=== PATIENT | female | born 1950 | race Caucasian/White ===

== ENCOUNTER → 2020-05-30 10:28 | Outpatient (BNVA) | payer MEDICARE, SELFPAY | PROVIDERS: PCP Internal Medicine Cardiovascular Disease; Referring Provider Internal Medicine Cardiovascular Disease; Visit Provider Nurse Practitioner Family | DX: Z01.810 Encounter for preprocedural cardiovascular examination (principal); I35.0 Nonrheumatic aortic (valve) stenosis; I10 Essential (primary) hypertension; I44.7 Left bundle-branch block, unspecified | CPT/HCPCS: 99214 ==

== ENCOUNTER → 2020-05-31 10:17 | Outpatient (REF) | payer MEDICARE, SELFPAY ==
--- NOTE | 2020-05-31 10:24 | CA_ITS ---
Transthoracic Echocardiogram Patient (Last, First, Middle): Zahra Feliz J Gender: Female Date of : 1950 Age: 70 Procedure Date: 05/31/2020 Procedure Type: Transthoracic Echocardiogram Location: OP Height: 160.02 cm Weight: 74.84 kg BSA: 1.78 m2 Heart Rate: bpm BP: 118 / 60 mmHg Pneumatic Tester Mechanic: Referring MD: Radha De La Garza FILLER SIFTER HELPERHipolito Symptoms: I35.0 NONRHEUMATIC AORTIC STENOSIS Study Quality: Fair ECG Rhythm: Sinus Conclusions: - The left ventricular systolic function is normal. The visually estimated ejection fraction is between 65-70%. - There is moderate aortic valve stenosis. Findings Left Ventricle Normal left ventricular cavity size. There is mildly increased left ventricular wall thickness. The left ventricular systolic function is normal. The visually estimated ejection fraction is between 65-70%. There is no evidence of regional wall motion abnormalities. E/E prime ratio is between 8 and 15 consistent with indeterminate filling pressures. Evidence suggests grade I (mild) diastolic dysfunction. Right Ventricle Normal right ventricular cavity size and systolic function. Atria The left atrium is normal in size. The right atrium is normal in size. Aortic Valve The aortic valve was not well visualized. There is mild calcification of the aortic valve. There is moderate aortic valve stenosis. The peak aortic velocity is 3.07 m/s with a calculated peak gradient of 38 mmHg. The mean gradient is 22 mmHg. The aortic valve area is 1.10 cm2. There is mild aortic valve regurgitation. Mitral Valve There is mild mitral annular calcification. There is trace mitral valve regurgitation. There is no mitral valve stenosis. Pulmonic Valve The pulmonic valve was not well visualized. Tricuspid Valve Normal tricuspid valve structure. There is mild tricuspid valve regurgitation. The pulmonary artery systolic pressure is normal. Great Vessels The aortic annulus, sinuses of valsalva, and asc aorta are normal in size. Venous The inferior vena cava is normal in size and collapses greater than 50% with inspiration. Pericardium/Pleural There is no evidence of pericardial effusion. Prior Study Comparison No significant change compared to prior study dated: 07/26/2019. Measurements 2D Linear Measurements IVSd: 1.29 0.6-0.9/0.6-1.0 cm LVIDd: 3.91 3.9-5.3/4.2-5.9 cm LVIDd Index: 2.20 2.4-3.2/2.2-3.1 cm/m2 LVIDs: 2.44 2.0-3.6 cm LVPWd: 1.20 0.7-1.1 cm Ao Root: 2.90 2.1-3.5 cm LA Diam: 3.80 2.7-3.8/3.0-4.0 cm LAIDs Index: 2.13 1.5-2.3 cm/m2 LV Mass: 210.46 67-162/88-224 g LV Mass Index: 118.24 43-95/49-115 g/m2 LVOT Diam: 2.00 3.0+(-)1.3 cm Mitral Valve MV Pk E: 0.81 MV PK A: 1.14 MV Decel Time: 246.00 E/A: 0.70 E'Lateral: 5.61 E'Medial: 5.42 E/E' Med: 14.90 E/E' Lat: 14.40 PHT: 72.00 MVA PHT: 3.06 Decel Char[place]: 3.29 Aortic Valve AoV Pk Jay: 3.07 AoV Mn Jay: 2.16 AoV VTI: 0.77 AoV Pk Grad: 38.00 Aov Mn Grad: 22.00 JOVITA Cont.VTI: 1.10 LVOT LVOT Pk Jay: 1.12 LVOT Mn Jay: 0.78 LVOT VTI: 0.27 LVOT Pk Grad: 5.00 LVOT Mn Grad: 3.00 LVOT Diam: 2.00 LVOT Area: 3.14 Diastolic Function MV Pk E: 0.81 MV Pk A: 1.14 E/A: 0.70 E'Medial: 5.42 E/E' Med: 14.90 E' Laterial: 5.61 E/E' Lat: 14.40 Tricuspid Valve TR Pk Jay: 1.81 TR Pk Grad: 13.00 RA Press: 3.00 RVSP: 16.00 Great Vessels Aorta Ao Root-2D: 2.90 2.0-3.7 cm Ao Asc: 3.40 2.1-3.4 cm Pulmonary Valve PV Pk Jay: 1.32 Peak PV Grad: 7.00 Updated in Other Vendor System with Status of Final Luciano Villasenor MD electronically signed on 06/01/2020 9:27:46 AM with status of Final
== END ==
LOC: HO.CARD 10:17
PROVIDERS: PCP Internal Medicine; Visit Provider Nurse Practitioner Family
DX: I35.0 Nonrheumatic aortic (valve) stenosis (principal); I10 Essential (primary) hypertension; I44.7 Left bundle-branch block, unspecified; I45.4 Nonspecific intraventricular block
CPT/HCPCS: 93306

== ENCOUNTER 2020-10-01 08:33 | Outpatient (REF) | payer MEDICARE, SELFPAY ==
--- NOTE | ~2020-10-01 | MM_ITS ---
EXAMINATION: BONE DENSITOMETRY CLINICAL INDICATION: Osteoporosis. COMPARISON: Previous BD dated 07/05/2018 and baseline BD dated 03/27/2013. TECHNIQUE: Using a [employer] DXA System (software version: 13.1) manufactured by [employer], dual-energy x-ray absorptiometry was performed of the lumbar spine and left hip. The images are of good technical quality. Summary results are attached. FINDINGS: AP SPINE L1-L4: Current: BMD 1.130 g/cm2, Z-score 0.9, T-score -0.4, normal, 2.8% decrease from previous, 1.4% increase from baseline (<5% change is not significant). Prior: BMD 1.162 g/cm2. Baseline: BMD 1.114 g/cm2. LEFT FEMUR, NECK: Current: BMD 0.938 g/cm2, Z-score 0.7, T-score -0.7, normal. Prior: BMD 0.960 g/cm2. Baseline: BMD 1.002 g/cm2. LEFT FEMUR, TOTAL: Current: BMD 0.963 g/cm2, Z-score 0.9, T-score -0.4, normal, 5.5% decrease from previous, 5.4% decrease from baseline (<5% change is not significant). Prior: BMD 1.019 g/cm2. Baseline: BMD 1.018 g/cm2. IDENTIFIED RISK FACTORS: Early menopause, hysterectomy, secondary osteoporosis. HISTORY OF FRACTURE: None listed. MEDICATIONS: Calcium, Thiazide. MM/XR DEXA axial skeleton IMPRESSION: 1. DIAGNOSIS: Normal bone density based on the lowest T-score value of -0.7 in the femoral neck applying World Health Organization criteria. 2. 10-YEAR FRACTURE RISK PREDICTION, FRAX: Major osteoporotic fracture (clinical spine, forearm, hip or shoulder) 8.0%. Hip fracture 0.7%. 3. Treatment Recommendations: NOF guidelines recommend consideration for treatment in postmenopausal women and men age 50 and older presenting with the following: -A hip or vertebral (clinical or morphometric) fracture. -T-score less than or equal to -2.5 at the femoral neck or spine after appropriate evaluation to exclude secondary causes. -Low bone mass at the hip or spine and a 10-year fracture probability by FRAX of greater than or equal to 3% for hip fracture or greater than or equal to 20% for major osteoporotic fracture based on the [place] adapted WHO algorithm. 4. Other Recommendations: All treatment decisions require clinical judgment and consideration of individual patient factors, including patient preferences, comorbidities, previous drug use, risk factors not captured in the FRAX model (e.g. frailty, falls, vitamin D deficiency, increased bone turnover, interval significant decline in bone density) and possible under or overestimation of fracture risk by FRAX. FUTURE SCAN RECOMMENDATION: People with diagnosed cases of osteoporosis or at high risk for fracture should have regular bone mineral density tests. For patients eligible for Medicare, routine testing is allowed once every 2 years. The testing frequency can be increased to one year for patients who have rapidly progressing disease, those who are receiving or discontinuing medical therapy to restore bone mass, or have additional risk factors.
--- NOTE | ~2020-10-01 | MM_ITS ---
EXAMINATION: MM SCREENING DIGITAL BREAST TOMOSYNTHESIS, BILATERAL CLINICAL INFORMATION: Screening. Asymptomatic. The lifetime risk of breast cancer based on the Tyrer-Cuzick Model is 8%. COMPARISON: Mammography: 04/07/2019, 04/01/2018, 03/10/2017 TECHNIQUE: Digital breast tomosynthesis is performed in both the craniocaudal and mediolateral oblique views along with computer-aided detection (CAD). Synthesized 2D images are generated from the tomosynthesis. FINDINGS: There are scattered areas of fibroglandular density (ACR BI-RADS breast composition Category b). There are no significant masses, abnormal calcifications, or other abnormalities. Parenchymal pattern is similar to prior studies. Scattered bilateral fibroglandular asymmetries are stable. No significant changes. MM/MM tomosynthesis screening BI IMPRESSION: No significant changes from prior exams. ASSESSMENT: BI-RADS 2: Benign RECOMMENDATION: Routine annual mammography screening. This patient's information was entered into a reminder system with a target due date for their next mammogram.
== END 2020-10-01 08:34 | disposition home or self-care (01) ==
LOC: HO.MAMMO 08:33
PROVIDERS: PCP Internal Medicine; Visit Provider Internal Medicine
DX: Z13.820 Encounter for screening for osteoporosis (principal); Z78.0 Asymptomatic menopausal state; Z79.899 Other long term (current) drug therapy; Z90.710 Acquired absence of both cervix and uterus; Z12.31 Encounter for screening mammogram for malignant neoplasm of breast
CPT/HCPCS: 77063; 77067; 77080

== ENCOUNTER → 2020-11-11 09:36 | Outpatient (BNVA) | payer MEDICARE, SELFPAY | PROVIDERS: PCP Internal Medicine; Visit Provider Obstetrics & Gynecology | DX: N90.4 Leukoplakia of vulva (principal) | CPT/HCPCS: 99212 ==

== ENCOUNTER 2021-07-21 10:28 | Outpatient (REF) | payer MEDICARE, SELFPAY ==
[2021-07-21 10:31] LABS: MANUAL DIFF FLAG NO
[2021-07-21 10:56] LABS: Basophils Absolute Auto 0.1 X10*3/uL (0.0-0.2); Basophils Percent Auto 1.6 % (0-2); Eosinophils Absolute Auto 0.3 X10*3/uL (0.0-0.4); Eosinophils Percent Auto 4.4 % (0-4); Hematocrit 39.7 % (37.0-47.0); Hemoglobin 12.9 g/dl (12.0-16.0); Imm Gran Abs Auto 0.02 X10*3/uL (0.00-0.03); Imm Gran Pct Auto 0.4 % (0.0-0.4); Lymphocytes Absolute Auto 2.2 X10*3/uL (1.2-4.9); Mean Corpuscular HGB Conc 32.5 g/dl (31.0-35.0); Mean Corpuscular Hemoglobin 28.8 pg (27.0-33.0); Mean Corpuscular Volume 88.6 fL (80.0-98.0); Mean Platelet Volume 10.4 fL (9.4-12.3); Monocytes Absolute Auto 0.5 X10*3/uL (0.1-1.2); Monocytes Percent Auto 9.6 % (2-11); Neutrophils Absolute Auto 2.5 x10*3/uL (2.0-8.3); Platelet Count 239 X10*3/uL (160-400); Red Blood Count 4.48 X10*6/uL (4.20-5.50); Red Cell Distribution Width 12.9 % (11.0-16.0); White Blood Count 5.6 X10*3/uL (4.8-10.8)
[2021-07-21 10:57] LABS: Appearance Urine CLEAR; Color Urine YELLOW; Glucose Urine UA NEG (NEG); Leukocyte Esterase Urine NEG (NEG); Nitrite Urine NEG (NEG); Urine Blood 1+ (NEG); Urine Ketones NEG (NEG); Urine Protein NEG (NEG-TRACE)
[2021-07-21 11:05] LABS: Estimated Average Glucose 131 mg/dL; Hemoglobin A1c % 6.2 %
[2021-07-21 11:13] LABS: Alanine Aminotransferase 29 U/L (0-31); Albumin Level 4.2 g/dL (3.5-5.0); Alkaline Phosphatase 101 U/L (39-117); Anion Gap 13 (12-20); Aspartate Amino Transferase 18 U/L (5-31); Bilirubin Total 0.4 mg/dL (0.0-1.0); Blood Urea Nitrogen 19 mg/dL (9-16); Calcium 9.4 mg/dL (8.4-10.2); Carbon Dioxide 28 mmol/L (22-29); Chloride 105 mmol/L (96-108); Cholesterol 252 mg/dL; Estimated Glomerular Filt Rate > 60; Glucose Fasting 108 mg/dL (60-99); HDL Cholesterol 43 mg/dL; LDL Cholesterol Calculated 162 mg/dl; Potassium 3.8 mmol/L (3.3-5.1); Sodium 142 mmol/L (135-145); Total Protein 6.7 g/dL (6.5-8.0); Triglycerides 236 mg/dL
[2021-07-21 11:18] LABS: Reflex LDLD? No
[2021-07-21 11:19] LABS: Creatinine Urine 122.51 mg/dL; Microalbum/Creatinine Ratio Ur 9.7 ug/mg cr
[2021-07-21 12:19] LABS: Squamous Epithelial Cell Urine 1+ /LPF; WBC Urine 0-2 /HPF (0-4)
== END 2021-07-21 10:29 | disposition home or self-care (01) ==
LOC: HO.LNP 10:28
PROVIDERS: PCP Internal Medicine; Visit Provider Internal Medicine
DX: Z00.00 Encounter for general adult medical examination without abnormal findings (principal); R73.03 Prediabetes; I10 Essential (primary) hypertension; D72.820 Lymphocytosis (symptomatic); E78.6 Lipoprotein deficiency; E78.00 Pure hypercholesterolemia, unspecified
CPT/HCPCS: 80053; 80061; 81001; 81003; 82043; 83036; 85025

== ENCOUNTER 2021-10-24 07:56 | Outpatient (REF) | payer MEDICARE, OTHER, SELFPAY ==
--- NOTE | ~2021-10-24 | MM_ITS ---
EXAMINATION: MM SCREENING DIGITAL BREAST TOMOSYNTHESIS, BILATERAL CLINICAL INFORMATION: Screening. Asymptomatic. The lifetime risk of breast cancer based on the Tyrer-Cuzick Model is 3.7%. COMPARISON: Mammography: 10/01/2020 and studies dating back to 11/29/2013. TECHNIQUE: Digital breast tomosynthesis is performed in both the craniocaudal and mediolateral oblique views along with computer-aided detection (CAD). Synthesized 2D images are generated from the tomosynthesis. FINDINGS: There are scattered areas of fibroglandular density (ACR BI-RADS breast composition Category b). There is a stable parenchymal pattern of the right breast with no new abnormal dominant mass or suspicious grouping of microcalcifications. Within the anterior aspect of the right breast on mediolateral oblique projection only, there is a region of question architectural distortion superiorly as well as partially circumscribed density inferiorly both approximately 3 cm from the nipple with the inferior density measuring approximately 1 cm in diameter. MM/MM tomosynthesis screening BI IMPRESSION: Left breast findings for further evaluation with spot compression view and possible ultrasound. ASSESSMENT: BI-RADS 0: Incomplete - Need Additional Imaging Evaluation RECOMMENDATION: 1. Additional views of the left. 2. Targeted ultrasound if warranted after review of the additional views. 3. Radiology department staff will contact the patient for additional imaging. This patient's information was entered into a reminder system with a target due date for their next mammogram.
== END 2021-10-24 07:57 | disposition home or self-care (01) ==
LOC: HO.MAMMO 07:56
PROVIDERS: PCP Internal Medicine; Visit Provider Internal Medicine
DX: Z12.31 Encounter for screening mammogram for malignant neoplasm of breast (principal)
CPT/HCPCS: 77063; 77067

== ENCOUNTER 2021-11-07 08:24 | Outpatient (REF) | payer MEDICARE, OTHER, SELFPAY ==
--- NOTE | ~2021-11-07 | US_ITS ---
EXAMINATION: US DIAGNOSTIC ULTRASOUND BREAST, LEFT CLINICAL INFORMATION: Densities medially and laterally.. COMPARISON: Mammography of same day as well as studies dating back to November 29, 2013. TECHNIQUE: Ultrasound of the breast is performed with real-time lowry scale imaging and color Doppler. FINDINGS: Left breast ultrasound demonstrates at the 6:00 position approximately 4 cm from the nipple a skin lesion with the appearance of sebaceous cyst. At the 9:00 position there is a heterogeneous and hypoechoic poorly circumscribed lesion approximately 3 cm from the nipple. There appears to be some mild distal sound enhancement with what appears to be some edge effect shadowing. No internal vascularity is present. The lesion measures approximately 9 x 7 x 7 mm in size. This may represent a complex cyst however with a somewhat irregular margin a partially solid lesion is not excluded and ultrasound-guided core biopsy is recommended. At the 3:00 position approximately 3 cm from nipple there is a hypoechoic lesion present however this appears to represent confluence of ducts. Six-month follow-up of this finding is recommended. Results are discussed with the patient at time of visit. Mammography Center patient navigator called the above recommendation to referring provider's office. US/US breast LT limited IMPRESSION: Left breast lesion 9:00 position 3 cm from nipple for which ultrasound-guided core biopsy is recommended. Left breast lesion 3:00 position with the appearance of probable ducts for which 6 month follow-up ultrasound is recommended. ASSESSMENT: BI-RADS 4: Suspicious RECOMMENDATION: Ultrasound-guided core biopsy left breast 9 o'clock position.
--- NOTE | ~2021-11-07 | MM_ITS ---
EXAMINATION: MM DIAGNOSTIC DIGITAL BREAST TOMOSYNTHESIS, LEFT US BREAST, TARGETED, LEFT CLINICAL INFORMATION: Densities about the anterior medial and lateral aspects of the left breast. COMPARISON: Mammography: 10/24/2021 and studies dating back to 11/29/2013. TECHNIQUE: Digital breast tomosynthesis is performed. 2D images are generated from the tomosynthesis. The following views are obtained: Rolled craniocaudal views, 90 degree mediolateral view, and spot compression view in mediolateral oblique projection. ULTRASOUND: FINDINGS: There are scattered areas of fibroglandular density (ACR BI-RADS breast composition Category b). Additional views demonstrate persistence of left breast densities with the medial density compression out to some degree making the two overlying densities appear similar in size to prior studies. This measures approximately 10 x 8 mm in size. The more anterior and lateral density persists with no definite previous correlate. This measures approximately 9 x 5 mm in size. Left breast ultrasound demonstrates at the 6 o'clock position approximately 4 cm from the nipple a skin lesion with the appearance of sebaceous cyst. At the 9 o'clock position there is a heterogeneous and hypoechoic poorly circumscribed lesion approximately 3 cm from the nipple. There appears to be some mild distal sound enhancement with what appears to be some edge effect shadowing. No internal vascularity is present. The lesion measures approximately 9 x 7 x 7 mm in size. This may represent a complex cyst however with a somewhat irregular margin a partially solid lesion is not excluded and ultrasound-guided core biopsy is recommended. At the 3 o'clock position approximately 3 cm from nipple there is a hypoechoic lesion present however this appears to represent confluence of ducts. Six-month follow-up of this finding is recommended. Results are discussed with the patient at time of visit. Mammography Center patient navigator called the above recommendation to referring provider's office. MM/MM tomosynthesis added views L IMPRESSION: Left breast lesion 9 o'clock position 3 cm from nipple for which ultrasound-guided core biopsy is recommended. Left breast lesion 3 o'clock position with the appearance of probable ducts for which 6 month follow-up ultrasound is recommended. ASSESSMENT: BI-RADS 4: Suspicious RECOMMENDATION: Ultrasound-guided core biopsy left breast 9 o'clock position. This patient's information was entered into a reminder system with a target due date for their next mammogram.
== END 2021-11-07 08:25 | disposition home or self-care (01) ==
LOC: HO.MAMMO 08:24
PROVIDERS: Visit Provider Internal Medicine
DX: N63.25 Unspecified lump in the left breast, overlapping quadrants (principal)
CPT/HCPCS: 76642; 77061; 77065

== ENCOUNTER 2021-11-13 09:13 | Outpatient (REF) | payer MEDICARE, OTHER, SELFPAY ==
--- NOTE | ~2021-11-13 | MM_ITS ---
EXAMINATION: ULTRASOUND GUIDED CORE BIOPSY BREAST, LEFT POST PROCEDURE DIGITAL MAMMOGRAM, LEFT CLINICAL INFORMATION: Complicated cyst, possibly apocrine metaplasia 9:00 anterior left breast for tissue sampling. COMPARISON: Mammography 10/24/2021, 11/07/2021, targeted left breast ultrasound 11/07/2021. FINDINGS: Proper informed consent is obtained from the patient after discussion of the procedure, potential risks and complications, and alternatives. Patient was given an opportunity for questions. The patient appeared to understand. The patient consented to the procedure and signed the consent form. GUIDANCE: Ultrasound-guided; aseptic technique. LESION: Probable complicated cyst 0.9 cm anterior 9:00 left breast. APPROACH: Medial lateral. ANESTHESIA: 10 mL carbonated 1% lidocaine. DERMATOTOMY: Single skin lefty dermatotomy performed. NEEDLE: 14-gauge Achieve core biopsy device with 13.5-gauge co-axial guide needle. CORES: 5. The lesion is soft and decreases in size with sampling. CLIP: HydroMARK; shape: butterfly. The lesion is difficult to visualize post sampling, clip positioning the vicinity of biopsy site. POST PROCEDURE UNILATERAL DIGITAL MAMMOGRAM: The post biopsy mammogram is performed in separate room using separate digital mammography equipment from the biopsy procedure. CC and ML views are obtained.There are scattered areas of fibroglandular density (breast composition category: b). The clip marker is in expected vicinity of prior mammographic finding. No gross hematoma. The patient tolerated the procedure well. No immediate complications. Home instructions reviewed with the patient. Final pathology results are pending. MM/MM diagnostic mammo unilat LT IMPRESSION: 1. Status post ultrasound-guided core biopsy left breast. 2. Clip placed: HydroMARK; shape: butterfly. 3. Pathology pending. An addendum report will be issued.
[2021-11-13] MEDS: Sodium Bicarbonate 8.4% 50 MEQ/50 ML VIAL SUBCUT (11:11)
[2021-11-13] MEDS: Lidocaine HCl 1 % 20 ML VIAL 10 ML SUBCUT (11:12)
== END 2021-11-13 09:14 | disposition home or self-care (01) ==
LOC: HO.MAMMO 09:13
PROVIDERS: PCP Internal Medicine; Visit Provider Surgery
DX: N63.25 Unspecified lump in the left breast, overlapping quadrants (principal)
CPT/HCPCS: 19083; 77062; 77065; 88305; 99202

== ENCOUNTER → 2021-11-19 11:09 | Outpatient (BNVA) | payer MEDICARE, OTHER, SELFPAY | PROVIDERS: PCP Internal Medicine; Referring Provider Internal Medicine; Visit Provider Surgery | DX: N63.20 Unspecified lump in the left breast, unspecified quadrant (principal) | CPT/HCPCS: 99212 ==

== ENCOUNTER 2022-07-21 11:38 | Outpatient (REF) | payer MEDICARE, OTHER, SELFPAY ==
[2022-07-21 11:41] LABS: MANUAL DIFF FLAG NO
[2022-07-21 12:21] LABS: Appearance Urine Clear; Color Urine Yellow; Glucose Urine UA Negative (Negative); Leukocyte Esterase Urine Negative (Negative); Nitrite Urine Negative (Negative); PH 6.5 (5.0-9.0); Specific Gravity - Urine 1.015 (1.005-1.025); UMIC TRIGGER UA YES; Urine Blood Small (1+) (Negative); Urine Ketones Negative (Negative); Urine Protein Negative (Neg-Trace)
[2022-07-21 12:24] LABS: Bacteria Urine None Seen (None Seen); Hyaline Casts Urine 0-2 /LPF (0-2); Squamous Epithelial Cell Urine 0-2 /HPF (0-2); WBC Urine 0-5 /HPF (0-5)
[2022-07-21 12:29] LABS: Basophils Absolute Auto 0.1 X10*3/uL (0.0-0.2); Basophils Percent Auto 1.3 % (0-2); Eosinophils Absolute Auto 0.4 X10*3/uL (0.0-0.4); Eosinophils Percent Auto 5.6 % (0-4); Hematocrit 38.1 % (37.0-47.0); Imm Gran Abs Auto 0.02 X10*3/uL (0.00-0.03); Imm Gran Pct Auto 0.3 % (0.0-0.4); Lymphocytes Absolute Auto 2.3 X10*3/uL (1.2-4.9); Lymphocytes Percent Auto 36.9 % (20-40); Mean Corpuscular HGB Conc 31.5 g/dl (31.0-35.0); Mean Corpuscular Hemoglobin 27.1 pg (27.0-33.0); Monocytes Absolute Auto 0.6 X10*3/uL (0.1-1.2); Monocytes Percent Auto 8.9 % (2-11); Neutrophils Absolute Auto 2.9 x10*3/uL (2.0-8.3); Platelet Count 260 X10*3/uL (160-400); Red Blood Count 4.43 X10*6/uL (4.20-5.50); Red Cell Distribution Width 13.2 % (11.0-16.0); White Blood Count 6.2 X10*3/uL (4.8-10.8)
[2022-07-21 12:46] LABS: Estimated Average Glucose 123 mg/dL; Hemoglobin A1c % 5.9 %
[2022-07-21 12:51] LABS: Microalbum/Creatinine Ratio Ur 9.4 ug/mg cr
[2022-07-21 13:05] LABS: Alanine Aminotransferase 18 U/L (0-31); Albumin Level 4.2 g/dL (3.5-5.0); Anion Gap 12 (12-20); Aspartate Amino Transferase 16 U/L (5-31); Bilirubin Total 0.2 mg/dL (0.0-1.0); Blood Urea Nitrogen 20 mg/dL (9-16); Calcium 9.3 mg/dL (8.4-10.2); Carbon Dioxide 30 mmol/L (22-29); Chloride 105 mmol/L (96-108); Cholesterol 254 mg/dL; Estimated Glomerular Filt Rate > 60; Glucose Fasting 114 mg/dL (60-99); Potassium 3.9 mmol/L (3.3-5.1); Sodium 143 mmol/L (135-145); Total Protein 6.7 g/dL (6.5-8.0); Triglycerides 168 mg/dL
[2022-07-21 13:28] LABS: Alkaline Phosphatase 111 U/L (39-117); HDL Cholesterol 47 mg/dL; LDL Cholesterol Calculated 174 mg/dl
== END 2022-07-21 11:39 | disposition home or self-care (01) ==
LOC: HO.LNP 11:38
PROVIDERS: Visit Provider Internal Medicine
DX: Z00.00 Encounter for general adult medical examination without abnormal findings (principal); R73.09 Other abnormal glucose; I10 Essential (primary) hypertension; D72.820 Lymphocytosis (symptomatic); E78.00 Pure hypercholesterolemia, unspecified
CPT/HCPCS: 80053; 80061; 81001; 82043; 83036; 85025

== ENCOUNTER → 2022-08-06 09:16 | Outpatient (REF) | payer MEDICARE, OTHER, SELFPAY ==
--- NOTE | 2022-08-06 09:19 | CA_ITS ---
Transthoracic Echocardiogram Patient (Last, First, Middle): Zahra Feliz J Gender: Female Date of : 1950 Age: 72 Procedure Date: 08/06/2022 Procedure Type: Transthoracic Echocardiogram Location: OP Height: 160.02 cm Weight: 72.58 kg BSA: 1.76 m2 Heart Rate: bpm BP: 135 / 74 mmHg Director Women: TO Referring MD: Robin Barnett MD Fiberglass Insulation Installer: Laz Sawyer MD Symptoms: I35.0 MODERATE Study Quality: Fair ECG Rhythm: Sinus Conclusions: - 1. Normal LV systolic function with impaired relaxation filling pattern elevated filling pressures 2. Moderate to severe aortic stenosis 3. Normal RV systolic pressure 4. No gross pericardial effusion Findings Left Ventricle Normal left ventricular size, thickness, and systolic function. The visually estimated ejection fraction is between 60-65%. Spectral Doppler is indicative of an impaired relaxation filling pattern. Elevated filling pressures. Wall Motion Rest Echo Findings The basal inferior and basal inferoseptal segments are hypokinetic. All other scored wall segments showed normal motion. Right Ventricle Normal right ventricular cavity size and systolic function. Atria Both atria are normal in size. There is lipomatous hypertrophy of the interatrial septum. There is no evidence of interatrial shunt. Aortic Valve There is moderate calcification of the aortic valve. There is moderate to severe aortic valve stenosis. The mean gradient is 34 mmHg. The aortic valve area is 0.75 cm2. There is mild aortic valve regurgitation. Dimensionless index is at 0.29 with calculated valve area 0.75, description findings most consistent with moderately severe aortic stenosis. Clinical correlation suggested. Mitral Valve There is mild anterior and posterior mitral leaflet thickening. There is trace mitral valve regurgitation. There is no mitral valve stenosis. Pulmonic Valve The pulmonic valve is likely normal. There is trace pulmonic valve regurgitation. Tricuspid Valve Normal tricuspid valve structure. There is trace tricuspid valve regurgitation. The right ventricular systolic pressure is normal. Normal right atrial pressure. There is no evidence of pulmonary hypertension. Great Vessels All visible segments of the aorta are normal in size. The pulmonary artery was not well visualized. Venous The inferior vena cava is normal in size and collapses greater than 50% with inspiration. Pericardium/Pleural There is no evidence of pericardial effusion. Prior Study Comparison Changes noted compared to prior study dated: 05/31/2020. Aortic stenosis is, moderately severe Measurements 2D Linear Measurements IVSd: 1.23 0.6-0.9/0.6-1.0 cm LVIDd: 3.69 3.9-5.3/4.2-5.9 cm LVIDd Index: 2.10 2.4-3.2/2.2-3.1 cm/m2 LVIDs: 2.24 2.0-3.6 cm LVPWd: 1.04 0.7-1.1 cm LA Diam: 3.90 2.7-3.8/3.0-4.0 cm LAIDs Index: 2.22 1.5-2.3 cm/m2 LV Mass: 167.92 67-162/88-224 g LV Mass Index: 95.41 43-95/49-115 g/m2 LVOT Diam: 1.80 3.0+(-)1.3 cm 2D Systolic Function EF 4C: 58.60 >55% EF 2C: 65.90 >55% EF BiP: 62.40 >55% Mitral Valve MV Pk E: 0.73 MV PK A: 0.80 MV Decel Time: 263.00 E/A: 0.90 E'Lateral: 5.11 E'Medial: 4.68 E/E' Med: 15.60 E/E' Lat: 14.20 PHT: 77.00 MVA PHT: 2.86 Decel Rice: 2.77 Aortic Valve AoV Pk Jay: 3.77 AoV Mn Jay: 2.78 AoV VTI: 1.02 AoV Pk Grad: 57.00 Aov Mn Grad: 34.00 JOVITA Cont.VTI: 0.75 LVOT LVOT Pk Jay: 1.11 LVOT Mn Jay: 0.78 LVOT VTI: 0.30 LVOT Pk Grad: 5.00 LVOT Mn Grad: 3.00 LVOT Diam: 1.80 LVOT Area: 2.54 Diastolic Function MV Pk E: 0.73 MV Pk A: 0.80 E/A: 0.90 E'Medial: 4.68 E/E' Med: 15.60 E' Laterial: 5.11 E/E' Lat: 14.20 Right Ventricle TAPSE (mm): 28.50 TVS' Jay: 12.60 Tricuspid Valve TR Pk Jay: 1.85 TR Pk Grad: 14.00 RA Press: 3.00 RVSP: 17.00 Great Vessels Aorta Sinus of Valsalva: 2.81 2.0-3.5 cm Ao Asc: 3.10 2.1-3.4 cm Updated in Other Vendor System with Status of Final Laz Sawyer MD electronically signed on 08/07/2022 3:59:22 PM with status of Final
== END ==
LOC: HO.CARD 09:16
PROVIDERS: PCP Internal Medicine; Visit Provider Internal Medicine
DX: I35.0 Nonrheumatic aortic (valve) stenosis (principal)
CPT/HCPCS: 93306

== ENCOUNTER → 2022-09-15 09:42 | Outpatient (BNVA) | payer MEDICARE, OTHER, SELFPAY | PROVIDERS: PCP Internal Medicine; Visit Provider Physician Assistant | DX: K21.9 Gastro-esophageal reflux disease without esophagitis (principal); R09.89 Other specified symptoms and signs involving the circulatory and respiratory systems; I35.0 Nonrheumatic aortic (valve) stenosis | CPT/HCPCS: 99202 ==

== ENCOUNTER 2022-09-22 08:46 | Outpatient (REF) | payer MEDICARE, OTHER, SELFPAY ==
--- NOTE | ~2022-09-22 | FL_ITS ---
EXAMINATION: FL BARIUM SWALLOW CLINICAL INFORMATION: Feeling of something stuck in throat COMPARISON: None TECHNIQUE: Barium swallow examination is performed using fluoroscopic evaluation in addition to multiple fluoroscopic spot views. The patient is imaged both upright and prone and using both thick and thin sulfate along with effervescent granules. Barium tablet was also administered. Fluoroscopy time: 0.6 minutes DAP: 3 Gycm2 Images: 55 FINDINGS: There is transient laryngeal penetration. No he aspiration seen. There are postsurgical changes to the cervical spine. Esophageal motility is normal. There is severe gastroesophageal reflux. There is mucosal irregularity of the distal thoracic esophagus just above the GE junction. Endoscopic correlation recommended. No mass or stricture is appreciated. There is temporary stasis of the barium tablet at the GE junction. FL/FL barium swallow IMPRESSION: Significant gastroesophageal reflux. Small sliding-type hiatal hernia. Mucosal irregularity of the distal thoracic esophagus just above the GE junction. Endoscopic correlation recommended.
== END 2022-09-22 08:47 | disposition home or self-care (01) ==
LOC: HO.XRAY 08:46
PROVIDERS: PCP Internal Medicine; Visit Provider Physician Assistant
DX: K21.9 Gastro-esophageal reflux disease without esophagitis (principal); R09.89 Other specified symptoms and signs involving the circulatory and respiratory systems; I35.0 Nonrheumatic aortic (valve) stenosis
CPT/HCPCS: 74220

== ENCOUNTER 2022-09-28 08:42 | Outpatient (REF) | payer MEDICARE, OTHER, SELFPAY ==
--- NOTE | ~2022-09-28 | MM_ITS ---
EXAMINATION: MM DIAGNOSTIC DIGITAL BREAST TOMOSYNTHESIS, BILATERAL CLINICAL INFORMATION: Due for yearly. Also follow-up probable benign parenchymal asymmetry anterior upper outer left breast. Prior history benign biopsy anterior medial left breast (intraductal papillomatosis and focal PASH). The lifetime risk of breast cancer based on the Tyrer-Cuzick Model is 3%. COMPARISON: Mammography: 4 and 22, 11/07/2021, 10/24/2021, 10/01/2020, 04/07/2019, 04/05/2018 TECHNIQUE: Digital breast tomosynthesis is performed in both the craniocaudal and mediolateral oblique views along with computer-aided detection (CAD). Synthesized 2D images are generated from the tomosynthesis. FINDINGS: There are scattered areas of fibroglandular density (ACR BI-RADS breast composition Category b). There are no significant masses, abnormal calcifications, or other abnormalities. There are scattered shifting fibroglandular parenchymal densities related to variation in positioning. No developing density or significant changes. Biopsy clip marker is again noted anterior medial left breast. The axilla are unremarkable. No significant changes from prior exams. Results are provided to the patient at time of visit by the technologist. MM/MM tomosynthesis diagnostic BI IMPRESSION: No significant changes from prior studies. ASSESSMENT: BI-RADS 2: Benign RECOMMENDATION: Routine annual mammography screening. This patient's information was entered into a reminder system with a target due date for their next mammogram.
== END 2022-09-28 08:43 | disposition home or self-care (01) ==
LOC: HO.MAMMO 08:42
PROVIDERS: PCP Internal Medicine; Visit Provider Surgery
DX: N63.21 Unspecified lump in the left breast, upper outer quadrant (principal)
CPT/HCPCS: 77062; 77066

== ENCOUNTER 2022-10-15 10:40 | Outpatient (REF) | payer MEDICARE, OTHER, SELFPAY ==
[2022-10-19 17:44] LABS: NT-proBNP 72 pg/mL
== END 2022-10-15 10:41 | disposition home or self-care (01) ==
LOC: HO.LAB 10:40
PROVIDERS: PCP Internal Medicine; Referring Provider Internal Medicine; Visit Provider Internal Medicine Cardiovascular Disease
DX: I35.0 Nonrheumatic aortic (valve) stenosis (principal)
CPT/HCPCS: 36415; 83880; 93005; 99212

== ENCOUNTER → 2022-10-16 10:19 | Outpatient (REF) | payer MEDICARE, OTHER, SELFPAY ==
--- NOTE | 2022-10-16 10:22 | CA_ITS ---
Acquisition Time: 2022-10-16 10:45:17 Total Exercise Time: 00:05:03 Test Indications: LBBB Medications: SEE H Protocol: ANNETTE Max HR: 141 BPM 95% of Pred: 148 BPM Max BP: 170/068 mmHG Max Work Load: 7.0 METS Exercise stress test with 5 min 3 sec of Annette protocol achieving 95% MPHR with moderate SOB, no chest discomfort or lightheadedness, with few junctional beats at baseline, with two ventricular cuplets in early recovery, with BP 148/68 in stage 1 and 138/68 in stage 2, trhen up to 170/68 in recovery at 3 mins with non-diagnostuic changes for ischema. In recovery her breathing quickly improved and BP 122/62 at test end. Test reviewed with Dr. Villasenor. Referred By: Salvatore Brady Overread By: BRICE NÚÑEZ
== END ==
LOC: HO.CARD 10:19
PROVIDERS: PCP Internal Medicine; Visit Provider Internal Medicine Cardiovascular Disease
DX: I35.0 Nonrheumatic aortic (valve) stenosis (principal)
CPT/HCPCS: 93017

== ENCOUNTER 2022-11-06 10:51 | Outpatient (REF) | payer MEDICARE, OTHER, SELFPAY ==
[2022-11-06 11:12] LABS: MANUAL DIFF FLAG NO
[2022-11-06 12:10] LABS: Basophils Absolute Auto 0.1 X10*3/uL (0.0-0.2); Basophils Percent Auto 1.4 % (0-2); Eosinophils Absolute Auto 0.2 X10*3/uL (0.0-0.4); Eosinophils Percent Auto 3.3 % (0-4); Hematocrit 36.6 % (37.0-47.0); Hemoglobin 11.8 g/dl (12.0-16.0); Imm Gran Abs Auto 0.02 X10*3/uL (0.00-0.03); Imm Gran Pct Auto 0.4 % (0.0-0.4); Lymphocytes Absolute Auto 1.7 X10*3/uL (1.2-4.9); Mean Corpuscular HGB Conc 32.2 g/dl (31.0-35.0); Mean Corpuscular Hemoglobin 27.5 pg (27.0-33.0); Mean Corpuscular Volume 85.3 fL (80.0-98.0); Monocytes Absolute Auto 0.4 X10*3/uL (0.1-1.2); Monocytes Percent Auto 7.4 % (2-11); Neutrophils Absolute Auto 2.8 x10*3/uL (2.0-8.3); Neutrophils Percent Auto 54.5 % (45-73); Platelet Count 269 X10*3/uL (160-400); Red Blood Count 4.29 X10*6/uL (4.20-5.50); White Blood Count 5.1 X10*3/uL (4.8-10.8)
[2022-11-06 12:13] LABS: INTERNATIONAL NORM RATIO 0.9 (0.9-1.1); Prothrombin Time 10.8 SEC (10.0-13.1)
[2022-11-06 13:14] LABS: Anion Gap 13 (12-20); Blood Urea Nitrogen 20 mg/dL (9-16); Calcium 9.1 mg/dL (8.4-10.2); Carbon Dioxide 27 mmol/L (22-29); Chloride 104 mmol/L (96-108); Estimated Glomerular Filt Rate > 60; Glucose Random 121 mg/dL (60-115); Potassium 4.3 mmol/L (3.3-5.1); Sodium 140 mmol/L (135-145)
== END 2022-11-06 10:52 | disposition home or self-care (01) ==
LOC: HO.LAB 10:51
PROVIDERS: Visit Provider Internal Medicine Cardiovascular Disease
DX: Z01.812 Encounter for preprocedural laboratory examination (principal)
CPT/HCPCS: 36415; 80048; 85025; 85610

== ENCOUNTER → 2022-12-02 14:41 | Outpatient (BNVA) | payer MEDICARE, OTHER, SELFPAY | PROVIDERS: PCP Internal Medicine; Referring Provider Internal Medicine; Visit Provider Internal Medicine Cardiovascular Disease | DX: I35.0 Nonrheumatic aortic (valve) stenosis (principal); I44.7 Left bundle-branch block, unspecified | CPT/HCPCS: 99212 ==

== ENCOUNTER → 2023-03-12 10:48 | Outpatient (REF) | payer MEDICARE, OTHER, SELFPAY ==
--- NOTE | 2023-03-12 10:51 | CA_ITS ---
Transthoracic Echocardiogram Patient (Last, First, Middle): Zahra Feliz J Gender: Female Date of : 1950 Age: 72 Procedure Date: 03/12/2023 Procedure Type: Transthoracic Echocardiogram Location: OP Height: 160.02 cm Weight: 74.84 kg BSA: 1.78 m2 Heart Rate: 67 bpm BP: 148 / 64 mmHg Vertical Punch Operator: SB Referring MD: Mejia Leonard MD Symptoms: S/P TRANSAORTIC VALVE REPLACEMENT Study Quality: Adequate ECG Rhythm: Sinus Conclusions: - The left ventricular systolic function is normal. The visually estimated ejection fraction is between 60-65%. - A bioprosthetic aortic valve is present. The prosthetic aortic valve appears to be functioning normally. Findings Left Ventricle Normal left ventricular cavity size. The left ventricular systolic function is normal. The visually estimated ejection fraction is between 60-65%. There is no evidence of regional wall motion abnormalities. Evidence suggests grade I (mild) diastolic dysfunction. There is mild septal asymmetric hypertrophy. Right Ventricle Normal right ventricular cavity size and systolic function. Atria Both atria are normal in size. Aortic Valve A bioprosthetic aortic valve is present. The prosthetic aortic valve appears to be functioning normally. There is no aortic valve regurgitation. Mitral Valve The mitral valve appears normal. There is no mitral valve regurgitation. There is no mitral valve stenosis. Pulmonic Valve The pulmonic valve is likely normal. Tricuspid Valve There is mild tricuspid valve regurgitation. Tricuspid regurgitation envelope is inadequate for calculation of right ventricular systolic pressure. There is no evidence of pulmonary hypertension. Great Vessels The asc aorta is normal in size. Venous The inferior vena cava is normal in size and collapses greater than 50% with inspiration. Pericardium/Pleural There is no evidence of pericardial effusion. Prior Study Comparison Changes noted compared to prior study dated: 08/06/2022. s/p TAVR. Measurements 2D Linear Measurements IVSd: 1.20 0.6-0.9/0.6-1.0 cm LVIDd: 3.93 3.9-5.3/4.2-5.9 cm LVIDd Index: 2.21 2.4-3.2/2.2-3.1 cm/m2 LVIDs: 2.41 2.0-3.6 cm LVPWd: 1.00 0.7-1.1 cm LA Diam: 3.80 2.7-3.8/3.0-4.0 cm LAIDs Index: 2.13 1.5-2.3 cm/m2 LV Mass: 230.47 67-162/88-224 g LV Mass Index: 129.48 43-95/49-115 g/m2 LVOT Diam: 2.10 3.0+(-)1.3 cm 2D Systolic Function EF 2C: 62.20 >55% Mitral Valve MV Pk E: 0.95 MV PK A: 1.18 MV Decel Time: 256.00 E/A: 0.80 E'Lateral: 4.35 E'Medial: 4.79 E/E' Med: 19.90 E/E' Lat: 21.90 PHT: 75.00 MVA PHT: 2.93 Decel [place]: 3.72 Aortic Valve AoV Pk Jay: 2.57 AoV Mn Jay: 1.82 AoV VTI: 0.53 AoV Pk Grad: 26.00 Aov Mn Grad: 15.00 JOVITA Cont.VTI: 1.66 LVOT LVOT Pk Jay: 1.18 LVOT Mn Jay: 0.84 LVOT VTI: 0.25 LVOT Pk Grad: 6.00 LVOT Mn Grad: 3.00 LVOT Diam: 2.10 LVOT Area: 3.46 Diastolic Function MV Pk E: 0.95 MV Pk A: 1.18 E/A: 0.80 E'Medial: 4.79 E/E' Med: 19.90 E' Laterial: 4.35 E/E' Lat: 21.90 Right Ventricle TAPSE (mm): 22.10 TVS' Jay: 11.80 Tricuspid Valve RA Press: 3.00 Great Vessels Aorta Ao Asc: 3.00 2.1-3.4 cm Pulmonary Valve PV Pk Jay: 1.61 Peak PV Grad: 10.00 Updated in Other Vendor System with Status of Final Luciano Villasenor MD electronically signed on 03/14/2023 11:14:29 AM with status of Final
== END ==
LOC: HO.CARD 10:48
PROVIDERS: PCP Internal Medicine; Visit Provider Internal Medicine Cardiovascular Disease
DX: Z95.2 Presence of prosthetic heart valve (principal)
CPT/HCPCS: 93306

== ENCOUNTER → 2023-03-12 10:51 | Outpatient (BNV) | payer MEDICARE, OTHER, SELFPAY | PROVIDERS: PCP Internal Medicine; Visit Provider Internal Medicine | DX: I36.1 Nonrheumatic tricuspid (valve) insufficiency (principal); Z95.2 Presence of prosthetic heart valve | CPT/HCPCS: 93306 ==

== ENCOUNTER 2023-03-31 09:47 | Outpatient (AMB) | payer MEDICARE, OTHER, SELFPAY ==
--- NOTE | 2023-03-31 09:55 | A.OFFVIS_ITS ---
Intake Vital Signs 03/31/23 09:56 Height 5 ft 2 in Weight 173 lb 4.533 oz BMI 31.7 BP 122/68 Blood Pressure Location Lt brachial Pulse 63 Pulse Source Pulse Oximeter Intake Visit Reasons: 4 mth f/up Intake Note: 4 month follow up after TAVR. Jewel Bearing Facer Required: No Accompanied by: Self / Same As Patient Allergies adhesive tape [ADHESIVE TAPE] Allergy (Intermediate, Verified 03/31/23 09:56) RASH/BLISTERS vancomycin [VANCOMYCIN] Allergy (Intermediate, Verified 03/31/23 09:56) HIVES Adhesive Bandages Allergy (Unknown, Uncoded 03/31/23 09:56) rash, redness Medication List - Last Reconciled 03/31/23 by Salvatore Brady MD amlodipine 5 mg PO DAILY ascorbate calcium (vitamin C) 500 mg PO DAILY aspirin (Adult Aspirin Regimen) 81 mg PO DAILY clopidogrel 75 mg PO DAILY lisinopril-hydrochlorothiazide 20-12.5 mg 1 tab PO DAILY magnesium oxide 400 mg PO DAILY omeprazole 40 mg (2 x 20 mg) PO DAILY 30 days oxybutynin chloride 5 mg PO BID HPI HPI Comments History of Present Illness Details 72-year-old female with severe aortic valve stenosis here for follow- up. She underwent cardiac catheterization which did not show any significant coronary disease. She had severe aortic stenosis by and risk assessment she has been referred to the TAVR team but has not been seen at [facility]. She is saying she gets short of breath when she is exerting herself. She is denying any chest discomfort syncope. No other concerns currently. 03/31/2023: She returns for follow-up. She is status post transcatheter aortic valve replacement with number 23 mm S3 bioprosthetic valve. She had echocardiography which showed a normally functioning bioprosthetic valve. She is saying after valve replacement she has not felt significantly different. To some extent her shortness of breath is little better but she still gets out of breath with activities patchy when she is going up stairs. Blood pressure control is good. She needs endoscopy. She is getting some left-sided pressure- like discomfort which happens randomly specially when she is laying down. She has a hiatal hernia. [facility] Medical History Aortic stenosis HTN (hypertension) LBBB (left bundle branch block) Left breast mass Lichen sclerosus of vulva Rate-related bundle branch block Surgical History (Updated 03/31/23 @ 10:18 by Salvatore Brady MD) H/O colonoscopy H/O right breast biopsy H/O: hysterectomy History of total right knee replacement Hx of carpal tunnel repair Hx of cataract Hx of rotator cuff surgery S/P TAVR (transcatheter aortic valve replacement) Family History Father Heart attack Mother Bundle branch block, unspecified HTN (hypertension) Maternal Grandmother Gastric cancer Sister Brain tumor Maternal Aunt Cancer Social History Household Members Other:: 55 yrs- 3 sons Alcohol intake: never Patient Tobacco Use Status: Former Tobacco user Quit Date: 1997 Years Smoked: 30 +/- 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 Gender identity: Female Female Reproductive History Menstrual Age of Menarche: 13 Review of Systems Const Denies weakness ENT Denies dizziness Card Denies chest pain, Denies chest pain with activity, Denies syncope, Denies rapid heart rate, Denies pedal edema, Denies edema, Denies leg edema, Denies lightheadedness, Denies palpitations, Denies dyspnea, Denies dyspnea on exertion and Denies orthopnea Resp Denies cough, Denies dyspnea and Denies dyspnea on exertion GI Denies hematochezia and Denies change in stool character Musc Denies abnormal gait, Denies muscle cramps, Denies muscle weakness, Denies numbness, Denies radiating pain into limb and Denies tingling Neuro Denies abnormal gait, Denies dizziness, Denies syncope, Denies numbness, Denies tingling and Denies weakness Endo Denies palpitations Physical Exam Vital Signs: Last Vital Signs Pulse 63 03/31/23 09:56 BP 122/68 03/31/23 09:56 BMI result Body Mass Index 31.7 GENERAL APPEARANCE: in no acute distress, pleasant. NECK: no carotid bruit, no jugular venous distention. SKIN: no suspicious lesions, warm and dry. HEART: Ejection systolic murmur aortic area with preserved 2nd heart sound. Regular rate rhythm. LUNGS: clear to auscultation bilaterally. ABDOMEN: soft, nontender. EXTREMITIES: no edema. PERIPHERAL PULSES: equal. NEUROLOGIC: No gross deficits, AAO X 3 Assessment & Plan Assessment & Plan (1) HTN (hypertension): Code(s): I10 - Essential (primary) hypertension (2) LBBB (left bundle branch block): Code(s): I44.7 - Left bundle-branch block, unspecified (3) S/P TAVR (transcatheter aortic valve replacement): Code(s): Z95.2 - Presence of prosthetic heart valve Plan 72-year-old female who is here for follow-up. She is now status post transcatheter aortic valve replacement. She has been doing well. She has mild improvement in her dyspnea. Blood pressure control is good. She has chronic left bundle-branch block. Bioprosthetic valve is functioning fine. She has systolic murmur which is not unusual as the valve is normal with small further body as it is deployed within the osage aortic valve. No paravalvular leak is noticed. She is intermediate risk for perioperative complications. Thank you for allowing me to participate in the care of your patient. Please feel free to contact me if you have any questions. Coding Level of Care Code Est Pt Level 4 (95784) Diagnoses HTN (hypertension) I10 LBBB (left bundle branch block) I44.7 S/P TAVR (transcatheter aortic valve replacement) Z95.2
[2023-03-31 09:56] VITALS: BP 122/68; PULSE 63; BMI 31.7
== END 2023-03-31 10:20 | disposition home or self-care (01) ==
PROVIDERS: PCP Internal Medicine; Referring Provider Internal Medicine; Visit Provider Internal Medicine Cardiovascular Disease
DX: I10 Essential (primary) hypertension (principal); I44.7 Left bundle-branch block, unspecified; Z95.2 Presence of prosthetic heart valve
CPT/HCPCS: 99214

== ENCOUNTER → 2023-03-31 09:47 | Outpatient (BNVA) | payer MEDICARE, OTHER, SELFPAY | PROVIDERS: PCP Internal Medicine; Referring Provider Internal Medicine; Visit Provider Internal Medicine Cardiovascular Disease | DX: I44.7 Left bundle-branch block, unspecified (principal); I10 Essential (primary) hypertension; Z95.2 Presence of prosthetic heart valve | CPT/HCPCS: 99212 ==

== ENCOUNTER 2023-05-27 08:13 | Day surgery (SDC) | payer MEDICARE, OTHER, SELFPAY ==
--- NOTE | 2023-05-26 14:09 | HO.ANESPROP2 ---
Documented by User: Caridad Gustafson NP 05/26/23 14:12 HPI - Anesthesia Eval Consult details Narrative: 73yo F for Colonoscopy Cardiac cleared s/p TAVR Plavix PMFSH Active Problems Active Problems: All Active Problems (Updated 09/25/22 @ 14:18 by Latonya Mott PA-C) S/P TAVR (transcatheter aortic valve replacement) (Acute) Abnormal barium swallow (Acute) Abnormal findings on esophagogastroduodenoscopy (EGD) (Acute) Globus sensation (Acute) Chronic GERD (Acute) Left breast mass (Acute) Preop cardiovascular exam (Acute) LBBB (left bundle branch block) (Acute) Rate-related bundle branch block (Acute) Aortic stenosis (Acute) HTN (hypertension) (Acute) Past Medical History Medical History Left breast mass Lichen sclerosus of vulva LBBB (left bundle branch block) Rate-related bundle branch block Aortic stenosis HTN (hypertension) Family History Family History Father Heart attack Mother Bundle branch block, unspecified HTN (hypertension) Maternal Grandmother Gastric cancer Sister Brain tumor Maternal Aunt Cancer Surgical History Surgical History S/P TAVR (transcatheter aortic valve replacement) Hx of carpal tunnel repair Hx of rotator cuff surgery Hx of cataract H/O right breast biopsy History of total right knee replacement H/O colonoscopy H/O: hysterectomy Social History Social History Household Members Other:: 55 yrs- 3 sons Alcohol intake: never Patient Tobacco Use Status: Former Tobacco user Quit Date: 1997 Years Smoked: 30 +/- 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 Gender identity: Female Meds Allergies Allergy/AdvReac Type Severity Reaction Status Date / Time adhesive tape [ADHESIVE TAPE] Allergy Intermediate RASH/BLISTE Verified 05/27/23 08:52 RS vancomycin [VANCOMYCIN] Allergy Intermediate HIVES Verified 05/27/23 08:52 Adhesive Bandages Allergy Unknown rash, Uncoded 05/27/23 08:52 redness Home Medications Medication Instructions Recorded Confirmed Last Taken Type amlodipine 5 mg tablet 5 mg PO DAILY 05/30/20 05/27/23 Unknown History lisinopril 20 1 tab PO DAILY 05/30/20 05/27/23 Unknown History mg-hydrochlorothiazide 12.5 mg tablet oxybutynin chloride 5 mg tablet 5 mg PO BID 05/30/20 05/27/23 Unknown History ascorbate calcium (vitamin C) 500 500 mg PO DAILY 09/15/22 05/27/23 Unknown History mg tablet magnesium oxide 400 mg (241.3 mg 400 mg PO DAILY 09/15/22 05/27/23 Unknown History magnesium) tablet clopidogrel 75 mg tablet 75 mg PO DAILY 03/31/23 05/27/23 05/24/23 History Exam Exam Date and Time: May 26, 2023 1409 Narrative Narrative: EKG 03/2023 NSR with SA LBBB ECHO 03/2023 Conclusions: - The left ventricular systolic function is normal. The visually estimated ejection fraction is between 60-65%. - A bioprosthetic aortic valve is present. The prosthetic aortic valve appears to be functioning normally. Assessment and Plan Assessment Anesthesia Assessment: Chart Reviewed Documented by User: Yann Romero MD 05/27/23 18:13 [facility] Past Medical History Medical History Left breast mass Lichen sclerosus of vulva LBBB (left bundle branch block) Rate-related bundle branch block Aortic stenosis HTN (hypertension) Functional capacity: independent ambulation Family History Family History Father Heart attack Mother Bundle branch block, unspecified HTN (hypertension) Maternal Grandmother Gastric cancer Sister Brain tumor Maternal Aunt Cancer Family history of problems with anesthesia: No Surgical History Surgical History S/P TAVR (transcatheter aortic valve replacement) Hx of carpal tunnel repair Hx of rotator cuff surgery Hx of cataract H/O right breast biopsy History of total right knee replacement H/O colonoscopy H/O: hysterectomy History of Problems with Anesthesia: No Social History Social History Household Members Other:: 55 yrs- 3 sons Alcohol intake: never Patient Tobacco Use Status: Former Tobacco user Quit Date: 1997 Years Smoked: 30 +/- 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 Gender identity: Female Meds Allergies Allergy/AdvReac Type Severity Reaction Status Date / Time adhesive tape [ADHESIVE TAPE] Allergy Intermediate RASH/BLISTE Verified 05/27/23 08:52 RS vancomycin [VANCOMYCIN] Allergy Intermediate HIVES Verified 05/27/23 08:52 Adhesive Bandages Allergy Unknown rash, Uncoded 05/27/23 08:52 redness Home Medications Medication Instructions Recorded Confirmed Last Taken Type amlodipine 5 mg tablet 5 mg PO DAILY 05/30/20 05/27/23 Unknown History lisinopril 20 1 tab PO DAILY 05/30/20 05/27/23 Unknown History mg-hydrochlorothiazide 12.5 mg tablet oxybutynin chloride 5 mg tablet 5 mg PO BID 05/30/20 05/27/23 Unknown History ascorbate calcium (vitamin C) 500 500 mg PO DAILY 09/15/22 05/27/23 Unknown History mg tablet magnesium oxide 400 mg (241.3 mg 400 mg PO DAILY 09/15/22 05/27/23 Unknown History magnesium) tablet clopidogrel 75 mg tablet 75 mg PO DAILY 03/31/23 05/27/23 05/24/23 History Exam Airway Mallampati Class: III Denture: Upper Partial: Lower Loose/Missing/Broken Teeth: Yes Assessment and Plan Assessment Anesthesia Assessment: Anesthesia Plan Discussed Final Anesthetic Review Family History of Problems with Anesthesia: No History of Problems with Anesthesia: No NPO: Yes ASA Class: III Final Preanesthetic Review: Meds/Allgs Chart Reviewed, Consent Obtained/Reviewed and Anes Risks/Benef Reviewed Patient Risk: Intermediate Procedure Risk: Intermediate Anesthetic Plan Anesthetic Plan: MAC: and Agree w/ Assess. and Plan Disposition: Standard PACU
--- OUTSIDE RECORDS SUMMARY | 2023-05-27 08:15 | XMS_ITS | Continuity of Care Document ---
Author Name Unknown Organization [facility] Address [address] [place] [id number] Care Team Providers Care Area Operations Director Name Role Phone Robin Barnett MD Primary Care Physician [phone] Encounter [facility] [place] Date(s): 01/29/23 - 02/28/23 [facility] [address] [place] [id number] [place] Allergies, Adverse Reactions, Alerts Substance Reaction Severity Status vancomycin hives to diffuse body Active Bactrim 1 Active Cordran Tape itchy rash to site of application Active 1nausea, vomitting, itching. Medications acetaminophen 325 mg oral tablet 650 mg, By Mouth, Every 8 hours, PRN, Refills 0, Maintenance, Pain , Mild, 02/17/23 11:58:00 EDT, Partial fill upon patient request if the prescription is for a schedule II opioid drug. Start Date: 02/17/23 Status: Ordered amLODIPine 5 mg oral tablet 5 mg, 1, tablet, By Mouth, Daily, # 30 tablet, Refills 0, Maintenance, 05/26/19 12:00:47 EDT Start Date: 05/26/19 Status: Ordered aspirin 81 mg oral delayed release tablet 1 tablet = 81 mg, By Mouth, Daily, # 30 tablet, 0 Refills, Maintenance, 12/30/20 7:40:00 EDT, CR Tablet, Partial fill upon patient request if the prescription is for a schedule II opioid drug. Start Date: 12/30/20 Status: Ordered clopidogrel 75 mg oral tablet 75 mg, By Mouth, Daily, # 30 tablet, Refills 0, Tot. Refills 0, Maintenance, 02/17/23 11:57:00 EDT,Route to Pharmacy Electronically, [facility], Partial fill upon patient request if the prescription is for a schedule II opioid drug., 16... Start Date: 02/17/23 Status: Ordered hydrochlorothiazide-lisinopril 12.5 mg-20 mg oral tablet 1 tablet, By Mouth, Daily, # 30 tablet, 0 Refills, Maintenance, 10/15/14 2:26:21, Tablet Start Date: 10/15/14 Status: Ordered magnesium oxide 400 mg oral tablet 1 tablet = 400 mg, By Mouth, Daily, Maintenance, 05/26/19 12:02:05 EDT, Tablet Start Date: 05/26/19 Status: Ordered oxybutynin 5 mg oral tablet 1 tablet = 5 mg, By Mouth, 2 times a day, # 30 tablet, 0 Refills, Maintenance, 10/15/14 2:27:28, Tablet Start Date: 10/15/14 Status: Ordered pantoprazole 20 mg oral delayed release tablet 2 tablet = 40 mg, By Mouth, Daily, # 60 tablet, 0 Refills, Maintenance, 02/17/23 12:04:00 EDT, EC Tablet, 160, cm, 02/17/23 11:25:00 EDT, Height Start Date: 02/17/23 Status: Ordered Vitamin C 500 mg oral tablet 1 tablet = 500 mg, By Mouth, Daily, # 30 tablet, 0 Refills, Maintenance, 10/15/14 2:29:12, Tablet Start Date: 10/15/14 Status: Ordered Problem List Condition Confirmation Course Effective Dates Status Health St [facility] Informant Obese class I Confirmed Active Social History Social History Type Response Smoking Status Former smoker entered on: 10/15/14 Sex Implantable Device List Procedure Provider Procedure Date Device Type Site Discectomy and Fusion Anterior Cervical Maribel León DO 06/09/19 Unknown Cervical S pine Device Identifier Serial Number Lot or Batch Number Manufacturing Date Expiration Date Distinct Identification Code MRI Safety Implantable Status Assigning Authority Unknown [id number] Unknown 04/19/22 Unknown Unknown Active Unknown Procedure Provider Procedure Date Device Type Site Discectomy and Fusion Anterior Cervical Maribel León DO 06/09/19 Unknown Cervical S pine Device Identifier Serial Number Lot or Batch Number Manufacturing Date Expiration Date Distinct Identification Code MRI Safety Implantable Status Assigning Authority Unknown [id number] Unknown 12/19/21 Unknown Unknown Active Unknown Patient Care team information Care Team Personnel Name: Nina Powell RN Position: [facility] Nurse Member Role: Primary Care Nurse Name: Robin Barnett MD Position: Reference Physician Member Role: PCP Address: Address: [address] [place] [address] [place] [address]- Name: Corie Castro LPN Position: S RN Member Role: Primary Care Nurse Name: Gibran Avery RN Position: S RN Supv Member Role: Primary Care Nurse Name: Eliot Dong RN Position: S RN Member Role: Primary Care Nurse Care Team Related Persons Name: MUKESH SLATER Address: home [address] [place] [address]
--- OUTSIDE RECORDS SUMMARY | 2023-05-27 08:16 | XMS_ITS | Continuity of Care Document ---
Author Name Unknown Organization [facility] ter Address [address] [place] [id number]- Care Team Providers Care Reference Test Clerk Name Role Phone Robin Barnett MD Primary Care Physician [phone] Encounter [facility] Date[facility]s): 02/16/23 - 02/17/[address] [address]- Discharge Disposition: A-D/C Home Attending Physician: Enio Vincent MD Admitting Physician: Enio Vincent MD Referring Physician: Enio Vincent MD Allergies, Adverse Reactions, Alerts Substance Reaction Severity Status vancomycin hives to diffuse body Active Cordran Tape itchy rash to site of application Active Bactrim 1 Active 1nausea, vomitting, itching. Medications acetaminophen 325 [...] 12:00:47 EDT Start Date: 05/26/19 Status: Ordered amLODIPine 5 mg oral tablet 5 mg, Tablet, By Mouth, 02/17/23 9:00:00 EDT Start Date: 02/17/23 Stop Date: 02/17/23 Status: Completed aspirin 81 mg oral delayed release tablet [...] Maintenance, 02/17/23 11:57:00 EDT,Route to Pharmacy Electronically, [facility], Partial fill upon patient [...] atus Informant Obese class I Confirmed Active Results Radiology Reports * Exam Date Time Procedure Performing Provider Status 02/17/23 6:10 AM Chest Portable Jeramy Sierra; Satish (Verified) Notes: (Chest Portable) Reason For Exam: S/P TAVR;Postop RESULT: Chest Portable Chest Portable REASON: Postop; S P TAVR; Clinical Question(s): Cardiac Tamponade COMPARISON: 02/16/2023 FINDINGS: LINES AND TUBES: None. LUNGS AND PLEURA: Clear lungs. Normal pulmonary vascularity. No pleural effusion. No pneumothorax. HEART, MEDIASTINUM AND WENDY: Unchanged. Status post TAVR. BONES AND SOFT TISSUES: No acute abnormality. Status post ACDF. IMPRESSION: No evidence of complication status post TAVR. WSN: [id number] Ordering Physician: Roman Mcclure Dictated By: Ethan Kebede MD Dictated Date/Time: 02/17/23 10:55 a Reviewed By: Ethan Kebede MD Signed By: Ethan Kebede MD Signed Date/Time: 02/17/23 10:55 am Transcribed By: INDIA Transcribed Date/Time: 02/17/23 10:54 am * Exam Date Time Procedure Performing Provider Status 02/16/23 11:33 AM Chest Portable Kiera Fajardo; Auth (Verified) Notes: (Chest Portable) Reason For Exam: S/P TAVR;Postop RESULT: Chest Portable Chest Portable Reason: Postop; S P TAVR; Clinical Question(s): Other:; Cardiac Tamponade; Special Instructions: onadmission to unit COMPARISON: None. FINDINGS: LINES AND TUBES: None. LUNGS AND PLEURA: Clear lungs. Normal pulmonary vascularity. No pleural effusion. No pneumothorax. HEART, MEDIASTINUM AND WENDY: Heart is normal in size. Status post TAVR. Normal mediastinal and hilar contour. BONES AND SOFT TISSUES: No acute abnormality. ACDF lower cervical spine. Mild degenerative change thoracic spine. IMPRESSION: Status post TAVR. No active parenchymal infiltrates seen. WSN: [id number] Ordering Physician: Roman Mcclure Dictated By: Hemant Virgen MD, V Dictated Date/Time: 02/16/23 11:59 a Reviewed By: Hemant Virgen MD, V Signed By: Hemant Virgen MD, V Signed Date/Time: 02/16/23 11:59 am Transcribed By: INDIA Transcribed Date/Time: 02/16/23 11:58 am Vital Signs Most recent to oldest [Reference Range]: 1 2 3 Height 160 cm (02/17/23 11:25 AM) 160 cm (02/17/23 8:08 AM) 160 cm (02/16/23 4:52 PM) Weight 77.5 kg (02/17/23 4:00 AM) 79.9 kg (02/16/23 12:34 PM) 79.5 kg (02/16/23 8:00 AM) Oxygen Saturation [94-100 %] 100 % (02/17/23 11:25 AM) 96 % (02/17/23 8:08 AM) 98 % (02/17/23 4:00 AM) Pulse Rate [55-90 bpm] 69 bpm (02/17/23:25 AM) 72 bpm (02/17/23 8:08 AM) 71 bpm (02/17/23 4:00 AM) Body Mass Index [18.5-24.99 kg/m2] 31.05 kg/m2 *>HHI* (02/16/23 8:00 AM) Blood Pressure [90-138/55-84 mm Hg] 152/68mm Hg *H* (02/17/23:25 AM) 122/60mm Hg (02/17/23 9:34 AM) 122/60mm Hg (02/17/23 8:08 AM) Respiratory Rate [16-30 br/min] 18 br/min (02/17/23:25 AM) 18 br/min (02/17/23 8:08 AM) 18 br/min (02/17/23 4:00 AM) Temperature [96.8-100.4 DegF] 98.5 DegF (02/17/23:25 AM) 98.6 DegF (02/17/23 8:08 AM) 99.3 DegF (02/17/23 4:00 AM) Mode of Delivery (Oxygen) Room air (02/17/23 11:25 AM) Room air (02/17/23 8:08 AM) Room air (02/17/23 4:00 AM) Blood pressure sites Arm, left (02/17/23 11:25 AM) Arm, left (02/17/23 8:08 AM) Arm, left (02/17/23 4:00 AM) Temperature Route Oral (02/17/23 11:25 AM) Oral (02/17/23 8:08 AM) Oral (02/17/23 4:00 AM) Weight Obtained Via Bed scale (02/17/23 4:00 AM) Bed scale (02/16/23 12:34 PM) Standing scale (02/16/23 8:00 AM) Social History Social History Type Response Smoking Status Former smoker entered on: 10/15/14 Sex Implantable Device List Procedure Provider Procedure Date Device Type Site Discectomy and Fusion Anterior Cervical Maribel León DO 06/09/19 Unknown Cervical S pine Device Identifier Serial Number Lot or Batch Number Manufacturing Date Expiration Date Distinct Identification Code MRI Safety Implantable Status Assigning Authority Unknown [id number] Unknown 04/19/22 Unknown Unknown Active Unknown Procedure Provider Procedure Date Device Type Site Discectomy and Fusion Anterior Cervical Maribel León DO 06/09/19 Unknown Cervical S pine Device Identifier Serial Number Lot or Batch Number Manufacturing Date Expiration Date Distinct Identification Code MRI Safety Implantable Status Assigning Authority Unknown [id number] Unknown 12/19/21 Unknown Unknown Active Unknown Note * Event Display: Hemodynamic Procedure Report Authored Date: * Radha Miller RN: PERFORM, SIGN, VERIFY Event Display: Cardiac Rehab Note Authored Date: Patient: ERNESTINE SLATER Age: 72 years Sex: Female : 1950 Associated Diagnoses: None Author: Radha Miller RN Diagnosis Cardiac Rehab Diagnosis: TAVR 02/16. Pre-exercise Vitals Vital Signs Comment: Reviewed in CIS. Pre-exercise Physical Examination Neurologic: alert & oriented. Cardiovascular: heart rate regular. Lungs: Normal I:E. Activity Symptoms with Cardiac Rehab Symptoms: No exertional symptoms. Activity Transfers: independent. Ambulate: independent, Patient walking in room and hallway independently. Assistive Devices Assistive Device: None. Compliance problems: Compliance problems: Patient exercises daily and eats heart healthy diet. . Patient Education Education: Patient alone, Written material included, Post procedure guidelines. Education topic Teachback comprehension 100% Topic: Pathophysiology, Lipid management, Medication education, Role of exercise, Stress management, Home activity guidelines/limits, Post operative recovery guidelines. Recommendation and Plan Ambulate: 3-5 times/day. Outpatient follow up recommended: Patient declined services. Patient states that she exercises daily and eats a heart healthy diet. Cardiac Rehab: Will sign off at this time, Please contact us if we can provide further assistance with this patient, [phone]. Recommendation comment: RN notified of plan. * Eula Larry RN: VERIFY, PERFORM, SIGN Event Display: Cardiac Rehab Note Authored Date: Patient: ERNESTINE SLATER Age: 72 years Sex: Female : 1950 Associated Diagnoses: None Author: Eula Larry RN Recommendation and Plan Cardiac Rehab: Attended CV surgery rounds, see CV surgery note for plan of care.. * Maikol Tripp: PERFORM Lowe PA, Maikol: PERFORM, SIGN Lowe PA, Maikol: SIGN, VERIFY Lowe PA, Maikol: VERIFY, MODIFY Lowe PA, Maikol: MODIFY, SIGN Lowe PA, Maikol: SIGN, MODIFY Lowe PA, Maikol: MODIFY, SIGN Lowe PA, Maikol: SIGN Event Display: Discharge/Transfer Note Hospital Authored Date: Patient: ERNESTINE SLATER Age: 72 years Sex: Female : 1950 Associated Diagnoses: None Author: Maiokl Tripp Discharge Information Principal Discharge Diagnosis Aortic stenosis, severe: Present on admission - yes. Patient is aware of diagnosis Procedures Cardiac Surgery: Transfemoral TAVR, aortic valve replacement. . Allergies Allergic Reactions (Selected) Severity Not Documented Bactrim- No reactions were documented. Cordran Tape- Itchy rash to site of application. Vancomycin- Hives to diffuse body. Discharge condition: good Compared to admission: improved Functional Status: ambulatory Discharge Disposition Home: self care, family. Discharge Summary distribution: Route to attending, referring, and primary care provider. Route to: Melisa GLASS, Enio. Route to: Horacio GLASS, Irma. Route to: Robin Barnett MD. Discharge Date 02/17/2023 Admission Date 02/16/2023 Code Status Full Resuscitation. Draft of Summary Completed by: Maikol Tripp. Hospital Course Typed narrative The patient is a 72-year-old female with PMH of HTN, GERD who presented with chronic shortness of breath and was found to have severe aortic stenosis. Echo showed severe ; tricuspid with evidence of significant calcification with a mean gradient of 34 and a valve area of 0.75 cm?? by continuity equation. LV function was normal with EF in the range of 60%. The patient underwent cardiac catheterization that revealed no significant CAD. The patient was evaluated and deemed a suitable candidate for TAVR and presents today for TAVR procedure. On 02/16/23 the patient underwent the following OPERATIVE PROCEDURE: Transfemoral TAVR, aortic valvereplacement. PREOPERATIVE DIAGNOSIS: Severe Aortic stenosis, frailty POSTOPERATIVE DIAGNOSIS: Same WOOD BLOCK ARTIST: Irma Leonard M.D. CARDIAC SURGEON: Enio Vincent M.D. Assessment and plan: Severe Aortic stenosis s/p TAVR #23 mm S3 Bioprosthetic Valve No AI or PVL, mean gradient 15mmhg, no significant change from prior study NSR with chronic LBBB, sinus rajani 50s at baseline, No high deg AV block post procedure or indication for 30 day monitor bilateral LE are warm and perfusing, pulses intact, no bleeding or significant hematoma Plan: -ASA/Plavix -followup with upper marker on discharge -repeat ECHO in approx. 30 days -repeat CBC and BMP 1 week post discharge Dispo: discharge home Patient and plan discussed with rounding physician (Dr. Hidalgo) Physical assessment today reveals an alert and oriented male in no distress. Cardiac: S1, S2 . RRR Lungs: clear to auscultation anterior and posterior with no rales or rhonchi noted. Abdomen: soft nontender, nondistended with positive bowel sounds. Lower extremities are without edema. Pedal pulses are palpable. TTE Summary The left ventricular size is normal. The left ventricular wall thickness is mildly increased. There is mild concentric left ventricular hypertrophy. The LV systolic function is vigorous . The left ventricular ejection fraction is 65-75 %. There is septal dyssynergy consistent with LBBB. Left ventricular filling pressures are indeterminate. There is a transcatheter aortic valve implantation (DENISE Teri 3 Ultra #23) in the aortic position. There is no paravalvular leak. There is no central aortic insufficiency. The right ventricle is normal in size and function. Comparison Comparison is made to the study of February 16, 2023 . There is no definite interval change. Signature Significant Results Results: Vital signs : VITAL SIGNS SECTION 02/17/2023 11:25 EDT Temperature 98.5 DegF Temperature Route Oral Pulse Rate 69 bpm Respiratory Rate 18 br/min Systolic Blood Pressure 152 mm Hg H Diastolic Blood Pressure 68 mm Hg Blood pressure sites Arm, left Mean Arterial Pressure 96 mm Hg Pulse Pressure 84 mm Hg Oxygen Saturation 100 % Mode of Delivery (Oxygen) Room air , Laboratory : LABORATORY 02/17/2023 1:14 EDT WBC 9.0 k/mm3 RBC 3.97 m/mm3 L Hgb 10.7 Gm/dL L Hct 33.7 % L MCV 84.9 femtoliters MCH 27.0 pg MCHC 31.8 g/dL L Platelet Count 212 k/mm3 RDW-SD 43.2 femtoliters MPV 10.0 femtoliters Nucleated RBC (Automated) 0.0 #/100 WBC'S Abs. NRBC 0.0 k/mm3 Abs. Neut 6.2 k/mm3 Abs. Lymph 1.6 k/mm3 Abs. Bland 1.1 k/mm3 H Abs. Eo 0.1 k/mm3 Abs. Baso 0.0 k/mm3 Neut % 68.9 % Lymph % 18.1 % Bland % 11.7 % H Eos % 0.6 % Baso % 0.4 % Imm Gran 0.3 % Abs. Imm Gran 0.0 k/mm3 Sodium 142 mmol/L Potassium 3.2 mmol/L L Chloride 103 mmol/L Bicarbonate Level 25 mmol/L Anion Gap 14 BUN 16 mg/dL Creatinine-Blood 0.7 mg/dL Estimated GFR Creatinine 87 ML/MIN/1.73 M2 Magnesium 2.2 mg/dL . 45 minutes spent on discharge Discharge Plan Diet/Activity/Patient Education/Follow Up Follow Up with: [facility] Please call [phone] if you have any questions regarding the program and would like to attend. ; Robin Barnett MD; Irma Leonard Within 2 to 5 weeks pt will need an ECHO in approx. 30 days. Discharge Disposition Discharge: home. MEDICATION LIST (Selected) Prescriptions Prescribed clopidogrel 75 mg oral tablet: 75 mg, By Mouth, Daily, # 30 tablet, Refills 0, Tot. Refills 0, Maintenance, 02/17/23 11:57:00 EDT, Route to Pharmacy Electronically, [facility], Partial fill upon patient request if the prescription is for a schedule II opioid drug., 16... pantoprazole 20 mg oral delayed release tablet: 2 tablet = 40 mg, By Mouth, Daily, # 60 tablet, 0 Refills, Maintenance, 02/17/23 12:04:00 EDT, EC Tablet, 160, cm, 02/17/23 11:25:00 EDT, Height Documented Medications Documented Vitamin C 500 mg oral tablet: 1 tablet = 500 mg, By Mouth, Daily, # 30 tablet, 0 Refills, Maintenance, 10/15/14 2:29:12, Tablet acetaminophen 325 mg oral tablet: 650 mg, By Mouth, Every 8 hours, PRN, Refills 0, Maintenance, Pain , Mild, 02/17/23 11:58:00 EDT, Partial fill upon patient request if the prescription is for a schedule II opioid drug. amLODIPine 5 mg oral tablet: 5 mg, 1, tablet, By Mouth, Daily, # 30 tablet, Refills 0, Maintenance,05/26/19 12:00:47 EDT aspirin 81 mg oral delayed release tablet: 1 tablet = 81 mg, By Mouth, Daily, # 30 tablet, 0 Refills, Maintenance, 12/30/20 7:40:00 EDT, CR Tablet, Partial fill upon patient request if the prescription is for a schedule II opioid drug. hydrochlorothiazide-lisinopril 12.5 mg-20 mg oral tablet: 1 tablet, By Mouth, Daily, # 30 tablet, 0Refills, Maintenance, 10/15/14 2:26:21, Tablet magnesium oxide 400 mg oral tablet: 1 tablet = 400 mg, By Mouth, Daily, Maintenance, 05/26/19 12:02:05 EDT, Tablet oxybutynin 5 mg oral tablet: 1 tablet = 5 mg, By Mouth, 2 times a day, # 30 tablet, 0 Refills, Maintenance, 10/15/14 2:27:28, Tablet * Corie Castro LPN: PERFORM Event Display: Patient Education/Instruction Authored Date: [id number] Inpatient Adult Discharge Instructions [address] [address] Name: ERNESTINE SLATER : 1950 Visit: 02/16/2023 06:54:00 Current Date: 02/17/2023 12:32 Account: [id number] Inpatient Adult Discharge Instructions We would like to thank you for allowing us to assist you with your healthcare needs. The following includes patient education materials and information regarding your injury/illness. Our entire staffstrives to provide an excellent experience for our patients and their families. PLEASE ENSURE YOU FOLLOW-UP PER THE INSTRUCTIONS BELOW! ?? YOUR OPINION IS IMPORTANT TO US! Please complete the survey you may receive by mail or email. Your feedback will be used to make improvements to the healthcare experiences of our patients and their families. Surveys are administered by [employer] ?? If further treatment with your primary care physician or another doctor is recommended, it is important for you to keep the appointment. Call your primary care physician or return to the Emergency Department immediately if your condition worsens, fails to improve, or new symptoms develop. If you need to find a doctor, you can call [facility] for a referral at [phone] or toll free at [phone] or log in to [email or web address].. ?? You can view and manage your care through the patient portal or by using a health care danial of your choosing. [facility] is a website that allows you to securely view your medical information including your hospital discharge summary, office visit summaries, medications and follow-up visits. You can also request appointments, renew medications, and request access to your medical information using a health care danial of your choosing, or just ask a question. You can enroll at [email or web address] or register during your next office visit. You have been discharged from [facility], Patient Care Unit: M6. If you have any questions regarding these instructions after you leave, please call us and we will be happy to assist you. [facility] Your Care Team Attending Physician Enio Vincent MD Discharging Providers Maikol Tripp Reason for Admission AORTIC STENOSIS TAVR M2 630AM ARR LENA Your Diagnosis Aortic stenosis, severe Tests Performed Below is a partial list of the tests performed during your hospitalization. You may have had other tests and procedures not included in this list. Please discuss all test results with your provider. BUN CBC w/ Differential COVID-19 (2019 Novel Coronavirus) PCR?-- Results Pending -- Creatinine Electrolytes GLUCOSE POC Hgb + Hct Magnesium Level XR Chest Portable You will be contacted within 72 hours with your results. Primary Care Provider Robin Barnett MD Advance Directive Health Care Proxy on File Yes - Health Care Proxy Discharge Vitals Temperature: 98.5 DegF Height: 160 cm Pulse Rate: 69 bpm Weight: 77.5 kg Respiratory Rate: 18 br/min Body Mass Index:??31.05 kg/m2??Critical Systolic Blood Pressure:??152 mm Hg??High Body surface area: 1.88 Diastolic Blood Pressure: 68 mm Hg ?? Oxygen Saturation: 100 % ?? Studies Pending All tests and labs ordered during this hospital stay have been completed unless listed below. Please discuss all pending results with your provider listed above in these instructions. ?? BUN CBC w/ Differential COVID-19 (2018 Novel Coronavirus) PCR Creatinine Electrolytes Magnesium Level RBCs for Surgery Type and Screen What to do next Instructions From Your Doctor Discharge Orders Scheduled Follow-Up Appointments Wednesday 12:45 PM EDT ?? With: Roman Fam NP Where: [address] [address]- Status: Pending Wednesday 10:45 AM EDT ?? With: Roman Fam NP Where: [address] [address]- Status: Pending You Need to Schedule the Following Appointments Follow Up with??Irma Leonard When:??Within 2 to 5 weeks Why: pt will need an ECHO in approx. 30 days Where: [address] [place] [address] [address] [place] [address]- Business (1) Follow Up with??[facility] out patient cardiac rehab Why: Please call [phone] if you have any questions regarding the program and would like to attend. Where: [address] [place] [address]- Follow Up with??Robin Barnett MD When:??In 0 days Where: [address] Robin Barnett MD [place] [address]- Business (1) Discharge Medications ERNESTINE SLATER :1950 Visit Date:02/16/2023 Medications: Please continue your medications until treatment is completed or stopped by your provider. Medications not listed below should be discontinued. Discuss any questions related to medications with your provider. What How Much When Instructions Next Dose New Acetaminophen (acetaminophen 325 mg oral tablet) 650 Milligram Oral Every 8 hours as needed for Pain , Mild Take as needed New Clopidogrel (clopidogrel 75 mg oral tablet) 75 Milligram Oral Daily Pickup at [facility] Tomorrow AM New Pantoprazole (pantoprazole 20 mg oral delayed release tablet) 2 tab(s) Oral Daily Pickup at [facility] Tomorrow AM Unchanged Amlodipine (amLODIPine 5 mg oral tablet) 1 tab(s) Oral Daily Tomorrow AM Unchanged Ascorbic Acid (Vitamin C 500 mg oral tablet) 1 tab(s) Oral Daily Tomorrow AM Unchanged Aspirin (aspirin 81 mg oral delayed release tablet) 1 tab(s) Oral Daily Tomorrow AM Unchanged Hydrochlorothiazide-Lisinopril (hydrochlorothiazide-lisinopril 12.5 mg-20 mg oral tablet) 1 tab(s) Oral Daily Tomorrow AM Unchanged Magnesium Oxide (magnesium oxide 400 mg oral tablet) 1 tab(s) Oral Daily Tomorrow AM Unchanged Oxybutynin (oxybutynin 5 mg oral tablet) 1 tab(s) Oral Twice a day Take as prescribed Pharmacy Information [facility]: [address], [place] [id number] [phone] ?? What How Much When Comments Stop Taking Omeprazole (PriLOSEC OTC 20 mg oral delayed release tablet) 1 tab(s) Oral Daily as needed for Dyspepsia Test Results Below is a partial list of the most recent Laboratory test results done prior to this discharge. You may have had other tests and procedures not included in this list. Please discuss all test resultswith your provider. RBC Available - RE (02/16/2023) RBC Unit ID - [id number] (02/16/2023) BUN (02/17/2023) ???BUN - 16 mg/dL CBC w/ Differential (02/17/2023) ???WBC - 9.0 k/mm3???RBC - 3.97 m/mm3???Hgb - 10.7 Gm/dL???Hct - 33.7 %???MCV - 84.9 femtoliters???MCH - 27.0 pg???MCHC - 31.8 g/dL???Platelet Count - 212 k/mm3???RDW-SD - 43.2 femtoliters???MPV - 10.0 femtoliters???Nucleated RBC (Automated) - 0.0 #/100 WBC'S???Abs. NRBC - 0.0 k/mm3???Abs. Neut - 6.2 k/mm3???Abs. Lymph - 1.6 k/mm3???Abs. Bland - 1.1 k/mm3???Abs. Eo - 0.1 k/mm3???Abs. Baso - 0.0 k/mm3???Neut % - 68.9 %???Lymph % - 18.1 %???Bland % - 11.7 %???Eos % - 0.6 %???Baso % - 0.4 %???Imm Gran - 0.3 %???Abs. Imm Gran - 0.0 k/mm3 Creatinine (02/17/2023) ???Creatinine-Blood - 0.7 mg/dL???Estimated GFR Creatinine - 87 ML/MIN/1.73 M2 Electrolytes (02/17/2023) ???Sodium - 142 mmol/L???Potassium - 3.2 mmol/L???Chloride - 103 mmol/L???Bicarbonate Level - 25 mmol/L???Anion Gap - 14 GLUCOSE POC (02/16/2023) ???Glucose, POC - 178 mg/dL Hgb + Hct (02/16/2023) ???Hgb - 11.0 Gm/dL???Hct - 35.2 % Magnesium Level (02/17/2023) ???Magnesium - 2.2 mg/dL Allergies (NKA means No Known Allergies) Bactrim Cordran Tape??(itchy rash to site of application) vancomycin??(hives to diffuse body) Problems Active Problems??(1) Obese class I?? Education Materials Below is the list of Educational Leaflet Providered with your Discharge Instructions. Surgery Post TAVR Transfemoral Discharge Instructions?? Valuables and Belongings I fully understand and agree that [facility] accepts no responsibility for all my personal property including clothing, toilet articles, radios, jewelry, dentures, hearing aids, rings, money, or any other property that is in my possession or is brought to me after admission. I understand certain valuables may be placed in a hospital safe for a short period of time. I understand that the hospital is not liable for loss or damage due to accident, fire, or other natural occurrence while said property is in the safe. I accept full responsibility for any personal property that I keep with me, and will not hold the hospital responsible in case of loss or disappearance. I acknowledge that i have been encouraged to send valuables and belongings home. ?? Review of Valuable and Belonging List: With patient Date for Pt to Sign Valuables/Belongings: 02/16/23 10:17:00 ?? Valuables & Belongings ?? Clothes Electronic devices Jewelry Monetary Items Personal devices Miscellaneous Medications (Valuables) Valuables at Bedside Jacket, Pants, Shirt, Shoes, Undergarments ? Dentures, partial plate, Dentures, upper, Glasses ? Valuables Sent Home ? Valuables Sent to Security ? Other Discharge Information ? Pulmonary Rehab Status?? Pulmonary Rehab Discharge Status?? Respiratory Rate: 18 br/min ? Common Emergency Awareness Tips IS IT A STROKE? Act FAST and Check for these signs: FACE Does the face look uneven? ARM Does one arm drift down? SPEECH Does their speech sound strange? TIME Call at any sign of stroke ?? Heart Attack Signs Chest discomfort: Most heart attacks involve discomfort in the center of the chest and lasts more than a few minutes, or goes away and comes back. It can feel like uncomfortable pressure, squeezing, fullness or pain. Discomfort in upper body: Symptoms can include pain or discomfort in one or both arms, back, neck, jaw or stomach. Shortness of breath: With or without discomfort. Other signs: Breaking out in a cold sweat, nausea, or lightheaded. Remember, MINUTES DO MATTER. If you experience any of these heart attack warning signs, call to get immediate medical attention! ?? Smoking can increase your chances of developing chronic health problems and can cause harmful effects to other family members in your house. If you smoke, you are strongly encouraged to quit. Please call [facility] [email or web address] Link at [phone] or [phone] ([phone]) or log in to [email or web address] for referrals to smoking cessation programs. ?? 866 Suicide & Crisis Lifeline is available 01/03 if you or someone you know needs to find a reason to keep living. By calling 918 you'll be connected to a skilled, trained counselor at a crisis center in your area. INPATIENT DISCHARGE INSTRUCTIONS SIGNATURE PAGE ERNESTINE SLATER Location:[facility] Registration Date and Time:02/16/2023 06:54 EDT Primary Care Physician: Ericka GLASS, Robin, [phone] Attending Physician: Melisa GLASS, [facility], I NOHEMYERNESTINE, have received the above patient education materials/instructions and have verbalized understanding. If ambulance or transport services are being used I further acknowledge being given a choice of service. ?? If you need to contact me, please call me at this number: . Patient/Clinical Training Specialist Name: Patient/Clinical Training Specialist Signature: Relationship to Patient: Witness Name/Signature: Date: * Maikol Tripp: PERFORM, SIGN, VERIFY Paul GEORGE, Radha M: SIGN Event Display: Patient Education Handout Authored Date: [id number] * Maikol Tripp: PERFORM Event Display: Patient Education Leaflets Authored Date: [id number] After Your Transcatheter Aortic Valve Replacement (TAVR) ?? 81926 After Your Transcatheter Aortic Valve Replacement (TAVR) You have just had surgery to replace your aortic valve with a new biological tissue valve. When yougo home, follow all instructions you receive from your healthcare provider for medicines, pain control, diet, activity, and wound care. Make sure to keep all your follow-up appointments. You should feel better after your surgery. But complete recovery may take several weeks. How long depends on whether the surgery was done through your groin, underneath the collarbone, or between your ribs. All of these methods are considered less invasive than open heart surgery. This means fewer complicationsand a shorter recovery time. Below are some general guidelines to follow as you heal. Recovering at home Follow your healthcare provider???s directions for recovery at home. It may take several weeks to get back to your normal routine. Using the groin artery is the least invasive method and heals the fastest. TAVR done between your ribs needs a larger incision and takes longer to recover from. A pill organizer can help you keep track of the medicines you take each day. During your recovery: ??? Take medicine as directed. Take pain medicine, blood thinners, and any other medicine exactly as your healthcare provider advises. You will likely need to take aspirin and another blood thinner (antiplatelet) for a period. You???ll need to take the aspirin for the rest of your life. Be sure your healthcare provider knows about all other medicines you take, including sehp-snj-dxpbtyk medicines and dietary supplements. ??? Care for your incision. It???s normal for your incision to be bruised, itchy, or sore while it???s healing. Your incision may take a week or more toheal. A surgery site between your ribs will take longer to heal than one in your groin. Care for the bandage and incision as advised. Don???t put powder, lotion, or ointment on the incision until it???s healed. If you notice swelling, redness, any discharge, or excessive bruising at the site, call your healthcare provider right away. ??? Shower carefully. Unless you???re told otherwise, you can shower once you get home. Use warm water and a mild soap. Don't use hot water because it can make youfeel lightheaded. Don???t take a bath until your healthcare provider says it???s OK. Also don???t sit in a swimming pool or hot tub until your healthcare provider says it???s OK. If your surgery was between your ribs, you may need to keep the incision site dry for a certain period. ??? Do only activities your healthcare provider tells you are OK. Your healthcare provider may tell you not to do strenuous activities for a week or more. This includes no heavy lifting. Instructions on what to do are different depending on how your surgery was done. Your healthcare provider will give you specific instructions that are appropriate for you. ??? Don???t drive if you are taking opioid pain medicine. These medicines can make you feel sleepy, and it is unsafe to drive or operate heavy machinery while taking them. ??? Walk regularly. One of the best ways to get stronger is to walk. If your healthcare provider agrees, start with short walks at home. Walk a little more each day. Take someone with you until you feel OK to walk alone. Your healthcare provider may recommend a cardiac rehab program. This will allow you to be closely monitored??by trained personnel during exercise. Most insurance companies will cover these programs. ?? Call 911 Call 911 right away if you have: ??? Chest pain ??? Severe trouble breathing ??? Signs of stroke, such as sudden numbness or weakness in the face, arms, or legs ??? Fainting (syncope) ?? When to call your healthcare provider Call your healthcare provider right away if you have any of the following symptoms: ??? Bowel movement that is bright red ??? Bleeding that is frequent or persistent, such as nosebleeds ??? Chills orfever of 100.4??F (38??C) or higher, or as directed by your healthcare provider ??? Dizziness or lightheadedness ??? Redness, swelling, bleeding, warmth, or fluid draining at the incision site ??? Weight gain of more than 2 to 3 pounds in 24 hours or more than 5 pounds in 1 week ??? Swelling in your hands, feet, or ankles ??? Shortness of breath that doesn???t get better when you rest ??? Pain that gets worse or doesn???t go away ??? Fast, slow, or irregular pulse ??? Worsening or severe fatigue ??? Other signs or symptoms as advised by your healthcare provider ?? Follow-up care Follow-up visits with your healthcare provider help make sure you???re recovering well. In fact, tokeep feeling your best, you???ll need regular checkups for the rest of your life. During these visits, you may have: ??? Blood tests to monitor the function of your heart and kidneys, and check for anemia ??? Echocardiograms to check how well your heart and new heart valve are working ??? Electrocardiograms (ECGs) to show if your heart rhythm has changed after your valve replacement ?? Staying healthy after a heart valve replacement ??? Learn to take your own blood pressure and pulse. Keep a record of your results. Ask your healthcare provider which readings mean that you need medical care. ??? Weigh yourself every day and keep a record of this. It's normal for your weight to fluctuate 2 to 3 pounds in a day, anything more than this could mean you are retaining fluid and developing heart failure. Tell your healthcare provider right away if this is the case. ??? Tell all your healthcare providers and dentists you???ve had a valve replacement. Before any dental procedure, youwill need to take an antibiotic to protect your new heart valve. ??? Take any prescribed blood thinners exactly as directed. ??? Make lifestyle changes as advised by your healthcare provider. Keep inmind that healthy habits, such as exercise, and a healthy diet can strengthen your heart. ??? Alertyour healthcare provider to any new symptoms. ?? Last Reviewed Date: 2021 ?? The [employer]. All rights reserved. This information is not intended as a substitute for professional medical care. Always follow your healthcare professional's instructions. ?? * Corie Castro LPN: PERFORM Event Display: Patient Education Leaflets Authored Date: [id number] Surgery Post TAVR Transfemoral Discharge Instructions ?? 298 TAVR Transfemoral Discharge Instructions Here is information related to your condition to help you when you get home. ?? Call 911 if: ??? You develop any new, sudden onset of chest pain, shortness of breath at rest, palpitations, feelings of faintness or passing out. ??? If your incision(s) open and bleed profusely.?? If this occurs, hold pressure over the incision site and call 911, [address] yourself or have a loved one drive you to the hospital. ?If you develop new confusion, slurred speech, or difficulty speaking, weakness or tingling on one side, loss of or blurred vision. ??? If you develop any new numbness, coolness, sudden onset of pain in the legs, feet or arms, and/or if they turn pale. ??? Sudden, severe headache. ?? Call the cardiology office if you experience any of the following: ??? Signs of infection such as redness, chills, fever, pus or odor from the groin sites. ??? Any bleeding or swelling at the incision sites or if a hard lump forms. ??? Worsening ankle swelling or leg pain. ??? It is important to weigh yourself everyday at the same time of day, preferably in the morning and record it.?? If you gain or lose more than 2 pounds in 1 day or 5 pounds in one week. ??? Any unusual bleeding, such as blood in your urine or stool. ?? Follow Up: ??? Follow up care is important; it is strongly encouraged for you to keep your appointments. ??? Follow up appointments are generally scheduled at 2 weeks for an incision check, either with your primary upper marker or a member of the heart valve team.? Additional follow ups occur within 4 to6 weeks and then again at 1 year with the heart valve team. ??? An echocardiogram (ultrasound of your heart), EKG and labs will be obtained during this time frame.? If you are going to follow [facility] and need to reschedule your follow up appointment(s), please call [address] [place] [address].?? If you are a patient who follows with another cardiology practice, please call their office directly. ?? Medications ??? It is important to take your medications as prescribed every day. ??? You will be prescribed ananti-platelet medication(s) and/or a blood thinner to help protect your new valve and to prevent any blood clots.?? DO NOT stop these medication(s) for any reason without consulting with your heart valve team. ??? This may require initial frequent blood draws. ?? Bathing: ??? You can take a shower after you are discharged from the hospital.?? If you are unsteady on yourfeet use a shower chair. ??? No tub baths over the next 2 weeks. ??? Do not apply lotions, creams, ointments or perfumed soap to the groin areas.?? Pat dry, do not rub. ?? Procedure Site Care: ??? Look at your procedure site everyday until it is completely healed. ??? You may see bruising atthe sites, this is normal.? Check your procedure site daily for drainage, redness, odor, or bleeding.? It is important to keep them clean and dry. ?? Activity ??? No heavy lifting over 10 pounds for 1 week (10 pounds is about a gallon of milk). ??? No driving for 1 week but you may be a passenger in a car.?? Please wear your seatbelt. ??? Progress your activity as tolerated with alternating periods of activity and rest.? If you are working, you should plan to stay home and free from work until you receive clearance from your heart valve team. ?? Cardiac Rehabilitation ??? Cardiac rehabilitation is an outpatient medically supervised exercise program.?? You can attend2-3x/week for a total of 36 sessions. ??? Participating in a cardiac rehabilitation program is highly encouraged, as this is essential to your recovery process. ??? Cardiac rehabilitation typically starts 2 to 3 weeks after discharge. ??? If attending [facility]???s program, you should leave the hospital with an orientation appointment already arranged. A cardiac rehab facility other than [facility] may require a referral from your upper marker. ?? Valve Specific Instructions ??? You should receive a temporary card specific to the valve you received; a permanent card shouldbe mailed to your home in 4-6 weeks.?? This card should be carried with you at all times. ??? You will need an antibiotic prior to certain dental procedures to prevent against bacteria from attachingto your new heart valve (This is called infective endocarditis). ??? You will receive a Prevention Endocarditis Pamphlet with guidelines for prevention regimens for dental work.?? This consists of taking an antibiotic prior to dental procedures. ??? If you have developed any signs and/or symptoms of endocarditis please call your upper marker. *Symptoms of endocarditis include: ??? Flu-like symptoms, such as fever, chills, night sweats tiredness, muscle and joint aches, and headache. ??? Trouble breathing, cough, nausea and vomiting. ??? Skin changes such as paleness and sores on the fingers or toes. ??? Tiny red spots on the skin, under the nails, in the whites of the eyes, and inside the mouth. ??? Swelling of the feet, legs, and belly. ?? Heart and Vascular Healthy Living ?? You can make lifestyle changes that can help lower your risk for heart and vascular disease. The following information can help you get started or help maintain your current lifestyle. ?? Diet ??? Eat a low fat, low cholesterol diet. ??? Limit the amount of salt in your diet as well as caffeine and alcohol use. ??? Eating 3 to 4 small meals daily may be better tolerated than 1-2 large meals daily. ??? Monitor your weight daily to insure that you are not gaining weight; same time, same scale. ?? Exercise ??? Routine or regular prescribed exercise is strongly encouraged.?? Cardiac rehabilitation can assist with your exercise prescription. ??? Avoid strenuous exercise after meals. ?? Smoking If you smoke, you are strongly encouraged to quit. Smoking can increase blood pressure, decrease exercise tolerance and increase the tendency for blood to clot, decrease HDL (good) cholesterol and creates a higher risk for having a heart attack, stroke or other vascular events. If you smoke and areready to quit, please let us know; referrals to smoking cessation programs are available. ?High blood pressure and diabetes ?? If you have high blood pressure or diabetes, continue with your prescribed treatments. This health Problems, if not controlled can put you at risk for having a heart attack, stroke, or other vascular events. ?? Stress Learn to manage stress with ways that fit your needs. Some stress relieving activities include meditation, deep breathing techniques and exercise. Stress that isn???t managed can prolong healing and cause other health problems. Talk to your caregiver if you need additional resources to manage stress. ?Feelings It is common for people to feel more emotional or have difficulty concentrating or remembering after surgery. These emotions may be the result of anesthesia, medications, or stress. These feelings are generally temporary and usually go away as you get back to your normal routine and activities.?? You may also be impatient to return to your regular activities, and may feel frustrated with your recovery. If your depression and/or frustration doesn???t improve, talk to your doctor. If you are being discharged on Coumadin ??/warfarin, please refer to the H&V Anticoagulation Patient Education booklet. ? History and physical note * Melisa GLASS, [facility]: PERFORM Event Display: History and Physical Hospital Authored Date: Patient: ??ERNESTINE SLATER ? Age:??72 Years?Sex:??Female?:??1950? SURGICAL HISTORY AND PHYSICAL ?? DATE:?? 02/16/2023 ? Chief Complaint Severe ?? History of Present Illness The patient is a??72-year-old??female??with PMH of??HTN, GERD??who presented with??chronic shortness of breath??and was found to have severe aortic stenosis. ??Echo showed severe ;??tricuspid with evidence of significant calcification with a mean gradient of??34??and a valve area of 0.75??cm?by continuity equation. LV function was normal with EF in the range of 60%. ??The patient underwent cardiac catheterization that revealed??no??significant CAD. CT TAVR appears amenable to TF approach.??She denies any PND, orthopnea, cough, chest pain, pressure, palpitations, or dizziness/lightheadedness, bleeding, dark stools or abdominal complaints.??She does not have exertional lightheadedness or syncope.??She has not been hospitalized for overt congestive heart failure. ? Review of Systems Constitutional:??No weight loss, fever, chills, weakness or fatigue. Allergy/Immune: Denies any??Eczema or hives Eyes:??No visual loss, blurred vision, double vision or yellow sclera ENT:??No hearing loss, sneezing, congestion, runny nose or sore throat. Respiratory:??No shortness of breath, cough or sputum production. Cardiovascular:??No chest pain, chest pressure or chest discomfort. No palpitations or pedal edema. Gastrointestinal:??No anorexia, nausea, vomiting or diarrhea. No abdominal pain or blood in stool. Genitourinary:??No burning micturition. No urinary frequency or incontinence. Neurologic:??No headache, dizziness, syncope, unilateral weakness, ataxia, numbness or tingling in the extremities. No change in bowel or bladder control. Musculoskeletal:??No muscle pain, back pain, joint pain or stiffness. Hematologic/Lymphatics:??No bleeding or bruising. No painful lymph nodes. Skin:??No rash or itching. Endocrine:??No reports of sweating. No cold or heat intolerance. No polyuria or polydipsia. Psychiatric:??No depression or anxiety. ?? Physical Exam avss ?? CONST:??Appears stated age, no acute distress, alert and oriented X 3 EYES:??Anicteric, nl conjunctivae, EOM intact ENT:??Nl oropharynx NECK:??No evidence of JVD or HJR. Carotid impulses and upstroke normal bilaterally, no carotid bruits?? CV: Regular rhythm, S1/S2.??There is a mid to late systolic crescendo decrescendo murmur noted in aortic area radiating towards carotids. ??No rubs or gallop noted. Femoral pulses nl and symmetric, no femoral bruits.??No aortic pulsation or aortic bruits. RESP:??Normal respiratory effort,??clear to auscultation GI:??Soft, non-tender and non-distended, bowels sounds normoactive, no abdominal bruits EXT: no??lower extremity edema,??no clubbing,??no cyanosis SKIN:??No rash, skin warm and dry.?? NEURO:?Alert and oriented x 3, CN 2-12 grossly intact? Assessment/Plan The patient is a 72-year-old??female with??severe aortic stenosis who presented with progressive dyspnea on exertion and now is being evaluated for aortic valve replacement. Preoperative evaluation includes cardiac catheterization, CT TAVR and echocardiogram, which I reviewed in detail. I discussedat length the two types of aortic valve replacement, namely surgical and transcatheter, with the patient in my office today. Her??STS risk for mortality for an isolated aortic valve replacement is calculated to??1.47%, which places her??in the??low??risk category.??We discussed in detail the risk of paravalvular leak, need for dual anti platelet therapy, risk of requiring pacemaker implantation, and the senior hadoop developer durability concerns with TAVR; the patient expressed understanding of these risks and wishes to pursue the transcatheter approach instead of surgical aortic valve replacement. ??She is amenable to emergency open heart surgery in the case of a complication during TAVR. None the less, I believe the patient is a suitable TAVR candidate. We will further discuss her??case at an upcoming multidisciplinary TAVR team meeting??and decide upon valve intervention at that time. ? Enio Vincent MD [facility] Cardiac Surgery?? [address] [facility], [address] [place] [address] Office: [phone] Problem List/Past Medical History Ongoing ?Obese class I Medications Inpatient ?No active inpatient medications Home ?amLODIPine 5 mg oral tablet, 5 mg= 1 tablet, By Mouth, Daily ?aspirin 81 mg oral delayed release tablet, 81 mg= 1 tablet, By Mouth, Daily ?hydrochlorothiazide-lisinopril 12.5 mg-20 mg oral tablet, 1 tablet, By Mouth, Daily ?magnesium oxide 400 mg oral tablet, 400 mg= 1 tablet, By Mouth, Daily ?oxybutynin 5 mg oral tablet, 5 mg= 1 tablet, By Mouth, 2 times a day ?PriLOSEC OTC 20 mg oral delayed release tablet, 20 mg= 1 tablet, By Mouth, Daily, PRN ?Vitamin C 500 mg oral tablet, 500 mg= 1 tablet, By Mouth, Daily Allergies Cordran Tape??(itchy rash to site of application) vancomycin??(hives to diffuse body) Social History Tobacco ??Former smoker Family History ?? no FH premature cad EKG study * Event Display: ECG 12-Lead Authored Date: Please click on pdf link to open report * Event Display: ECG 12-Lead Authored Date: Ventricular Rate: 60 BPM Atrial Rate: 60 BPM P-R Interval: 158 ms QRS Duration: 142 ms Q-T Interval: 512 ms QTC Calculation(Bazett): 512 ms P [place]: 69 degrees R [place]: -36 degrees T [place]: 96 degrees Sinus rhythm with marked sinus arrhythmia Left axis deviation Left bundle branch block Abnormal ECG When compared with ECG of 16-FEB-2023 07:14, MANUAL COMPARISON REQUIRED, DATA IS UNCONFIRMED Confirmed by YENNIFER DURHAM MD ([id number]) on 02/17/2023 1:54:29 PM [place]: YENNIFER DURHAM MD * Event Display: ECG 12-Lead Authored Date: Please click on pdf link to open report * Event Display: ECG 12-Lead Authored Date: [id number] Ventricular Rate: 59 BPM Atrial Rate: 59 BPM P-R Interval: 160 ms QRS Duration: 148 ms Q-T Interval: 484 ms QTC Calculation(Bazett): 479 ms P [place]: -23 degrees R [place]: -35 degrees T [place]: 85 degrees Sinus bradycardia with Premature atrial complexes Left axis deviation Left bundle branch block Abnormal ECG When compared with ECG of 23-DEC-2022 15:00, No significant change was found Confirmed by HILARY ARCHULETA ([id number]) on 02/16/2023 9:50:32 PM [place]: HILARY ARCHULETA Heart * Event Display: Echocardiogram - Complete Authored Date: [id number] Transthoracic Echocardiography Report (TTE) Patient Demographics Patient Name ERNESTINE SLATER Date of Study 02/17/2023 Corporate Gender Female Facility Race Ethnicity Date of 1950 Height: 63 inches Age 72 year(s) Weight: 175.27 pounds Accession Number [id number] BSA: 1.83 m2 Room Number [id number] BMI: 31.05 kg/m2 Referring Physician Ren David PA Physician [employer] Founder Gladys Guerrero [facility] Indications Aortic stenosis and Prosthetic valve function. Clinical History Hypertension. GERD Obesity. Former tobacco use LBBB Previous aortic valve replacement (TAVR 23 mm Teri 3 Ultra) 02/16/23 Study Data Type of Study TTE procedure:Echo Complete-Doppler, Colorflow, M-Mode. Procedure Information:TAVR post op day 1 Study Date02/17/2023 Start Time: 07:28 AM Study Location: [facility] Study Status: Bedside Patient Status: Routine Technical Quality: Technically difficult due to body habitus. Blood Pressure:131/55 mmHg EKG: Sinus with ectopy HR: 68 bpm Allergies - Vancomycin. - Other allergy:(cordran tape). - Bactrim. 2D Measurements LV Diastolic Dimension: 3.79 cm LV Systolic Dimension: 2.5 cm LV Septum Diastolic: 1.1 cm LV PW Diastolic: 1.11 cm AO Root Dimension: 2.87 cm LA Dimension: 3.7 cm LA ESV (BP):62.79 ml LVOT Stroke Volume: 81.28 ml LA ESV Index: 34 ml/m2 Stroke Volume Index44.42 ml/m2 LVOT: 2.06 cm Cardiac Index:3.02 l/min/m2 Ascending Aorta:2.9 cm Doppler Measurements AV Peak Velocity: 258 cm/s MV Peak E-Wave: 97.1 cm/s AV Peak Gradient: 26.63 mmHg MV Peak A-Wave: 112 cm/s AV Mean Gradient: 15 mmHg MV E/A Ratio: 0.87 AV VTI:54.8 cm MV P1/2t: 81 msec LVOT Peak Velocity: 116 cm/s MV Mean Gradient: 3 mmHg LVOT VTI24.4 cm MV Area (continuity): 1.39 cm2 AV Area (Continuity):1.48 cm2 MV Deceleration Time: 276 msec MV Area (PHT): 2.72 cm2 TR Velocity:215 cm/s TR Gradient:18.49 mmHg PV Peak Velocity: 137 cm/s PV Peak Gradient: 7.51 mmHg E' Septal Velocity: 6.53 cm/s E' Lateral Velocity: 7.72 cm/s E/Med E':14.51513 E/Lat E':12.05340 Cardiac Anatomy Left Ventricle/Interventricular Septum The left ventricular size is normal. The left ventricular wall thickness is mildly increased. There is mild concentric left ventricular hypertrophy. The LV systolic function is vigorous . The left ventricular ejection fraction is 65-75 %. There is septal dyssynergy consistent with LBBB. Left ventricular filling pressures are indeterminate. Left Atrium/Interatrial Septum The left atrial size is at the upper limit of normal. Aortic Valve There is a transcatheter aortic valve implantation (DENISE Teri 3 Ultra #23) in the aortic position. There is no paravalvular leak. There is no central aortic insufficiency. Mitral Valve The mitral valve opening is normal. There is trivial mitral regurgitation. There is no significant mitral stenosis. Aorta The ascending aorta and aortic root are normal in size. Right Ventricle The right ventricle is normal in size and function. Right Atrium The right atrium is normal in size. Pulmonic Valve The pulmonic valve is poorly visualized. Tricuspid Valve The tricuspid valve is grossly normal. There is no significant tricuspid valve regurgitation. Pumonary Artery An accurate pulmonary artery pressure could not be obtained. Venous Structures There is normal pulmonary venous flow. The inferior vena cava is poorly visualized. Pericardium/Extracardiac There is no significant pericardial effusion. Summary The left ventricular size is normal. The left ventricular wall thickness is mildly increased. There is mild concentric left ventricular hypertrophy. The LV systolic function is vigorous . The left ventricular ejection fraction is 65-75 %. There is septal dyssynergy consistent with LBBB. Left ventricular filling pressures are indeterminate. There is a transcatheter aortic valve implantation (DENISE Teri 3 Ultra #23) in the aortic position. There is no paravalvular leak. There is no central aortic insufficiency. The right ventricle is normal in size and function. Comparison Comparison is made to the study of February 16, 2023 . There is no definite interval change. Signature * Event Display: Echocardiogram - Complete Authored Date: [id number] * Event Display: Echocardiogram - Complete Authored Date: [id number] Transthoracic Echocardiography Report (TTE) Patient Demographics Patient Name ERNESTINE SLATER Date of Study 02/16/2023 Corporate Gender Female Facility Race Ethnicity Date of 1950 Height: 63 inches Age 72 year(s) Weight: 175.27 pounds Accession Number [id number] BSA: 1.83 m2 Room Number [id number] BMI: 31.05 kg/m2 Referring Physician Irma Leonard MD Interpreting Physician Rashid Perrin MD [employer] F[employer] Irene Rowland [facility] Indications S/P aortic valve replacement (AVR). Clinical History Hypertension. Aortic stenosis Obesity. Study Data Type of Study TTE procedure:Echo 2D Limited or Follow-up. Procedure Information:23mm S3 TAVR Study Date02/16/2023 Start Time: 10:34 AM Study Location: [facility] Study Status: rn labor delivery Patient Status: Routine Technical Quality: Fair due to restricted mobility. EKG: Normal sinus rhythm Allergies - Vancomycin. - Other allergy:(cordran tape). - Bactrim. 2D Measurements LVOT Stroke Volume: 79.06 ml LVOT: 1.9 cm Stroke Volume Index43.2 ml/m2 Doppler Measurements AV Peak Velocity: 200 cm/s AV Peak Gradient: 16 mmHg AV Mean Gradient: 8 mmHg AV VTI:42.5 cm LVOT Peak Velocity: 118 cm/s LVOT VTI27.9 cm AV Area (Continuity):1.86 cm2 Cardiac Anatomy Aortic Valve There is a transcatheter aortic valve implantation (DENISE Teri 3 Ultra #23) in the aortic position. There is no paravalvular leak. There is no central aortic insufficiency. Pericardium/Extracardiac There is no significant pericardial effusion. Summary There is a transcatheter aortic valve implantation (DENISE Teri 3 Ultra #23) in the aortic position. There is no paravalvular leak. There is no central aortic insufficiency. Comparison Comparison is made to the external study of August 06, 2022. There is a transcatheter aortic valve implantation (DENISE Teri 3 Ultra #26) in the aortic position. Signature * Event Display: Echocardiogram - Complete Authored Date: [id number] Patient Care team information Care Team Personnel Name: Nina Powell RN Position: [facility] AMB Nurse Member Role: Primary Care Nurse Name: Robin Barnett MD Position: Reference Physician Member Role: PCP Address: Address: [address] [place] [address] [place] [address]- Name: Corie Castro LPN Position: S RN Member Role: Primary Care Nurse Name: Gibran Avery RN Position: S RN Supv Member Role: Primary Care Nurse Name: Eliot Dong RN Position: S RN Member Role: Primary Care Nurse Care Team Related Persons Name: MUKESH SLATER Address: home [address] [place] [address]
--- OUTSIDE RECORDS SUMMARY | 2023-05-27 08:16 | XMS_ITS | Continuity of Care Document ---
Author Name Unknown Organization [facility] Address [address] [place] [address]- Care Team Providers Care Medication Technician Name Role Phone Robin Barnett MD Primary Care Physician [phone] Encounter [facility] [place] Date(s): 03/19/23 - 04/18/23 [facility] [address] [place] [address]- Attending Physician: Alba Castle Admitting Physician: AdmtrAlba Referring Physician: Admtr, Ar8 Allergies, Adverse Reactions, Alerts Substance Reaction Severity Status vancomycin hives to diffuse body Active Cordran Tape itchy rash to site of application Active Bactrim 1 Active 1nausea, vomitting, itching. Medications amLODIPine 5 mg oral tablet 5 mg, 1, tablet, By Mouth, Daily, # 30 tablet, Refills 0, Maintenance, 05/26/19 12:00:47 EDT Start Date: 05/26/19 Status: Ordered amoxicillin 500 mg oral tablet 1 tablet = 500 mg, By Mouth, Once, Take 4 tablets once 1 hour prior to procedure/cleaning, # 5 tablet, 0 Refills, Soft Stop, 03/05/23 13:27:00 EDT, [facility]/pharmacy #[id number], Partial fill upon patient request if the prescription is for a schedule II opioid d... Start Date: 03/05/23 Status: Ordered aspirin 81 mg oral delayed release tablet 1 tablet = 81 mg, By Mouth, Daily, # 30 tablet, 0 Refills, Maintenance, 12/30/20 7:40:00 EDT, CR Tablet, Partial fill upon patient request if the prescription is for a schedule II opioid drug. Start Date: 12/30/20 Status: Ordered clopidogrel 75 mg oral tablet 75 mg, By Mouth, Daily, # 120 tablet, Refills 3, Tot. Refills 3, Maintenance, 03/05/23 13:16:00 EDT, Route to Pharmacy Electronically, [facility]/pharmacy #[id number], Partial fill upon patient request if the prescription is for a schedule II opioid drug., 160, cm... Start Date: 03/05/23 Status: Ordered hydrochlorothiazide-lisinopril 12.5 mg-20 mg oral [...] List Condition Confirmation Course Effective Dates Status [facility] atus Informant Obese class I Confirmed Active Social History Social History Type Response Smoking Status Former smoker entered on: 10/15/14 Sex Implantable Device List Procedure Provider Procedure Date Device Type Site Discectomy and Fusion Anterior Cervical Maribel León DO A 06/09/19 Unknown Cervical S pine Device Identifier Serial Number Lot or Batch Number Manufacturing Date Expiration Date Distinct Identification Code MRI Safety Implantable Status Assigning Authority Unknown [id number] 32 Unknown 04/19/22 Unknown Unknown Active Unknown Procedure Provider Procedure Date Device Type Site Discectomy and Fusion Anterior Cervical Maribel León DO A 06/09/19 Unknown Cervical S pine Device Identifier Serial Number Lot or Batch Number Manufacturing Date Expiration Date Distinct Identification Code MRI Safety Implantable Status Assigning Authority Unknown [id number] Unknown 12/19/21 Unknown Unknown Active Unknown Cardiology * Event Display: Non Cardiovascular Results Authored Date: * Event Display: Non Cardiovascular Results Authored Date: Patient Care team information Care Team Personnel Name: Nina Powell RN Position: S AMB Nurse Member Role: Primary Care Nurse Name: Robin Barnett MD Position: Reference Physician Member Role: PCP Address: Address: [address] [place] [address] Robin Barnett MD [place], [place] [address] Name: Corie Castro LPN Position: S RN Member Role: Primary Care Nurse Name: Gibran Avery RN Position: [facility] RN Supv Member Role: Primary Care Nurse Name: Eliot Dong RN Position: S RN Member Role: Primary Care Nurse Care Team Related Persons Name: NOHEMYMUKESH KAMARA Address: [address] [address]
--- OUTSIDE RECORDS SUMMARY | 2023-05-27 08:16 | XMS_ITS | Continuity of Care Document ---
Author Name Unknown Organization [facility] Gela dylan Address [address] [place] [address]- Care Team Providers Care Clinical Informatics Physician Name Role Phone Robin Barnett MD Primary Care Physician [phone] [facility] [place] Date(s): 01/13/23 - 02/12/23 [facility] Card[facility] Surgery [address] [place] [id number] Attending Physician: Alba Castle Admitting Physician: Alba Castle Referring Physician: AdmtrAlba Allergies, Adverse Reactions, Alerts Substance Reaction Severity Status vancomycin hives to diffuse body Active Cordran Tape itchy rash to site of application Active Medications amLODIPine 5 mg oral tablet 5 [...] opioid drug. Start Date: 12/30/20 Status: Ordered hydrochlorothiazide-lisinopril 12.5 mg-20 mg oral [...] 2:27:28, Tablet Start Date: 10/15/14 Status: Ordered PriLOSEC OTC 20 mg oral delayed release tablet 1 tablet = 20 mg, By Mouth, Daily, PRN Dyspepsia, # 30 tablet, 0 Refills, Maintenance, 12/30/20 7:38:00 EDT, EC Tablet, Partial fill upon patient request if the prescription is for a schedule II opioid drug. Start Date: 12/30/20 Status: Ordered Vitamin C 500 mg oral [...] Type Site Discectomy and Fusion Anterior Cervical Lyness DO, Maribel A 06/09/19 Unknown Cervical S pine Device Identifier Serial Number Lot or Batch Number Manufacturing Date Expiration Date Distinct Identification Code MRI Safety Implantable Status Assigning Authority Unknown [id number] 32 Unknown 04/19/22 Unknown Unknown Active Unknown Procedure Provider Procedure Date Device Type Site Discectomy and Fusion Anterior Cervical Lyness DO, Maribel A 06/09/19 Unknown Cervical S pine Device Identifier Serial Number Lot or Batch Number Manufacturing Date Expiration Date Distinct Identification Code MRI Safety Implantable Status Assigning Authority Unknown [id number] 57 Unknown 12/19/21 Unknown Unknown Active Unknown Patient Care team information Care Team Personnel Name: Nina Powell RN Position: [facility] Nurse Member Role: Primary Care Nurse Name: Robin Barnett MD Position: Reference Physician Member Role: PCP Address: Address: [address] [place] [address]- Name: Gibran Avery RN Position: [facility] Supv Member Role: Primary Care Nurse Care Team Related Persons Name: MUKESH SLATER Address: [address] [place] [address]
--- OUTSIDE RECORDS SUMMARY | 2023-05-27 08:16 | XMS_ITS | Continuity of Care Document ---
Author Name Unknown Organization [facility] Gela dylan Address [address] [place] [address]- Care Team Providers Care Beauty Operator Name Role Phone Robin Barnett MD Primary Care Physician [phone] Encounter [facility] [place] R [id number] Date(s): 12/03/22 - 01/28/23 [facility] Cardiac Surgery [address] [place] [address] Attending Physician: Melisa GLASS, [facility] Referring Physician: Horacio GLASS, [facility] Allergies, Adverse Reactions, Alerts Substance Reaction Severity [...] MRI Safety Implantable Status Assigning Authority Unknown [id number] 32 Unknown 04/19/22 Unknown Unknown Active Unknown Procedure Provider Procedure Date Device Type Site Discectomy and Fusion Anterior Cervical Lyness DO, Maribel A 06/09/19 Unknown Cervical S pine Device Identifier Serial Number Lot or Batch Number Manufacturing Date Expiration Date Distinct Identification Code MRI Safety Implantable Status Assigning Authority Unknown [id number] 57 Unknown 12/19/21 Unknown Unknown Active Unknown Patient Care team information Care Team Personnel Name: Nina Powell RN Position: [facility] Nurse Member Role: Primary Care Nurse Name: Robin Barnett MD Position: Reference Physician Member Role: PCP Address: Address: [address] [place] [address]- Name: Gibran Avery RN Position: [facility] Supv Member Role: Primary Care Nurse Care Team Related Persons Name: MUKESH SLATER Address: home [address] [place] [address]
--- OUTSIDE RECORDS SUMMARY | 2023-05-27 08:16 | XMS_ITS | Continuity of Care Document ---
Author Name Unknown Organization [facility] Gela dylan Address [address] [place] [address] [place] [address]- Care Team Providers Care Financial Investment Adviser Name Role Phone Robin Barnett MD Primary Care Physician [phone] Encounter [facility] [place] Date(s): 12/29/22 - 01/28/23 [facility] Cardiac Surgery [address] [place] [address] Allergies, Adverse Reactions, Alerts Substance Reaction Severity [...] MRI Safety Implantable Status Assigning Authority Unknown [id number] 32 Unknown 04/19/22 Unknown Unknown Active Unknown Procedure Provider Procedure Date Device Type Site Discectomy and Fusion Anterior Cervical Lyness DO, Maribel A 06/09/19 Unknown Cervical S pine Device Identifier Serial Number Lot or Batch Number Manufacturing Date Expiration Date Distinct Identification Code MRI Safety Implantable Status Assigning Authority Unknown [id number] 57 Unknown 12/19/21 Unknown Unknown Active Unknown Patient Care team information Care Team Personnel Name: Nina Powell RN Position: [facility] AMB Nurse Member Role: Primary Care Nurse Name: Robin Barnett MD Position: Reference Physician Member Role: PCP Address: Address: [address] [place] [address] [place] [address]- Name: Gibran Avery RN Position: [facility] RN Supv Member Role: Primary Care Nurse Care Team Related Persons Name: MUKESH SLATER Address: home [address] [place] [address]
--- OUTSIDE RECORDS SUMMARY | 2023-05-27 08:16 | XMS_ITS | Continuity of Care Document ---
Author Name Unknown Organization [facility] Gela dylan Address [address] [place] [address]- Care Team Providers Care Dumper [employer] Name Role Phone Robin Barnett MD Primary Care Physician [phone] Encounter [facility] [place] ACCT R [id number] Date(s): 01/13/23 - 01/20/23 [facility] Surgery [address] [place] [address] Attending Physician: Melisa GLASS, [facility] Referring Physician: Horacio GLASS, [facility] Allergies, Adverse Reactions, Alerts Substance Reaction Severity [...] atus Informant Obese class I Confirmed Active Vital Signs Most recent to oldest [Reference Range]: 1 Height 160 cm (01/13/23 9:16 AM) Oxygen Saturation [94-100 %] 99 % (01/13/23 9:16 AM) Pulse Rate [55-90 bpm] 66 bpm (01/13/23 9:16 AM) Blood Pressure [90-138/55-84 mm Hg] 162/ 70mm Hg *H* (01/13/23 9:16 AM) Respiratory Rate [16-30 br/min] 20 br/mi n (01/13/23 9:16 AM) Temperature [96.8-100.4 DegF] 97.8 DegF (01/13/23 9:16 AM) Mode of Delivery (Oxygen) Room air (01/13/23 9:16 AM) Blood pressure sites Arm, left (01/13/23 9:16 AM) Temperature Route Oral (01/13/23 9:16 AM) Social History Social History Type Response Smoking Status Former smoker entered on: 10/15/14 Sex Implantable Device List Procedure Provider Procedure Date Device Type Site Discectomy and Fusion Anterior Cervical Maribel León DO 06/09/19 Unknown Cervical S pine Device Identifier Serial Number Lot or Batch Number Manufacturing Date Expiration Date Distinct Identification Code MRI Safety Implantable Status Assigning Authority Unknown [id number] 32 Unknown 04/19/22 Unknown Unknown Active Unknown Procedure Provider Procedure Date Device Type Site Discectomy and Fusion Anterior Cervical Maribel León DO 06/09/19 Unknown Cervical S pine Device Identifier Serial Number Lot or Batch Number Manufacturing Date Expiration Date Distinct Identification Code MRI Safety Implantable Status Assigning Authority Unknown [id number] 57 Unknown 12/19/21 Unknown Unknown Active Unknown Cardiac surgery Outpatient Note * Enio Vincent MD: PERFORM Event Display: Cardiac Surgery Note Office Authored Date: Patient: ??ERNESTINE SLATER ? Age:??72 Years?Sex:??Female?:??1950?? Reason for Consultation severe History of Present Illness The patient is [...] been hospitalized for overt congestive heart failure. ?? Review of Systems Constitutional:??No weight loss, fever, [...] polyuria or polydipsia. Psychiatric:??No depression or anxiety. Physical Exam avss ?? CONST:??Appears stated age, [...] risk of requiring pacemaker implantation, and the intermediate durability concerns with TAVR; the patient expressed [...] decide upon valve intervention at that time. ?? Thank you for this referral. ? Enio Vincent MD [facility] Cardiac Surgery?? [address], [address] [place] [address] Office: [phone] Problem List/Past Medical History Ongoing Obese class I Medications Inpatient No active inpatient medications Home amLODIPine 5 mg oral tablet, 5 mg= 1 tablet, By Mouth, Daily aspirin 81 mg oral delayed release tablet, 81 mg= 1 tablet, By Mouth, Daily hydrochlorothiazide-lisinopril 12.5 mg-20 mg oral tablet, 1 tablet, By Mouth, Daily magnesium oxide 400 mg oral tablet, 400 mg= 1 tablet, By Mouth, Daily oxybutynin 5 mg oral tablet, 5 mg= 1 tablet, By Mouth, 2 times a day PriLOSEC OTC 20 mg oral delayed release tablet, 20 mg= 1 tablet, By Mouth, Daily, PRN Vitamin C 500 mg oral tablet, 500 mg= 1 tablet, By Mouth, Daily Allergies Cordran Tape??(itchy rash to site of application) vancomycin??(hives to diffuse body) Social History Tobacco Former smoker Family History no FH premature cad * Jessica Hudson: PERFORM, SIGN, VERIFY Event Display: Cardiac Surgery Note Office Authored Date: Patient: ERNESTINE SLATER Age: 72 years Sex: Female : 1950 Associated Diagnoses: None Author: Jessica Hudson TAVR Program Functional Assessment Test The KCCQ12 questionnaire was documented separately from this series of tests. A walk and community health nurse supervisor tests were performed on this patient with the following results: Walk Test- Five-meter Gait Speed #1 - 3.95sec #2 - 4.07sec #3 - 4.06sec Equals = 12.08sec Average = 4.02sec Average Adult Multimedia Developer Strength (kg) Right: #1 - _kg #2 - _kg #3 - _kg Equals = _kg Average = _kg Graded Classification: _ Left: #1 - _kg #2 - _kg #3 - _kg Equals = _kg Average = _kg Graded Classification: _ * Jessica Hudson: PERFORM, SIGN, VERIFY Event Display: Cardiac Surgery Note Office Authored Date: Patient: ERNESTINE SLATER Age: 72 years Sex: Female : 1950 Associated Diagnoses: None Author: Jessica Hudson [place] Cardiomyopathy Questionnaire (KCCQ-12) The following questions refer to your heart failure and how it may affect your life. Please read and complete the following questions. There is no right or wrong answers. Please susana the answer that best applies to you. 1. Heart failure affects different people in different ways. Some feel shortness of breath while others feel fatigue. Please indicate how much you are limited by heart failure (shortness of breath orfatigue) in your ability to do the following activities over the past 2 weeks. a. Showering/bathing: Extremely Limited (_) 1 Quite a bit limited (_) 2 Moderately Limited (_) 3 Slightly Limited (_) 4 Not at all Limited (_+) 5 Limited for other reasons or did not do the activity (_) 6 b. Walking 1 block on level ground: Extremely Limited (_) 1 Quite a bit limited (_) 2 Moderately Limited (_) 3 Slightly Limited (_+) 4 Not at all Limited (_) 5 Limited for other reasons or did not do the activity (_) 6 c. Hurrying or jogging (as if to catch a bus): Extremely Limited (_) 1 Quite a bit limited (_) 2 Moderately Limited (_) 3 Slightly Limited (+_) 4 Not at all Limited (_) 5 Limited for other reasons or did not do the activity (_) 6 2. Over the past 2 weeks, how many times did you have swelling in your feet, ankles or legs when you woke up in the morning? Every Morning (_) 1 3 or more times per week but not every day (_) 2 1-2 times per week (_) 3 Less than once a week (_) 4 Never over the past 2 weeks (_+) 5 3. Over the past 2 weeks, on average, how many times has fatigue limited your ability to do what you wanted? All of the time (_) 1 Several Times per day (_) 2 At least once a day (_) 3 3 or more times per week but not every day (_) 4 1-2 times per week (_) 5 Less than once a week (_) 6 Never over the past 2 weeks (_+) 7 4. Over the past 2 weeks, on average, how many times has shortness of breath limited your ability to do what you wanted? All of the time (_) 1 Several Times per day (_) 2 At least once a day (_) 3 3 or more times per week but not every day (_) 4 1-2 times per week (_) 5 Less than once a week (_) 6 Never over the past 2 weeks (+_) 7 5. Over the past 2 weeks, on average, how many times have you been forced to sleep sitting up in a chair or with at least 3 pillows to prop you up because of shortness of breath? Every night (_) 1 3 or more times per week but not every day (_) 2 1-2 times per week (_) 3 Less than once a week (_) 4 Never over the past 2 weeks (_+) 5 6. Over the past 2 weeks, how much has your heart failure limited your enjoyment of life? It has extremely limited my enjoyment of life (_) 1 It has limited my enjoyment of life quite a bit (_) 2 It has moderately limited my enjoyment of life (_) 3 It has slightly limited my enjoyment of life (_) 4 It has not limited my enjoyment of life at all (_+) 5 7. If you had to spend the rest of your life with your heart failure the way it is right now, how would you feel about this? Not at all satisfied (_) 1 Mostly dissatisfied (_) 2 Somewhat satisfied (_) 3 Mostly satisfied (_+) 4 Completely satisfied (_) 5 8. How much does your heart failure affect your lifestyle? Please indicate how your heart failure may have limited your participation in the following activities over the past 2 weeks. a. Hobbies, recreational activities: Severely Limited (_) 1 Limited quite a bit (_) 2 Moderately Limited (_) 3 Slightly Limited (_) 4 Did not limit at all (+_) 5 Does not apply or did not do for other reasons (_) 6 b. 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 Visiting family or friends out of your home: Severely Limited (_) 1 Limited quite a bit (_) 2 Moderately Limited (_) 3 Slightly Limited (_) 4 Did not limit at all (_+) 5 Does not apply or did not do for other reasons (_) 6 Total Score: 61 Patient Care team information Care Team Personnel Name: Nina Powell RN Position: [facility] Nurse Member Role: Primary Care Nurse Name: Robin Barnett MD Position: Reference Physician Member Role: PCP Address: Address: [address] [place] [address] Robin Barnett MD [place], [place] [address] Name: Gibran Avery RN Position: [facility] Supv Member Role: Primary Care Nurse Care Team Related Persons Name: MUKESH SLATER Address: home [address] [place] [address]
[2023-05-27 08:40] VITALS: BMI 31.0
[2023-05-27] MEDS: Lactated Ringers 1,000 ML 100 ML IVCONT (08:53)
[2023-05-27 09:21] VITALS: BP 159/65; PULSE 63; RESP 18; TEMP 36.6; O2SAT 98
--- NOTE | 2023-05-27 09:55 | P.HPSUR_ITS ---
Pre-Procedural Eval Section A Date of Service: 05/27/23 Section B Chief Complaint: abn barium swallow Details of Present Illness: globus sensation Relevant Family History (Specify if Yes): No Relevant Social History: None Present Medications: see Short Stay Collaborative assessment Medical History: Significant History (Aortic stenosis HTN (hypertension) LBBB (left bundle branch block) Left breast mass Lichen sclerosus of vulva Rate- related bundle branch block) History of Previous Operations: Relevant previous surgery/procedure and date(s) (H/O colonoscopy H/O right breast biopsy H/O: hysterectomy History of total right knee replacement Hx of carpal tunnel repair Hx of cataract Hx of rotator cuff surgery) Allergies: Allergies Allergy/AdvReac Type Severity Reaction Status Date / Time adhesive tape [ADHESIVE TAPE] Allergy Intermediate RASH/BLISTE Verified 05/27/23 08:52 RS vancomycin [VANCOMYCIN] Allergy Intermediate HIVES Verified 05/27/23 08:52 Adhesive Bandages Allergy Unknown rash, Uncoded 05/27/23 08:52 redness Review of Systems Sugical H&P ROS: Negative: Constitution, Cardiovascular, Respiratory, Neurological, Psychiatric, Hem-Onc, Allergic/Immunologic, Gastrointestinal, Genitourinary, Musculoskeletal, Integumentary, Endocrine and Eyes/Ears/Nose/Throat Exam Surgical H&P Exam: Normal: HEENT, Normal: Heart, Normal: Lungs, Normal: Extremities, Normal: Abdomen, Normal: Skin and Normal: Neurological Plan Diagnosis/Plan: Unchanged I have reviewed the history and physical and performed a pertinent physical examination on my patient. No changes have occurred unless specified. Time Spent With Patient Time: Total time managing care of this patient today ____ minutes.
--- NOTE | 2023-05-27 09:58 | W.PM.OPN ---
Operative Note Operative Note Date of Service: 05/27/23 Narrative: Procedure Description: EGD Indication: globus, dysphagia, abn imaging Anesthesia: MAC FLEXIBLE TRANSORAL UPPER GASTROINTESTINAL ENDOSCOPY UPPER ENDOSCOPY Consent: Indications for the procedure and potential complications of bleeding, perforation, reaction to medications and missed diagnosis were discussed with the patient and informed consent was obtained. Instrument: Olympus GIF H 190 J mid size upper endoscope Monitoring: Vital signs and clinical assessment, continuous EKG monitoring, Pulse oximetry, Carbon Dioxide monitoring and blood pressure monitoring were done throughout the procedure. Procedure: The patient was placed in the left lateral decubitis position and pre-procedure medications were administered and a bite block was placed. The endoscope was inserted into the mouth and advanced under direct vision to the third part of duodenum. A careful inspection was made as the upper endoscope was withdrawn including a retroflexed examination of the proximal stomach; Findings and interventions are described below. Findings: Larynx:normal Esophagus: GE junction at 35 cm, diaphragm hiatus at 35 cm, few islands of salmon pink tissue noted suggestive of barretts esophagus, bx taken as well as from distal and proximal esophagus, balloon dilation doen at UEs to 18 mm and LES to 20 mm, no tears seen--no inlet patch seen Stomach: Pylorus was v tight and on passing the scope heme noted, Also salmon pink tissue around rim of outlet, bx taken. Grade 2 flap valve on retroflexed examination of the cardia. In the antrum there was a yellowish bulge with pillow sign suggestive of a gastric lipoma about 2 cm. 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
[2023-05-27 10:28] VITALS: BP 108/57; PULSE 59; RESP 16; TEMP 36.1; O2SAT 96
[2023-05-27 10:46] VITALS: BP 135/55; PULSE 62; RESP 18; TEMP 36.1; O2SAT 97
== END 2023-05-27 11:11 | disposition home or self-care (01) ==
PROVIDERS: PCP Internal Medicine; Visit Provider Internal Medicine Gastroenterology
PROC: 0DJ08ZZ Inspection of Upper Intestinal Tract, Via Natural or Artificial Opening Endoscopic (ICD-10-PCS; CPT 43235; principal; 2023-05-27 10:00)
DX: K31.1 Adult hypertrophic pyloric stenosis (principal); K31.A0 Gastric intestinal metaplasia, unspecified; D17.5 Benign lipomatous neoplasm of intra-abdominal organs; R09.89 Other specified symptoms and signs involving the circulatory and respiratory systems; K21.9 Gastro-esophageal reflux disease without esophagitis; N90.4 Leukoplakia of vulva; I35.0 Nonrheumatic aortic (valve) stenosis; R13.19 Other dysphagia; I10 Essential (primary) hypertension; I44.7 Left bundle-branch block, unspecified; Z90.710 Acquired absence of both cervix and uterus; Z79.899 Other long term (current) drug therapy
CPT/HCPCS: 43239; 43249; 88305; 88342; C1726

== ENCOUNTER → 2023-05-27 08:13 | Outpatient (BNV) | payer MEDICARE, OTHER, SELFPAY | PROVIDERS: PCP Internal Medicine; Visit Provider Internal Medicine Gastroenterology | DX: K31.1 Adult hypertrophic pyloric stenosis (principal); R09.89 Other specified symptoms and signs involving the circulatory and respiratory systems; D17.5 Benign lipomatous neoplasm of intra-abdominal organs | CPT/HCPCS: 43239; 43249 ==

== ENCOUNTER 2023-06-08 12:11 | Outpatient (AMB) | payer MEDICARE, OTHER, SELFPAY ==
--- NOTE | 2023-06-08 12:16 | A.OFFVIS_ITS ---
Intake Vital Signs 06/08/23 12:17 Height 5 ft 2.5 in Weight 168 lb BMI 30.2 BP 166/54 H Blood Pressure Location Lt brachial Position Sitting Pulse 75 Intake Visit Reasons: follow up after procedure 05/27 Intake Note: Patient follow up for Colonoscopy and Barium swallow results. Patient denies any GI issues. [place] Decorator Required: No Accompanied by: Self / Same As Patient Allergies adhesive tape [ADHESIVE TAPE] Allergy (Intermediate, Verified 06/08/23 12:16) RASH/BLISTERS vancomycin [VANCOMYCIN] Allergy (Intermediate, Verified 06/08/23 12:16) HIVES Adhesive Bandages Allergy (Unknown, Uncoded 05/27/23 08:52) rash, redness Medication List - Last Reconciled 06/09/23 by Latonya Mott PA-C amlodipine 5 mg PO DAILY ascorbate calcium (vitamin C) 500 mg PO DAILY aspirin (Adult Aspirin Regimen) 81 mg PO DAILY clopidogrel 75 mg PO DAILY lisinopril-hydrochlorothiazide 20-12.5 mg 1 tab PO DAILY magnesium oxide 400 mg PO DAILY omeprazole 40 mg (2 x 20 mg) PO DAILY 30 days oxybutynin chloride 5 mg PO BID HPI HPI Comments History of Present Illness Details A 73 y/o F f/u after EGD for dysphagia-the she symptoms are much improved however she does have feeling of globus, she does have a cough that has been chronic nonproductive Reviewed procedure report, path and recommendations Recent cardiac cath-02/2023- - plavix for 6 mos No nausea, vomiting hematemesis hematochezia fever or chills PFSH Medical History (Updated 06/09/23 @ 12:32 by Latonya Mott PA-C) Left breast mass Lichen sclerosus of vulva LBBB (left bundle branch block) Rate-related bundle branch block Aortic stenosis HTN (hypertension) Surgical History History of esophagogastroduodenoscopy (EGD) S/P TAVR (transcatheter aortic valve replacement) Hx of carpal tunnel repair Hx of rotator cuff surgery Hx of cataract H/O right breast biopsy History of total right knee replacement H/O colonoscopy H/O: hysterectomy Family History Father Heart attack Mother Bundle branch block, unspecified HTN (hypertension) Maternal Grandmother Gastric cancer Sister Brain tumor Maternal Aunt Cancer Social History Household Members Other:: 55 yrs- 3 sons Alcohol intake: never Patient Tobacco Use Status: Former Tobacco user Quit Date: 1997 Years Smoked: 30 +/- 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 Gender identity: Female Female Reproductive History Menstrual Age of Menarche: 13 Review of Systems Const All systems reviewed & are unremarkable except as noted in HPI and below Denies chills, Denies fatigue and Denies fever(s) ENT Denies dysphagia, Denies odynophagia and Reports other (globus) Card Denies chest pain and Denies dyspnea Resp Denies dyspnea GI Denies dysphagia and Denies odynophagia Endo Denies fatigue Physical Exam Vital Signs: Last Vital Signs Pulse 75 06/08/23 12:17 BP 166/54 H 06/08/23 12:17 BMI result Body Mass Index 30.2 Results Reviewed Results Reviewed: FL/FL barium swallow IMPRESSION: Significant gastroesophageal reflux. Small sliding-type hiatal hernia. Mucosal irregularity of the distal thoracic esophagus just above the GE junction. Endoscopic correlation recommended. 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 Gastric pylorus, biopsy: Gastro-intestinal mucosa with reactive changes and focal minimal chronic inactive inflammation, consistent with gastro-duodenal transition at the pylorus; negative for H pylori and dysplasia. B. Stomach, random, biopsy: Gastric antral and body mucosa with mild reactive changes and focal minimal chronic inactive inflammation; negative for H pylori and dysplasia; negative for H pylori, intestinal metaplasia and dysplasia. C. Esophagogastric junction, biopsy: Squamocolumnar mucosa with minimal chronic active inflammation; negative for intestinal metaplasia and dysplasia. D. Esophagus, distal, biopsy: Squamous mucosa with no specific change; no columnar mucosa present. E. Esophagus, proximal, biopsy: Squamous mucosa with no specific change; no columnar mucosa present. Clinical History Pre-Op Dx: Abnormal barium swallow Post-Op Dx: Pyloric stenosis, question of Garcia's, intestinal metaplasia, gastric lipoma Microscopic Description Microscopic sections reviewed. Immunostain for H. pylori on A and B are negative with appropriate control. Material Received A. Pylorus bx's B. Random stomach bx's C. EG junction bx's (R/O Garcia's) D. Distal esophagus bx's E. Proximal esophagus bx's Gross Description Received in 5 parts. Part A: Received in formalin labeled ?pylorus bx's? are 2 glistening, semitranslucent, soft, hyperemic quezada-pink irregular tissue fragments each measuring 0.2 cm in greatest dimension which are submitted in toto in a single cassette labeled A. Patient: Zahra Feliz Age/Sex: 73/F MR#: [id number] Page 1 of 2 Assessment & Plan Assessment & Plan (1) Globus sensation: Comment: Reviewed procedure report pathology recommendation She Will discuss further with Cardiology-she associates with cough (lisinopril) May have functional component Code(s): R09.89 - Other specified symptoms and signs involving the circulatory and respiratory systems Plan: Follow through with cardiology/PCP (2) Chronic GERD: Code(s): K21.9 - Gastro-esophageal reflux disease without esophagitis Plan: Continue ppi Monitor sx- Patient Instructions: Pleasant 73-year-old female recent cardiac catheterization Follow-up with Cardiology and PCP Reflux precautions review Identify, avoid culprits Continue PPI Monitor symptoms Call with any questions or concerns A repeat EGD p.r.n. Coding Level of Care Code Est Pt Level 3 (46604) Diagnoses Globus sensation R09.89 Chronic GERD K21.9 Time Spent (min) 30
[2023-06-08 12:17] VITALS: BP 166/54; PULSE 75; BMI 30.2
== END 2023-06-08 13:37 | disposition home or self-care (01) ==
PROVIDERS: PCP Internal Medicine; Visit Provider Physician Assistant
DX: R09.89 Other specified symptoms and signs involving the circulatory and respiratory systems (principal); K21.9 Gastro-esophageal reflux disease without esophagitis
CPT/HCPCS: 99213

== ENCOUNTER → 2023-06-08 12:11 | Outpatient (BNVA) | payer MEDICARE, OTHER, SELFPAY | PROVIDERS: PCP Internal Medicine; Visit Provider Physician Assistant | DX: K21.9 Gastro-esophageal reflux disease without esophagitis (principal); R09.89 Other specified symptoms and signs involving the circulatory and respiratory systems | CPT/HCPCS: 99212 ==

== ENCOUNTER 2023-07-29 11:35 | Outpatient (REF) | payer MEDICARE, OTHER, SELFPAY ==
[2023-07-29 11:40] LABS: MANUAL DIFF FLAG NO
[2023-07-29 12:11] LABS: Basophils Absolute Auto 0.1 X10*3/uL (0.0-0.2); Basophils Percent Auto 1.4 % (0-2); Eosinophils Absolute Auto 0.2 X10*3/uL (0.0-0.4); Eosinophils Percent Auto 4.3 % (0-4); Hematocrit 33.8 % (37.0-47.0); Hemoglobin 10.5 g/dl (12.0-16.0); Imm Gran Abs Auto 0.02 X10*3/uL (0.00-0.03); Imm Gran Pct Auto 0.4 % (0.0-0.4); Lymphocytes Absolute Auto 1.9 X10*3/uL (1.2-4.9); Mean Corpuscular HGB Conc 31.1 g/dl (31.0-35.0); Mean Corpuscular Hemoglobin 25.4 pg (27.0-33.0); Mean Corpuscular Volume 81.6 fL (80.0-98.0); Mean Platelet Volume 10.4 fL (9.4-12.3); Monocytes Absolute Auto 0.6 X10*3/uL (0.1-1.2); Monocytes Percent Auto 10.5 % (2-11); Neutrophils Absolute Auto 2.8 x10*3/uL (2.0-8.3); Neutrophils Percent Auto 50.4 % (45-73); Platelet Count 255 X10*3/uL (160-400); Red Blood Count 4.14 X10*6/uL (4.20-5.50); Red Cell Distribution Width 15.8 % (11.0-16.0); White Blood Count 5.6 X10*3/uL (4.8-10.8)
[2023-07-29 12:16] LABS: Estimated Average Glucose 137 mg/dL; Hemoglobin A1c % 6.4 % (<6.0)
[2023-07-29 12:37] LABS: Alanine Aminotransferase 21 U/L (0-31); Albumin Level 4.2 g/dL (3.5-5.0); Alkaline Phosphatase 99 U/L (39-117); Anion Gap 14 (12-20); Aspartate Amino Transferase 19 U/L (5-31); Bilirubin Total 0.3 mg/dL (0.0-1.0); Blood Urea Nitrogen 22 mg/dL (9-16); Calcium 9.3 mg/dL (8.4-10.2); Carbon Dioxide 27 mmol/L (22-29); Chloride 104 mmol/L (96-108); Cholesterol 270 mg/dL (<200); Estimated Glomerular Filt Rate > 60; Glucose Random 113 mg/dL (60-115); HDL Cholesterol 52 mg/dL (>40); LDL Cholesterol Calculated 179 mg/dL (<100); Potassium 3.9 mmol/L (3.3-5.1); Sodium 141 mmol/L (135-145); Triglycerides 197 mg/dL (<150)
[2023-07-29 12:40] LABS: Creatinine Urine 99.68 mg/dL
[2023-07-29 12:50] LABS: Appearance Urine Clear; Color Urine Yellow; Glucose Urine UA Negative (Negative); Leukocyte Esterase Urine Negative (Negative); Nitrite Urine Negative (Negative); PH 6.5 (5.0-9.0); Urine Blood Negative (Negative); Urine Ketones Negative (Negative); Urine Protein Negative (Neg-Trace)
[2023-07-29 12:58] LABS: Bacteria Urine None Seen (None Seen); Hyaline Casts Urine 0-2 /LPF (0-2); Squamous Epithelial Cell Urine 0-2 /HPF (0-2); WBC Urine 0-5 /HPF (0-5)
== END 2023-07-29 11:36 | disposition home or self-care (01) ==
LOC: HO.LNP 11:35
PROVIDERS: Visit Provider Internal Medicine
DX: R73.03 Prediabetes (principal); I10 Essential (primary) hypertension; E78.00 Pure hypercholesterolemia, unspecified; D72.820 Lymphocytosis (symptomatic)
CPT/HCPCS: 80053; 80061; 81001; 82043; 82570; 83036; 85025

== ENCOUNTER 2023-10-04 08:43 | Outpatient (AMB) | payer MEDICARE, OTHER, SELFPAY ==
[2023-10-04 08:53] VITALS: BP 110/62; PULSE 73; BMI 29.8
--- NOTE | 2023-10-04 08:53 | MHC.OFFVIS ---
Intake Vital Signs 10/04/23 08:53 Height 5 ft 2.5 in Weight 165 lb 5.547 oz BMI 29.8 BP 110/62 Blood Pressure Location Lt brachial Position Sitting Pulse 73 Intake Visit Reasons: 6 mth f/up Intake Note: pt its here for her 6 month f/up pt states that she its feeling good. [place] Brusher Required: No Accompanied by: Self / Same As Patient Allergies adhesive tape [ADHESIVE TAPE] Allergy (Intermediate, Verified 06/08/23 12:16) RASH/BLISTERS vancomycin [VANCOMYCIN] Allergy (Intermediate, Verified 06/08/23 12:16) HIVES Adhesive Bandages Allergy (Unknown, Uncoded 05/27/23 08:52) rash, redness Medication List - Last Reconciled 10/04/23 by Salvatore Brady MD amlodipine 5 mg PO DAILY ascorbate calcium (vitamin C) 500 mg PO DAILY aspirin (Adult Aspirin Regimen) 81 mg PO DAILY magnesium oxide 400 mg PO DAILY omeprazole 40 mg (2 x 20 mg) PO DAILY 30 days oxybutynin chloride 5 mg PO BID valsartan-hydrochlorothiazide 160-12.5 mg 1 tab PO DAILY HPI HPI Comments History of Present Illness Details 73-year-old female with severe aortic valve stenosis here for follow-up. She underwent cardiac catheterization which did not show any significant coronary disease. She had severe aortic stenosis by and risk assessment she has been referred to the TAVR team but has not been seen at [facility]. She is saying she gets short of breath when she is exerting herself. She is denying any chest discomfort syncope. No other concerns currently. 03/31/2023: She returns for follow-up. She is status post transcatheter aortic valve replacement with number 23 mm S3 bioprosthetic valve. She had echocardiography which showed a normally functioning bioprosthetic valve. She is saying after valve replacement she has not felt significantly different. To some extent her shortness of breath is little better but she still gets out of breath with activities specially when she is going up stairs. Blood pressure control is good. She needs endoscopy. She is getting some left-sided pressure-like discomfort which happens randomly specially when she is laying down. She has a hiatal hernia. 10/04/23: She is here for follow-up. She had endoscopy performed in May 2023. She has Garcia's esophagus. She also has balloon dilatation done in the esophagus. She is saying she has been doing well. She still gets globus. She gets short of breath when she does more than usual activity. No chest discomfort. She had left knee replacement and is finishing rehabilitation at this point. She is saying that she is doing well. [facility] Medical History (Updated 06/09/23 @ 12:32 by Latonya Mott PA-C) Left breast mass Lichen sclerosus of vulva LBBB (left bundle branch block) Rate-related bundle branch block Aortic stenosis HTN (hypertension) Surgical History (Updated 10/04/23 @ 08:58 by Reyna Bautista MA) Knee joint replacement status History of esophagogastroduodenoscopy (EGD) S/P TAVR (transcatheter aortic valve replacement) Hx of carpal tunnel repair Hx of rotator cuff surgery Hx of cataract H/O right breast biopsy History of total right knee replacement H/O colonoscopy H/O: hysterectomy Family History Father Heart attack Mother Bundle branch block, unspecified HTN (hypertension) Maternal Grandmother Gastric cancer Sister Brain tumor Maternal Aunt Cancer Social History Household Members Other:: 55 yrs- 3 sons Alcohol intake: never Patient Tobacco Use Status: Former Tobacco user Quit Date: 1997 Years Smoked: 30 +/- 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 Gender identity: Female Female Reproductive History Menstrual Age of Menarche: 13 Review of Systems Const Denies chills, Denies fatigue, Denies fever(s), Denies frequent falls, Denies weakness, Denies weight gain and Denies weight loss ENT Denies dizziness Card Denies chest pain, Denies leg edema, Denies lightheadedness, Denies palpitations, Denies dyspnea and Denies dyspnea on exertion Resp Denies cough, Denies dyspnea and Denies dyspnea on exertion GI Denies hematochezia Musc Denies abnormal gait, Denies muscle weakness, Denies numbness, Denies radiating pain into limb and Denies tingling Neuro Denies abnormal gait, Denies dizziness, Denies frequent falls, Denies numbness, Denies tingling and Denies weakness Endo Denies fatigue and Denies palpitations Physical Exam Vital Signs: BMI result Body Mass Index 29.8 GENERAL APPEARANCE: in no acute distress, pleasant. NECK: no carotid bruit, no jugular venous distention. SKIN: no suspicious lesions, warm and dry. HEART: Ejection systolic murmur aortic area with preserved 2nd heart sound. Regular rate rhythm. LUNGS: clear to auscultation bilaterally. ABDOMEN: soft, nontender. EXTREMITIES: no edema. PERIPHERAL PULSES: equal. NEUROLOGIC: No gross deficits, AAO X 3 Office Procedures EKG Details: Sinus rhythm 73 beats per minute, premature atrial complexes, rightwards axis, left bundle-branch block with QRS duration 128 milliseconds. QTC 480 milliseconds. [id number], Complete Assessment & Plan Assessment & Plan (1) S/P TAVR (transcatheter aortic valve replacement): Code(s): Z95.2 - Presence of prosthetic heart valve (2) LBBB (left bundle branch block): Code(s): I44.7 - Left bundle-branch block, unspecified (3) HTN (hypertension): Code(s): I10 - Essential (primary) hypertension Plan Pleasant 73-year-old female who is here for follow-up. She is status post transcatheter aortic valve replacement. Echocardiography has shown normally function bioprosthetic valve. Blood pressure is well controlled. She is chronic left bundle-branch block which is evident on her recent EKG also. Overall clinically stable. She will follow-up with us in 6 months. Thank you for allowing me to participate in the care of your patient. Please feel free to contact me if you have any questions. Coding Level of Care Code Est Pt Level 4 (06743) Diagnoses S/P TAVR (transcatheter aortic valve replacement) Z95.2 LBBB (left bundle branch block) I44.7 HTN (hypertension) I10 CPT Codes EKG - CPT: 63580-[id number], Complete ([id number])
== END 2023-10-04 09:12 | disposition home or self-care (01) ==
PROVIDERS: PCP Internal Medicine; Visit Provider Internal Medicine Cardiovascular Disease
DX: Z95.2 Presence of prosthetic heart valve (principal); I44.7 Left bundle-branch block, unspecified; I10 Essential (primary) hypertension
CPT/HCPCS: 93010; 99214

== ENCOUNTER → 2023-10-04 08:43 | Outpatient (BNVA) | payer MEDICARE, OTHER, SELFPAY | PROVIDERS: PCP Internal Medicine; Visit Provider Internal Medicine Cardiovascular Disease | DX: I44.7 Left bundle-branch block, unspecified (principal); I10 Essential (primary) hypertension; Z95.2 Presence of prosthetic heart valve | CPT/HCPCS: 93005; 99212 ==

== ENCOUNTER 2023-10-05 08:38 | Outpatient (REF) | payer MEDICARE, OTHER, SELFPAY | END 2023-10-05 08:39 | disposition home or self-care (01) | LOC: HO.MAMMO 08:38 | PROVIDERS: PCP Internal Medicine; Visit Provider Internal Medicine | DX: Z12.31 Encounter for screening mammogram for malignant neoplasm of breast (principal) | CPT/HCPCS: 77063; 77067 ==

== ENCOUNTER → 2023-10-05 09:00 | Outpatient (BNV) | payer MEDICARE, OTHER, SELFPAY | PROVIDERS: PCP Internal Medicine; Visit Provider Radiology Diagnostic Radiology | DX: Z12.31 Encounter for screening mammogram for malignant neoplasm of breast (principal) | CPT/HCPCS: 77063; 77067 ==

== ENCOUNTER 2024-04-20 10:29 | Outpatient (REF) | payer MEDICARE, SELFPAY ==
[2024-04-20 10:42] LABS: Appearance Urine Clear; Color Urine Yellow; Glucose Urine UA Negative (Negative); Leukocyte Esterase Urine Negative (Negative); Nitrite Urine Negative (Negative); PH 6.5 (5.0-9.0); Specific Gravity - Urine 1.015 (1.005-1.025); Urine Blood Negative (Negative); Urine Ketones Negative (Negative); Urine Protein Negative (Neg-Trace)
[2024-04-20 10:51] LABS: Bacteria Urine None Seen (None Seen); Hyaline Casts Urine 0-2 /LPF (0-2); RBC Urine 0-2 /HPF (0-2); Squamous Epithelial Cell Urine 0-2 /HPF (0-2); WBC Urine 0-5 /HPF (0-5)
== END 2024-04-20 10:30 | disposition home or self-care (01) ==
LOC: HO.LNP 10:29
PROVIDERS: Visit Provider Internal Medicine
DX: N39.0 Urinary tract infection, site not specified (principal); R31.9 Hematuria, unspecified
CPT/HCPCS: 81001

== ENCOUNTER 2024-06-07 14:03 | Outpatient (AMB) | payer MEDICARE, OTHER, SELFPAY ==
[2024-06-07 14:38] VITALS: BP 126/60; PULSE 70; BMI 31.3
--- NOTE | 2024-06-07 14:38 | MHC.OFFVIS ---
Vital Signs 06/07/24 14:38 Height 5 ft 2.5 in Weight 173 lb 11.588 oz BMI 31.3 BP 126/60 Blood Pressure Location Lt brachial Position Sitting Pulse 70 Pulse Source Monitor Intake Visit Reasons: 6mthf/up-NEOS Hip right replacement 06/30 Head Stock Operator Required: No Accompanied by: Self / Same As Patient Allergies adhesive tape [ADHESIVE TAPE] Allergy (Intermediate, Verified 06/08/23 12:16) RASH/BLISTERS vancomycin [VANCOMYCIN] Allergy (Intermediate, Verified 06/08/23 12:16) HIVES Adhesive Bandages Allergy (Unknown, Uncoded 05/27/23 08:52) rash, redness Medication List - Last Reconciled 06/07/24 by Salvatore Brady MD amlodipine 5 mg PO DAILY ascorbate calcium (vitamin C) 500 mg PO DAILY aspirin (Adult Aspirin Regimen) 81 mg PO DAILY magnesium oxide 400 mg PO DAILY omeprazole 40 mg (2 x 20 mg) PO DAILY 90 days oxybutynin chloride 5 mg PO BID valsartan-hydrochlorothiazide 160-12.5 mg 1 tab PO DAILY HPI Comments Details: 74-year-old female with severe aortic valve stenosis here for follow-up. She underwent cardiac catheterization which did not show any significant coronary disease. She had severe aortic stenosis by and risk assessment she has been referred to the TAVR team but has not been seen at [facility]. She is saying she gets short of breath when she is exerting herself. She is denying any chest discomfort syncope. No other concerns currently. 03/31/2023: She returns for follow-up. She is status post transcatheter aortic valve replacement with number 23 mm S3 bioprosthetic valve. She had echocardiography which showed a normally functioning bioprosthetic valve. She is saying after valve replacement she has not felt significantly different. To some extent her shortness of breath is little better but she still gets out of breath with activities specially when she is going up stairs. Blood pressure control is good. She needs endoscopy. She is getting some left-sided pressure-like discomfort which happens randomly specially when she is laying down. She has a hiatal hernia. 10/04/23: She is here for follow-up. She had endoscopy performed in May 2023. She has Garcia's esophagus. She also has balloon dilatation done in the esophagus. She is saying she has been doing well. She still gets globus. She gets short of breath when she does more than usual activity. No chest discomfort. She had left knee replacement and is finishing rehabilitation at this point. She is saying that she is doing well. 06/07/2024: She is here for follow-up. She has been doing well. No chest pain or shortness of breath. Repeat echocardiography after valve replacement showed a normal bioprosthetic valve in aortic position with no paravalvular leak. She wants to do right hip surgery for arthritis. She is here for perioperative cardiovascular risk assessment. FORMERLY [facility], [facility] Medical History (Updated 06/09/23 @ 12:32 by Latonya Mott PA-C) Left breast mass Lichen sclerosus of vulva LBBB (left bundle branch block) Rate-related bundle branch block Aortic stenosis HTN (hypertension) Surgical History Knee joint replacement status History of esophagogastroduodenoscopy (EGD) S/P TAVR (transcatheter aortic valve replacement) Hx of carpal tunnel repair Hx of rotator cuff surgery Hx of cataract H/O right breast biopsy History of total right knee replacement H/O colonoscopy H/O: hysterectomy Family History Father Heart attack Mother Bundle branch block, unspecified HTN (hypertension) Maternal Grandmother Gastric cancer Sister Brain tumor Maternal Aunt Cancer Social History Household Members Other:: 55 yrs- 3 sons Alcohol intake: never Patient Tobacco Use Status: Former Tobacco user Years Smoked: 30 +/- 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 Gender identity: Female Female Reproductive History Menstrual Age of Menarche: 13 Review of Systems Const Denies chills, Denies fatigue, Denies fever(s), Denies frequent falls, Denies weakness, Denies weight gain and Denies weight loss ENT Denies dizziness Card Denies chest pain, Denies leg edema, Denies lightheadedness, Denies palpitations, Denies dyspnea and Denies dyspnea on exertion Resp Denies cough, Denies dyspnea and Denies dyspnea on exertion GI Denies hematochezia Musc Denies abnormal gait, Denies muscle weakness, Denies numbness, Denies radiating pain into limb and Denies tingling Neuro Denies abnormal gait, Denies dizziness, Denies frequent falls, Denies numbness, Denies tingling and Denies weakness Endo Denies fatigue and Denies palpitations Physical Exam Vital Signs: Last Vital Signs Pulse 70 06/07/24 14:38 BP 126/60 06/07/24 14:38 BMI result Body Mass Index 31.3 GENERAL APPEARANCE: in no acute distress, pleasant. NECK: no carotid bruit, no jugular venous distention. SKIN: no suspicious lesions, warm and dry. HEART: Ejection systolic murmur aortic area with preserved 2nd heart sound. Regular rate rhythm. LUNGS: clear to auscultation bilaterally. ABDOMEN: soft, nontender. EXTREMITIES: no edema. PERIPHERAL PULSES: equal. NEUROLOGIC: No gross deficits, AAO X 3 Office Procedures EKG Details: Sinus rhythm 70 beats per minute, normal axis, left bundle-branch block with QRS 134 milliseconds, QTC 490 milliseconds. [id number], Complete Assessment & Plan Assessment & Plan (1) S/P TAVR (transcatheter aortic valve replacement): Code(s): Z95.2 - Presence of prosthetic heart valve Category: Medical (2) LBBB (left bundle branch block): Code(s): I44.7 - Left bundle-branch block, unspecified Category: Medical (3) HTN (hypertension): Code(s): I10 - Essential (primary) hypertension Category: Medical (4) Preop cardiovascular exam: Code(s): Z01.810 - Encounter for preprocedural cardiovascular examination Category: Medical Plan 74 year female who is here for follow-up. She has known history of aortic valve stenosis and underwent transcatheter aortic valve replacement with S3 23 mm valve in the past. Clinically she has done well and has been asymptomatic. She has bilateral knee replacements at this point and has arthritis in the right hip. She is quite limited due to that and hip pain. She wishes to undergo hip surgery. She is intermediate risk for perioperative cardiovascular complications. She can proceed with surgery. Continue same medications for now. Blood pressure is well controlled. She will see us back in a year. Thank you for allowing me to participate in the care of your patient. Please feel free to contact me if you have any questions. Coding Level of Care Code Est Pt Level 4 (98976) Diagnoses S/P TAVR (transcatheter aortic valve replacement) Z95.2 LBBB (left bundle branch block) I44.7 HTN (hypertension) I10 Preop cardiovascular exam Z01.810 CPT Codes EKG - CPT: 15663-Xpojwgmpqeatfeses, Complete ([id number])
== END 2024-06-07 15:00 | disposition home or self-care (01) ==
LOC: HO.HCS 14:04
PROVIDERS: PCP Internal Medicine; Visit Provider Internal Medicine Cardiovascular Disease
DX: Z95.2 Presence of prosthetic heart valve (principal); I44.7 Left bundle-branch block, unspecified; I10 Essential (primary) hypertension; Z01.810 Encounter for preprocedural cardiovascular examination
CPT/HCPCS: 93010; 99214

== ENCOUNTER → 2024-06-07 14:03 | Outpatient (BNVA) | payer MEDICARE, SELFPAY | PROVIDERS: PCP Internal Medicine; Visit Provider Internal Medicine Cardiovascular Disease | DX: Z01.810 Encounter for preprocedural cardiovascular examination (principal); I44.7 Left bundle-branch block, unspecified; I10 Essential (primary) hypertension; Z95.2 Presence of prosthetic heart valve | CPT/HCPCS: 93005; 99212 ==

== ENCOUNTER 2024-08-11 11:06 | Outpatient (REF) | payer MEDICARE, OTHER, SELFPAY ==
[2024-08-11 11:13] LABS: MANUAL DIFF FLAG NO
[2024-08-11 11:24] LABS: Appearance Urine Clear; Color Urine Yellow; Glucose Urine UA Negative (Negative); Leukocyte Esterase Urine Negative (Negative); Nitrite Urine Negative (Negative); PH 6.5 (5.0-9.0); Specific Gravity - Urine 1.015 (1.005-1.025); UMIC TRIGGER UACC YES; Urine Blood Trace (Negative); Urine Ketones Negative (Negative); Urine Protein Negative (Neg-Trace)
[2024-08-11 11:25] LABS: Basophils Absolute Auto 0.1 X10*3/uL (0.0-0.2); Basophils Percent Auto 1.2 % (0-2); Eosinophils Absolute Auto 0.3 X10*3/uL (0.0-0.4); Eosinophils Percent Auto 4.8 % (0-4); Hematocrit 29.1 % (37.0-47.0); Hemoglobin 8.5 g/dl (12.0-16.0); Imm Gran Abs Auto 0.02 X10*3/uL (0.00-0.03); Imm Gran Pct Auto 0.4 % (0.0-0.4); Lymphocytes Absolute Auto 1.7 X10*3/uL (1.2-4.9); Lymphocytes Percent Auto 31.9 % (20-40); Mean Corpuscular HGB Conc 29.2 g/dl (31.0-35.0); Mean Corpuscular Hemoglobin 22.1 pg (27.0-33.0); Mean Corpuscular Volume 75.6 fL (80.0-98.0); Mean Platelet Volume 9.9 fL (9.4-12.3); Monocytes Absolute Auto 0.6 X10*3/uL (0.1-1.2); Neutrophils Absolute Auto 2.6 x10*3/uL (2.0-8.3); Neutrophils Percent Auto 50.7 % (45-73); Platelet Count 300 X10*3/uL (160-400); Red Blood Count 3.85 X10*6/uL (4.20-5.50); Red Cell Distribution Width 17.2 % (11.0-16.0); White Blood Count 5.2 X10*3/uL (4.8-10.8)
[2024-08-11 11:27] LABS: Bacteria Urine None Seen (None Seen); Hyaline Casts Urine 0-2 /LPF (0-2); Squamous Epithelial Cell Urine 0-2 /HPF (0-2); WBC Urine 0-5 /HPF (0-5)
[2024-08-11 11:51] LABS: Alanine Aminotransferase 17 U/L (0-31); Albumin Level 3.8 g/dL (3.5-5.0); Alkaline Phosphatase 103 U/L (39-117); Anion Gap 9 (12-20); Aspartate Amino Transferase 24 U/L (5-31); Bilirubin Total 0.3 mg/dL (0.0-1.0); Blood Urea Nitrogen 20 mg/dL (9-16); Calcium 8.8 mg/dL (8.4-10.2); Carbon Dioxide 28 mmol/L (22-29); Chloride 109 mmol/L (96-108); Cholesterol 210 mg/dL (<200); Estimated Glomerular Filt Rate > 60; Glucose Fasting 110 mg/dL (60-99); HDL Cholesterol 47 mg/dL (>40); LDL Cholesterol Calculated 135 mg/dL (<100); Potassium 4.1 mmol/L (3.3-5.1); Sodium 142 mmol/L (135-145); Total Protein 6.9 g/dL (6.5-8.0); Triglycerides 143 mg/dL (<150)
[2024-08-11 11:55] LABS: Creatinine Urine 73.42 mg/dL; Microalbum/Creatinine Ratio Ur 9.5 ug/mg cr (<30)
[2024-08-11 11:59] LABS: Estimated Average Glucose 131 mg/dL; Hemoglobin A1C 103.3394 umol/L; Hemoglobin A1c % 6.2 % (<6.0)
[2024-08-11 12:12] LABS: Iron 20 mcg/dL (30-160); Percent Iron Saturation 6 % (15-50); Total Iron Binding Capacity 339 mcg/dL (228-428); Unsaturated Iron Binding 319 ug/dL
--- OUTSIDE RECORDS SUMMARY | 2024-08-11 12:58 | XMS_ITS ---
Author Organization Robin Barnett MD Address [address] [place], [place] [phone] Care Team Providers Care Vac Press Operator Name Role Phone Robin Barnett Primary Care Provider RESULTS Component Value Reference Range Notes UA ClnCatch+Micro w/rflx Cul t (Not yet reviewed by provider) Interpretation:CBACK 08/14/24 Performing Lab:[facility], [address] [place] [phone] Notes/Report: [id number] 0815 Urine, Clean Catch Color Urine Yellow Appearance Urine Clear PH 6.5 5.0-9.0 Glucose Urine UA Negative Negative mg/dL Urine Blood Trace Negative Specific [place] - Urine 1.015 1.005-1.025 Urine Protein Negative Neg-Trace mg/dL Urine Ketones Negative Negative mg/dL Nitrite Urine Negative Negative Leukocyte Esterase Urine Negative Negative RBC Urine 3-5 0-2 /HPF WBC Urine 0-5 0-5 /HPF Squamous Epithelial Cell Urine 0-2 0-2 /HPF Bacteria Urine None Seen None Seen Hyaline Casts Urine 0-2 0-2 /LPF Complete Blood Count Auto Di ff Reviewed date:08/11/2024 12:05:01 PM Interpretation: Performing Lab:[facility], [address] [place] [phone] Notes/Report: White Blood Count 5.2 4.8-10.8 X10*3/uL [...] NRBC Abs Auto 0.000 0.0-0.012 X10*3/uL Comprehensive [place]. Panel Fa st Reviewed date:08/11/2024 12:22:05 PM Interpretation: Performing Lab:[facility], [address] [place] [phone] Notes/Report: Sodium 142 135-145 mmol/L Potassium 4.1 [...] PROFILE Reviewed date:08/11/2024 12:21:39 PM Interpretation: Performing Lab:[facility], [address] [place] [phone] Notes/Report: Iron 20 30-160 mcg/dL Total Iron Binding Capacity 339 228-428 mcg/d L Percent Iron Saturation 6 15-50 % Unsaturated Iron Binding 319 Lipid Panel Reviewed date:08/11/2024 12:21:09 PM Interpretation: Performing Lab:[facility], [address] [place] [phone] Notes/Report: Triglycerides 143 <150 mg/dL Desirable Triglyceride: [...] Random Reviewed date:08/11/2024 12:16:48 PM Interpretation: Performing Lab:[facility], [address] [place] [phone] Notes/Report: Creatinine Urine 73.42 Microalbumin Urine 7.0 Microalbum/Creatinine Ratio Ur 9.5 <30 ug/mg cr Albumin/Creatinine Ratio Reference Ranges: Normal: < 30 ug/mg creatinine Microalbuminuria: 30 - 300 ug/mg creatinine Clinical Albuminuria: > 300 ug/mg creatinine Hemoglobin A1c Reviewed date:08/11/2024 12:10:09 PM Interpretation: Performing Lab:[facility], [address] [place] [phone] Notes/Report: Hemoglobin A1c % 6.2 <6.0 % [...] average glucose, using the formula of the B6A-Tjswkdb Average Glucose study (ADAG), Diabetes Care, Vol.31,#8, Mar. 2007 REASON FOR VISIT FASTING LABS MEDICATIONS Medication SIG (Take, Route, Frequency, Duration) Notes [...] Active Encounters Encounter Location Date Provider Diagnosis oRbin Barnett MD [address] [place] [address] [address] [place], [place] [phone] 08/11/2024 Robin Barnett Prediabetes R73.09 ; Essential hypertension I10 ; Lymphocytosis D72.820 ; Pure hypercholesterolemia E78.00 and Anemia D64.9 ASSESSMENTS Encounter Date Diagnosis Assessment Notes Treatment Notes Treatment Clinical Notes 08/11/2024 Prediabetes (ICD-10 - R73.09) 08/11/2024 Essential hypertensi on (ICD-10 - I10) 08/11/2024 Lymphocytosis (ICD-1 0 - D72.820) 08/11/2024 Pure hypercholestero lemia (ICD-10 - E78.00) 08/11/2024 Anemia (ICD-10 - D64.9) PLAN OF TREATMENT Pending Test Test Name Order Date UA ClnCatch+Micro w/rflx Cult 08/11/2024 Next Appt Details Provider Name:Robin harley, 08/14/2024 09:30:00 AM, [address] [place] [address], [address], [place], [place], [phone],
--- OUTSIDE RECORDS SUMMARY | 2024-08-11 12:58 | XMS_ITS | Patient Health Record ---
Author Organization Robin Barnett MD Address [address] [place], [place] [phone] Care Team Providers Care Recovery Specialist Name Role Phone Robin Barnett Primary Care Provider [phone] ALLERGIES Allergen (clinical drug ingredient) Drug/Non Drug Allergy documented on EMR Reaction Allergy Type Onset Date Status vancomycin Vancomycin HCl hives Drug Allergy A ctive sulfamethoxazole / trimethoprim Bactrim GI Upset Drug Allergy Active Tape (uncoded) redness infection Allergy Active RESULTS Component Value Reference Range Notes MM tomosynthesis screening B I Reviewed date:10/21/2023 12:08:54 PM Interpretation: Performing Lab: Notes/Report: [address] [place] [address] Mammography Report Signed Patient: Zahra Feliz MR#: [id number] : 1950 Acct:[id number] Age/Sex: 73 / F ADM Date: 10/05/23 Loc: HO.MAMMO Attending Dr: Robin Barnett MD Ordering Physician: Robin Barnett MD Results: 1Ne gative Date of Service: 10/05/23 Follow Up: 1 Year From Orig ina Mammogram Procedure(s): MM tomosynthesis screening BI Accession Number(s): [id number] cc: Robin Barnett MD EXAMINATION: MM SCREENING DIGITAL BREAST TOMOSYNTHESIS, BILATERAL CLINICAL INFORMATION: Screening. Asymptomatic. COMPARISON: Mammography: This study is compared with prior exams dating back to 2018. TECHNIQUE: Digital breast tomosynthesis is performed in both the craniocaudal and mediolateral oblique views along with computer-aided detection (CAD). Synthesized 2D images are generated from the tomosynthesis. FINDINGS: The breasts are heterogeneously dense, which may obscure small masses (ACR BI-RADS breast composition Category c). There are no significant masses, abnormal calcifications, or other abnormalities. MM/MM tomosynthesis screening BI IMPRESSION: No mammographic evidence of malignancy. ASSESSMENT: BI-RADS BI-RADS 1 - Negative RECOMMENDATION: Routine annual mammography screening. 1 year F/U This examination should not preclude the clinical evaluation of a suspicious palpable abnormality. This patient's information was entered into a reminder system with a target due date for their next mammogram. Dictated By: Ally Morales MD Signed By: <Electronically signed by Ally Morales MD in OV> 10/20/23 1616 DD/ 0902 TD/TT: Dry House Operator: BETH ClnCatch+Micro w/rflx Cul t Reviewed date:04/21/2024 08:45:38 AM Interpretation: Performing Lab:[address] [phone] Notes/Report: Urine, Clean Catch Color Urine Yellow Appearance Urine Clear PH 6.5 5.0-9.0 Glucose Urine UA Negative Negative mg/dL Urine Blood Negative Negative Specific [place] - Urine 1.015 1.005-1.025 Urine Protein Negative Neg-Trace mg/dL Urine Ketones Negative Negative mg/dL Nitrite Urine Negative Negative Leukocyte Esterase Urine Negative Negative RBC Urine 0-2 0-2 /HPF WBC Urine 0-5 0-5 /HPF Squamous Epithelial Cell Urine 0-2 0-2 /HPF Bacteria Urine None Seen None Seen Hyaline Casts Urine 0-2 0-2 /LPF UA ClnCatch+Micro w/rflx Cul t (Not yet reviewed by provider) Interpretation:CBACK 08/14/24 Performing Lab:[address] [address] Notes/Report: [id number] 0815 Urine, Clean Catch Color Urine Yellow Appearance Urine Clear PH 6.5 5.0-9.0 Glucose Urine UA Negative Negative mg/dL Urine Blood Trace Negative Specific [place] - Urine 1.015 1.005-1.025 Urine Protein Negative [...] ff Reviewed date:08/11/2024 12:05:01 PM Interpretation: Performing Lab:[facility], [address] [place] [phone] Notes/Report: White Blood Count 5.2 4.8-10.8 X10*3/uL [...] NRBC Abs Auto 0.000 0.0-0.012 X10*3/uL Comprehensive [place]. Panel Fa st Reviewed date:08/11/2024 12:22:05 PM Interpretation: Performing Lab:[facility], [address] [place] [phone] Notes/Report: Sodium 142 135-145 mmol/L Potassium 4.1 [...] PROFILE Reviewed date:08/11/2024 12:21:39 PM Interpretation: Performing Lab:[facility], [address] [place] [phone] Notes/Report: Iron 20 30-160 mcg/dL Total Iron Binding Capacity 339 228-428 mcg/d L Percent Iron Saturation 6 15-50 % Unsaturated Iron Binding 319 Lipid Panel Reviewed date:08/11/2024 12:21:09 PM Interpretation: Performing Lab:[facility], [address] [place] [phone] Notes/Report: Triglycerides 143 <150 mg/dL Desirable Triglyceride: [...] Random Reviewed date:08/11/2024 12:16:48 PM Interpretation: Performing Lab:[address] [phone] Notes/Report: Creatinine Urine 73.42 Microalbumin Urine 7.0 Microalbum/Creatinine Ratio Ur 9.5 <30 ug/mg cr Albumin/Creatinine Ratio Reference Ranges: Normal: < 30 ug/mg creatinine Microalbuminuria: 30 - 300 ug/mg creatinine Clinical Albuminuria: > 300 ug/mg creatinine Hemoglobin A1c Reviewed date:08/11/2024 12:10:09 PM Interpretation: Performing Lab:[address] [address] Notes/Report: Hemoglobin A1c % 6.2 <6.0 % [...] average glucose, using the formula of the X5Y-Mdzxddp Average Glucose study (ADAG), Diabetes Care, Vol.31,#8, Mar. 2007 REASON FOR REFERRAL No Information MEDICATIONS Medication SIG (Take, Route, Frequency, Duration) Notes Start Date End Date Status oxyBUTYnin Chloride 5 MG TAKE 1 TABLET B Y MOUTH TWICE A DAY for 90 Active PriLOSEC OTC 20 MG 2 tablet 30 minutes before morning meal Orally Once a day Active Amoxicillin 500 MG 4 capsule Orally one hour before dentist for 1 days 03/02/2023 Active Cephalexin 500 MG 1 capsule Orally twi ce a day for 7 days 04/07/2024 Active Valsartan-hydroCHLOROthiazi de 160-12.5 MG TAKE 1 TABLET BY MOUTH EVERY DAY FOR 90 DAYS for 90 Active amLODIPine Besylate 5 MG TAKE 1 TABLET B Y MOUTH EVERY DAY for 90 Active IMMUNIZATIONS Vaccine Route Administration Date Status Comme nts Tetanus Unknown 08/09/2013 Administered had sometime in 2013 PPSV23 (Pnemovax) Unknown 06/16/2018 Administered Flu Vaccine Unknown 04/29/2015 Refused Fluarix Quadrivalent Unknown 05/04/2016 Refused Fluarix Quadrivalent Unknown 05/31/2017 Refused Prevnar 13 Unknown 12/06/2017 Refused Fluarix Quadrivalent Unknown 06/16/2018 Refused PPSV23 (Pnemovax) Unknown 06/16/2018 Refused Fluarix Quadrivalent Unknown 06/26/2019 Refused Fluarix Quadrivalent Unknown 07/08/2020 Refused Covid Vaccine Unknown 07/25/2021 Refused Fluarix Quadrivalent Unknown 07/25/2021 Refused Influenza High Dose Unknown 08/05/2023 Refused SOCIAL HISTORY Tobacco Use: Social History Observation Description Date Details (start date - stop date) Former Smoker NA - NA Sex Assigned At : Social History Observation Description Sex Assigned At Unknown Tobacco Use/Smoking Question Answer Notes Patient is a former smoker How long has it been since y ou last smoked? > 10 years Additional Findings: Tobacco Non-User Fo rmer smoker, currently using no form of tobacco Alcohol Screen Question Answer Notes Did you have a drink containing alcohol in the p ast year? No Points 0 Interpretation Negative PROBLEMS Problem Type ICD Code Onset Dates Problem Status W/U Status Risk SNOMED Code Notes Problem Lymphocytosis (D72.820) Active confirmed 77312426 Problem Chronic tension-type headache, not intractable (G44.229) Active confirmed 887380013 Problem Essential hypertensi on (I10) Active confirmed 00468980 Problem Prediabetes (R73.09) Active confirmed 9 388453 Problem Low HDL (under 40) (E78.6) Active confirmed 111392837 Problem History of aortic va lve replacement (Z95.2) Active confirmed History of aortic valve replacement (684708421157 0) Problem Cervical disc diseas e (M50.90) Active confirmed 975758387 Problem LBBB (left bundle branch block) (I44.7) Active confirmed 93830544 Problem Severe aortic stenos is (I35.0) Active confirmed 895686355 Problem Pure hypercholesterolemia (E78.00) Active confirmed 686647112 Problem Body mass index (BMI ) of 34.0-34.9 in adult (Z68.34) Active confirmed 573532912 Problem Hyperplastic colonic polyp, unspecified part of colon (K63.5) Active confirmed 611512518 Problem Moderate aortic stenosis (I35.0) Active confirmed 028842970 Problem Myelopathy (G95.9) Active confirmed 485 58176 Problem Gastroesophageal ref lux disease with esophagitis without hemorrhage (K21.00) Active confirmed 538021210 VITAL SIGNS Blood pressure diastolic 70 mm Hg 04/07/2024 eig ht at home is 165 BP 137/70 no temp Height 60.50 in 04/07/2024 eight at home i s 165 BP 137/70 no temp Blood pressure systolic 137 mm Hg 04/07/2024 eigh t at home is 165 BP 137/70 no temp Weight 165 lbs 04/07/2024 eight at home i s 165 BP 137/70 no temp BMI 31.69 kg/m2 04/07/2024 eight at home i s 165 BP 137/70 no temp Encounters Encounter Location Date Provider Diagnosis Robin Barnett MD [address] [place] [address] [address] [place] [phone] 08/11/2024 Robin Barnett Prediabetes R73.09 ; Essential hypertension I10 ; Lymphocytosis D72.820 ; Pure hypercholesterolemia E78.00 and Anemia D64.9 Robin Barnett MD [address] [place] [address] [phone] 04/20/2024 Robin Barnett Urinary tract infect ion, site not specified N39.0 and Hematuria, unspecified R31.9 Robin Barnett MD [address] [place] [address] Drive [address] [place] [phone] 04/07/2024 Robin Barnett Acute UTI N39.0 ASSESSMENTS Encounter Date Diagnosis Assessment Notes Treatment Notes Treatment Clinical Notes 08/11/2024 Prediabetes (ICD-10 - R73.09) 04/20/2024 Urinary tract infect ion, site not specified (ICD-10 - N39.0) 04/20/2024 Hematuria, unspecifi ed (ICD-10 - R31.9) 04/07/2024 Acute UTI (ICD-10 - N39.0) patient verbalized understanding of medication and directions for use 08/11/2024 Essential hypertensi on (ICD-10 - I10) 08/11/2024 Lymphocytosis (ICD-1 0 - D72.820) 08/11/2024 Pure hypercholestero lemia (ICD-10 - E78.00) 08/11/2024 Anemia (ICD-10 - D64.9) PLAN OF TREATMENT Pending Test Test Name Order Date Electrocardiogram (EKG) 06/05/2016 Electrocardiogram (EKG) 06/16/2018 BONE DENSITY DEXA 07/15/2020 MAMMOGRAM DIGITAL UNILATERAL [place] LT 06/08/2014 ECHO 08/04/2022 ECHO 02/16/2013 UA ClnCatch+Micro w/rflx Cult 08/11/2024 Future Test Test Name Order Date CA echo transthoracic complete 3 Next Appt Details Provider Name:Robin Mena ier, 08/14/2024 09:30:00 AM, [address] [place] [address], [address], [place], [place], [phone], Insurance Providers Payer Name Payer Address Payer Phone Subscriber Number Group Number Insured Name Patient Relationship to Insured Coverage Start Date Coverage End Date MEDICARE [address] [place] [address] [id number] Zahra Feliz Self - patient is the insured 5 [employer] MEDICARE SUPPLEMENT [address] [address] [place] [address] [id number] Zahra Feliz Self - patient is the insured MEDICAL (GENERAL) HISTORY Medical History History ICD Code hematuria with neg w/u2 times colonoscopy 2005 hyperplasti c polyp; colonoscopy by Dr. Thad Pope 08/27/16 - repeat 10 years 1975 - hysterectomy - no paps needed per supervisor blood Has aortic stensois and Dr Jose Antonio [place] [facility] yearly echo
--- OUTSIDE RECORDS SUMMARY | 2024-08-11 12:58 | XMS_ITS ---
Author Organization Robin Barnett MD Address [address] [place] [phone] Care Team Providers Care Metalizing Supervisor Name Role Phone Robin Barnett Primary Care Provider RESULTS Component Value Reference Range Notes UA ClnCatch+Micro w/rflx Cul t Reviewed date:04/21/2024 08:45:38 AM Interpretation: Performing Lab:[facility], [address] [place] [phone] Notes/Report: Urine, Clean Catch Color Urine Yellow Appearance Urine Clear PH 6.5 5.0-9.0 Glucose Urine UA Negative Negative mg/dL Urine Blood Negative Negative Specific [place] - Urine 1.015 1.005-1.025 Urine Protein Negative [...] Date Provider Diagnosis Robin Barnett MD [address] [place] [phone] 04/20/2024 Robin Barnett Urinary tract infection, site not specified N39.0 and Hematuria, unspecified R31.9 ASSESSMENTS Encounter Date Diagnosis Assessment Notes Treatment Notes Treatment Clinical Notes 04/20/2024 Urinary tract infection, site not specified (ICD-10 - N39.0) 04/20/2024 Hematuria, unspecified (ICD-10 - R31.9) PLAN OF TREATMENT Next Appt Details Provider Name:Robin harley, 08/14/2024 09:30:00 AM, [address] [place] [address], [address], [place], [place], [phone],
--- OUTSIDE RECORDS SUMMARY | 2024-08-11 12:58 | XMS_ITS ---
Author Organization Robin Barnett MD Address [address] [place] [phone] Care Team Providers Care Olive Picker Name Role Phone Robin Barnett Primary Care Provider ALLERGIES Allergen (clinical drug ingredient) Drug/Non Drug Allergy documented on EMR Reaction Allergy Type Onset Date Status vancomycin Vancomycin HCl hives Drug Allergy A ctive sulfamethoxazole / trimethoprim Bactrim GI Upset Drug Allergy Active Tape (uncoded) redness infection Allergy Active REASON FOR VISIT UTI x 2 weeks, video [phone] MEDICATIONS Medication SIG (Take, Route, Frequency, Duration) [...] a day for 7 days 04/07/2024 Active VITAL SIGNS BMI 31.69 kg/m2 04/07/2024 Blood pressure systolic 137 mm Hg 04/07/20 24 Blood pressure diastolic 70 mm Hg 024 Height 60.50 in 04/07/2024 Weight 165 lbs 04/07/2024 eight at home is 165 BP 137/ 70 no temp Encounters Encounter Location Date Provider Diagnosis Robin Barnett MD [address] [place] [address] [address] [place], [place] [phone] 04/07/2024 Robin Barnett Acute UTI N39.0 ASSESSMENTS Encounter Date Diagnosis Assessment Notes Treatment Notes Treatment Clinical Notes 04/07/2024 Acute UTI (ICD-10 - N39.0) patient verbalized understanding of medication and directions for use PLAN OF TREATMENT Medication Medication Name Sig Start Date Stop Date Notes Cephalexin 500 MG 1 capsule Orally twice a day for 7 days 04/07/2024 Treatment Notes Assessment Notes Acute UTI patient verbalized u nderstanding of medication and directions for use Next Appt Details Provider Name:Robin Mena ier, 08/14/2024 09:30:00 AM, [address] [place] [address], [address], [place], [place], [phone], Progress Notes * Examination Category Sub-Category Detail Notes General Examination GENERAL APPEARANCE: alert, w ell hydrated, in no distress History and Physical Notes * HPI (History of Present Illness) Category Sub-Category Detail Notes Symptom(s) Telehealth Location of [facility] ider rendering services:: [address] [place] [address], [address] Location of patient:: at address listed in [...]
== END 2024-08-11 11:07 | disposition home or self-care (01) ==
LOC: HO.LNP 11:06
PROVIDERS: Visit Provider Internal Medicine
DX: R73.09 Other abnormal glucose (principal); I10 Essential (primary) hypertension; D72.820 Lymphocytosis (symptomatic); E78.00 Pure hypercholesterolemia, unspecified; D64.9 Anemia, unspecified
CPT/HCPCS: 80053; 80061; 81001; 82043; 82570; 83036; 83540; 85025

== ENCOUNTER 2024-08-23 15:11 | Outpatient (REF) | payer MEDICARE, OTHER, SELFPAY ==
--- NOTE | ~2024-08-23 | US_ITS ---
EXAMINATION: BILATERAL CAROTID ULTRASOUND WITH DOPPLER HISTORY: Carotid Bruits COMPARISON: There are no prior studies for comparison. TECHNIQUE: Real time and Color and Spectral doppler ultrasonography of the carotid and vertebral arteries was performed in multiple planes. FINDINGS: No significant plaque is identified. VERTEBRAL FLOW DIRECTION: Antegrade bilaterally. PEAK SYSTOLIC VELOCITIES (in cm/sec): RIGHT: CCA: Prox: 96.2 Dist: 85.5 ICA: Prox: 70.8 Mid: 87.0 Dist: 64.0 ICA/CCA Ratio: 0.90 ECA: 73.9 Peak ICA EDV: 26.7 LEFT: CCA: Prox: 96.2 Dist: 72.8 ICA: Prox: 84.1 Mid: 93.9 Dist: 77.1 ICA/CCA Ratio: 0.98 ECA: 74.5 Peak ICA EDV: 28.7 US/US carotid duplex BI IMPRESSION: Normal examination of the carotid arteries. No significant stenosis. Electronically signed by: Yannick Walton MD 08/24/2024 07:46 AM EST
== END 2024-08-23 15:12 | disposition home or self-care (01) ==
LOC: HO.US 15:11
PROVIDERS: PCP Internal Medicine; Visit Provider Internal Medicine
DX: N32.81 Overactive bladder (principal); R09.89 Other specified symptoms and signs involving the circulatory and respiratory systems
CPT/HCPCS: 93880

== ENCOUNTER → 2024-08-23 15:14 | Outpatient (BNV) | payer MEDICARE, OTHER, SELFPAY | PROVIDERS: PCP Internal Medicine; Visit Provider Radiology Diagnostic Radiology | DX: R09.89 Other specified symptoms and signs involving the circulatory and respiratory systems (principal) | CPT/HCPCS: 93880 ==

== ENCOUNTER 2024-10-10 09:01 | Outpatient (REF) | payer MEDICARE, OTHER, SELFPAY ==
--- NOTE | ~2024-10-10 | MM_ITS ---
EXAMINATION: MM SCREENING DIGITAL BREAST TOMOSYNTHESIS, BILATERAL CLINICAL INFORMATION: Screening. Asymptomatic. COMPARISON: Mammography: Comparison is made with available priors TECHNIQUE: Digital breast mammography with tomosynthesis is performed in both the craniocaudal and mediolateral oblique views along with computer-aided detection (CAD). FINDINGS: The breasts are heterogeneously dense, which may obscure small masses (ACR BI-RADS breast composition Category c). Left: Left marker clip. Asymmetry lateral left breast posterior depth on CC view with questioned associated distortion. Localizing superiorly on emile synthesis. No suspicious calcifications or other abnormal findings. Right: There are no significant masses, abnormal calcifications, or other abnormalities. MM/MM tomosynthesis screening BI IMPRESSION: Additional imaging is recommended ASSESSMENT: BI-RADS BI-RADS 0 - Incomplete: Needs additional Imaging. RECOMMENDATION: 1. Additional views of the left breast 2. Targeted ultrasound if warranted after review of the additional views. 3. Radiology department staff will contact the patient for additional imaging. Additional Imaging required This examination should not preclude the clinical evaluation of a suspicious palpable abnormality. This patient's information was entered into a reminder system with a target due date for their next mammogram. Electronically signed by: Lakesha Dumont DO 10/12/2024 11:38 AM JANY
--- OUTSIDE RECORDS SUMMARY | 2024-10-10 09:56 | XMS_ITS ---
Author Organization Robin Barnett MD Address [address] [place] [phone] Care Team Providers Care Arbor Press Operator Name Role Phone Robin Barnett Primary Care Provider [phone] Allergies Allergen (clinical drug ingredient) Drug/Non Drug [...] Problem Status W/U Status Risk Notes Problem [id number] Overactive bladder (N32.81) Active confirmed Problem 96065259 Iron deficiency anemia, unspecified iron deficiency anemia type (D50.9) Active confirmed Vital Signs Blood pressure systolic 132 mm Hg 08/14/19 25 Blood pressure diastolic 58 mm Hg 025 Height 60.50 in 08/14/2024 Weight 172 lbs 08/14/2024 BMI 33.03 kg/m2 08/14/2024 weight is up 7 pounds since 04-07-24 Encounters Encounter Location Date Provider Diagnosis Robin Barnett MD [address] [place] [address] Drive [address] [place], [place] [phone] 08/14/2024 Robin Barnett Overactive bladder N 32.81 [...] bladder (ICD-10 - N32.81) order faxed to [facility] dept, pending diagnostic testing 08/14/2024 Gastroesophageal [...] Assessment Notes Overactive bladder order faxed to [facility] S dept, pending diagnostic testing Gastroesophageal [...] Order Date US CAROTID BILATERAL DOPPLER 08/14/2024 Complete Blood Count Auto Diff IRON PROFILE 08/14/2024 TSH reflex Free T4 08/14/2024 Next Appt Details Follow Up: 2 Months, Reason: Provider Name:Robin harley, 10/12/2024 07:00:00 AM, [address] [place] [address], [address] [place] [address], [phone], Provider Name:Robin harley, 10/19/2024 09:00:00 AM, [address] [place] [address], Suite [facility], [place], [place], [phone], Provider Name:Robin harley, 08/07/2025 07:30:00 AM, [address] [place] [address], [place] [address], [place], [place], [phone], Provider Name:Robin Mena ier, 08/17/2025 08:30:00 AM, [address], [address], [place], [place], [phone], Progress Notes * Yee YUENOB: 0 (74 yo F)Acc No.[id number]:08/14/2024 Patient:?Zahra Yuen Provider:?Robin Barnett MD :1950???Age:74 Y???Sex:Female D ate:08/14/2024 Address:[address] [place], [place] [phone] Subjective: * Chief Complaints: * ???Review labsCBACK URINE * HPI: ???Depression Screening:?PHQ-9?Little interest or pleasure in doing things?Not at all,?Feeling down, depressed, or hopeless?Not at all,?Trouble falling or staying asleep, or sleeping too much?Not at all,?Feeling tired or having little energy?Not at all,?Poor appetite or overeating?Not at all,?Feeling bad about yourself or that you are a failure, or have let yourself or your family down?Not at all,?Trouble concentrating on things, such as reading the newspaper or watching television?Not at all,?Moving or speaking so slowly that other people could have noticed; or the opposite, being so fidgety or restless that you have been moving around a lot more than usual?Not at all,?Thoughts that you would be better off or of hurting yourself in some way?Not at all,?Total Score?0.?Interpretation and Intervention?Depression Screening Findings?Negative,?Follow-Up for Depression?: review of PHQ-9 found negative result, no follow-up needed.?Communication Needs:?Communication Needs?Does the patient have a hearing impairment?No,?Does the patient have a vision impairment??Yes,?If yes, what is the vision impairment??Glasses,?Does the patient have a cognition impairment??No.?Fall Risk:?History?Have you had any falls with injury in the past year??No,?Have you had two or more falls in the past year??No.?SDOH Questions:?SDOH Questions?In the past year have you been worried about losing housing??No,?In the past year have you or any family members you live with been unable to get any of the following when it was really needed? Check all that apply:?None.?Symptom(s):? patient is a 74 yo female here for follow up visit with review of recent labs and follow up of chronci issues. * ROS:?General/Constitutional:?Patient denies?fatigue , headache.?Change in appetite?denies.?Chills?denies.?Fever?denies.?Ophthalmologic:?Blurred vision?denies.?Discharge?denies.?Pain?denies.?ENT:?Patient denies?decreased sense of smell , any loss of taste , sore throat.?Decreased hearing?denies.?Sore throat?denies.?Swollen glands?denies.?Endocrine:?Cold intolerance?denies.?Excessive thirst?denies.?Heat intolerance?denies.?Weight loss?denies.?Respiratory:?Cough?denies.?Shortness of breath at rest?denies.?Shortness of breath with exertion?denies.?Wheezing?denies.?Cardiovascular:?Chest pain at rest?denies.?Chest pain with exertion?denies.?Irregular heartbeat?denies.?Shortness of breath?denies.?Gastrointestinal:?Abdominal pain?denies.?Change in bowel habits?denies.?Diarrhea?denies.?Nausea?denies.?Rectal bleeding?denies.?Vomiting?denies .?Genitourinary:?Blood in urine?denies.?Difficulty urinating?denies.?Frequent urination?denies.?Urinary incontinence?Denies.?Musculoskeletal:?Patient denies?muscle aches.?Painful joints?denies.?Weakness?denies.?Peripheral Vascular:?Patient denies?red and blue toes.?Skin:?Dry skin?denies.?Itching?denies.?Denies?Mole(s),? changes in moles, new moles or any lesions of concern.?Denies?Photosensitivity.?Rash?denies.?Neurologic:?Dizziness?denies.?Fainting?denies.?Headache?denies.? * Medical History:? * Surgical History:? * Hospitalization/Major Diagno stic Procedure:? * Family History:?Father: dece ased 31 yrs.?Mother: 89 yrs.?4 brother(s) , 3 sister(s) . 3 son(s) . .? Father Cardiac 1 brother 14 Suicide 1 sisiter 65 Glioblastoma , No pertinent family medical history, Denies mental health/substance abuse family history 1 brother 60 Covid Mother- CHF, Denies mental health/substance abuse family history. * Social History:?Tobacco Use:?Tobacco Use/Smoking?Patient is a?former smoker,?How long has it been since you last smoked??> 10 years,?Additional Findings: Tobacco Non-User?Former smoker, currently using no form of tobacco.?Drugs/Alcohol:?Alcohol Screen?Did you have a drink containing alcohol in the past year??No,?Points?0,?Interpretation?Negative.?Miscellaneous:?Caffeine: yes, frequency:, 2-3 cups per day. Children: yes. Community involvements: yes. no Exercise. Home smoke detector use: yes. Housing: owning. Living with: spouse. Marital status: . Occupation: weeks/months/years, retired. Pets: cats: dogs:1 dog. no Travel outside of the [place]. * Medications:?TakingAmoxicill in 500 MG Capsule 4 capsule Orally one hour before dentistPriLOSEC OTC 20 MG Tablet Delayed Release 2 tablet 30 minutes before morning meal Orally Once a dayoxyBUTYnin Chloride 5 MG Tablet TAKE 1 TABLET BY MOUTH TWICE A DAY amLODIPine Besylate 5 MG Tablet TAKE 1 TABLET BY MOUTH EVERY DAY Valsartan-hydroCHLOROthiazide 160-12.5 MG Tablet TAKE 1 TABLET [...] reviewed and reconciled with the patient * Allergies:?Vancomycin HCl: h ivesTape: redness infectionBactrim: GI Upsetyes[Allergies Verified] Objective: * Vitals:?Ht: 60.50, Wt: 172, BMI:33.03, BP:132/58, Wt-k.02 weight is up 7 pounds since 04-07-24. * ???Past Orders: ???Lab:Comprehensive [place]. P hannah Fast (Order Date - 08/11/2024) (Collection Date - 08/11/2024) ? Value Reference Range ?Sodium 142 135-145 - mmo l/L ?Bilirubin Total 0.3 0.0- 1.0 - mg/dL ?Aspartate Amino Transferase 24 5-31 - U/L ?Alanine Aminotransferase 17 0-31 - U/L ?Total Protein 6.9 6.5-8. 0 - g/dL ?Albumin Level 3.8 3.5-5. 0 - g/dL ?Alkaline Phosphatase 103 39-117 - U/L ?Potassium 4.1 3.3-5.1 - mmol/L ?Chloride 109 H 96-108 - mm ol/L ?Carbon Dioxide 28 22-29 - mmol/L ?Anion Gap 9 L 12-20 - ?Blood Urea Nitrogen 20 H 9-16 - mg/dL ?Creatinine 0.78 0.5-1.4 - mg/dL ?Estimated Glomerular Filt Rate > 60 - ?Glucose Fasting 110 H 60-9 9 - mg/dL ?Calcium 8.8 8.4-10.2 - m g/dL ???Lab:IRON PROFILE (Order D 08/11/2024) (Collection Date - 08/11/2024) ? Value Reference Range ?Iron 20 L 30-160 - mcg/dL ?Total Iron Binding Capacity 339 228-428 - mcg/dL ?Percent Iron Saturation 6 L 15-50 - % ?Unsaturated Iron Binding 319 - ug/dL ???Lab:Lipid Panel (Order Da te 08/11/2024) (Collection Date - 08/11/2024) ? Value Reference Range ?Triglycerides 143 <150 - mg/dL ?Cholesterol 210 H <200 - m g/dL ?LDL Cholesterol Calculated 135 H <100 - mg/dL ?HDL Cholesterol 47 >40 - mg/dL ???Lab:Microalbumin, Random (Order Date 08/11/2024) (Collection Date - 08/11/2024) ? Value Reference Range ?Creatinine Urine 73.42 - m g/dL ?Microalbumin Urine 7.0 - mg/L ?Microalbum Creatinine Ratio Ur 9.5 <30 - ug/mg cr ???Lab:Hemoglobin A1c (Order Date - 08/11/2024) (Collection Date - 08/11/2024) ? Value Reference Range ?Hemoglobin A1c % 6.2 H <6. 0 - % ?Estimated Average Glucose 131 - mg/dL ???Lab:Complete Blood Count Auto Diff (Order Date - 08/11/2024) (Collection Date - 08/11/2024) ? Value Reference Range ?White Blood Count 5.2 4. 8-10.8 - X10*3/uL ?Red Blood Count 3.85 L 4.20 -5.50 - X10*6/uL ?Hemoglobin 8.5 L 12.0-16.0 - g/dl ?Hematocrit 29.1 L 37.0-47.0 - % ?Mean Corpuscular Volume 75.6 L 80.0-98.0 - fL ?Mean Corpuscular Hemoglobin 22.1 L 27.0-33.0 - pg ?Mean Corpuscular HGB Conc 29.2 L 31.0-35.0 - g/dl ?Red Cell Distribution Width 17.2 H 11.0-16.0 - % ?Platelet Count 300 160-4 00 - X10*3/uL ?Mean Platelet Volume 9.9 9.4-12.3 - fL ?Neutrophils Percent Auto 50.7 45-73 - % ?Imm Gran Pct Auto 0.4 0. 0-0.4 - % ?Lymphocytes Percent Auto 31.9 20-40 - % ?Monocytes Percent Auto 11.0 2-11 - % ?Eosinophils Percent Auto 4.8 H 0-4 - % ?Basophils Percent Auto 1.2 0-2 - % ?NRBC Pct Auto 0.0 0.0-0. 2 - /100WBC ?Neutrophils Absolute Auto 2.6 2.0-8.3 - x10*3/uL ?Imm Gran Abs Auto 0.02 0. 00-0.03 - X10*3/uL ?Lymphocytes Absolute Auto 1.7 1.2-4.9 - X10*3/uL ?Monocytes Absolute Auto 0.6 0.1-1.2 - X10*3/uL ?Eosinophils Absolute Auto 0.3 0.0-0.4 - X10*3/uL ?Basophils Absolute Auto 0.1 0.0-0.2 - X10*3/uL ?NRBC Abs Auto 0.000 0.0-0. 012 - X10*3/uL * Examination: ???General Examination: ?GENERAL APPEARANCE:?well developed, well nourished, in no acute distress.?HEAD:?normocephalic, atraumatic.?EYES:?pupils equal, round, reactive to light and accommodation, sclera non-icteric.?EARS:?normal.?ORAL CAVITY:?mucosa moist.?THROAT:?clear.?NECK/THYROID:?neck supple, full range of motion, no cervical lymphadenopathy, murmer radiating.?SKIN:?warm and dry, no suspicious lesions.?HEART:?regular rate and rhythm, S1, S2 normal,? 3/6 keturah.?LUNGS:?clear to auscultation bilaterally.?BREASTS:?No mass, no lump.?ABDOMEN:?soft, nontender, nondistended, bowel sounds present, normal, no organomegaly , no masses palpable.?RECTAL EXAM:?declined. sent with cards and solution.?FEMALE GENITOURINARY:?done by senior facilities manager.?EXTREMITIES:?no clubbing, cyanosis, or edema.?NEUROLOGIC:?nonfocal, motor strength normal upper and lower extremities, sensory exam intact.? Assessment: * Assessment: 1.?Overactive bladder - N32. 81 (Primary)?2.?Gastroesophageal reflux disease with esophagitis without hemorrhage - K21.00?3.?Iron deficiency anemia, unspecified iron deficiency anemia type - D50.9?4.?Loss of hair - L65.9?5.?Bilateral carotid bruits - R09.89?6.?Prediabetes - R73.09?7.?Essential hypertension - I10?8.?Pure hypercholesterolemia - E78.00?9.?Colon cancer screening - Z12.11?10.?Depression screening - Z13.31? Plan: * Treatment: 2.?Gastroesophageal reflux d isease with esophagitis without hemorrhage? Refill PriLOSEC OTC Tablet Delayed Release, 20 MG, 2 tablet 30 minutes before morning meal, Orally, Once a day, 90 days, 180, Refills 0.?? Notes: stable, will contnue current regiment?? 3.?Iron deficiency anemia, u nspecified iron deficiency anemia type?LAB: Complete Blood Count Auto Diff (Ordered for 10/12/2024) ?LAB: IRON PROFILE (Ordered for 10/12/2024) Notes: to take iron and repeat in 2 months?? 4.?Loss of hair?LAB: TSH reflex Free T4 (Ordered for 10/12/2024) 5.?Bilateral carotid bruits?Imaging: US CAROTID BILATERAL DOPPLER 6.?Prediabetes? Notes: stable, no need for medication at this time?? 7.?Essential hypertension? Continue amLODIPine Besylate Tablet, 5 MG, TAKE 1 TABLET BY MOUTH EVERY DAY;?Continue Valsartan-hydroCHLOROthiazide Tablet, 160-12.5 MG, TAKE 1 TABLET BY MOUTH EVERY DAY FOR 90 DAYS.?? Notes: stable,will contiue current regiment?? 8.?Pure hypercholesterolemia ? Notes: stable, james continue current regiment?? 9.?Colon cancer screening? Notes: patient given cards, will return to office?? 10.?Depression screening? Notes: negative screen?? 11.?Others? Notes: Total time spent on the date of the encounter is 45 minutes including both face to face time spent and time spent reviewing documentation, and counseling the patient.?? * Procedure Codes:? * Follow Up:?2 Months * * Sign off status: Completed true * Provider:?Robin Barnett MD Date:?0 08/14/2024 Generated for Lorna gutierrez/Griselda/Sofieitting on:?10/10/2024 09:56 AM EST History and Physical Notes * HPI [...] patient have a vision impairmen t?: Yes ?If yes, what is the vision impairment?: Glasses Does the patient have a cognition impair ment?: No Examination Category Sub-Category Detail Notes Category Not es General Examination GENERAL APPEARANCE: well dev eloped, well nourished, in no acute distress HEAD: normocephalic, atrau matic EYES: pupils equal, round, reactive to light and accommodation, sclera non- icteric EARS: normal THROAT: clear NECK/THYROID: neck supple, [...] cards and solution FEMALE GENITOURINARY: done by senior facilities manager ORAL CAVITY: mucosa moist
--- OUTSIDE RECORDS SUMMARY | 2024-10-10 09:57 | XMS_ITS ---
Author Organization Robin Barnett MD Address [address] [place] [phone] Care Team Providers Care Zipper Setter Chainstitch Name Role Phone Robin Barnett Primary Care Provider Results Component Value Reference Range Notes UA ClnCatch+Micro w/rflx Cul t Reviewed date:04/21/2024 08:45:38 AM Interpretation: Performing Lab:[facility], [address] [place] [phone] Notes/Report: Urine, Clean Catch Color Urine Yellow Appearance Urine Clear PH 6.5 5.0-9.0 Glucose Urine UA Negative Negative mg/dL Urine Blood Negative Negative Specific [place] - Urine 1.015 1.005-1.025 Urine Protein Negative [...] Date Provider Diagnosis Robin Barnett MD [address] [place] [phone] 04/20/2024 Robin Barnett Urinary tract infection, site not specified N39.0 and Hematuria, unspecified R31.9 Assessments Encounter Date Diagnosis (ICD Code) Assessment Notes Treatment Notes Treatment Clinical Notes Section Notes 04/20/2024 Urinary tract infection, site not specified (ICD-10 - N39.0) 04/20/2024 Hematuria, unspecified (ICD-10 - R31.9) Plan Of Treatment Next Appt Details Provider Name:Robin Mena ier, 10/12/2024 07:00:00 AM, [address], [address], [place], [place], [phone], Provider Name:Robin Mena ier, 10/19/2024 09:00:00 AM, [address], [address], [place], [place], [phone], Provider Name:Robin Mena ier, 08/07/2025 07:30:00 AM, [address], [address], [place], [place], [phone], Provider Name:Robin Mena ier, 08/17/2025 08:30:00 AM, [address], Suite [facility], [place], [phone], Progress Notes * Yee YUENOB: 0 (74 yo F)Acc No.[id number]:04/20/2024 Progress Note Patient:?Zahra YUEN Provider:?Robin Barnett MD :1950???Age:74 Y???Sex:Female D ate:04/20/2024 Address:[address] [place], [place] [phone] Subjective: * Chief Complaints: * ???1. URINE CULTURE F/U. * Medical History:? Objective: * Vitals:? Assessment: * Assessment: 1.?Urinary tract infection, site not specified - N39.0 (Primary)???2.?Hematuria, unspecified - R31.9??? Plan: * Treatment: 2.?Hematuria, unspecified?LAB: UA ClnCatch+Micro w/rflx Cult (Collection Date & Time - 04/20/2024 07:45 AM) * * The named appointment provid er may or may not be the originator of this progress note, and it is not deemed complete until electronically signed by the appointment provider. Sign off status: Pending * Provider:?Robin Barnett MD Date:?0 04/20/2024 Generated for Lorna gutierrez/Griselda/Víctor on:?10/10/2024 09:57 AM EST
--- OUTSIDE RECORDS SUMMARY | 2024-10-10 09:57 | XMS_ITS ---
Author Organization Robin Barnett MD Address [address] [place] [phone] Care Team Providers Care Concrete Mixer Operator Helper Name Role Phone Robin Barnett Primary Care Provider [phone] Results Component Value Reference Range Notes Complete Blood Count Auto Di ff Reviewed date:08/11/2024 12:05:01 PM Interpretation: Performing Lab:[facility], [address] [place] [phone] Notes/Report: White Blood Count 5.2 4.8-10.8 X10*3/uL [...] NRBC Abs Auto 0.000 0.0-0.012 X10*3/uL Comprehensive [place]. Panel Fa Reviewed date:08/11/2024 12:22:05 PM Interpretation: Performing Lab:[address] [phone] Notes/Report: Sodium 142 135-145 mmol/L Potassium 4.1 [...] PROFILE Reviewed date:08/11/2024 12:21:39 PM Interpretation: Performing Lab:[address] [phone] Notes/Report: Iron 20 30-160 mcg/dL Total Iron Binding Capacity 339 228-428 mcg/d L Percent Iron Saturation 6 15-50 % Unsaturated Iron Binding 319 Lipid Panel Reviewed date:08/11/2024 12:21:09 PM Interpretation: Performing Lab:[facility], [address] [place] [phone] Notes/Report: Triglycerides 143 <150 mg/dL Desirable Triglyceride: [...] Random Reviewed date:08/11/2024 12:16:48 PM Interpretation: Performing Lab:[facility], [address] [place] [phone] Notes/Report: Creatinine Urine 73.42 Microalbumin Urine 7.0 Microalbum/Creatinine Ratio Ur 9.5 <30 ug/mg cr Albumin/Creatinine Ratio Reference Ranges: Normal: < 30 ug/mg creatinine Microalbuminuria: 30 - 300 ug/mg creatinine Clinical Albuminuria: > 300 ug/mg creatinine Hemoglobin A1c Reviewed date:08/11/2024 12:10:09 PM Interpretation: Performing Lab:[facility], [address] [place] [phone] Notes/Report: Hemoglobin A1c % 6.2 <6.0 % [...] average glucose, using the formula of the H1J-Qkwznui Average Glucose study (ADAG), Diabetes Care, Vol.31,#8, Mar. 2007 UA ClnCatch+Micro w/rflx Cul t Reviewed date:08/14/2024 10:20:30 AM Interpretation:ALFREDO 08/14/24 Performing Lab:[facility], [address] [place] [phone] Notes/Report: [id number] Urine, Clean Catch Color Urine Yellow Appearance Urine Clear PH 6.5 5.0-9.0 Glucose Urine UA Negative Negative mg/dL Urine Blood Trace Negative Specific [place] - Urine 1.015 1.005-1.025 Urine Protein Negative [...] Location Date Provider Diagnosis Robin Barnett MD [address] [place] [address] [address] [place], [place] [phone] 08/11/2024 Robin Barnett Prediabetes R73.09 ; Essential [...] Of Treatment Next Appt Details Provider Name:Robin harley, 10/12/2024 07:00:00 AM, [address] [place] [address], [address], [place], [place], [phone], Provider Name:Robin barrazar, 10/19/2024 09:00:00 AM, [address] [place] [address], [address], [place], [place], [phone], Provider Name:Robin barrazar, 08/07/2025 07:30:00 AM, [address] [place] [address], Suite [facility], [place], [place], [phone], Provider Name:Robin barrazar, 08/17/2025 08:30:00 AM, [address] [place] [address], Suite [facility], [place], [place], [phone], Progress Notes * Yee YUENOB: 0 (74 yo F)Acc No.[id number]:08/11/2024 Progress Note Patient:?Zahra YUEN Provider:?Robin Barnett MD :1950???Age:74 Y???Sex:Female D ate:08/11/2024 Address:[address] [place], [place] [phone] Subjective: * Chief Complaints: * ???1. FASTING LABS. * Medical History:? * Medications:?Taking Cephalex in 500 MG Capsule 1 capsule Orally twice [...] EVERY DAY FOR 90 DAYS Objective: * Vitals:? Assessment: * Assessment: 1.?Prediabetes - R73.09 (Zo obando)???2.?Essential hypertension - I10???3.?Lymphocytosis - D72.820???4.?Pure hypercholesterolemia - E78.00???5.?Anemia - D64.9??? Plan: * Treatment: 2.?Essential hypertension?LAB: Complete Blood Count Auto Diff (Collection Date & Time - 08/11/2024 08:15 AM) ?LAB: Comprehensive [place]. Panel Fast (Collection Date & Time - 08/11/2024 08:15 AM) ?LAB: Lipid Panel (Collection Date & Time - 08/11/2024 08:15 AM) ?LAB: Microalbumin, Random (Collection Date & Time - 08/11/2024 08:15 AM) ?LAB: Hemoglobin A1c (Collection Date & Time - 08/11/2024 08:15 AM) ?LAB: UA ClnCatch+Micro w/rflx Cult (Collection Date & Time - 08/11/2024 08:15 AM) 3.?Lymphocytosis?LAB: Complete Blood Count Auto Diff (Collection Date & Time - 08/11/2024 08:15 AM) ?LAB: Comprehensive [place]. Panel Fast (Collection Date & Time - 08/11/2024 08:15 AM) ?LAB: Lipid Panel (Collection Date & Time - 08/11/2024 08:15 AM) ?LAB: Microalbumin, Random (Collection Date & Time - 08/11/2024 08:15 AM) ?LAB: Hemoglobin A1c (Collection Date & Time - 08/11/2024 08:15 AM) ?LAB: UA ClnCatch+Micro w/rflx Cult (Collection Date & Time - 08/11/2024 08:15 AM) 4.?Pure hypercholesterolemia ?LAB: Complete Blood Count Auto Diff (Collection Date & Time - 08/11/2024 08:15 AM) ?LAB: Comprehensive [place]. Panel Fast (Collection Date & Time - 08/11/2024 08:15 AM) ?LAB: Lipid Panel (Collection Date & Time - 08/11/2024 08:15 AM) ?LAB: Microalbumin, Random (Collection Date & Time - 08/11/2024 08:15 AM) ?LAB: Hemoglobin A1c (Collection Date & Time - 08/11/2024 08:15 AM) ?LAB: UA ClnCatch+Micro w/rflx Cult (Collection Date & Time - 08/11/2024 08:15 AM) 5.?Anemia?LAB: IRON PROFILE (Collection Date & Time - 08/11/2024 08:15 AM) * Procedure Codes:?53939 VENIP UNCT, ROUTINE* * * The named appointment provid er may or may not be the originator of this progress note, and it is not deemed complete until electronically signed by the appointment provider. Sign off status: Pending * Provider:?Robin Barnett MD Date:?0 08/11/2024 Generated for Lorna gutierrez/Griselda/Sofieitting on:?10/10/2024 09:56 AM EST
== END 2024-10-10 09:02 | disposition home or self-care (01) ==
LOC: HO.MAMMO 09:01
PROVIDERS: PCP Internal Medicine; Visit Provider Internal Medicine
DX: Z12.31 Encounter for screening mammogram for malignant neoplasm of breast (principal)
CPT/HCPCS: 77063; 77067

== ENCOUNTER → 2024-10-10 09:15 | Outpatient (BNV) | payer MEDICARE, OTHER, SELFPAY | PROVIDERS: PCP Internal Medicine; Visit Provider Internal Medicine | DX: Z12.31 Encounter for screening mammogram for malignant neoplasm of breast (principal) | CPT/HCPCS: 77063; 77067 ==

== ENCOUNTER 2024-10-12 10:49 | Outpatient (REF) | payer MEDICARE, OTHER, SELFPAY ==
[2024-10-12 10:51] LABS: MANUAL DIFF FLAG NO
[2024-10-12 11:22] LABS: Basophils Absolute Auto 0.1 X10*3/uL (0.0-0.2); Basophils Percent Auto 1.1 % (0-2); Eosinophils Absolute Auto 0.2 X10*3/uL (0.0-0.4); Eosinophils Percent Auto 3.8 % (0-4); Hematocrit 38.6 % (37.0-47.0); Imm Gran Abs Auto 0.01 X10*3/uL (0.00-0.03); Imm Gran Pct Auto 0.2 % (0.0-0.4); Lymphocytes Absolute Auto 1.7 X10*3/uL (1.2-4.9); Lymphocytes Percent Auto 30.5 % (20-40); Mean Corpuscular HGB Conc 31.1 g/dl (31.0-35.0); Mean Corpuscular Hemoglobin 24.9 pg (27.0-33.0); Mean Corpuscular Volume 80.2 fL (80.0-98.0); Mean Platelet Volume 10.1 fL (9.4-12.3); Monocytes Absolute Auto 0.5 X10*3/uL (0.1-1.2); Monocytes Percent Auto 9.7 % (2-11); Neutrophils Percent Auto 54.7 % (45-73); Platelet Count 231 X10*3/uL (160-400); Red Blood Count 4.81 X10*6/uL (4.20-5.50); Red Cell Distribution Width 21.7 % (11.0-16.0); White Blood Count 5.5 X10*3/uL (4.8-10.8)
[2024-10-12 11:39] LABS: Iron 42 mcg/dL (30-160); Percent Iron Saturation 13 % (15-50); Total Iron Binding Capacity 325 mcg/dL (228-428); Unsaturated Iron Binding 283 ug/dL
[2024-10-12 11:53] LABS: TSH reflex Free T4 3.19 uIU/mL (0.32-4.0)
--- OUTSIDE RECORDS SUMMARY | 2024-10-12 13:05 | XMS_ITS ---
Author Organization Robin Barnett MD Address [address] [place] [phone] Care Team Providers Care Ship Loader Name Role Phone Robin Barnett Primary Care Provider Results Component Value Reference Range Notes Complete Blood Count Auto Di ff Reviewed date:08/11/2024 12:05:01 PM Interpretation: Performing Lab:[facility], [address] [place] [phone] Notes/Report: White Blood Count 5.2 4.8-10.8 X10*3/uL [...] NRBC Abs Auto 0.000 0.0-0.012 X10*3/uL Comprehensive [place]. Panel Fa Reviewed date:08/11/2024 12:22:05 PM Interpretation: Performing Lab:[address] [phone] Notes/Report: Sodium 142 135-145 mmol/L Potassium 4.1 [...] PROFILE Reviewed date:08/11/2024 12:21:39 PM Interpretation: Performing Lab:[address] [phone] Notes/Report: Iron 20 30-160 mcg/dL Total Iron Binding Capacity 339 228-428 mcg/d L Percent Iron Saturation 6 15-50 % Unsaturated Iron Binding 319 Lipid Panel Reviewed date:08/11/2024 12:21:09 PM Interpretation: Performing Lab:[facility], [address] [place] [phone] Notes/Report: Triglycerides 143 <150 mg/dL Desirable Triglyceride: [...] Random Reviewed date:08/11/2024 12:16:48 PM Interpretation: Performing Lab:[facility], [address] [place] [phone] Notes/Report: Creatinine Urine 73.42 Microalbumin Urine 7.0 Microalbum/Creatinine Ratio Ur 9.5 <30 ug/mg cr Albumin/Creatinine Ratio Reference Ranges: Normal: < 30 ug/mg creatinine Microalbuminuria: 30 - 300 ug/mg creatinine Clinical Albuminuria: > 300 ug/mg creatinine Hemoglobin A1c Reviewed date:08/11/2024 12:10:09 PM Interpretation: Performing Lab:[facility], [address] [place] [phone] Notes/Report: Hemoglobin A1c % 6.2 <6.0 % [...] average glucose, using the formula of the L6C-Mvbwgpa Average Glucose study (ADAG), Diabetes Care, Vol.31,#8, Mar. 2007 UA ClnCatch+Micro w/rflx Cul t Reviewed date:08/14/2024 10:20:30 AM Interpretation:ALFREDO 08/14/24 Performing Lab:[facility], [address] [place] [phone] Notes/Report: [id number] 0815 Urine, Clean Catch Color Urine Yellow Appearance Urine Clear PH 6.5 5.0-9.0 Glucose Urine UA Negative Negative mg/dL Urine Blood Trace Negative Specific [place] - Urine 1.015 1.005-1.025 Urine Protein Negative [...] Location Date Provider Diagnosis Robin Barnett MD [address] [place] [address] [address] [place], [place] [phone] 08/11/2024 Robin Barnett Prediabetes R73.09 ; Essential [...] Treatment Next Appt Details Provider Name:Robin Mena cricket, 10/19/2024 09:00:00 AM, [address] [facility], [address], [place], [place], [phone], Provider Name:Robin Mena cricket, 08/07/2025 07:30:00 AM, [address], [address], [place], [place], [phone], Provider Name:Robin Mena madir, 08/17/2025 08:30:00 AM, [address] [facility], [address], [place], [place], [phone], Progress Notes * Yee YUENOB: 0 (74 yo F)Acc No.[id number]:08/11/2024 Progress Note Patient:?Zahra YUEN Provider:?Robin Barnett MD :1950???Age:74 Y???Sex:Female D ate:08/11/2024 Address:[address] [place] [address] Subjective: * Chief Complaints: * ???1. FASTING [...] Assessment: * Assessment: 1.?Prediabetes - R73.09 (Zo gisella)???2.?Essential hypertension - I10???3.?Lymphocytosis - D72.820???4.?Pure hypercholesterolemia - E78.00???5.?Anemia - D64.9??? Plan: * Treatment: 2.?Essential hypertension?LAB: Complete Blood Count Auto Diff (Collection Date & Time - 08/11/2024 08:15 AM) ?LAB: Comprehensive [place]. Panel Fast (Collection Date & Time - [...] Time - 08/11/2024 08:15 AM) ?LAB: Comprehensive [place]. Panel Fast (Collection Date & Time - [...] Time - 08/11/2024 08:15 AM) ?LAB: Comprehensive [place]. Panel Fast (Collection Date & Time - [...] Time - 08/11/2024 08:15 AM) * Procedure Codes:?17917 VENIP UNCT, ROUTINE* * * The named appointment provid er may or may not be the originator of this progress note, and it is not deemed complete until electronically signed by the appointment provider. Sign off status: Pending * Provider:?Robin Barnett MD Date:?0 08/11/2024 Generated for Lorna gutierrez/Griselda/Sofieitting on:?10/12/2024 01:05 PM EST
--- OUTSIDE RECORDS SUMMARY | 2024-10-12 13:05 | XMS_ITS ---
Author Organization Robin Barnett MD Address [address] [place] [phone] Care Team Providers Care Brand Protection Manager Name Role Phone Robin Barnett Primary Care Provider [phone] Allergies Allergen (clinical drug ingredient) Drug/Non Drug [...] Problem Status W/U Status Risk Notes Problem 591502425 Overactive bladder (N32.81) Active confirmed Problem 18669739 Iron deficiency anemia, unspecified iron deficiency anemia type (D50.9) Active confirmed Vital Signs Blood pressure systolic 132 mm Hg 08/14/19 25 Blood pressure diastolic 58 mm Hg 025 Height 60.50 in 08/14/2024 Weight 172 lbs 08/14/2024 BMI 33.03 kg/m2 08/14/2024 weight is up 7 pounds since 04-07-24 Encounters Encounter Location Date Provider Diagnosis Robin Barnett MD [address] [place] [address] Drive [address] [place], [place] [phone] 08/14/2024 Robin Barnett Overactive bladder N 32.81 [...] bladder (ICD-10 - N32.81) order faxed to [facility] [place] CS dept, pending diagnostic testing 08/14/2024 Gastroesophageal [...] Assessment Notes Overactive bladder order faxed to [facility] C S dept, pending diagnostic testing Gastroesophageal [...] Up: 2 Months, Reason: Provider Name:Robin harley, 10/19/2024 09:00:00 AM, [address] [place] [address], [address] [place] [address], [phone], Provider Name:Robin harley, 08/07/2025 07:30:00 AM, [address] [place] [address], Suite [facility], [place], [place], [phone], Provider Name:Robin harley, 08/17/2025 08:30:00 AM, [address] [place] [address], Suite [facility], [place], [place], [phone], Progress Notes * Mariela YUEN: 0 (74 yo F)Acc No.[id number]:08/14/2024 Patient:Zahra Ny Provider:?Robin Barnett MD :1950???Age:74 Y???Sex:Female D ate:08/14/2024 Address:[address] [place], [place] [phone] Subjective: * Chief Complaints: * ???Review labsCBACK [...] Travel outside of the [place]. * Medications:?TakingAmoxicill in 500 MG Capsule [...] pounds since 04-07-24. * ???Past Orders: ???Lab:Comprehensive [place]. P hannah Fast (Order Date - 08/11/2024) [...] 319 - ug/dL ???Lab:Lipid Panel (Order Da 08/11/2024) (Collection Date 08/11/2024) ? Value Reference Range ?Triglycerides 143 <150 - mg/dL ?Cholesterol 210 H <200 - m g/dL ?LDL Cholesterol Calculated 135 H <100 - mg/dL ?HDL Cholesterol 47 >40 - mg/dL ???Lab:Microalbumin, Random (Order 08/11/2024) (Collection Date - 08/11/2024) ? Value Reference Range ?Creatinine Urine 73.42 - m g/dL ?Microalbumin Urine 7.0 - mg/L ?Microalbum Creatinine Ratio Ur 9.5 <30 - ug/mg cr ???Lab:Hemoglobin A1c (Order Date 08/11/2024) (Collection Date 08/11/2024) ? Value Reference Range ?Hemoglobin A1c [...] sent with cards and solution.?FEMALE GENITOURINARY:?done by adolescent psychiatrist.?EXTREMITIES:?no clubbing, cyanosis, or edema.?NEUROLOGIC:?nonfocal, motor strength normal [...] Provider:?Robin Barnett MD Date:?0 08/14/2024 Generated for Jesusi brenda/Griselda/eTransmitting on:?10/12/2024 01:04 PM EST History and Physical Notes * [...] had two or more falls in the st year?: No Communication Needs Communication Needs Does [...] cards and solution FEMALE GENITOURINARY: done by adolescent psychiatrist ORAL CAVITY: mucosa moist
--- OUTSIDE RECORDS SUMMARY | 2024-10-12 13:06 | XMS_ITS ---
Author Organization Robin Barnett MD Address [address] [place] [phone] Care Team Providers Care Eligibility Clerk Name Role Phone Robin Barnett Primary Care Provider Results Component Value Reference Range Notes Complete Blood Count Auto Di ff Reviewed date:10/12/2024 12:32:59 PM Interpretation: Performing Lab:[facility], [address] [place] [phone] Notes/Report: White Blood Count 5.5 4.8-10.8 X10*3/uL [...] PROFILE Reviewed date:10/12/2024 12:33:07 PM Interpretation: Performing Lab:[address] [phone] Notes/Report: Iron 42 30-160 mcg/dL Total Iron Binding Capacity 325 228-428 mcg/d L Percent Iron Saturation 13 15-50 % Unsaturated Iron Binding 283 TSH reflex Free T4 Reviewed date:10/12/2024 12:33:15 PM Interpretation: Performing Lab:[facility], [address] [place] [phone] Notes/Report: TSH reflex Free T4 3.19 0.32-4.0 uIU/mL REASON FOR VISIT CBC IRON TSH Encounters Encounter Location Date Provider Diagnosis Robin Barnett MD [address] [place] [phone] 10/12/2024 Robin Barnett Loss of hair L65.9 and Iron deficiency anemia, unspecified iron deficiency anemia type D50.9 Assessments Encounter Date Diagnosis (ICD Code) Assessment Notes Treatment Notes Treatment Clinical Notes Section Notes 10/12/2024 Loss of hair (ICD-10 - L65.9) 10/12/2024 Iron deficiency anemia, unspecified iron deficiency anemia type (ICD-10 - D50.9) Plan Of Treatment Next Appt Details Provider Name:Robin harley, 10/19/2024 09:00:00 AM, [address] [place] [address], [place] [address], [place], [place], [phone], Provider Name:Robin harley, 08/07/2025 07:30:00 AM, [address], [address], [place], [phone], Provider Name:Robin Chiuori ier, 08/17/2025 08:30:00 AM, [address] [facility] [address], [address], [place], [phone], Progress Notes * Yee YUENOB: 0 (74 yo F)Acc No.[id number]:10/12/2024 Progress Note Patient:?Zahra YUEN Provider:?Robin Barnett MD :1950???Age:74 Y???Sex:Female D ate:10/12/2024 Address:[facility] Subjective: * Chief Complaints: * ???1. CBC IRON TSH. * Medical History:? Objective: * Vitals:? Assessment: * Assessment: 1.?Loss of hair - L65.9???2. ?Iron deficiency anemia, unspecified iron deficiency anemia type - D50.9??? Plan: * Treatment: 2.?Iron deficiency anemia, u nspecified iron deficiency anemia type?LAB: Complete Blood Count Auto Diff (Collection Date & Time - 10/12/2024 07:00 AM) ?LAB: IRON PROFILE (Collection Date & Time - 10/12/2024 07:00 AM) * * The named appointment provid er may or may not be the originator of this progress note, and it is not deemed complete until electronically signed by the appointment provider. Sign off status: Pending * Provider:?Robin Barnett MD Date:?0 10/12/2024 Generated for Lorna gutierrez/Griselda/Sofieitting on:?10/12/2024 01:05 PM EST
== END 2024-10-12 10:50 | disposition home or self-care (01) ==
LOC: HO.LNP 10:49
PROVIDERS: Visit Provider Internal Medicine
DX: D50.9 Iron deficiency anemia, unspecified (principal); L65.9 Nonscarring hair loss, unspecified
CPT/HCPCS: 83540; 84443; 85025

== ENCOUNTER 2024-11-02 12:07 | Outpatient (REF) | payer MEDICARE, OTHER, SELFPAY ==
--- NOTE | ~2024-11-02 | MM_ITS ---
EXAMINATION: MM DIAGNOSTIC DIGITAL BREAST TOMOSYNTHESIS, LEFT Limited left breast ultrasound. CLINICAL INFORMATION: Call back from screening for asymmetry with questioned distortion in the lateral left breast posterior depth on CC view. COMPARISON: Mammography: [facility] on PACS. TECHNIQUE: Digital breast tomosynthesis is performed in both the craniocaudal and mediolateral oblique views along with computer-aided detection (CAD). Synthesized 2D images are generated from the tomosynthesis. FINDINGS: There are scattered areas of fibroglandular density (ACR BI-RADS breast composition Category b). Asymmetry in the lateral left breast posterior depth persist on additional imaging projections with associated architectural distortion. No suspicious calcifications or other abnormal findings. Targeted color Doppler ultrasound scanning from 1-5 o'clock demonstrates a hypoechoic oval irregular solid mass at 2:00 10 cm from nipple measuring 5 x 6 x 3 mm which correlates with the focal asymmetry on mammography. Targeted color Doppler ultrasound in the axilla demonstrates normal axillary lymph nodes and normal axillary tissue. There is no sonographic abnormality in the axilla. MM/MM tomosynthesis added views L IMPRESSION: Solid irregular mass on ultrasound at 2:00 10 cm from the nipple. Recommend histology with ultrasound-guided core needle biopsy at this time. The findings and recommendations were discussed with the patient the procedure will be scheduled. ASSESSMENT: BI-RADS BI-RADS 4 - Suspicious finding RECOMMENDATION: Biopsy recommended Results were provided to the patient at time of visit by the technologist. This patient's information was entered into a reminder system with a target due date for their next mammogram. Electronically signed by: Lakesha Dumont DO 11/02/2024 01:12 PM EDT
== END 2024-11-02 12:08 | disposition home or self-care (01) ==
LOC: HO.MAMMO 12:07
PROVIDERS: PCP Internal Medicine; Visit Provider Internal Medicine
DX: N64.89 Other specified disorders of breast (principal)
CPT/HCPCS: 76642; 77061; 77065

== ENCOUNTER → 2024-11-02 12:30 | Outpatient (BNV) | payer MEDICARE, OTHER, SELFPAY | PROVIDERS: PCP Internal Medicine; Visit Provider Internal Medicine | DX: R92.8 Other abnormal and inconclusive findings on diagnostic imaging of breast (principal) | CPT/HCPCS: 77065; G0279 ==

== ENCOUNTER 2024-11-20 08:11 | Outpatient (AMB) | payer MEDICARE, OTHER, SELFPAY ==
--- NOTE | 2024-11-20 08:18 | MHC.OFFVIS ---
Vital Signs 11/20/24 08:24 Height 5 ft 2.5 in Weight 175 lb BMI 31.5 BP 158/72 H Blood Pressure Location Rt brachial Position Sitting Pulse 73 Intake Visit Reasons: (L) breast density upper, outer quadrant, bx 11/22 Intake Note: Patient is seen in office for ultrasound biopsy CONSULT for left breast density upper outer quadrant. Pt c/o: no concerns. Denies pain, itch, nipple discharge. Previously seen in 2021 for different lt br nodule. Bx sched:11/22/24 @8am Physical Sciences Instructor Required: No Accompanied by: Self / Same As Patient Allergies adhesive tape [ADHESIVE TAPE] Allergy (Intermediate, Verified 11/20/24 08:23) RASH/BLISTERS vancomycin [VANCOMYCIN] Allergy (Intermediate, Verified 11/20/24 08:23) HIVES Adhesive Bandages Allergy (Unknown, Uncoded 11/20/24 08:23) rash, redness Medication List - Last Reconciled 11/20/24 by Dhaval Melendez MD amlodipine 5 mg PO DAILY ascorbate calcium (vitamin C) 500 mg PO DAILY aspirin (Adult Aspirin Regimen) 81 mg PO DAILY magnesium oxide 400 mg PO DAILY omeprazole 40 mg (2 x 20 mg) PO DAILY 90 days oxybutynin chloride 5 mg PO BID valsartan-hydrochlorothiazide 160-12.5 mg 1 tab PO DAILY HPI HPI (L) breast density upper, outer quadrant, bx 11/22: Details: [age] year old female referred for a left breast mass. She had undergone her screening mammogram last month he was note of distortion seen on the left breast laterally. She was brought back for an ultrasound and mammogram and this showed a hypoechoic oval irregular solid mass at the 2 o'clock position 10 cm from the nipple measuring 5 x 6 x 3 mm. She was therefore recommended to undergo an ultrasound-guided biopsy She denies any palpable mass. She had menarche at the age of 14. Her 1st was at age of 18. She had 3 pregnancies. She had hysterectomy at the age of 25 for heavy bleeding. She also says she had a maternal aunt who had breast cancer in her late 40s. She has had breast biopsies in the past which had always been benign. [facility] Medical History (Updated 11/20/24 @ 08:48 by Dhaval Melendez MD) Family history of breast cancer Left breast mass Lichen sclerosus of vulva LBBB (left bundle branch block) Rate-related bundle branch block Aortic stenosis HTN (hypertension) Surgical History Knee joint replacement status History of esophagogastroduodenoscopy (EGD) S/P TAVR (transcatheter aortic valve replacement) Hx of carpal tunnel repair Hx of rotator cuff surgery Hx of cataract H/O right breast biopsy History of total right knee replacement H/O colonoscopy H/O: hysterectomy Family History Father Heart attack Mother Bundle branch block, unspecified HTN (hypertension) Maternal Grandmother Gastric cancer Sister Brain tumor Maternal Aunt Cancer Social History Household Members Other:: 55 yrs- 3 sons Alcohol intake: never Patient Tobacco Use Status: Former Tobacco user Years Smoked: 30 +/- 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 Gender identity: Female Female Reproductive History Menstrual Age of Menarche: 13 Review of Systems Const Denies chills and Denies fever(s) Card Denies chest pain, Denies dyspnea and Denies dyspnea on exertion Resp Denies cough, Denies dyspnea and Denies dyspnea on exertion GI Denies hematochezia and Denies change in bowel habits Denies hematuria Musc Denies back pain and Denies limited range of motion Neuro Denies focal weakness and Denies convulsions Psych Denies depression and Denies mood swings Physical Exam Vital Signs: Last Vital Signs Pulse 73 11/20/24 08:24 BP 158/72 H 11/20/24 08:24 BMI result Body Mass Index 31.5 Const General: comfortable and no acute distress Orientation/consciousness: patient oriented x3 Neck Neck: Yes no lymphadenopathy Chest Other: No palpable breast masses, no nipple or skin changes, no axillary lymphadenopathy Resp Auscultation: clear to auscultation bilaterally Cardio Rhythm: regular rhythm GI Palpation (GI): Soft to palpation, nontender and no guarding Neuro General: patient oriented x3 Assessment & Plan Assessment & Plan (1) Left breast mass: Code(s): N63.20 - Unspecified lump in the left breast, unspecified quadrant Category: Medical Plan: She has this solid irregular mass at the 2 o'clock position of the left breast as described above. She recommended to undergo ultrasound biopsy. I explained to her the technique of this procedure. She is still familiar with this from previous biopsies I will see her in the office next week to discuss the path report. (2) Family history of breast cancer: Code(s): Z80.3 - Family history of malignant neoplasm of breast Category: Medical Plan: She had a maternal aunt who had breast cancer in her 40s. I therefore explained to the patient the option of proceeding with genetic testing. I explained to her the implications of this test to herself and her family She says she wants to hold off on this for now. Orders: Orders US breast ndl core biopsy LT 11/17/24 N63.20 - Unspecified lump in the left breast, unspecified quadrant Coding Level of Care Code New Pt Level 4 (42655) Diagnoses Left breast mass N63.20 Family history of breast cancer Z80.3
[2024-11-20 08:24] VITALS: BP 158/72; PULSE 73; BMI 31.5
--- OUTSIDE RECORDS SUMMARY | 2024-11-20 08:32 | XMS_ITS ---
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 Name Role Phone Robin Barnett Primary Care [...] Robin Barnett MD [address] [place] [phone] 10/19/2024 Robin Barnett Essential hypertension I10 Assessments [...] repeat cbc and iron in 3 months Future Test Test Name Order Date Complete Blood Count Auto Diff IRON PROFILE 02/18/2025 Next Appt Details Provider Name:Robin Mena ier, 02/19/2025 08:00:00 AM, Hospital [facility], [address], [place], [place], [phone], Provider Name:Robin Mena ier, 08/07/2025 07:30:00 AM, [address] [place] [address], [address], [place], [place], [phone], Provider Name:Robin Mena ier, 08/17/2025 08:30:00 AM, [address], [address], [place], [place], [phone], Progress Notes * Yee YUENOB: 0 (74 yo F)Acc No.[id number]:10/19/2024 Progress Notes Patient:?Zahra YUEN Provider:?Robin Barnett MD :1950???Age:74 Y???Sex:Female D ate:10/19/2024 Address:[address] [place], [place] [id number] Subjective: * Chief Complaints: * ???2 month * HPI: ???Symptom(s):?patient is a 74 yo female here for follow up of her anemia. has recovered. will take iron for another month. * ROS:?General/Constitutional:?Denies?Chills.?Denies?Fatigue.?Denies?Fever.?Denies?Headache.?ENT:?Patient denies?decreased sense of smell, any loss of taste.?Denies?Sore throat.?Respiratory:?Denies?Cough.?Denies?Shortness of breath at rest.?Denies?Shortness of breath with exertion.?Gastrointestinal:?Denies?Diarrhea.?Denies?Nausea.?Musculoskeletal:?Patient denies?muscle aches.?Peripheral Vascular:?Patient denies?red and blue toes.? * Medical History:? * Surgical History:? * Hospitalization/Major Diagno stic Procedure:? * Medications:?TakingAmoxicill in 500 MG Capsule 4 capsule Orally one hour before dentist oxyBUTYnin Chloride 5 MG Tablet TAKE 1 TABLET BY MOUTH TWICE A DAY Valsartan-hydroCHLOROthiazide 160-12.5 MG Tablet TAKE 1 [...] Objective: * Vitals:?Ht: 60.50, Wt: 172, BMI:33.03, BP:156/70, Repeat BP:144/70, Wt-k.02. * ???Past Orders: ???Lab:Complete Blood Count Auto Diff (Order Date - 10/12/2024) (Collection Date & Time - 10/12/2024 07:00 AM) ? Value Reference Range ?White Blood Count 5.5 4. 8-10.8 - X10*3/uL ?Red Blood Count 4.81 4.20 -5.50 - X10*6/uL ?Hemoglobin 12.0 12.0-16.0 - g/dl ?Hematocrit 38.6 37.0-47.0 - % ?Mean Corpuscular Volume 80.2 80.0-98.0 - fL ?Mean Corpuscular Hemoglobin 24.9 L 27.0-33.0 - pg ?Mean Corpuscular HGB Conc 31.1 31.0-35.0 - g/dl ?Red Cell Distribution Width 21.7 H 11.0-16.0 - % ?Platelet Count 231 160-4 00 - X10*3/uL ?Mean Platelet Volume 10.1 9.4-12.3 - fL ?Neutrophils Percent Auto 54.7 45-73 - % ?Imm Gran Pct Auto 0.2 0. 0-0.4 - % ?Lymphocytes Percent Auto 30.5 20-40 - % ?Monocytes Percent Auto 9.7 2-11 - % ?Eosinophils Percent Auto 3.8 0-4 - % ?Basophils Percent Auto 1.1 0-2 - % ?NRBC Pct Auto 0.0 0.0-0. 2 - /100WBC ?Neutrophils Absolute Auto 3.0 2.0-8.3 - x10*3/uL ?Imm Gran Abs Auto 0.01 0. 00-0.03 - X10*3/uL ?Lymphocytes Absolute Auto 1.7 1.2-4.9 - X10*3/uL ?Monocytes Absolute Auto 0.5 0.1-1.2 - X10*3/uL ?Eosinophils Absolute Auto 0.2 0.0-0.4 - X10*3/uL ?Basophils Absolute Auto 0.1 0.0-0.2 - X10*3/uL ?NRBC Abs Auto 0.000 0.0-0. 012 - X10*3/uL ???Lab:TSH reflex Free T4 (O rder Date - 10/12/2024) (Collection Date & Time - 10/12/2024 07:00 AM) ? Value Reference Range ?TSH reflex Free T4 3.19 0 .32-4.0 - uIU/mL ???Lab:IRON PROFILE (Order D ate - 10/12/2024) (Collection Date & Time - 10/12/2024 07:00 AM) ? Value Reference Range ?Iron 42 30-160 - mcg/dL ?Total Iron Binding Capacity 325 228-428 - mcg/dL ?Percent Iron Saturation 13 L 15-50 - % ?Unsaturated Iron Binding 283 - ug/dL * Examination: ???General Examination: ?GENERAL APPEARANCE:?alert, well hydrated, in no distress.?HEAD:?normocephalic.?SKIN:?good turgor.?HEART:?regular rate and rhythm, grade 3/6 systolic murmur at left sternal border.?LUNGS:?no wheezes, rales, rhonchi, good air movement, clear to auscultation bilaterally.? Assessment: * Assessment: 1.?Essential hypertension - I10 (Primary)??? Plan: * Treatment: 2.?Others? Notes: was the result of surgery. did 3 guaiacs and all negative/ will take iron for one month and then repeat cbc and iron in 3 months?? * Labs:? * ?Lab: Complete Blood Cou nt Auto Diff (Ordered for 02/18/2025) ?Lab: IRON PROFILE (Orde red for 02/18/2025) * Procedure Codes:? * * Sign off status: Completed true * Provider:?Robin Barnett MD Date:?0 10/19/2024 Generated for Lorna gutierrez/Griselda/eTransmitting on:?11/20/2024 08:32 AM EDT History and Physical Notes * [...]
--- OUTSIDE RECORDS SUMMARY | 2024-11-20 08:32 | XMS_ITS ---
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 Name Role Phone Robin Barnett Primary Care [...] Problem Status W/U Status Risk Notes Problem 313097690 Overactive bladder (N32.81) Active confirmed Problem [id number] Iron deficiency anemia, unspecified iron deficiency anemia type (D50.9) Active confirmed Vital Signs Blood pressure systolic 132 mm Hg 08/14/19 25 Blood pressure diastolic 58 mm Hg 025 Height 60.50 in 08/14/2024 Weight 172 lbs 08/14/2024 BMI 33.03 kg/m2 08/14/2024 weight is up 7 pounds since 04-07-24 Encounters Encounter Location Date Provider Diagnosis Robin Barnett MD [address] [place] [address] Drive [address] [place], [place] [phone] 08/14/2024 Robin Barnett Overactive bladder N 32.81 [...] bladder (ICD-10 - N32.81) order faxed to [facility] dept, pending diagnostic testing 08/14/2024 Gastroesophageal [...] Assessment Notes Overactive bladder order faxed to [facility] S dept, pending diagnostic testing Gastroesophageal [...] Up: 2 Months, Reason: Provider Name:Robin harley, 02/19/2025 08:00:00 AM, [address] [place] [address], [address] [place] [address], [phone], Provider Name:Robin harley, 08/07/2025 07:30:00 AM, [address] [place] [address], Suite [facility], [place], [place], [phone], Provider Name:Robin harley, 08/17/2025 08:30:00 AM, [address] [place] [address], Suite [facility], [place], [place], [phone], Progress Notes * Mariela YUEN: 0 (74 yo F)Acc No.[id number]:08/14/2024 Patient:Zahra Ny Provider:?Robin Barnett MD :1950???Age:74 Y???Sex:Female D ate:08/14/2024 Address:[address] [place], [place] [phone] Subjective: * Chief Complaints: * ???Review labsCBACK [...] pounds since 04-07-24. * ???Past Orders: ???Lab:Comprehensive [place]. P hannah Fast (Order Date - 08/11/2024) [...] rate and rhythm, S1, S2 normal,? 3/6 ekturah.?LUNGS:?clear to auscultation bilaterally.?BREASTS:?No mass, no lump.?ABDOMEN:?soft, nontender, nondistended, bowel sounds present, normal, no organomegaly , no masses palpable.?RECTAL EXAM:?declined. sent with cards and solution.?FEMALE GENITOURINARY:?done by die stamping press operator.?EXTREMITIES:?no clubbing, cyanosis, or edema.?NEUROLOGIC:?nonfocal, motor strength normal [...] MD Date:?0 08/14/2024 Generated for Jesusi brenda/Griselda/eTransmitting on:?11/20/2024 08:32 AM EDT History and Physical [...] cards and solution FEMALE GENITOURINARY: done by die stamping press operator ORAL CAVITY: mucosa moist
--- OUTSIDE RECORDS SUMMARY | 2024-11-20 08:33 | XMS_ITS ---
Author Organization Robin Barnett MD Address [address] [place] [phone] Care Team Providers Care Account Officer Name Role Phone Robin Barnett Primary Care Provider [phone] Results Component Value Reference Range Notes Complete Blood Count Auto Di ff Reviewed date:10/12/2024 12:32:59 PM Interpretation: Performing Lab:[facility], [address] [place] [phone] Notes/Report: White Blood Count 5.5 4.8-10.8 X10*3/uL [...] PROFILE Reviewed date:10/12/2024 12:33:07 PM Interpretation: Performing Lab:[address] [phone] Notes/Report: Iron 42 30-160 mcg/dL Total Iron Binding Capacity 325 228-428 mcg/d L Percent Iron Saturation 13 15-50 % Unsaturated Iron Binding 283 TSH reflex Free T4 Reviewed date:10/12/2024 12:33:15 PM Interpretation: Performing Lab:[facility], [address] [place] [phone] Notes/Report: TSH reflex Free T4 3.19 0.32-4.0 uIU/mL REASON FOR VISIT CBC IRON TSH Encounters Encounter Location Date Provider Diagnosis Robin Barnett MD [address] [place] [phone] 10/12/2024 Robin Barnett Loss of hair L65.9 and Iron deficiency anemia, unspecified iron deficiency anemia type D50.9 Assessments Encounter Date Diagnosis (ICD Code) Assessment Notes Treatment Notes Treatment Clinical Notes Section Notes 10/12/2024 Loss of hair (ICD-10 - L65.9) 10/12/2024 Iron deficiency anemia, unspecified iron deficiency anemia type (ICD-10 - D50.9) Plan Of Treatment Next Appt Details Provider Name:Robin harley, 02/19/2025 08:00:00 AM, [address] [place] [address], [place] [address], [place], [place], [phone], Provider Name:Robin harley, 08/07/2025 07:30:00 AM, [address] [place] [address], [address], [place], [place], [phone], Provider Name:Robin Mena ier, 08/17/2025 08:30:00 AM, [address], [address], [place], [place], [phone], Progress Notes * Yee YUENOB: 0 (74 yo F)Acc No.[id number]:10/12/2024 Progress Note Patient:?Zahra YUEN Provider:?Robin Barnett MD :1950???Age:74 Y???Sex:Female D ate:10/12/2024 Address:[facility] Subjective: * Chief Complaints: * ???1. CBC IRON TSH. * Medical History:? Objective: * Vitals:? Assessment: * Assessment: 1.?Loss of hair - L65.9 (Zo gisella)???2.?Iron deficiency anemia, unspecified iron deficiency anemia type - D50.9??? Plan: * Treatment: 2.?Iron deficiency anemia, u nspecified iron deficiency anemia type?LAB: Complete Blood Count Auto Diff (Collection Date & Time - 10/12/2024 07:00 AM) ?LAB: IRON PROFILE (Collection Date & Time - 10/12/2024 07:00 AM) * Procedure Codes:?86773 VENIP UNCT, ROUTINE* * * The named appointment provid er may or may not be the originator of this progress note, and it is not deemed complete until electronically signed by the appointment provider. Sign off status: Pending * Provider:?Robin Barnett MD Date:?0 10/12/2024 Generated for Lorna gutierrez/Griselda/eTransmitting on:?11/20/2024 08:32 AM EDT
--- OUTSIDE RECORDS SUMMARY | 2024-11-20 08:33 | XMS_ITS | Patient Health Record ---
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 Name Role Phone Robin Barnett Primary Care Provider Allergies Allergen (clinical drug ingredient) Drug/Non Drug Allergy documented on EMR Reaction Allergy Type Onset Date Status vancomycin Vancomycin HCl hives Drug Allergy A ctive sulfamethoxazole / trimethoprim Bactrim GI Upset Drug Allergy Active Tape (uncoded) redness infection Allergy Active Results Component Value Reference Range Notes UA ClnCatch+Micro w/rflx Cul t Reviewed date:04/21/2024 08:45:38 AM Interpretation: Performing Lab:[facility], [address] [place] [phone] Notes/Report: Urine, Clean Catch Color Urine Yellow Appearance Urine Clear PH 6.5 5.0-9.0 Glucose Urine UA Negative Negative mg/dL Urine Blood Negative Negative Specific [place] - Urine 1.015 1.005-1.025 Urine Protein Negative [...] ff Reviewed date:08/11/2024 12:05:01 PM Interpretation: Performing Lab:[facility], [address] [place] [phone] Notes/Report: White Blood Count 5.2 4.8-10.8 X10*3/uL [...] 0.0-0.2 /100WBC Neutrophils Absolute Auto 2.6 2.0-8.3 x10*3/uL Imm Gran Abs Auto 0.02 0.00-0.03 X10*3/uL Lymphocytes Absolute Auto 1.7 1.2-4.9 X10*3/uL Monocytes Absolute Auto 0.6 0.1-1.2 X10*3/uL Eosinophils Absolute Auto 0.3 0.0-0.4 X10*3/uL Basophils Absolute Auto 0.1 0.0-0.2 X10*3/uL NRBC Abs Auto 0.000 0.0-0.012 X10*3/uL Comprehensive Emerson. Panel Fa st Reviewed date:08/11/2024 12:22:05 PM Interpretation: Performing Lab:[facility], [address] [place] [address], [place] [address] Notes/Report: Sodium 142 135-145 mmol/L Potassium 4.1 [...] PROFILE Reviewed date:08/11/2024 12:21:39 PM Interpretation: Performing Lab:[address] [phone] Notes/Report: Iron 20 30-160 mcg/dL Total Iron Binding Capacity 339 228-428 mcg/dL Percent Iron Saturation 6 15-50 % Unsaturated Iron Binding 319 Lipid Panel Reviewed date:08/11/2024 12:21:09 PM Interpretation: Performing Lab:[facility], [address] [place] [phone] Notes/Report: Triglycerides 143 <150 mg/dL Desirable Triglyceride: [...] Random Reviewed date:08/11/2024 12:16:48 PM Interpretation: Performing Lab:[facility], [address] [place] [phone] Notes/Report: Creatinine Urine 73.42 Microalbumin Urine 7.0 Microalbum/Creatinine Ratio Ur 9.5 <30 ug/mg cr Albumin/Creatinine Ratio Reference Ranges: Normal: < 30 ug/mg creatinine Microalbuminuria: 30 - 300 ug/mg creatinine Clinical Albuminuria: > 300 ug/mg creatinine Hemoglobin A1c Reviewed date:08/11/2024 12:10:09 PM Interpretation: Performing Lab:[facility], [address] [place] [phone] Notes/Report: Hemoglobin A1c % 6.2 <6.0 % [...] average glucose, using the formula of the M0R-Ssmxwif Average Glucose study (ADAG), Diabetes Care, Vol.31,#8, Mar. 2007 UA ClnCatch+Micro w/rflx Cul t Reviewed date:08/14/2024 10:20:30 AM Interpretation:ALFREDO 08/14/24 Performing Lab:[facility], [address] [place] [phone] Notes/Report: [id number] Urine, Clean Catch Color Urine Yellow Appearance Urine Clear PH 6.5 5.0-9.0 Glucose Urine UA Negative Negative mg/dL Urine Blood Trace Negative Specific [place] - Urine 1.015 1.005-1.025 Urine Protein Negative [...] ff Reviewed date:10/12/2024 12:32:59 PM Interpretation: Performing Lab:[facility], [address] [place] [phone] Notes/Report: White Blood Count 5.5 4.8-10.8 X10*3/uL [...] 0.0-0.2 /100WBC Neutrophils Absolute Auto 3.0 2.0-8.3 x10*3/uL Imm Gran Abs Auto 0.01 0.00-0.03 X10*3/uL Lymphocytes Absolute Auto 1.7 1.2-4.9 X10*3/uL Monocytes Absolute Auto 0.5 0.1-1.2 X10*3/uL Eosinophils Absolute Auto 0.2 0.0-0.4 X10*3/uL Basophils Absolute Auto 0.1 0.0-0.2 X10*3/uL NRBC Abs Auto 0.000 0.0-0.012 X10*3/uL IRON PROFILE Reviewed date:10/12/2024 12:33:07 PM Interpretation: Performing Lab:[facility], [address] [place] [phone] Notes/Report: Iron 42 30-160 mcg/dL Total Iron Binding Capacity 325 228-428 mcg/dL Percent Iron Saturation 13 15-50 % Unsaturated Iron Binding 283 TSH reflex Free T4 Reviewed date:10/12/2024 12:33:15 PM Interpretation: Performing Lab:[facility], [address] [place] [phone] Notes/Report: TSH reflex Free T4 3.19 0.32-4.0 uIU/mL US carotid duplex BI Reviewed date:08/24/2024 05:28:39 PM Interpretation: Performing Lab: Notes/Report: [address] [address] Ultrasound Report Signed Patient: Zahra Feliz MR#: [id number] 0023 : 1950 Acct:[id number] Age/Sex: 74 / F ADM Date: 08/23/24 Loc: HO.US Attending Dr: Robin Barnett MD Ordering Physician: Robin Barnett MD Date of Service: 08/23/24 Procedure(s): US carotid duplex BI Accession Number(s): [id number] cc: Robin Barnett MD EXAMINATION: BILATERAL CAROTID ULTRASOUND WITH DOPPLER HISTORY: Carotid Bruits COMPARISON: There are no prior studies for comparison. TECHNIQUE: Real time and Color and Spectral doppler ultrasonography of the carotid and vertebral arteries was performed in multiple planes. FINDINGS: No significant plaque is identified. VERTEBRAL FLOW DIRECTION: Antegrade bilaterally. PEAK SYSTOLIC VELOCITIES (in cm/sec): RIGHT: CCA: Prox: 96.2 Dist: 85.5 ICA: Prox: 70.8 Mid: 87.0 Dist: 64.0 ICA/CCA Ratio: 0.90 ECA: 73.9 Peak ICA EDV: 26.7 LEFT: CCA: Prox: 96.2 Dist: 72.8 ICA: Prox: 84.1 Mid: 93.9 Dist: 77.1 ICA/CCA Ratio: 0.98 ECA: 74.5 Peak ICA EDV: 28.7 US/US carotid duplex BI IMPRESSION: Normal examination of the carotid arteries. No significant stenosis. Electronically signed by: Yannick Walton MD 08/24/2024 07:46 AM EST Dictated By: Yannick Walton MD Signed By: <Electronically signed by Yannick Walton MD in OV> 08/24/24 0746 DD/ 1542 TD/TT: 08/23/24 1600 Sticker Operator: [address] [place] [address] Ultrasound Report Signed Patient: Gaby Feliz MR#: [id number] 0023 : 1950 Acct:[id number] Age/Sex: 74 / F ADM Date: 08/23/24 Loc: . Attending Dr: Robin Barnett MD Ordering Physician: Robin Barnett MD Date of Service: 08/23/24 Procedure(s): US carotid duplex BI Accession Number(s): [id number] cc: Robin Barnett MD EXAMINATION: BILATER AL CAROTID ULTRASOUND WITH DOPPLER HISTORY: Carotid Bruits COMPARISON: There ar e no prior studies for comparison. TECHNIQUE: Real time and Color and Spectral doppler ultrasonography of the carotid and vertebral arteries was performed in multiple planes. FINDINGS: No significant plaque is identified. VERTEBRAL FLOW DIRECTION: Antegrade bilaterally. PEAK SYSTOLIC VELOCITIES (in cm/sec): RIGHT: CCA: Prox: 96.2 Dist: 85.5 ICA: Prox: 70.8 Mid: 87.0 Dist: 64.0 ICA/CCA Ratio: 0.90 ECA: 73.9 Peak ICA EDV: 26.7 LEFT: CCA: Prox: 96.2 Dist: 72.8 ICA: Prox: 84.1 Mid: 93.9 Dist: 77.1 ICA/CCA Ratio: 0.98 ECA: 74.5 Peak ICA EDV: 28.7 ___ US/US carotid duplex BI IMPRESSION: Normal examination o f the carotid arteries. No significant stenosis. Electronically dao d by: Yannick Walton MD 08/24/2024 07:46 AM EST Dictated By: Yannick Walton MD Signed By: <Electronically signed by Yannick Walton MD in OV> 08/24/24 0746 DD/ 1542 TD/TT: 08/23/24 1600 Sticker Operator: ZACKARY tomosynthesis screening B I Reviewed date:10/12/2024 04:55:08 PM Interpretation: Performing Lab: Notes/Report: [facility]'s [address] [place] [address] Mammography Report Signed Patient: Zahra Feliz MR#: [id number] 0023 : 1950 Acct:[id number] Age/Sex: 74 / F ADM Date: 10/10/24 Loc: HO.MAMMO Attending Dr: Robin Barnett MD Ordering Physician: Robin Barnett MD Results: 0In complete: Needs Additional Imaging Evaluation Date of Service: 10/10/24 Follow Up: Additional Imagi ng Procedure(s): MM tomosynthesis screening BI Accession Number(s): [id number] cc: Robin Barnett MD EXAMINATION: MM SCREENING DIGITAL BREAST TOMOSYNTHESIS, BILATERAL CLINICAL INFORMATION: Screening. Asymptomatic. COMPARISON: Mammography: Comparison is made with available priors TECHNIQUE: Digital breast mammography with tomosynthesis is performed in both the craniocaudal and mediolateral oblique views along with computer-aided detection (CAD). FINDINGS: The breasts are heterogeneously dense, which may obscure small masses (ACR BI-RADS breast composition Category c). Left: Left marker clip. Asymmetry lateral left breast posterior depth on CC view with questioned associated distortion. Localizing superiorly on emile synthesis. No suspicious calcifications or other abnormal findings. Right: There are no significant masses, abnormal calcifications, or other abnormalities. MM/MM tomosynthesis screening BI IMPRESSION: Additional imaging is recommended ASSESSMENT: BI-RADS BI-RADS 0 - Incomplete: Needs additional Imaging. RECOMMENDATION: 1. Additional views of the left breast 2. Targeted ultrasound if warranted after review of the additional views. 3. Radiology department staff will contact the patient for additional imaging. Additional Imaging required This examination should not preclude the clinical evaluation of a suspicious palpable abnormality. This patient's information was entered into a reminder system with a target due date for their next mammogram. Electronically signed by: Lakesha Dumont DO 10/12/2024 11:38 AM [facility] Dictated By: Lakesha Dumont DO Signed By: <Electronically signed by Lakesha Dumont DO in OV> 10/12/24 1138 DD/ 0915 TD/TT: 10/10/24 0932 Sticker Operator: [place] [facility] [address] [place] [address] Mammography Report Signed Patient: Gaby Feliz MR#: [id number] 0023 : 1950 Acct:[id number] Age/Sex: 74 / F ADM Date: 10/10/24 Loc: HO.MAMMO Attending Dr: Robin Barnett MD Ordering Physician: Robin Barnett MD Results: 0In complete: Needs Additional Imaging Evaluation Date of Service: 10/10/24 Follow Up: Additional Imagi ng Procedure(s): MM tomosynthesis screening BI Accession Number(s): [id number] cc: Robin Barnett MD EXAMINATION: MM SCREENING DIGITAL BREAST TOMOSYNTHESIS, BILATERAL CLINICAL INFORMATION: Screening. Asymptomatic. COMPARISON: Mammography: Compari son is made with available priors TECHNIQUE: Digital breast mammography with tomosynthesis is performed in both the craniocaudal and mediolateral oblique views along with computer-aided detection (CAD). FINDINGS: The breasts are heterogeneously dense, which may obscure small masses (ACR BI-RADS breast composition Category c). Left: Left marker clip. Asymmetry lateral le ft breast posterior depth on CC view with questioned associate d distortion. Localizing superiorly on emile synthesis. No suspicious calcifications or other abnormal findings. Right: There are no significant masses, abnormal calcifications, or other abnormalities. MM/MM tomosynthesis screening BI IMPRESSION: Additional imaging i s recommended ASSESSMENT: BI-RADS BI-RADS 0 - Incomplete: Needs additional Imaging. RECOMMENDATION: 1. Additional views of the left breast 2. Targeted ultrasou nd if warranted after review of the additional views. 3. Radiology departm ent staff will contact the patient for additional imaging. Additional Imaging required This examination bert uld not preclude the clinical evaluation of a suspicious palpable abnormality. This patient's information was entered into a reminder system with a target due date for their next mammogram. Electronically dao d by: Lakesha Dumont DO 10/12/2024 11:38 AM EST Dictated By: Lakesha Dumont DO Signed By: <Electronically signed by Lakesha Dumont DO in OV> 10/12/24 1138 DD/ 0915 TD/TT: 10/10/24 0932 Sticker Operator: Janice Cruz Reviewed date:10/12/2024 12:30:21 PM Interpretation: Performing Lab:[facility], [address] [place] [address] Notes/Report: Janice Cruz See Note Specimen held untested for 24 hours; Call to request Chemistry testing. MM tomosynthesis added views L Reviewed date:11/17/2024 05:21:48 PM Interpretation: Performing Lab: Notes/Report: [facility]'s [address] [place] [address] Mammography Report Signed Patient: Zahra Feliz MR#: [id number] 0023 : 1950 Acct:[id number] Age/Sex: 74 / F ADM Date: 11/02/24 Loc: HO.MAMMO Attending Dr: Robin Barnett MD Ordering Physician: Robin Barnett MD Results: 4Su spicious Finding Date of Service: 11/02/24 Follow Up: Biopsy Recommend ed Procedure(s): MM tomosynthesis added views L Accession Number(s): [id number] cc: Robin Barnett MD EXAMINATION: MM DIAGNOSTIC DIGITAL BREAST TOMOSYNTHESIS, LEFT Limited left breast ultrasound. CLINICAL INFORMATION: Call back from screening for asymmetry with questioned distortion in the lateral left breast posterior depth on CC view. COMPARISON: Mammography: [facility] on PACS. TECHNIQUE: Digital breast tomosynthesis is performed in both the craniocaudal and mediolateral oblique views along with computer-aided detection (CAD). Synthesized 2D images are generated from the tomosynthesis. FINDINGS: There are scattered areas of fibroglandular density (ACR BI-RADS breast composition Category b). Asymmetry in the lateral left breast posterior depth persist on additional imaging projections with associated architectural distortion. No suspicious calcifications or other abnormal findings. Targeted color Doppler ultrasound scanning from 1-5 o'clock demonstrates a hypoechoic oval irregular solid mass at 2:00 10 cm from nipple measuring 5 x 6 x 3 mm which correlates with the focal asymmetry on mammography. Targeted color Doppler ultrasound in the axilla demonstrates normal axillary lymph nodes and normal axillary tissue. There is no sonographic abnormality in the axilla. MM/MM tomosynthesis added views L IMPRESSION: Solid irregular mass on ultrasound at 2:00 10 cm from the nipple. Recommend histology with ultrasound-guided core needle biopsy at this time. The findings and recommendations were discussed with the patient the procedure will be scheduled. ASSESSMENT: BI-RADS BI-RADS 4 - Suspicious finding RECOMMENDATION: Biopsy recommended Results were provided to the patient at time of visit by the technologist. This patient's information was entered into a reminder system with a target due date for their next mammogram. Electronically signed by: Lakesha Dumont DO 11/02/2024 01:12 PM EDT RP Dictated By: Lakesha Dumont DO Signed By: <Electronically signed by Lakesha Dumont DO in OV> 11/02/24 1312 DD/ 1230 TD/TT: 11/02/24 1230 Sticker Operator: [place] [facility] [address] [place] [address] Mammography Report Signed Patient: Gaby Feliz MR#: [id number] 0023 : 1950 Acct:[id number] Age/Sex: 74 / F ADM Date: 11/02/24 Loc: HO.MAMMO Attending Dr: Robin Barnett MD Ordering Physician: Robin Barnett MD Results: 4Su spicious Finding Date of Service: 11/02/24 Follow Up: Biopsy Recommend ed Procedure(s): MM tomosynthesis added views L Accession Number(s): [id number] cc: Robin Barnett MD EXAMINATION: MM DIAGNOSTIC DIGITA L BREAST TOMOSYNTHESIS, LEFT Limited left breast ultrasound. CLINICAL INFORMATION: Call back from screening for asymmetry with questioned distortion in the lateral left vamsi ast posterior depth on CC view. COMPARISON: Mammography: Priors on PACS. TECHNIQUE: Digital breast tomosynthesis is performed in both the craniocaudal and mediolateral oblique views along with computer-aided detection (CAD). Synthesized 2D image s are generated from the tomosynthesis. FINDINGS: There are scattered areas of fibroglandular density (ACR BI-RADS breast composition Category b). Asymmetry in the lateral left breast posterior depth persist on additional imaging projections with associated architectural distortion. No suspicious calcifications or other abnormal findings. Targeted color Doppl er ultrasound scanning from 1-5 o'clock demonstrates a hypoechoic oval irregular solid mass at 2:00 10 cm from nipple measuring 5 x 6 x 3 mm which correlates with the focal asymmetry on mammography. Targeted color Doppl er ultrasound in the axilla demonstrates normal axillary lymph nodes and normal axillary tissue. There is no sonographic abnormal ity in the axilla. MM/MM tomosynthesis added views L IMPRESSION: Solid irregular mass on ultrasound at 2:00 10 cm from the nipple. Recommend histology with ultrasound-guided core needle biopsy at this time. The findings a nd recommendations were discussed with the patient the procedure will b e scheduled. ASSESSMENT: BI-RADS BI-RADS 4 - Suspicious finding RECOMMENDATION: Biopsy recommended Results were provide d to the patient at time of visit by the technologist. This patient's information was entered into a reminder system with a target due date for their next mammogram. Electronically dao d by: Lakesha Dumont DO 11/02/2024 01:12 PM EDT Dictated By: Lakesha Dumont DO Signed By: <Electronically signed by Lakesha Dumont DO in OV> 11/02/24 1312 DD/ 1230 TD/TT: 11/02/24 1230 Sticker Operator: US breast LT limited mamm on ly Reviewed date:11/20/2024 08:30:49 AM Interpretation: Performing Lab: Notes/Report: [facility] [address] [place] [address] Ultrasound Report Signed Patient: Zahra Feliz MR#: [id number] 0023 : 1950 Acct:[id number] Age/Sex: 74 / F ADM Date: 11/02/24 Loc: HO.MAMMO Attending Dr: Robin Barnett MD Ordering Physician: Robin Barnett MD Date of Service: 11/02/24 Procedure(s): US breast LT limited mamm only Accession Number(s): [id number] cc: Robin Barnett MD EXAMINATION: MM DIAGNOSTIC DIGITAL BREAST TOMOSYNTHESIS, LEFT Limited left breast ultrasound. CLINICAL INFORMATION: Call back from screening for asymmetry with questioned distortion in the lateral left breast posterior depth on CC view. COMPARISON: Mammography: Priors on PACS. TECHNIQUE: Digital breast tomosynthesis is performed in both the craniocaudal and mediolateral oblique views along with computer-aided detection (CAD). Synthesized 2D images are generated from the tomosynthesis. FINDINGS: There are scattered areas of fibroglandular density (ACR BI-RADS breast composition Category b). Asymmetry in the lateral left breast posterior depth persist on additional imaging projections with associated architectural distortion. No suspicious calcifications or other abnormal findings. Targeted color Doppler ultrasound scanning from 1-5 o'clock demonstrates a hypoechoic oval irregular solid mass at 2:00 10 cm from nipple measuring 5 x 6 x 3 mm which correlates with the focal asymmetry on mammography. Targeted color Doppler ultrasound in the axilla demonstrates normal axillary lymph nodes and normal axillary tissue. There is no sonographic abnormality in the axilla. US/US breast LT limited mamm only IMPRESSION: Solid irregular mass on ultrasound at 2:00 10 cm from the nipple. Recommend histology with ultrasound-guided core needle biopsy at this time. The findings and recommendations were discussed with the patient the procedure will be scheduled. ASSESSMENT: BI-RADS BI-RADS 4 - Suspicious finding RECOMMENDATION: Biopsy recommended Results were provided to the patient at time of visit by the technologist. This patient's information was entered into a reminder system with a target due date for their next mammogram. Electronically signed by: Lakesha Dumont DO 11/02/2024 01:12 PM EDT Dictated By: Lakesha Dumont DO Signed By: <Electronically signed by Lakesha Dumont DO in OV> 11/02/24 1312 DD/ 1300 TD/TT: 11/02/24 1318 Sticker Operator: [facility] [address] [place] [address] Ultrasound Report Signed Patient: Gaby Feliz MR#: [id number] 0023 : 1950 Acct:[id number] Age/Sex: 74 / F ADM Date: 11/02/24 Loc: HO.MAMMO Attending Dr: Robin Barnett MD Ordering Physician: Robin Barnett MD Date of Service: 11/02/24 Procedure(s): US vamsi ast LT limited mamm only Accession Number(s): [id number] cc: Robin Barnett MD EXAMINATION: MM DIAGNOSTIC DIGITA L BREAST TOMOSYNTHESIS, LEFT Limited left breast ultrasound. CLINICAL INFORMATION: Call back from screening for asymmetry with questioned distortion in the lateral left vamsi ast posterior depth on CC view. COMPARISON: Mammography: Priors on PACS. TECHNIQUE: Digital breast tomosynthesis is performed in both the craniocaudal and mediolateral oblique views along with computer-aided detection (CAD). Synthesized 2D image s are generated from the tomosynthesis. FINDINGS: There are scattered areas of fibroglandular density (ACR BI-RADS breast composition Category b). Asymmetry in the lateral left breast posterior depth persist on additional imaging projections with associated architectural distortion. No suspicious calcifications or other abnormal findings. Targeted color Doppl er ultrasound scanning from 1-5 o'clock demonstrates a hypoechoic oval irregular solid mass at 2:00 10 cm from nipple measuring 5 x 6 x 3 mm which correlates with the focal asymmetry on mammography. Targeted color Doppl er ultrasound in the axilla demonstrates normal axillary lymph nodes and normal axillary tissue. There is no sonographic abnormal ity in the axilla. US/US breast LT limited mamm only IMPRESSION: Solid irregular mass on ultrasound at 2:00 10 cm from the nipple. Recommend histology with ultrasound-guided core needle biopsy at this time. The findings a nd recommendations were discussed with the patient the procedure will b e scheduled. ASSESSMENT: BI-RADS BI-RADS 4 - Suspicious finding RECOMMENDATION: Biopsy recommended Results were provide d to the patient at time of visit by the technologist. This patient's information was entered into a reminder system with a target due date for their next mammogram. Electronically dao d by: Lakesha Dumont DO 11/02/2024 01:12 PM EDT Dictated By: Lakesha Dumont DO Signed By: <Electronically signed by Lakesha Dumont DO in OV> 11/02/24 1312 DD/ 1300 TD/TT: 11/02/24 1318 Sticker Operator: Reason For Referral No Information Medications Medication SIG (Take, Route, Frequency, Duration) Notes Start Date End Date Status PriLOSEC OTC 20 MG TAKE 2 TABLET 30 MIN UTES BEFORE MORNING MEAL ORALLY ONCE A DAY 90 DAYS for 90 Active Valsartan-hydroCHLOROthiazi de 160-12.5 MG [...] Y MOUTH EVERY DAY for 90 Active Immunizations Vaccine Route Administration Date Status Comme nts [...] Refused Influenza High Dose Unknown 08/05/2023 Refused Social History Tobacco Use: Social History Observation [...] Problem Status W/U Status Risk Notes Problem 66601544 Lymphocytosis (D72.820) Active confirm ed Problem 143337959 Chronic tension- type headache, not intractable (G44.229) Active confirmed Problem 371278387 Overactive bladd er (N32.81) Active confirmed Problem 07269290 Essential hypert ension (I10) Active confirmed Problem 4941286 Prediabetes (R73.09) Active confirmed Problem 702964915 Low HDL (under 4 0) (E78.6) Active confirmed Problem History of aortic valve replacement (0568887946897 ) History of aortic valve replacement (Z95.2) Active confirmed Problem 318204430 Cervical disc di sease (M50.90) Active confirmed Problem 07883194 Iron deficiency anemia, unspecified iron deficiency anemia type (D50.9) Active confirmed Problem 32369856 LBBB (left bundl e branch block) (I44.7) Active confirmed Problem 535576377 Severe aortic st enosis (I35.0) Active confirmed Problem 351995318 Pure hypercholesterolemia (E78.00) Active confirmed Problem 915913211 Body mass index (BMI) of 34.0-34.9 in adult (Z68.34) Active confirmed Problem 170518774 Hyperplastic col onic polyp, unspecified part of colon (K63.5) Active confirmed Problem 740299877 Moderate aortic stenosis (I35.0) Active confirmed Problem 23265640 Myelopathy (G95.9) Active confirmed Problem 289591507 Gastroesophageal reflux disease with esophagitis without hemorrhage (K21.00) Active confirmed Vital Signs Blood pressure diastolic 70 mm Hg 10/19/2024 Height 60.50 in 10/19/2024 Blood pressure systolic 156 mm Hg 10/19/2024 Weight 172 lbs 10/19/2024 BMI 33.03 kg/m2 10/19/2024 Encounters Encounter Location Date Provider Diagnosis Robin Barnett MD [address] [place] [phone] 04/20/2024 Robin Barnett Urinary tract infect ion, site not specified N39.0 and Hematuria, unspecified R31.9 Robin Barnett MD [address] [place] [address] [id number] 08/11/2024 Robin Barnett Prediabetes R73.09 ; Essential hypertension I10 ; Lymphocytosis D72.820 ; Pure hypercholesterolemia E78.00 and Anemia D64.9 Robin Barnett MD [address] [place] [address] [id number] 10/12/2024 Robin Barnett Loss of hair L65.9 a nd Iron deficiency anemia, unspecified iron deficiency anemia type D50.9 Robin Barnett MD [address] [place] [address] [id number] 04/07/2024 Robin Barnett Acute UTI N39.0 Robin Barnett MD [address] [place] [address] [id number] 08/14/2024 Robin Barnett Overactive bladder N 32.81 ; Gastroesophageal reflux disease with esophagitis without hemorrhage K21.00 ; Iron deficiency anemia, unspecified iron deficiency anemia type D50.9 ; Loss of hair L65.9 ; Bilateral carotid bruits R09.89 ; Prediabetes R73.09 ; Essential hypertension I10 ; Pure hypercholesterolemia E78.00 ; Colon cancer screening Z12.11 and Depression screening Z13.31 Robin Barnett MD [address] [place] [address] Drive [address] [place] [address] [id number] 10/19/2024 Robin Barnett Essential hypertensi on I10 Assessments Encounter Date Diagnosis (ICD Code) Assessment Notes Treatment Notes Treatment Clinical Notes Section Notes 04/20/2024 Urinary tract infection, site not specified (ICD-10 - N39.0) 04/20/2024 Hematuria, unspecifi ed (ICD-10 - R31.9) 08/11/2024 Prediabetes (ICD-10 - R73.09) 08/11/2024 Essential hypertensi on (ICD-10 - I10) 10/12/2024 Loss of hair (ICD-10 - L65.9) 10/12/2024 Iron deficiency anem ia, unspecified iron deficiency anemia type (ICD-10 - D50.9) 04/07/2024 Acute UTI (ICD-10 - N39.0) patient verbalized understanding of medication and directions for use 08/14/2024 Overactive bladder (ICD-10 - N32.81) order faxed to [facility] CS dept, pending diagnostic testing 08/14/2024 Gastroesophageal ref lux disease with esophagitis without hemorrhage (ICD-10 - K21.00) stable, will contnue current regiment 10/19/2024 Essential hypertensi on (ICD-10 - I10) doing well, will continue current regiment 08/11/2024 Lymphocytosis (ICD-1 0 - D72.820) 08/14/2024 Iron deficiency anem ia, unspecified iron deficiency anemia type (ICD-10 - D50.9) to take iron and repeat in 2 months 08/11/2024 Pure hypercholesterolemia (ICD-10 - E78.00) 08/14/2024 Loss of hair (ICD-10 - L65.9) 08/11/2024 Anemia (ICD-10 - D64.9) 08/14/2024 Bilateral carotid bruits (ICD-10 - R09.89) 08/14/2024 Prediabetes (ICD-10 - [...] Z13.31) negative screen 08/14/2024 Other Total time spen t on the date of the encounter is 45 minutes including both face to face time spent and time spent reviewing documentation, and counseling the patient. 10/19/2024 Other was the result of surgery. did 3 guaiacs and all negative/ will take iron for one month and then repeat cbc and iron in 3 months Plan Of Treatment Pending Test Test Name Order Date Electrocardiogram (EKG) 06/05/2016 Electrocardiogram (EKG) 06/16/2018 BONE DENSITY DEXA 07/15/2020 MAMMOGRAM DIGITAL UNILATERAL [place] LT 08/2014 US CAROTID BILATERAL DOPPLER 08/14/2024 ECHO 08/04/2022 ECHO 02/16/2013 Next Appt Details Provider Name:Robin harley, 02/19/2025 08:00:00 AM, [address] [place] [address], [place] [address], [place], [place], [phone], Provider Name:Robin harlye, 08/07/2025 07:30:00 AM, [address] [place] [address], [place] [address], [place], [place], [phone], Provider Name:Robin harley, 08/17/2025 08:30:00 AM, [address] [place] [address], [place] [address], [place], [place], [phone], Insurance Providers Payer Name Payer Address Payer Phone Subscriber Number Group Number Insured Name Patient Relationship to Insured Coverage Start Date Coverage End Date MEDICARE NHIC CRIS [address] [place] [address] [id number] Trini Zahra Self - patient is the insured 5 [employer] MEDICARE SUPPLEMENT [address] [address] [place] [address] [id number] Zahra Feliz Self - patient is the insured Medical (General) History Medical History History ICD Code hematuria with neg w/u2 times colonoscopy 2005 hyperplasti c polyp; colonoscopy by Dr. 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
== END 2024-11-20 08:49 | disposition home or self-care (01) ==
LOC: HO.HGS 08:11
PROVIDERS: PCP Internal Medicine; Visit Provider Surgery
DX: N63.20 Unspecified lump in the left breast, unspecified quadrant (principal); Z80.3 Family history of malignant neoplasm of breast
CPT/HCPCS: 99204

== ENCOUNTER → 2024-11-20 08:11 | Outpatient (BNVA) | payer MEDICARE, OTHER, SELFPAY | PROVIDERS: PCP Internal Medicine; Visit Provider Surgery | DX: N63.20 Unspecified lump in the left breast, unspecified quadrant (principal); Z80.3 Family history of malignant neoplasm of breast | CPT/HCPCS: 99202 ==

== ENCOUNTER 2024-11-22 07:49 | Outpatient (REF) | payer MEDICARE, OTHER, SELFPAY ==
--- NOTE | ~2024-11-22 | MM_ITS ---
PROCEDURE: ULTRASOUND-GUIDED LEFT BREAST BIOPSY CLINICAL INFORMATION: Left breast mass at 2:00 10 cm from the nipple. COMPARISON: [facility] on PACS. TECHNIQUE: The details of the procedure, as well as the risks, benefits, and alternatives to the procedure were explained to the patient in detail and all of her questions were answered, after which, written informed consent was obtained. PROCEDURE: Prior to the procedure, sonography revealed solid irregular mass at 2:00 10 cm from the nipple.. A time-out was performed, the lesion intended for biopsy was targeted and the skin of the left breast was then prepped and draped in the usual sterile fashion. Using sonographic guidance, sterile technique, and 1% lidocaine without epinephrine for local anesthesia, a total of 4 cores were obtained through the targeted area with a 14-gauge biopsy device. At the completion of tissue sampling, a single coil metallic clip was deposited at the biopsy site. An appropriate sample was obtained. The postprocedure 2-view direct digital mammogram reveals satisfactory positioning of the biopsy clip. The patient tolerated the procedure well and, after assuring adequate hemostasis, was discharged in good condition after reviewing postbiopsy breast care instructions. Final pathology results are pending. MM/MM tomosynthesis diagnostic LT IMPRESSION: 1. Uncomplicated sonographically-guided core biopsy of the left breast. The 2-view direct digital postprocedure mammogram reveals satisfactory positioning of the biopsy clip. 2. Final pathology results are pending. A separate report with final recommendations will be issued once these results are made available. Electronically signed by: Lakesha Dumont DO 11/23/2024 02:23 PM ALEXANDER
--- OUTSIDE RECORDS SUMMARY | 2024-11-22 07:52 | XMS_ITS ---
Author Organization Robin Barnett MD Address [address] [place] [phone] Care Team Providers Care Cutting Department Supervisor Name Role Phone Robin Barnett Primary [...] Problem Status W/U Status Risk Notes Problem 416008860 Overactive bladder (N32.81) Active confirmed Problem 21679086 Iron deficiency anemia, unspecified iron deficiency anemia type (D50.9) Active confirmed Vital Signs Blood pressure systolic 132 mm Hg 08/14/19 25 Blood pressure diastolic 58 mm Hg 025 Height 60.50 in 08/14/2024 Weight 172 lbs 08/14/2024 BMI 33.03 kg/m2 08/14/2024 weight is up 7 pounds since 04-07-24 Encounters Encounter Location Date Provider Diagnosis Robin Barnett MD [address] [place] [address] Drive [address] [place], [place] [phone] 08/14/2024 Robin Barnett Overactive bladder N 32.81 [...] (ICD-10 - N32.81) order faxed to [facility] CS dept, [...] Notes Overactive bladder order faxed to [facility] C S dept, pending [...] Reason: Provider Name:Robin harley, 02/19/2025 08:00:00 AM, [address] [place] [address], [address] [place] [address], [phone], Provider Name:Robin harley, 08/07/2025 07:30:00 AM, [address] [place] [address], Suite [facility], [place], [place], [phone], Provider Name:Robin harley, 08/17/2025 08:30:00 AM, [address] [place] [address], Suite [facility], [place], [place], [phone], Progress Notes * Mariela YUEN: 0 (74 yo F)Acc No.[id number]:08/14/2024 Patient:Zahra Ny Provider:?Robin Barentt MD :1950???Age:74 Y???Sex:Female D ate:08/14/2024 Address:[address] [place], [place] [phone] Subjective: * Chief Complaints: * ???Review labsCBACK [...] pounds since 04-07-24. * ???Past Orders: ???Lab:Comprehensive [place]. P hannah Fast (Order Date - 08/11/2024) [...] sent with cards and solution.?FEMALE GENITOURINARY:?done by software test developer.?EXTREMITIES:?no clubbing, cyanosis, or edema.?NEUROLOGIC:?nonfocal, motor strength normal [...] MD Date:?0 08/14/2024 Generated for Jesusi brenda/Griselda/eTransmitting on:?11/22/2024 07:52 AM EDT History and Physical Notes * [...] cards and solution FEMALE GENITOURINARY: done by software test developer ORAL CAVITY: mucosa moist
--- OUTSIDE RECORDS SUMMARY | 2024-11-22 07:52 | XMS_ITS ---
Author Organization Robin Barnett MD Address [address] [place] [phone] Care Team Providers Care Quality Control Assessor Name Role Phone Robin Barnett Primary Care [...] Robin Barnett MD [address] [place] [phone] 10/19/2024 Robin Barnett Essential hypertension I10 Assessments [...] Name:Robin Mena ier, 02/19/2025 08:00:00 AM, [facility], [address], [place], [place], [phone], Provider Name:Robin Mena ier, 08/07/2025 07:30:00 AM, [address] [place] [address], [address], [place], [place], [phone], Provider Name:Robin Mena ier, 08/17/2025 08:30:00 AM, [address], [address], [place], [place], [phone], Progress Notes * Yee YUENOB: 0 (74 yo F)Acc No.[id number]:10/19/2024 Progress Notes Patient:?Zahra YUEN Provider:?Robin Barnett MD :1950???Age:74 Y???Sex:Female D ate:10/19/2024 Address:[address] [place], [place] [phone] Subjective: * Chief Complaints: * ???2 month [...] MD Date:?0 10/19/2024 Generated for Lorna gutierrez/Griselda/eTransmitting on:?11/22/2024 07:52 AM EDT History and Physical [...]
--- OUTSIDE RECORDS SUMMARY | 2024-11-22 07:53 | XMS_ITS ---
Author Organization Robin Barnett MD Address [address] [place] [phone] Care Team Providers Care Engagement Quality Consultant Name Role Phone Robin Barnett Primary Care Provider [phone] Results Component Value Reference Range Notes Complete Blood Count Auto Di ff Reviewed date:10/12/2024 12:32:59 PM Interpretation: Performing Lab:[facility], [address] [place] [phone] Notes/Report: White Blood Count 5.5 4.8-10.8 X10*3/uL [...] PROFILE Reviewed date:10/12/2024 12:33:07 PM Interpretation: Performing Lab:[address] [address] Notes/Report: Iron 42 30-160 mcg/dL Total Iron Binding Capacity 325 228-428 mcg/d L Percent Iron Saturation 13 15-50 % Unsaturated Iron Binding 283 TSH reflex Free T4 Reviewed date:10/12/2024 12:33:15 PM Interpretation: Performing Lab:[facility], [address] [place] [phone] Notes/Report: TSH reflex Free T4 3.19 0.32-4.0 uIU/mL REASON FOR VISIT CBC IRON TSH Encounters Encounter Location Date Provider Diagnosis Robin Barnett MD [address] [place] [phone] 10/12/2024 Robin Barnett Loss of hair L65.9 and Iron deficiency anemia, unspecified iron deficiency anemia type D50.9 Assessments Encounter Date Diagnosis (ICD Code) Assessment Notes Treatment Notes Treatment Clinical Notes Section Notes 10/12/2024 Loss of hair (ICD-10 - L65.9) 10/12/2024 Iron deficiency anemia, unspecified iron deficiency anemia type (ICD-10 - D50.9) Plan Of Treatment Next Appt Details Provider Name:Robin harley, 02/19/2025 08:00:00 AM, [address] [place] [address], [place] [address], [place], [place], [phone], Provider Name:Robin harley, 08/07/2025 07:30:00 AM, [address] [place] [address], [address], [place], [place], [phone], Provider Name:Robin Mena ier, 08/17/2025 08:30:00 AM, [address], [address], [place], [place], [phone], Progress Notes * Yee YUENOB: 0 (74 yo F)Acc No.[id number]:10/12/2024 Progress Note Patient:?Zahra YUEN Provider:?Robin Barnett MD :1950???Age:74 Y???Sex:Female D ate:10/12/2024 Address:[facility] Subjective: * Chief Complaints: * ???1. CBC [...] Time - 10/12/2024 07:00 AM) * Procedure Codes:?51615 VENIP UNCT, ROUTINE* * * The named appointment provid er may or may not be the originator of this progress note, and it is not deemed complete until electronically signed by the appointment provider. Sign off status: Pending * Provider:?Robin Barnett MD Date:?0 10/12/2024 Generated for Lorna gutierrez/Griselda/eTransmitting on:?11/22/2024 07:52 AM EDT
--- OUTSIDE RECORDS SUMMARY | 2024-11-22 07:53 | XMS_ITS | Patient Health Record ---
Author Organization Robin Barnett MD Address [address] [place], [place] [phone] Care Team Providers Care Biology Professor Name Role Phone Robin Barnett Primary Care [...] t Reviewed date:04/21/2024 08:45:38 AM Interpretation: Performing Lab:[facility], [address] [place] [phone] Notes/Report: Urine, Clean Catch Color Urine Yellow Appearance Urine Clear PH 6.5 5.0-9.0 Glucose Urine UA Negative Negative mg/dL Urine Blood Negative Negative Specific Edison - Urine 1.015 1.005-1.025 Urine Protein Negative [...] ff Reviewed date:08/11/2024 12:05:01 PM Interpretation: Performing Lab:[facility], [address] [place] [phone] Notes/Report: White Blood Count 5.2 4.8-10.8 X10*3/uL [...] NRBC Abs Auto 0.000 0.0-0.012 X10*3/uL Comprehensive [place]. Panel Fa st Reviewed date:08/11/2024 12:22:05 PM Interpretation: Performing Lab:[facility], [address] [place] [address], [place] [address] Notes/Report: Sodium 142 135-145 mmol/L Potassium 4.1 [...] PROFILE Reviewed date:08/11/2024 12:21:39 PM Interpretation: Performing Lab:[address] [phone] Notes/Report: Iron 20 30-160 mcg/dL Total Iron Binding Capacity 339 228-428 mcg/dL Percent Iron Saturation 6 15-50 % Unsaturated Iron Binding 319 Lipid Panel Reviewed date:08/11/2024 12:21:09 PM Interpretation: Performing Lab:[facility], [address] [place] [phone] Notes/Report: Triglycerides 143 <150 mg/dL Desirable Triglyceride: [...] Random Reviewed date:08/11/2024 12:16:48 PM Interpretation: Performing Lab:[facility], [address] [place] [phone] Notes/Report: Creatinine Urine 73.42 Microalbumin Urine 7.0 Microalbum/Creatinine Ratio Ur 9.5 <30 ug/mg cr Albumin/Creatinine Ratio Reference Ranges: Normal: < 30 ug/mg creatinine Microalbuminuria: 30 - 300 ug/mg creatinine Clinical Albuminuria: > 300 ug/mg creatinine Hemoglobin A1c Reviewed date:08/11/2024 12:10:09 PM Interpretation: Performing Lab:[facility], [address] [place] [phone] Notes/Report: Hemoglobin A1c % 6.2 <6.0 % [...] average glucose, using the formula of the Q2Z-Nszkmnr Average Glucose study (ADAG), Diabetes Care, Vol.31,#8, Mar. 2007 UA ClnCatch+Micro w/rflx Cul t Reviewed date:08/14/2024 10:20:30 AM Interpretation:ALFREDO 08/14/24 Performing Lab:[facility], [address] [place] [phone] Notes/Report: [id number] Urine, Clean Catch Color Urine Yellow Appearance Urine Clear PH 6.5 5.0-9.0 Glucose Urine UA Negative Negative mg/dL Urine Blood Trace Negative Specific Edison - Urine 1.015 1.005-1.025 Urine Protein Negative [...] ff Reviewed date:10/12/2024 12:32:59 PM Interpretation: Performing Lab:[facility], [address] [place] [phone] Notes/Report: White Blood Count 5.5 4.8-10.8 X10*3/uL [...] PROFILE Reviewed date:10/12/2024 12:33:07 PM Interpretation: Performing Lab:[facility], [address] [place] [phone] Notes/Report: Iron 42 30-160 mcg/dL Total Iron Binding Capacity 325 228-428 mcg/dL Percent Iron Saturation 13 15-50 % Unsaturated Iron Binding 283 TSH reflex Free T4 Reviewed date:10/12/2024 12:33:15 PM Interpretation: Performing Lab:[facility], [address] [place] [phone] Notes/Report: TSH reflex Free T4 3.19 0.32-4.0 uIU/mL US carotid duplex BI Reviewed date:08/24/2024 05:28:39 PM Interpretation: Performing Lab: Notes/Report: [address] [address] Ultrasound Report Signed Patient: Zahra Feliz MR#: [id number] 0023 : 1950 Acct:[id number] Age/Sex: 74 / F ADM Date: 08/23/24 Loc: HO.US Attending Dr: Robin Barnett MD Ordering Physician: Robin Barnett MD Date of Service: 08/23/24 Procedure(s): US carotid duplex BI Accession Number(s): [id number] cc: Robin Barnett MD EXAMINATION: BILATERAL CAROTID [...] 08/24/24 0746 DD/ 1542 TD/TT: 08/23/24 1600 Police Clerk: [address] [place] [address] Ultrasound Report Signed Patient: Gaby Feliz MR#: [id number] 0023 : 1950 Acct:[id number] Age/Sex: 74 / F ADM Date: 08/23/24 Loc: . Attending Dr: Robin Barnett MD Ordering Physician: Rboin Barnett MD Date of Service: 08/23/24 Procedure(s): US carotid duplex BI Accession Number(s): [id number] cc: Robin Branett MD EXAMINATION: BILATER AL CAROTID ULTRASOUND WITH [...] 08/24/24 0746 DD/ 1542 TD/TT: 08/23/24 1600 Police Clerk: ZACKARY tomosynthesis screening B I Reviewed date:10/12/2024 04:55:08 PM Interpretation: Performing Lab: Notes/Report: [facility]'s [address] [place] [address] Mammography Report Signed Patient: Zahra Feliz MR#: [id number] 0023 : 1950 Acct:[id number] Age/Sex: 74 / F ADM Date: 10/10/24 Loc: HO.MAMMO Attending Dr: Robin Barnett MD Ordering Physician: Robin Barnett MD Results: 0In complete: Needs Additional Imaging Evaluation Date of Service: 10/10/24 Follow Up: Additional Imagi ng Procedure(s): MM tomosynthesis screening BI Accession Number(s): [id number] cc: Robin Barnett MD EXAMINATION: MM SCREENING [...] by: Lakesha Dumont DO 10/12/2024 11:38 AM [facility] Dictated By: Lakesha Dumont DO Signed By: <Electronically signed by Lakesha Dumont DO in OV> 10/12/24 1138 DD/ 0915 TD/TT: 10/10/24 0932 Police Clerk: [facility] [address] [place] [address] Mammography Report Signed Patient: Gaby Feliz MR#: [id number] 0023 : 1950 Acct:[id number] Age/Sex: 74 / F ADM Date: 10/10/24 Loc: HO.MAMMO Attending Dr: Robin Barnett MD Ordering Physician: Robin Barnett MD Results: 0In complete: Needs Additional Imaging Evaluation Date of Service: 10/10/24 Follow Up: Additional Imagi ng Procedure(s): MM tomosynthesis screening BI Accession Number(s): [id number] cc: Robin Barnett MD EXAMINATION: MM SCREENING [...] 10/12/24 1138 DD/ 0915 TD/TT: 10/10/24 0932 Police Clerk: Janice Cruz Reviewed date:10/12/2024 12:30:21 PM Interpretation: Performing Lab:[facility], [address] [place] [address] Notes/Report: Janice Cruz See Note Specimen held untested for 24 hours; Call to request Chemistry testing. MM tomosynthesis added views L Reviewed date:11/17/2024 05:21:48 PM Interpretation: Performing Lab: Notes/Report: [facility]'s [address] [place] [address] Mammography Report Signed Patient: Zahra Feliz MR#: [id number] 0023 : 1950 Acct:[id number] Age/Sex: 74 / F ADM Date: 11/02/24 Loc: HO.MAMMO Attending Dr: Robin Barnett MD Ordering Physician: Robin Barnett MD Results: 4Su spicious Finding Date of Service: 11/02/24 Follow Up: Biopsy Recommend ed Procedure(s): MM tomosynthesis added views L Accession Number(s): [id number] cc: Robin Barnett MD EXAMINATION: MM DIAGNOSTIC [...] 11/02/24 1312 DD/ 1230 TD/TT: 11/02/24 1230 Police Clerk: [facility] [facility] [address] [place] [address] Mammography Report Signed Patient: Gaby Feliz MR#: [id number] 0023 : 1950 Acct:[id number] Age/Sex: 74 / F ADM Date: 11/02/24 Loc: HO.MAMMO Attending Dr: Robin Barnett MD Ordering Physician: Robin Barnett MD Results: 4Su spicious Finding Date of Service: 11/02/24 Follow Up: Biopsy Recommend ed Procedure(s): MM tomosynthesis added views L Accession Number(s): [id number] cc: Robin Barnett MD EXAMINATION: MM DIAGNOSTIC [...] 11/02/24 1312 DD/ 1230 TD/TT: 11/02/24 1230 Police Clerk: US breast LT limited mamm on ly Reviewed date:11/20/2024 08:30:49 AM Interpretation: Performing Lab: Notes/Report: [facility] [address] [place] [address] Ultrasound Report Signed Patient: Zahra Feliz MR#: [id number] 0023 : 1950 Acct:[id number] Age/Sex: 74 / F ADM Date: 11/02/24 Loc: HO.MAMMO Attending Dr: Robin Barnett MD Ordering Physician: Robin Barnett MD Date of Service: 11/02/24 Procedure(s): US breast LT limited mamm only Accession Number(s): [id number] cc: Robin Barnett MD EXAMINATION: MM DIAGNOSTIC [...] 11/02/24 1312 DD/ 1300 TD/TT: 11/02/24 1318 Police Clerk: [facility] [address] [place] [address] Ultrasound Report Signed Patient: Gaby Feliz MR#: [id number] 0023 : 1950 Acct:[id number] Age/Sex: 74 / F ADM Date: 11/02/24 Loc: HO.MAMMO Attending Dr: Robin Barnett MD Ordering Physician: Robin Barnett MD Date of Service: 11/02/24 Procedure(s): US vamsi ast LT limited mamm only Accession Number(s): [id number] cc: Robin Barnett MD EXAMINATION: MM DIAGNOSTIC [...] 11/02/24 1312 DD/ 1300 TD/TT: 11/02/24 1318 Police Clerk: Reason For Referral No Information Medications Medication [...] Problem Status W/U Status Risk Notes Problem 16991861 Lymphocytosis (D72.820) Active confirm ed Problem 760928482 Chronic tension- type headache, not intractable (G44.229) Active confirmed Problem 941739164 Overactive bladd er (N32.81) Active confirmed Problem 49583185 Essential hypert ension (I10) Active confirmed Problem 1251733 Prediabetes (R73.09) Active confirmed Problem 111194170 Low HDL (under 4 0) (E78.6) Active confirmed Problem History of aortic valve replacement (1566742687045 ) History of aortic valve replacement (Z95.2) Active confirmed Problem 541215430 Cervical disc di sease (M50.90) Active confirmed Problem 21595524 Iron deficiency anemia, unspecified iron deficiency anemia type (D50.9) Active confirmed Problem 74985115 LBBB (left bundl e branch block) (I44.7) Active confirmed Problem 443549001 Severe aortic st enosis (I35.0) Active confirmed Problem 493129839 Pure hypercholesterolemia (E78.00) Active confirmed Problem 786964798 Body mass index (BMI) of 34.0-34.9 in adult (Z68.34) Active confirmed Problem 413644387 Hyperplastic col onic polyp, unspecified part of colon (K63.5) Active confirmed Problem 334868563 Moderate aortic stenosis (I35.0) Active confirmed Problem 18097419 Myelopathy (G95.9) Active confirmed Problem 296271496 Gastroesophageal reflux disease with esophagitis without hemorrhage (K21.00) Active confirmed Vital Signs Blood pressure diastolic 70 mm Hg 10/19/2024 Height 60.50 in 10/19/2024 Blood pressure systolic 156 mm Hg 10/19/2024 Weight 172 lbs 10/19/2024 BMI 33.03 kg/m2 10/19/2024 Encounters Encounter Location Date Provider Diagnosis Robin Barnett MD [address] [place] [id number] 04/20/2024 Robin Barnett Urinary tract infect ion, site not specified N39.0 and Hematuria, unspecified R31.9 Robin Barnett MD [address] [place] [id number] 08/11/2024 Robin Barnett Prediabetes R73.09 ; Essential hypertension I10 ; Lymphocytosis D72.820 ; Pure hypercholesterolemia E78.00 and Anemia D64.9 Robin Barnett MD [address] [place] [id number] 10/12/2024 Robin Barnett Loss of hair L65.9 a nd Iron deficiency anemia, unspecified iron deficiency anemia type D50.9 Robin Barnett MD [address] [place] [id number] 04/07/2024 Robin Barnett Acute UTI N39.0 Robin Barnett MD [address] [place] [id number] 08/14/2024 Robin Barnett Overactive bladder N 32.81 ; Gastroesophageal reflux disease with esophagitis without hemorrhage K21.00 ; Iron deficiency anemia, unspecified iron deficiency anemia type D50.9 ; Loss of hair L65.9 ; Bilateral carotid bruits R09.89 ; Prediabetes R73.09 ; Essential hypertension I10 ; Pure hypercholesterolemia E78.00 ; Colon cancer screening Z12.11 and Depression screening Z13.31 Robin Barnett MD [address] [place] [address] Drive [address] [place] [id number] 10/19/2024 Robin Barnett Essential hypertensi on I10 [...] bladder (ICD-10 - N32.81) order faxed to [facility] CS dept, pending diagnostic testing 08/14/2024 Gastroesophageal [...] Details Provider Name:Robin harley, 02/19/2025 08:00:00 AM, [address] [place] [address], [place] [address], [place], [place], [phone], Provider Name:Robin harley, 08/07/2025 07:30:00 AM, [address] [place] [address], [place] [address], [place], [place], [phone], Provider Name:Robin harley, 08/17/2025 08:30:00 AM, [address] [place] [address], [place] [address], [place], [place], [phone], Insurance Providers Payer Name Payer Address Payer Phone Subscriber Number Group Number Insured Name Patient Relationship to Insured Coverage Start Date Coverage End Date MEDICARE NHIC CRIS [address] [place] [address] [id number] Trini Zahra Self - patient is the insured 5 [employer] MEDICARE SUPPLEMENT [address] [address] [place] [address] [id number] Zahra Feliz Self - patient is the insured Medical (General) History Medical History History ICD Code hematuria with neg w/u2 times colonoscopy 2005 hyperplasti c polyp; colonoscopy by Dr. Thad Pope 08/27/16 - repeat 10 years 1975 - hysterectomy - no paps needed per fiber technologist Has aortic stensois and Dr Jose Antonio [place] [facility] yearly echo guaiac times 3 negative 09/2024
[2024-11-22] MEDS: Sodium Bicarbonate 8.4% 50 MEQ/50 ML VIAL SUBCUT (08:59)
[2024-11-22] MEDS: Lidocaine HCl 1 % 20 ML VIAL 7 ML SUBCUT (09:00)
== END 2024-11-22 07:50 | disposition home or self-care (01) ==
LOC: HO.MAMMO 07:49
PROVIDERS: PCP Internal Medicine; Visit Provider Internal Medicine
DX: N63.21 Unspecified lump in the left breast, upper outer quadrant (principal); C50.412 Malignant neoplasm of upper-outer quadrant of left female breast
CPT/HCPCS: 19083; 77061; 77065; 88305; 88360; A4648; A6260; J2003

== ENCOUNTER → 2024-11-22 08:00 | Outpatient (BNV) | payer MEDICARE, OTHER, SELFPAY | PROVIDERS: PCP Internal Medicine; Visit Provider Internal Medicine | DX: C50.412 Malignant neoplasm of upper-outer quadrant of left female breast (principal) | CPT/HCPCS: 19083; 77065 ==

== ENCOUNTER 2024-11-28 12:57 | Outpatient (AMB) | payer MEDICARE, OTHER, SELFPAY ==
--- NOTE | 2024-11-28 13:13 | MHC.OFFVIS ---
Vital Signs 11/28/24 13:17 Height 5 ft 2.5 in Weight 172 lb BMI 31.0 Intake Visit Reasons: s/p density upper, outer quadrant, bx 11/22 Intake Note: Pt states, I'm here for biopsy results. Vaccine Customer Representative Required: No Allergies adhesive tape [ADHESIVE TAPE] Allergy (Intermediate, Verified 11/28/24 13:18) RASH/BLISTERS vancomycin [VANCOMYCIN] Allergy (Intermediate, Verified 11/28/24 13:18) HIVES Adhesive Bandages Allergy (Unknown, Uncoded 11/28/24 13:18) rash, redness Medication List - Last Reconciled 11/28/24 by Dhaval Melendez MD amlodipine 5 mg PO DAILY ascorbate calcium (vitamin C) 500 mg PO DAILY aspirin (Adult Aspirin Regimen) 81 mg PO DAILY magnesium oxide 400 mg PO DAILY omeprazole 40 mg (2 x 20 mg) PO DAILY 90 days oxybutynin chloride 5 mg PO BID valsartan-hydrochlorothiazide 160-12.5 mg 1 tab PO DAILY HPI HPI s/p density upper, outer quadrant, bx 11/22: Details: 74 year old female referred for a new diagnosis of left breast cancer. She had undergone screening mammogram last month and this showed a density in the upper outer quadrant of the left breast. She was brought in for a mammogram and ultrasound which showed an irregular hypoechoic mass 6 x 5 x 3 mm in size at the 2 o'clock position of the left breast. He was therefore recommended to undergo an ultrasound guided biopsy which was done last week. Unfortunately, this showed an invasive ductal carcinoma, ERPR positive, HER2 negative with low proliferation index. She actually denies any palpable breast mass. She had a biopsy of a left breast mass in 2021 which was benign. She had biopsy of a right breast mass years ago which was also benign Her menarche was at the age of 14. She had her 1st at age of 18. She had 3 pregnancies. She had a hysterectomy in her 20s because of heavy bleeding. Her mother was diagnosed to have breast cancer at age of 45. She had a paternal aunt who had breast cancer in her mid 50s. The patient had a TAVR procedure in 2022. She is not on anticoagulation currently. [facility] Medical History Breast cancer, left Family history of breast cancer Left breast mass Lichen sclerosus of vulva LBBB (left bundle branch block) Rate-related bundle branch block Aortic stenosis HTN (hypertension) Surgical History (Updated 12/12/24 @ 08:40 by Leanne Duran RN) Knee joint replacement status History of esophagogastroduodenoscopy (EGD) S/P TAVR (transcatheter aortic valve replacement) Hx of carpal tunnel repair Hx of rotator cuff surgery Hx of cataract H/O right breast biopsy History of total right knee replacement H/O colonoscopy H/O: hysterectomy Family History Father Heart attack Mother Bundle branch block, unspecified HTN (hypertension) Maternal Grandmother Gastric cancer Sister Brain tumor Maternal Aunt Cancer Breast cancer Social History Household Members: Spouse Household Members Other:: 55 yrs- 3 sons Alcohol intake: never Patient Tobacco Use Status: Former Tobacco user Tobacco use type: Cigarette Years Smoked: 30 +/- service: No 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 Gender identity: Female Female Reproductive History Menstrual Age of Menarche: 13 Review of Systems Const Denies chills and Denies fever(s) Card Denies chest pain, Denies dyspnea and Denies dyspnea on exertion Resp Denies cough, Denies dyspnea and Denies dyspnea on exertion GI Denies hematochezia and Denies change in bowel habits Denies hematuria Musc Denies back pain and Denies limited range of motion Neuro Denies focal weakness and Denies convulsions Psych Denies depression and Denies mood swings Physical Exam Vital Signs: BMI result Body Mass Index 31.0 Const General: comfortable and no acute distress Orientation/consciousness: patient oriented x3 Neck Neck: Yes no lymphadenopathy Chest Other: No palpable breast masses, no nipple or skin changes, no axillary lymphadenopathy, no hematoma on the biopsy site Resp Auscultation: clear to auscultation bilaterally Cardio Rhythm: regular rhythm GI Palpation (GI): Soft to palpation, nontender and no guarding Neuro General: patient oriented x3 Assessment & Plan Assessment & Plan (1) Breast cancer, left: Code(s): C50.912 - Malignant neoplasm of unspecified site of left female breast Category: Medical Plan: She has a new diagnosis of invasive ductal cancer, ERPR positive, HER2 negative, with the 2 o'clock position of the left breast. I had a long discussion with her about her options for management. I explained to her the option of mastectomy with sentinel biopsy. I also explained the technique of lumpectomy with sentinel node biopsy. She understands that if she chooses lumpectomy, she may need to have whole breast radiation after that . I had a long discussion with her about the risks including but not limited to bleeding, infections, hematoma, as well as the benefits and alternatives of each procedure She says that she is choosing to undergo lumpectomy with the Hologic localizer, sentinel biopsy. We will also send her for consultation with our Medical Oncology. (2) Family history of breast cancer: Code(s): Z80.3 - Family history of malignant neoplasm of breast Category: Medical Plan: Her mother and maternal aunt both had breast cancer. I explained the option of proceeding with testing with [facility]. I explained the implications of this test to herself and her family She says that at this time, she does not want to proceed with genetic testing. She says she will let me know if she changes her mind. Orders: Orders NM sentinel node w imaging 11/28/24 C50.912 - Malignant neoplasm of unspecified site of left female breast Referrals Hematology & Oncology Referral C50.912 - Malignant neoplasm of unspecified site of left female breast Coding Level of Care Code New Pt Level 4 (68891) Diagnoses Breast cancer, left C50.912 Family history of breast cancer Z80.3
[2024-11-28 13:17] VITALS: BMI 31.0
--- OUTSIDE RECORDS SUMMARY | 2024-11-28 15:21 | XMS_ITS ---
Author Organization Robin Barnett MD Address [address] [place] [phone] Care Team Providers Care Aviation Mechanic Name Role Phone Robin Barnett Primary [...] Problem Status W/U Status Risk Notes Problem [id number] Overactive bladder (N32.81) Active confirmed Problem [id number] Iron deficiency anemia, unspecified iron deficiency anemia type (D50.9) Active confirmed Vital Signs Blood pressure systolic 132 mm Hg 08/14/19 25 Blood pressure diastolic 58 mm Hg 025 Height 60.50 in 08/14/2024 Weight 172 lbs 08/14/2024 BMI 33.03 kg/m2 08/14/2024 weight is up 7 pounds since 04-07-24 Encounters Encounter Location Date Provider Diagnosis Robin Barnett MD [address] [place] [address] Drive [address] [place], [place] [phone] 08/14/2024 Robin Barnett Overactive bladder N 32.81 [...] bladder (ICD-10 - N32.81) order faxed to [facility] CS dept, pending diagnostic testing [...] Assessment Notes Overactive bladder order faxed to [facility] C S dept, pending diagnostic testing Gastroesophageal [...] Reason: Provider Name:Robin harley, 02/19/2025 08:00:00 AM, [address] [place] [address], [address] [place] [address], [phone], Provider Name:Robin harley, 08/07/2025 07:30:00 AM, [address] [place] [address], Suite [facility], [place], [place], [phone], Provider Name:Robin harley, 08/17/2025 08:30:00 AM, [address] [place] [address], Suite [facility], [place], [place], [phone], Progress Notes * Mariela YUEN: 0 (74 yo F)Acc No.[id number]:08/14/2024 Patient:Zahra Ny Provider:?Robin Barnett MD :1950???Age:74 Y???Sex:Female D ate:08/14/2024 Address:[address] [place], [place] [phone] Subjective: * Chief Complaints: * ???Review labsCBACK [...] pounds since 04-07-24. * ???Past Orders: ???Lab:[facility]. P hannah Fast (Order Date - 08/11/2024) [...] sent with cards and solution.?FEMALE GENITOURINARY:?done by assistance coordinator.?EXTREMITIES:?no clubbing, cyanosis, or edema.?NEUROLOGIC:?nonfocal, motor strength normal [...] MD Date:?0 08/14/2024 Generated for Jesusi brenda/Griselda/eTransmitting on:?11/28/2024 03:20 PM EDT History and Physical Notes * [...] cards and solution FEMALE GENITOURINARY: done by assistance coordinator ORAL CAVITY: mucosa moist
--- OUTSIDE RECORDS SUMMARY | 2024-11-28 15:22 | XMS_ITS ---
Author Organization Robin Barnett MD Address [address] [place] [phone] Care Team Providers Care Security Attendant Name Role Phone Robni Barnett Primary Care Provider Results Component Value Reference Range Notes Complete Blood Count Auto Di ff Reviewed date:10/12/2024 12:32:59 PM Interpretation: Performing Lab:[facility], [address] [place] [id number] Notes/Report: White Blood Count 5.5 4.8-10.8 X10*3/uL [...] PROFILE Reviewed date:10/12/2024 12:33:07 PM Interpretation: Performing Lab:[address] [id number] Notes/Report: Iron 42 30-160 mcg/dL Total Iron Binding Capacity 325 228-428 mcg/d L Percent Iron Saturation 13 15-50 % Unsaturated Iron Binding 283 TSH reflex Free T4 Reviewed date:10/12/2024 12:33:15 PM Interpretation: Performing Lab:[facility], [address] [place] [id number] Notes/Report: TSH reflex Free T4 3.19 0.32-4.0 uIU/mL REASON FOR VISIT CBC IRON TSH Encounters Encounter Location Date Provider Diagnosis Robin Barnett MD [address] [place] [phone] 10/12/2024 Robin Barnett Loss of hair L65.9 and Iron deficiency anemia, unspecified iron deficiency anemia type D50.9 Assessments Encounter Date Diagnosis (ICD Code) Assessment Notes Treatment Notes Treatment Clinical Notes Section Notes 10/12/2024 Loss of hair (ICD-10 - L65.9) 10/12/2024 Iron deficiency anemia, unspecified iron deficiency anemia type (ICD-10 - D50.9) Plan Of Treatment Next Appt Details Provider Name:Robin harley, 02/19/2025 08:00:00 AM, [address] [place] [address], [place] [address], [place], [place], [phone], Provider Name:Robin harley, 08/07/2025 07:30:00 AM, [address] [place] [address], [address], [place], [place], [phone], Provider Name:Robin Mena ier, 08/17/2025 08:30:00 AM, [address], [address], [place], [place], [phone], Progress Notes * Yee YUENOB: 0 (74 yo F)Acc No.[id number]:10/12/2024 Progress Note Patient:?Zahra YUEN Provider:?Robin Barnett MD :1950???Age:74 Y???Sex:Female D ate:10/12/2024 Address:[facility] Subjective: * Chief Complaints: * ???1. CBC [...] Time - 10/12/2024 07:00 AM) * Procedure Codes:?44252 VENIP UNCT, ROUTINE* * * The named appointment provid er may or may not be the originator of this progress note, and it is not deemed complete until electronically signed by the appointment provider. Sign off status: Pending * Provider:?Robin Barnett MD Date:?0 10/12/2024 Generated for Lorna gutierrez/Griselda/eTransmitting on:?11/28/2024 03:21 PM EDT
--- OUTSIDE RECORDS SUMMARY | 2024-11-28 15:22 | XMS_ITS | Patient Health Record ---
Author Organization Robin Barnett MD Address [address] [place], [place] [id number] Care Team Providers Care Universal Grinder Operator Name Role Phone Robin Barnett Primary [...] AM Interpretation: Performing Lab:[facility], [address] [place] [phone] Notes/Report: Urine, Clean Catch Color Urine Yellow Appearance Urine Clear PH 6.5 5.0-9.0 Glucose Urine UA Negative Negative mg/dL Urine Blood Negative Negative Specific Foster - Urine 1.015 1.005-1.025 Urine Protein Negative [...] ff Reviewed date:08/11/2024 12:05:01 PM Interpretation: Performing Lab:[facility], [address] [place] [phone] Notes/Report: White Blood Count 5.2 4.8-10.8 X10*3/uL [...] NRBC Abs Auto 0.000 0.0-0.012 X10*3/uL Comprehensive Rolla. Panel Fa st Reviewed date:08/11/2024 12:22:05 PM Interpretation: Performing Lab:[facility], [address] [place] [address], [place] [address] Notes/Report: Sodium 142 135-145 mmol/L Potassium 4.1 [...] PROFILE Reviewed date:08/11/2024 12:21:39 PM Interpretation: Performing Lab:[address] [phone] Notes/Report: Iron 20 30-160 mcg/dL Total Iron Binding Capacity 339 228-428 mcg/dL Percent Iron Saturation 6 15-50 % Unsaturated Iron Binding 319 Lipid Panel Reviewed date:08/11/2024 12:21:09 PM Interpretation: Performing Lab:[facility], [address] [place] [phone] Notes/Report: Triglycerides 143 <150 mg/dL Desirable Triglyceride: [...] Random Reviewed date:08/11/2024 12:16:48 PM Interpretation: Performing Lab:[facility], [address] [place] [address] Notes/Report: Creatinine Urine 73.42 Microalbumin Urine 7.0 Microalbum/Creatinine Ratio Ur 9.5 <30 ug/mg cr Albumin/Creatinine Ratio Reference Ranges: Normal: < 30 ug/mg creatinine Microalbuminuria: 30 - 300 ug/mg creatinine Clinical Albuminuria: > 300 ug/mg creatinine Hemoglobin A1c Reviewed date:08/11/2024 12:10:09 PM Interpretation: Performing Lab:[facility], [address] [place] [phone] Notes/Report: Hemoglobin A1c % 6.2 <6.0 % [...] average glucose, using the formula of the X3U-Khvekme Average Glucose study (ADAG), Diabetes Care, Vol.31,#8, Mar. 2007 UA ClnCatch+Micro w/rflx Cul t Reviewed date:08/14/2024 10:20:30 AM Interpretation:ALFREDO 08/14/24 Performing Lab:[facility], [address] [place] [phone] Notes/Report: [id number] Urine, Clean Catch Color Urine Yellow Appearance Urine Clear PH 6.5 5.0-9.0 Glucose Urine UA Negative Negative mg/dL Urine Blood Trace Negative Specific Foster - Urine 1.015 1.005-1.025 Urine Protein Negative [...] ff Reviewed date:10/12/2024 12:32:59 PM Interpretation: Performing Lab:[facility], [address] [place] [phone] Notes/Report: White Blood Count 5.5 4.8-10.8 X10*3/uL [...] PROFILE Reviewed date:10/12/2024 12:33:07 PM Interpretation: Performing Lab:[facility], [address] [place] [address] Notes/Report: Iron 42 30-160 mcg/dL Total Iron Binding Capacity 325 228-428 mcg/dL Percent Iron Saturation 13 15-50 % Unsaturated Iron Binding 283 TSH reflex Free T4 Reviewed date:10/12/2024 12:33:15 PM Interpretation: Performing Lab:[facility], [address] [place] [phone] Notes/Report: TSH reflex Free T4 3.19 0.32-4.0 uIU/mL US carotid duplex BI Reviewed date:08/24/2024 05:28:39 PM Interpretation: Performing Lab: Notes/Report: [address] [address] Ultrasound Report Signed Patient: Zahra Feliz MR#: [id number] 0023 : 1950 Acct:[id number] Age/Sex: 74 / F ADM Date: 08/23/24 Loc: HO.US Attending Dr: Robin Barnett MD Ordering Physician: Robin Barnett MD Date of Service: 08/23/24 Procedure(s): US carotid duplex BI Accession Number(s): [id number] cc: Robin Barnett MD EXAMINATION: BILATERAL CAROTID [...] 08/24/24 0746 DD/ 1542 TD/TT: 08/23/24 1600 Glass Fitter: [address] [place] [address] Ultrasound Report Signed Patient: Gaby Feliz MR#: [id number] 0023 : 1950 Acct:[id number] Age/Sex: 74 / F ADM Date: 08/23/24 Loc: . Attending Dr: Robin Barnett MD Ordering Physician: Robin Barnett MD Date of Service: 08/23/24 Procedure(s): US car otid duplex BI Accession Number(s): [id number] cc: Robin Barnett MD EXAMINATION: BILATER AL CAROTID ULTRASOUND WITH DOPPLER HISTORY: Carotid Bruits COMPARISON: There ar e no prior studies for comparison. TECHNIQUE: Real time and Color and Spectral doppler ultrasonography of the carotid and vert ebral arteries was performed in multiple planes. FINDINGS: No signifi cant plaque is identified. VERTEBRAL FLOW DIREC TION: Antegrade bilaterally. PEAK SYSTOLIC VELOCI TIES (in cm/sec): RIGHT: CCA: Prox: 96.2 Dist: 85.5 ICA: Prox: 70.8 Mid: 87.0 Dist: 64.0 ICA/CCA Ratio: 0.90 ECA: 73.9 Peak ICA EDV: 26.7 LEFT: CCA: Prox: 96.2 Dist: 72.8 ICA: Prox: 84.1 Mid: 93.9 Dist: 77.1 ICA/CCA Ratio: 0.98 ECA: 74.5 Peak ICA EDV: 28.7 ___ U S/US carotid duplex BI IMPRESSION: Normal examination o f the carotid arteries. No significant stenosis. Electronically dao d by: Yannick Walton MD 08/24/2024 07:46 AM EST Dictated By: Yannick Walton MD Signed By: <Rayo ically signed by Yannick Walton MD in OV> 08/24/24 0746 DD/ 1542 TD/TT: 08/23/24 1600 Glass Fitter: ZACKARY tomosynthesis screening B I Reviewed date:10/12/2024 04:55:08 PM Interpretation: Performing Lab: Notes/Report: [facility] [address] [place], [place] [address] Mammography Report Signed Patient: Zahra Feliz MR#: [id number] 0023 : 1950 Acct:[id number] Age/Sex: 74 / F ADM Date: 10/10/24 Loc: HO.MAMMO Attending Dr: Robin Barnett MD Ordering Physician: Robin Barnett MD Results: 0In complete: Needs Additional Imaging Evaluation Date of Service: 10/10/24 Follow Up: Additional Imagi ng Procedure(s): MM tomosynthesis screening BI Accession Number(s): [id number] cc: Robin Barnett MD EXAMINATION: MM SCREENING [...] 10/12/24 1138 DD/ 0915 TD/TT: 10/10/24 0932 Glass Fitter: [facility] [address] [place] [address] [place] [address] Mammography Report Signed Patient: Gaby Feliz MR#: [id number] 0023 : 1950 Acct:[id number] Age/Sex: 74 / F ADM Date: 10/10/24 Loc: HO.MAMMO Attending Dr: Robin Barnett MD Ordering Physician: Robin Barnett MD Results: 0In complete: Needs Silvano tional Imaging Evaluation Date of Service: 12/01 Follow Up: Additional Imagi ng Procedure(s): MM tomosynthesis screening BI Accession Number(s): [id number] cc: Robin Barnett MD EXAMINATION: MM SCREENING DIGITAL BREAST TOMOSYNTHESIS, BILATERAL CLINICAL INFORMATION: Screening. Asymptomatic. COMPARISON: Mammography: Compari son is made with available priors TECHNIQUE: Digital breast mammo graphy with tomosynthesis is performed in both the [...] other abnormal findings. Right: There are no signifi cant masses, abnormal calcifications, or other abnormalities. M M/MM tomosynthesis screening BI IMPRESSION: Additional imaging i [...] of a suspicious palpable abnormality. This patient's infor mation was entered into a reminder system with a target due date for their next mammogram. Electronically dao d by: Lakesha Dumont DO 10/12/2024 11:38 AM EST Dictated By: Lakesha Dumont DO Signed By: <Electron ically signed by Lakesha Dumont DO in OV> 10/12/24 1138 DD/ 0915 TD/TT: 10/10/24 0932 Glass Fitter: Janice Curz Reviewed date:10/12/2024 12:30:21 PM Interpretation: Performing Lab:[facility], [address] [place] [phone] Notes/Report: Janice Cruz See Note Specimen held untested for 24 hours; Call to request Chemistry testing. MM tomosynthesis added views L Reviewed date:11/17/2024 05:21:48 PM Interpretation: Performing Lab: Notes/Report: [facility] [address] [place] [address] Mammography Report Signed Patient: Zahra Feliz MR#: [id number] 0023 : 1950 Acct:[id number] Age/Sex: 74 / F ADM Date: 11/02/24 Loc: HO.MAMMO Attending Dr: Robin Barnett MD Ordering Physician: Robin Barnett MD Results: 4Su spicious Finding Date of Service: 11/02/24 Follow Up: Biopsy Recommend ed Procedure(s): MM tomosynthesis added views L Accession Number(s): [id number] cc: Robin Barnett MD EXAMINATION: MM DIAGNOSTIC [...] 11/02/24 1312 DD/ 1230 TD/TT: 11/02/24 1230 Glass Fitter: [facility] [address] [place] [address] Mammography Report Signed Patient: Gaby Feliz MR#: [id number] 0023 : 1950 Acct:[id number] Age/Sex: 74 / F ADM Date: 11/02/24 Loc: HO.MAMMO Attending Dr: Robin Barnett MD Ordering Physician: Robin Barnett MD Results: 4Su spicious Finding Date of Service: Follow Up: Biopsy Recommend ed Procedure(s): MM tomosynthesis added views L Accession Number(s): [id number] cc: Robin Barnett MD EXAMINATION: MM DIAGNOSTIC DIGITA L BREAST TOMOSYNTHESIS, LEFT Limited left breast ultrasound. CLINICAL INFORMATION: Call back from zara berkowitz for asymmetry with questioned distortion in the [...] breast composition Category b). Asymmetry in the lat eral left breast posterior depth persist on additional imaging projections with associated architectural distortion. No suspicious calcifications or other abnormal findings. Targeted color Doppl er ultrasound scanning from 1-5 o'clock demonstrates a hypoe choic oval irregular solid mass at 2:00 10 cm from nipple measuring 5 x 6 x 3 mm which correlates with the focal asymmetry on mammography. Targeted color Doppl er ultrasound in the axilla demonstrates normal axillary lymph nodes and normal axillary tissue. There is no sonographic abnormal ity in the axilla. M M/MM tomosynthesis added views L IMPRESSION: Solid irregular [...] of visit by the technologist. This patient's infor mation was entered into a reminder system with a target due date for their next mammogram. Electronically dao d by: Lakesha Dumont DO 11/02/2024 01:12 PM EDT RP Dictated By: Lakesha Dumont DO Signed By: <Rayo icamanuel signed by Lakesha Dumont DO in OV> 11/02/24 1312 DD/ 1230 TD/TT: 11/02/24 1230 Glass Fitter: US breast LT limited mamm on ly Reviewed date:11/20/2024 08:30:49 AM Interpretation: Performing Lab: Notes/Report: [facility] [address] [place] [address] [place] [address] Ultrasound Report Signed Patient: Zahra Feliz MR#: [id number] 0023 : 1950 Acct:[id number] Age/Sex: 74 / F ADM Date: 11/02/24 Loc: HO.MAMMO Attending Dr: Robin Barnett MD Ordering Physician: Robin Barnett MD Date of Service: 11/02/24 Procedure(s): US breast LT limited mamm only Accession Number(s): [id number] cc: Robin Barnett MD EXAMINATION: MM DIAGNOSTIC [...] 11/02/24 1312 DD/ 1300 TD/TT: 11/02/24 1318 Glass Fitter: [facility] [address] [place] [address] Ultrasound Report Signed Patient: Gaby Feliz MR#: [id number] 0023 : 1950 Acct:[id number] Age/Sex: 74 / F ADM Date: 11/02/24 Loc: HO.MAMMO Attending Dr: Robin Barnett MD Ordering Physician: Robin Barnett MD Date of Service: 11/02/24 Procedure(s): US vamsi ast LT limited mamm only Accession Number(s): [id number] cc: Robin Barnett MD EXAMINATION: MM DIAGNOSTIC DIGITA L BREAST TOMOSYNTHESIS, LEFT Limited left breast ultrasound. CLINICAL INFORMATION: Call back from zara berkowitz for asymmetry with questioned distortion in the [...] breast composition Category b). Asymmetry in the lat eral left breast posterior depth persist on additional imaging projections with associated architectural distortion. No suspicious calcifications or other abnormal findings. Targeted color Doppl er ultrasound scanning from 1-5 o'clock demonstrates a hypoe choic oval irregular solid mass at 2:00 10 cm from nipple measuring 5 x 6 x 3 mm which correlates with the focal asymmetry on mammography. Targeted color Doppl er ultrasound in the axilla demonstrates normal axillary lymph nodes and normal axillary tissue. There is no sonographic abnormal ity in the axilla. U S/US breast LT limited mamm only IMPRESSION: Solid [...] of visit by the technologist. This patient's infor mation was entered into a reminder system with a target due date for their next mammogram. Electronically dao d by: Lakesha Dumont DO 11/02/2024 01:12 PM EDT Dictated By: Lakesha Dumont DO Signed By: <Electron ically signed by Lakesha Dumont DO in OV> 11/02/24 1312 DD/ 1300 TD/TT: 11/02/24 1318 Glass Fitter: Pathology Reviewed date:11/24/2024 07:18:25 PM Interpretation: Performing Lab:[facility], [address] [place] [phone] Notes/Report: ------- Name: Zahra Feliz Age/Sex: 74/F : 1950 Unit#: [id number] Attend Dr: Robin Barnett MD Re11/22/24 Status : DEP [facility]ch: ------- SPEC : [id number] RECD : 11/22/24 STATUS: PERLA BEDOYA NUM: [id number] EMILY: 11/22/[address] [facility] [address]: Lakesha Dumont DO ENTERED: 11/22/24-11 53 SP TYPE: Surgical OTHR DR: Robin Barnett MD ORDERED: HE Stain/2, Gross Micro L4, ER, IN, IHC ER/IN/Her2N/4, Ki-67, [id number] COMMENTS: As per the specimen requisition slip the specimen is collected at 0831 an d placed in formalin at 0835. Diagnosis Breast, left mass at 2 o'clock, biopsy: Invasive ductal carcinoma, MSBR grade 1. See description. Estrogen receptor: P ositive (100% of tumor cells; strong intensity) Progesterone recepto r: Positive (50% of tumor cells; weak to moderate intensity) HER2: Negative (fewe r than 10% of tumor cells with weak incomplete staining) Proliferation index: Low (5% of tumor cells by Ki-67 immunostaining) Breast Biopsy Data Synopsis Procedure: Core biopsy Specimen laterality: Left at 2:00 Histologic type: Ductal Histologic grade ([place]/MSBR histologic score): 1 - Glandular/tubular differentiation: Score: 2 - Nuclear pleomorphi sm: Score: 2 - Mitotic rate: Score: 1 Tumor size: Largest linear diameter: 5 mm Ductal carcinoma in situ: Not identified Lymphovascular invas ion: Not identified Microcalcifications: Not identified Note: Some of the li sted elements may change with subsequent review of the entire lesion. Clinical History Left breast 2 o'cloc k mass ? Ca vs other Microscopic Description Sections have cores of breast tissue infiltrated by a carcinoma comprised of small tubules and nests of tumor c ells, which are small to medium in size, have moderate amphophilic cytoplasm and round/ mildly irregular nuclei with open chromatin and indistinct nucleoli. Material Received Left breast 2 o'cloc k mass ? Ca vs other CONTINUED ON NEXT PAGE ------- Name: Zahra Feliz Age/Sex: 74/F : 1950 Unit#: [id number] Attend Dr: Robin Barnett MD Re11/22/24 Status : DEP [facility]F [facility] Disch: ------- SPEC : [id number] RECD : 11/22/24 STATUS: PERLA BEDOYA NUM: [id number] EMILY: 11/22/[address] [facility] [address]: Lakesha Dumont DO ENTERED: 11/22/24-11 53 SP TYPE: Surgical OTHR DR: Robin Barnett MD ORDERED: HE Stain/2, Gross Micro L4, ER, IN, IHC ER/IN/Her2N/4, Ki-67, [id number] COMMENTS: As per the specimen requisition slip the specimen is collected at 0831 an d placed in formalin at 0835. Gross Description Received in formalin labeled ?left breast mass 2 o'clock are several minute to 1.3 cm in greatest dimension irregular shards and cylindrical threads of semitranslucent and opaque, quezada-white and franklin -yellow fibrofatty tissue, submitted in toto in a cassette labeled A. CEDS Formalin-fixed paraffin-embedded tissue. Time tissue removed from patient: 830 Time tissue placed i n fixative: 0835 Duration of fixation : between 6 and 24 hrs. Estrogen and Progest erone receptor immunohistochemistry performed in accordance with ASCO/CAP recommendat ions (2010). Estrogen receptor: C lone SP1; Dako Envision+ Dual Link System-HRP. Progesterone recepto r: Clone [id number]; Biocare Mach 4 detection system. Her-2/lashonda immunohistochemistry performed in accordance with ASCO/CAP recommendations (2007) and update (2013). Hercep Test Detection system: Po lymer type Scoring criteria: For ER/IN and Her-2/ lashonda: All internal (if present) and external controls react appropriately. ER and IN immunostai ns are scored as Positive (> 10% of tumor cell nuclei), Low Positive (1- 10% of tumor cell nu clei) or Negative (<1% of tumor cell nuclei) with associated staining intensity designatio n. The Negative category is further delineated by the presence or absence of internal positive control tissue. The HER2 immunostain assay is resulted as Positive (3+) with i ntense, complete membranous staining of more than 10% of the carcinoma or Negative (0) corresponding to negative or incomplete/weak membranous staining in <10% of cells. HER2 Low (1+) corresponding to incomplete/weak membranous staining in >10% of cells. The Equivocal (2+) designation reflects weak or non-uniform circumferential staining or dark (moderate) circumfer ential staining in less than 10% of the tumor cells. The Equivocal (2+) category includes a minor subset of patients that will show HER2 gene amplification, and therefore confirmato ry HER2 FISH testing will be performed on all Equivocal cases. The Ki-67 immunostain is score d, according to cut-offs established in the monarchE trial, as High (> or = 20% of tumor ce ll nuclei) or Low (< 20% of tumor cell nuclei). Tumor cell nuclear staining intensity o f 1+ or greater is positive. Davon AC, Hong ME, et al. Human Epidermal Growth Factor Receptor 2 Testing in Breast CONTINUED ON NEXT PAGE ------- Name: Zahra Feliz Age/Sex: 74/F : 1950 Unit#: [id number] Attend Dr: Robin Barnett MD Re11/22/24 Status : DEP REF Location: [facility] Disch: ------- SPEC : [id number] RECD : 11/22/24 STATUS: PERLA BEDOYA NUM: [id number] EMILY: 11/22/[address]: Lakesha Dumont DO ENTERED: 11/22/24- 53 SP TYPE: Surgical OTHR DR: Robin Barnett MD ORDERED: HE Stain/2, Gross Micro L4, ER, IN, IHC ER/IN/Her2N/4, Ki-67, [id number] COMMENTS: As per the specimen requisition slip the specimen is collected at 0831 an d placed in formalin at 0835. Gross Description (Continued) Cancer: ASCO/CAP Cli nical Practice Guideline Focus Update. Arch of Pathol Lab Med, 142 2018: 7256-7988. Trixie KH, Hong ME, et al. Estrogen and Progesterone Receptor Testing in Breast Cancer: ASCO/CAP Guideline U pdate. Arch of Pathol Lab Med, 1442019: 545-563. Britt N, Gaviota P , et al. Adjuvant abemaciclib combined with endocrine therapy for high- risk early breast ca ncer: updated efficacy and Ki-67 analysis from the [facility] study. Georgie Oncol. 2020;32(12):3680-1068. This case was review ed intradepartmentally; results were communicated to Drs. Melendez and Tim via secure text on 11/24/2024. Special studies orde red and performed: Immunostains for ER, IN, HER2 and Ki 67 Copies To: Robin Barnett MD [facility] [address] [place] [address] [place] [address] Lakesha Dumont DO [address] [place] [address] ------- Signed (si gnature on file) Zan Max MD 11/24/24 1115 ------- END OF REPORT MM tomosynthesis diagnostic LT Reviewed date:11/28/2024 12:28:38 PM Interpretation: Performing Lab: Notes/Report: [facility] [address] [place] [address] Mammography Report Signed with Addankit Patient: Zahra Feliz MR#: [id number] 0023 : 1950 Acct:[id number] Age/Sex: 74 / F ADM Date: 11/22/24 Loc: HO.MAMMO Attending Dr: Robin Barnett MD Ordering Physician: Robin Barnett MD Results: 1Ne gative Date of Service: 11/22/24 Follow Up: 1 [facility] From [facility] Mammogram Procedure(s): MM tomosynthesis diagnostic LT Accession Number(s): [id number] cc: Robin Barnett MD ADDENDUM ADDENDUM #1 ADDENDUM: Left breast ultrasound guided core needle biopsy 2:00: Invasive ductal carcinoma. Recommend breast surgical consultation for excision and further management these findings are malignant and concordant. Patient is under the care of a breast surgeon Dr. Melendez who is aware of the pathology results and recommendations. Electronically signed by: Lakesha Dumont DO 11/28/2024 10:01 AM EDT Addendum Dictated By: Lakesha Dumont DO Addendum Signed By: <Electronically signed by Lakesha Dumont DO in OV> 11/28/24 1001 Addendum Cosigned By: DD/ TD/TT: 11/22/24 PROCEDURE: ULTRASOUND-GUIDED LEFT BREAST BIOPSY CLINICAL INFORMATION: Left breast mass at 2:00 10 cm from the nipple. COMPARISON: Priors on PACS. TECHNIQUE: The details of the procedure, as well as the risks, benefits, and alternatives to the procedure were explained to the patient in detail and all of her questions were answered, after which, written informed consent was obtained. PROCEDURE: Prior to the procedure, sonography revealed solid irregular mass at 2:00 10 cm from the nipple.. A time-out was performed, the lesion intended for biopsy was targeted and the skin of the left breast was then prepped and draped in the usual sterile fashion. Using sonographic guidance, sterile technique, and 1% lidocaine without epinephrine for local anesthesia, a total of 4 cores were obtained through the targeted area with a 14-gauge biopsy device. At the completion of tissue sampling, a single coil metallic clip was deposited at the biopsy site. An appropriate sample was obtained. The postprocedure 2-view direct digital mammogram reveals satisfactory positioning of the biopsy clip. The patient tolerated the procedure well and, after assuring adequate hemostasis, was discharged in good condition after reviewing postbiopsy breast care instructions. Final pathology results are pending. MM/MM tomosynthesis diagnostic LT IMPRESSION: 1. Uncomplicated sonographically-guided core biopsy of the left breast. The 2-view direct digital postprocedure mammogram reveals satisfactory positioning of the biopsy clip. 2. Final pathology results are pending. A separate report with final recommendations will be issued once these results are made available. Electronically signed by: Lakesha Dumont DO 11/23/2024 02:23 PM EDT Dictated By: Lakesha Dumont DO Signed By: <Electronically signed by Lakesha Dumont DO in OV> 11/23/24 1423 DD/ 0815 TD/TT: 11/22/24 0852 Glass Fitter: [facility] [address] [place] [id number] Mammography Report Signed with Philenda Patient: Gaby Feliz MR#: [id number] 0023 : 1950 Acct:[id number] Age/Sex: 74 / F ADM Date: 11/22/24 Loc: XENIAO Attending Dr: Robin Barnett MD Ordering Physician: Robin Barnett MD Results: 1Ne gative Date of Service: Follow Up: 1 Year From Orig inal Mammogram Procedure(s): MM tomosynthesis diagnostic LT Accession Number(s): [id number] cc: Robin Barnett MD ADDENDUM ADDENDUM #1 ADDENDUM: Left breast ultrasou nd guided core needle biopsy 2:00: Invasive ductal carcinoma. Recommend breast kezia gical consultation for excision and further management these fin dings are malignant and concordant. Patient is under the care of a breast surgeon Dr. Melendez who is aware of the patholo gy results and recommendations. Electronically dao d by: Lakesha Dumont DO 11/28/2024 10:01 AM EDT Addendum Dictated By : Lakesha Dumont DO Addendum Signed By: <Electronically signed by Lakesha Dumont DO in OV> 11/28/24 1001 Addendum Cosigned By: DD/ TD/TT: 11/22/24 PROCEDURE: ULTRASOUND-GUIDED LE FT BREAST BIOPSY CLINICAL INFORMATION: Left breast mass at 2:00 10 cm from the nipple. COMPARISON: Priors on PACS. TECHNIQUE: The details of the procedure, as well as the risks, benefits, and alternatives to the procedure were explained to the patient in detail and all of her quest ions were answered, after which, written informed consent was obtained. PROCEDURE: Prior to the procedu re, sonography revealed solid irregular mass at 2:00 10 cm from the nipple.. A time-out was performed, the lesion intended for biopsy was targeted and the skin of the left breast was then prepped and sebastián ped in the usual sterile fashion. Using sonographic gu idance, sterile technique, and 1% lidocaine without epinephrine for loca l anesthesia, a total of 4 cores were obtained through the targeted area with a 14-gauge biopsy device. At the completion of tissue sampling, a single coil metallic clip was deposited at the bio y site. An appropriate sampl e was obtained. The postprocedure 2- view direct digital mammogram reveals satisfactory positioning of the b iopsy clip. The patient tolerate d the procedure well and, after assuring adequate hemostasis, was disc harged in good condition after reviewing postbiopsy breast care instruct ions. Final pathology results are pending. M M/MM tomosynthesis diagnostic LT IMPRESSION: 1. Uncomplicated sonographically-guided core biopsy of the left breast. The 2-view direct di gital postprocedure mammogram reveals satisfactory positioning of the b iopsy clip. 2. Final pathology r esults are pending. A separate report with final recommendations will be issued once these results are made available. Electronically dao d by: Lakesha Dumont DO 11/23/2024 02:23 PM EDT RP Dictated By: Lakesha Dumont DO Signed By: <Electron ically signed by Lakesha Dumont DO in OV> 11/23/24 1423 DD/ 4 TD/TT: 11/22/24851 Glass Fitter: US breast ndl core biopsy LT Reviewed date:11/28/2024 12:29:41 PM Interpretation: Performing Lab: Notes/Report: [facility] [address] [place], [place] [address] Ultrasound Report Signed with Addenda Patient: Zahra Feliz MR#: [id number] 0023 : 1950 Acct:[id number] Age/Sex: 74 / F ADM Date: 11/22/24 Loc: HO.MAMMO Attending Dr: Robin Barnett MD Ordering Physician: Dhaval Melendez MD Date of Service: 11/22/24 Procedure(s): US breast ndl core biopsy LT Accession Number(s): [id number] cc: Robin Barnett MD; Dhaval Melendez MD ADDENDUM ADDENDUM #1 ADDENDUM: Left breast ultrasound guided core needle biopsy 2:00: Invasive ductal carcinoma. Recommend breast surgical consultation for excision and further management these findings are malignant and concordant. Patient is under the care of a breast surgeon Dr. Melendez who is aware of the pathology results and recommendations. Electronically signed by: Lakesha Dumont DO 11/28/2024 10:01 AM EDT RP Addendum Dictated By: Lakesha Dumont DO Addendum Signed By: <Electronically signed by Lakesha Dumont DO in OV> 11/28/24 1001 Addendum Cosigned By: DD/ TD/TT: 11/22/24 PROCEDURE: ULTRASOUND-GUIDED LEFT BREAST BIOPSY CLINICAL INFORMATION: Left breast mass at 2:00 10 cm from the nipple. COMPARISON: [facility] on PACS. TECHNIQUE: The details of the procedure, as well as the risks, benefits, and alternatives to the procedure were explained to the patient in detail and all of her questions were answered, after which, written informed consent was obtained. PROCEDURE: Prior to the procedure, sonography revealed solid irregular mass at 2:00 10 cm from the nipple.. A time-out was performed, the lesion intended for biopsy was targeted and the skin of the left breast was then prepped and draped in the usual sterile fashion. Using sonographic guidance, sterile technique, and 1% lidocaine without epinephrine for local anesthesia, a total of 4 cores were obtained through the targeted area with a 14-gauge biopsy device. At the completion of tissue sampling, a single coil metallic clip was deposited at the biopsy site. An appropriate sample was obtained. The postprocedure 2-view direct digital mammogram reveals satisfactory positioning of the biopsy clip. The patient tolerated the procedure well and, after assuring adequate hemostasis, was discharged in good condition after reviewing postbiopsy breast care instructions. Final pathology results are pending. US/US breast ndl core biopsy LT IMPRESSION: 1. Uncomplicated sonographically-guided core biopsy of the left breast. The 2-view direct digital postprocedure mammogram reveals satisfactory positioning of the biopsy clip. 2. Final pathology results are pending. A separate report with final recommendations will be issued once these results are made available. Electronically signed by: Lakesha Dumont DO 11/23/2024 02:23 PM EDT Dictated By: Lakesha Dumont DO Signed By: <Electronically signed by Lakesha Dumont DO in OV> 11/23/24 1423 DD/ 9 TD/TT: 11/22/24899 Glass Fitter: [facility] [address] [place] [address] [place] [address] Ultrasound Report Signed with Volodymyr Patient: Gaby Feliz MR#: [id number] 0023 : 1950 Acct:[id number] Age/Sex: 74 / F ADM Date: 11/22/24 Loc: HO.MAMMO Attending Dr: Robin Barnett MD Ordering Physician: Dhaval Melendez MD Date of Service: 11/22/24 Procedure(s): US vamsi ast ndl core biopsy LT Accession Number(s): [id number] cc: Robin Barnett MD; Dhaval Melendez MD ADDENDUM ADDENDUM #1 ADDENDUM: Left breast ultrasou nd guided core needle biopsy 2:00: Invasive ductal carcinoma. Recommend breast kezia gical consultation for excision and further management these fin dings are malignant and concordant. Patient is under the care of a breast surgeon Dr. Melendez who is aware of the patholo gy results and recommendations. Electronically dao d by: Lakesha Dumont DO 11/28/2024 10:01 AM EDT RP Addendum Dictated By : Lakesha Dumont DO Addendum Signed By: <Electronically signed by Lakesha Dumont DO in OV> 11/28/24 1001 Addendum Cosigned By: DD/ TD/TT: 11/22/24 PROCEDURE: ULTRASOUND-GUIDED LE FT BREAST BIOPSY CLINICAL INFORMATION: Left breast mass at 2:00 10 cm from the nipple. COMPARISON: [facility] on PACS. TECHNIQUE: The details of the procedure, as well as the risks, benefits, and alternatives to the procedure were explained to the patient in detail and all of her quest ions were answered, after which, written informed consent was obtained. PROCEDURE: Prior to the procedu re, sonography revealed solid irregular mass at 2:00 10 cm from the nipple.. A time-out was performed, the lesion intended for biopsy was targeted and the skin of the left breast was then prepped and sebastián ped in the usual sterile fashion. Using sonographic gu idance, sterile technique, and 1% lidocaine without epinephrine for loca l anesthesia, a total of 4 cores were obtained through the targeted area with a 14-gauge biopsy device. At the completion of tissue sampling, a single coil metallic clip was deposited at the bio psy site. An appropriate sampl e was obtained. The postprocedure 2- view direct digital mammogram reveals satisfactory positioning of the b iopsy clip. The patient tolerate d the procedure well and, after assuring adequate hemostasis, was disc harged in good condition after reviewing postbiopsy breast care instruct ions. Final pathology results are pending. U S/US breast ndl core biopsy LT IMPRESSION: 1. Uncomplicated sonographically-guided core biopsy of the left breast. The 2-view direct di gital postprocedure mammogram reveals satisfactory positioning of the b iopsy clip. 2. Final pathology r esults are pending. A separate report with final recommendations will be issued once these results are made available. Electronically dao d by: Lakesha Dumont DO 11/23/2024 02:23 PM EDT RP Workstation: [employer] Dictated By: Lakesha Dumont DO Signed By: <Electro nically signed by Lakesha Dumont DO in OV> 11/23/24 1423 DD/ 0800 TD/TT: 11/22/24 0900 Glass Fitter: Reason For Referral No Information Medications Medication [...] Problem Status W/U Status Risk Notes Problem 03555164 Lymphocytosis (D72.820) Active confirm ed Problem 264286795 Chronic tension- type headache, not intractable (G44.229) Active confirmed Problem 484243691 Overactive bladd er (N32.81) Active confirmed Problem 22324443 Essential hypert ension (I10) Active confirmed Problem 4002313 Prediabetes (R73.09) Active confirmed Problem 328731469 Low HDL (under 4 0) (E78.6) Active confirmed Problem History of aortic valve replacement (1713885609341 ) History of aortic valve replacement (Z95.2) Active confirmed Problem 558244806 Cervical disc di sease (M50.90) Active confirmed Problem 35901334 Iron deficiency anemia, unspecified iron deficiency anemia type (D50.9) Active confirmed Problem 88044948 LBBB (left bundl e branch block) (I44.7) Active confirmed Problem 144990555 Severe aortic st enosis (I35.0) Active confirmed Problem 829101057 Pure hypercholesterolemia (E78.00) Active confirmed Problem 108582089 Body mass index (BMI) of 34.0-34.9 in adult (Z68.34) Active confirmed Problem 691371480 Hyperplastic col onic polyp, unspecified part of colon (K63.5) Active confirmed Problem 474908530 Moderate aortic stenosis (I35.0) Active confirmed Problem 74207835 Myelopathy (G95.9) Active confirmed Problem 291197784 Gastroesophageal reflux disease with esophagitis without hemorrhage (K21.00) Active confirmed Vital Signs Blood pressure diastolic 70 mm Hg 10/19/2024 Height 60.50 in 10/19/2024 Blood pressure systolic 156 mm Hg 10/19/2024 Weight 172 lbs 10/19/2024 BMI 33.03 kg/m2 10/19/2024 Encounters Encounter Location Date Provider Diagnosis Robin Barnett MD [address] [place] [phone] 04/20/2024 Robin Barnett Urinary tract infect ion, site not specified N39.0 and Hematuria, unspecified R31.9 Robin Barnett MD [address] [place] [phone] 08/11/2024 Robin Barnett Prediabetes R73.09 ; Essential hypertension I10 ; Lymphocytosis D72.820 ; Pure hypercholesterolemia E78.00 and Anemia D64.9 Robin Barnett MD [address] [place] [id number] 10/12/2024 Robin Barnett Loss of hair L65.9 a nd Iron deficiency anemia, unspecified iron deficiency anemia type D50.9 Robin Barnett MD [address] [place] [id number] 04/07/2024 Robin Barnett Acute UTI N39.0 Robin Barnett MD [address] [place] [address] [address] [id number] 08/14/2024 Robin Barnett Overactive bladder N 32.81 ; Gastroesophageal reflux disease with esophagitis without hemorrhage K21.00 ; Iron deficiency anemia, unspecified iron deficiency anemia type D50.9 ; Loss of hair L65.9 ; Bilateral carotid bruits R09.89 ; Prediabetes R73.09 ; Essential hypertension I10 ; Pure hypercholesterolemia E78.00 ; Colon cancer screening Z12.11 and Depression screening Z13.31 Robin Barnett MD [address] [place] [address] Drive [address] [place] [phone] 10/19/2024 Robin Barnett Essential hypertensi on I10 [...] bladder (ICD-10 - N32.81) order faxed to [facility] dept, pending diagnostic [...] DEXA 07/15/2020 MAMMOGRAM DIGITAL UNILATERAL KOSTAS LT 06/0 08/2014 US CAROTID BILATERAL DOPPLER 08/14/2024 ECHO 08/04/2022 ECHO 02/16/2013 Next Appt Details Provider Name:Robin Mena ier, 02/19/2025 08:00:00 AM, [address] [place] [address], [address], [phone], Provider Name:Robin Mena ier, 08/07/2025 07:30:00 AM, [address] [place] [address], [place] [address], [place], [place], [phone], Provider Name:Robin Mena ier, 08/17/2025 08:30:00 AM, [address] [place] [address], [address], [phone], Insurance Providers Payer Name Payer Address Payer Phone Subscriber Number Group Number Insured Name Patient Relationship to Insured Coverage Start Date Coverage End Date MEDICARE NHIC CR[address] [place] [address] [id number] TriniZahra nichols Self - patient is the insured 5 [employer] SUPPLEMENT [address] [address] [place] [address] [id number] Zahra Feliz Self - patient is the insured Medical (General) History Medical History History ICD Code hematuria with neg w/u2 times colonoscopy 2005 hyperplasti c polyp; colonoscopy by Dr. Thad Pope 08/27/16 - repeat 10 years 1975 - hysterectomy - no paps needed per wharfinger chief Has aortic stensois and Dr Jose Antonio [place] [facility] yearly echo guaiac times 3 negative 09/2024
== END 2024-11-28 13:41 | disposition home or self-care (01) ==
LOC: HO.HGS 12:58
PROVIDERS: PCP Internal Medicine; Visit Provider Surgery
DX: C50.912 Malignant neoplasm of unspecified site of left female breast (principal); Z80.3 Family history of malignant neoplasm of breast
CPT/HCPCS: 99214

== ENCOUNTER → 2024-11-28 12:57 | Outpatient (BNVA) | payer MEDICARE, OTHER, SELFPAY | PROVIDERS: PCP Internal Medicine; Visit Provider Surgery | DX: C50.912 Malignant neoplasm of unspecified site of left female breast (principal); Z80.3 Family history of malignant neoplasm of breast | CPT/HCPCS: 99212 ==

== ENCOUNTER → 2024-12-05 09:53 | Outpatient (BNV) | payer MEDICARE, OTHER, SELFPAY | PROVIDERS: PCP Internal Medicine; Referring Provider Surgery; Visit Provider Internal Medicine | DX: C50.412 Malignant neoplasm of upper-outer quadrant of left female breast (principal) | CPT/HCPCS: 99202; 99204; G2211 ==

== ENCOUNTER 2024-12-20 07:46 | Outpatient (REF) | payer MEDICARE, OTHER, SELFPAY ==
--- NOTE | ~2024-12-20 | US_ITS ---
EXAMINATION: Ultrasound GUIDED RFID LOCALIZATION BREAST, LEFT CLINICAL INFORMATION: Biopsy-proven left breast invasive ductal carcinoma 2:00. COMPARISON: Priors on PACS. TECHNIQUE NEEDLE LOC: Proper informed consent is obtained from the patient after discussion of the procedure, potential risks and complications, and alternatives including declining the procedure today. Patient was given an opportunity for questions. The patient appeared to understand. The patient consented to the procedure and signed the consent form. GUIDANCE: Ultrasound. APPROACH: Lateral. TARGET: Left breast mass 2:00.. ANESTHESIA: lidocaine. LOCALIZATION SYSTEM: [employer] LOCallizer Wire-Free Guidance System with 12g needle applicator. RADIOFREQUENCY TAG: ID # [id number] RF Tag ID confirmed with LOCalizer Guidance System prior to placement. The skin is prepped and local anesthesia administered. The needle is positioned and RFID tag deployed. Final images demonstrate the LOCalizer RF tag to reside adjacent to the clip within the mass. The patient tolerated the procedure well and had no immediate complications. Dressing placed and home instructions reviewed. US/US Breast RF Tag Device Left IMPRESSION: -Status post left breast RFID localization. Electronically signed by: Lakesha Dumont DO 12/20/2024 10:47 AM EDT
--- NOTE | ~2024-12-20 | MM_ITS ---
EXAMINATION: Ultrasound GUIDED RFID LOCALIZATION BREAST, LEFT CLINICAL INFORMATION: Biopsy-proven left breast invasive ductal carcinoma 2:00. COMPARISON: [facility] on PACS. TECHNIQUE NEEDLE LOC: Proper informed consent is obtained from the patient after discussion of the procedure, potential risks and complications, and alternatives including declining the procedure today. Patient was given an opportunity for questions. The patient appeared to understand. The patient consented to the procedure and signed the consent form. GUIDANCE: Ultrasound. APPROACH: Lateral. TARGET: Left breast mass 2:00.. ANESTHESIA: lidocaine. LOCALIZATION SYSTEM: Zeetl LOCallizer Wire-Free Guidance System with 12g needle applicator. RADIOFREQUENCY TAG: ID # [id number] RF Tag ID confirmed with LOCalizer Guidance System prior to placement. The skin is prepped and local anesthesia administered. The needle is positioned and RFID tag deployed. Final images demonstrate the LOCalizer RF tag to reside adjacent to the clip within the mass. The patient tolerated the procedure well and had no immediate complications. Dressing placed and home instructions reviewed. MM/MM tomosynthesis diagnostic LT IMPRESSION: -Status post left breast RFID localization. Electronically signed by: Lakesha Dumont DO 12/20/2024 10:47 AM EDT
--- OUTSIDE RECORDS SUMMARY | 2024-12-20 07:48 | XMS_ITS | Patient Health Record ---
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 Name Role Phone Robin Barnett Primary Care [...] t Reviewed date:04/21/2024 08:45:38 AM Interpretation: Performing Lab:[facility], [address] [place] [address] Notes/Report: Urine, Clean Catch Color Urine Yellow Appearance Urine Clear PH 6.5 5.0-9.0 Glucose Urine UA Negative Negative mg/dL Urine Blood Negative Negative Specific [place] - Urine 1.015 1.005-1.025 Urine Protein Negative [...] ff Reviewed date:08/11/2024 12:05:01 PM Interpretation: Performing Lab:[facility], [address] [place] [phone] Notes/Report: White Blood Count 5.2 4.8-10.8 X10*3/uL [...] NRBC Abs Auto 0.000 0.0-0.012 X10*3/uL Comprehensive [place]. Panel Fa st Reviewed date:08/11/2024 12:22:05 PM Interpretation: Performing Lab:[facility], [address] [place] [address], [place] [address] Notes/Report: Sodium 142 135-145 mmol/L Potassium 4.1 [...] PROFILE Reviewed date:08/11/2024 12:21:39 PM Interpretation: Performing Lab:[address] [address] Notes/Report: Iron 20 30-160 mcg/dL Total Iron Binding Capacity 339 228-428 mcg/dL Percent Iron Saturation 6 15-50 % Unsaturated Iron Binding 319 Lipid Panel Reviewed date:08/11/2024 12:21:09 PM Interpretation: Performing Lab:[facility], [address] [place] [address] Notes/Report: Triglycerides 143 <150 mg/dL Desirable Triglyceride: [...] Random Reviewed date:08/11/2024 12:16:48 PM Interpretation: Performing Lab:[facility], [address] [place] [address] Notes/Report: Creatinine Urine 73.42 Microalbumin Urine 7.0 Microalbum/Creatinine Ratio Ur 9.5 <30 ug/mg cr Albumin/Creatinine Ratio Reference Ranges: Normal: < 30 ug/mg creatinine Microalbuminuria: 30 - 300 ug/mg creatinine Clinical Albuminuria: > 300 ug/mg creatinine Hemoglobin A1c Reviewed date:08/11/2024 12:10:09 PM Interpretation: Performing Lab:[facility], [address] [place] [address] Notes/Report: Hemoglobin A1c % 6.2 <6.0 % [...] average glucose, using the formula of the K6Q-Hvbdpnt Average Glucose study (ADAG), Diabetes Care, Vol.31,#8, Mar. 2007 UA ClnCatch+Micro w/rflx Cul t Reviewed date:08/14/2024 10:20:30 AM Interpretation:ALFREDO 08/14/24 Performing Lab:[facility], [address] [place] [phone] Notes/Report: [id number] Urine, Clean Catch Color Urine Yellow Appearance Urine Clear PH 6.5 5.0-9.0 Glucose Urine UA Negative Negative mg/dL Urine Blood Trace Negative Specific [place] - Urine 1.015 1.005-1.025 Urine Protein Negative [...] ff Reviewed date:10/12/2024 12:32:59 PM Interpretation: Performing Lab:[facility], [address] [place] [address] Notes/Report: White Blood Count 5.5 4.8-10.8 X10*3/uL [...] PROFILE Reviewed date:10/12/2024 12:33:07 PM Interpretation: Performing Lab:[facility], [address] [place] [address] Notes/Report: Iron 42 30-160 mcg/dL Total Iron Binding Capacity 325 228-428 mcg/dL Percent Iron Saturation 13 15-50 % Unsaturated Iron Binding 283 TSH reflex Free T4 Reviewed date:10/12/2024 12:33:15 PM Interpretation: Performing Lab:[facility], [address] [place] [address] Notes/Report: TSH reflex Free T4 3.19 0.32-4.0 uIU/mL US carotid duplex BI Reviewed date:08/24/2024 05:28:39 PM Interpretation: Performing Lab: Notes/Report: [address] [address] Ultrasound Report Signed Patient: Zahra Feliz MR#: [id number] 0023 : 1950 Acct:[id number] Age/Sex: 74 / F ADM Date: 08/23/24 Loc: HO.US Attending Dr: Robni Barnett MD Ordering Physician: Robin Barnett MD Date of Service: 08/23/24 Procedure(s): US carotid duplex BI Accession Number(s): [id number] cc: Robin Barnett MD EXAMINATION: BILATERAL CAROTID [...] 08/24/24 0746 DD/ 1542 TD/TT: 08/23/24 1600 Electrical Sign Wirer: [address] [place] [address] Ultrasound Report Signed Patient: Gaby Feliz MR#: [id number] 0023 : 1950 Acct:[id number] Age/Sex: 74 / F ADM Date: 08/23/24 Loc: . Attending Dr: Robin Barnett MD Ordering Physician: Robin Barnett MD Date of Service: 08/23/24 Procedure(s): US car otid duplex BI Accession Number(s): [id number] cc: Robin Barnett MD EXAMINATION: BILATER AL [...] 08/24/24 0746 DD/ 1542 TD/TT: 08/23/24 1600 Electrical Sign Wirer: ZACKARY tomosynthesis screening B I Reviewed date:10/12/2024 04:55:08 PM Interpretation: Performing Lab: Notes/Report: [facility] [address] [place], [place] [address] Mammography Report Signed Patient: Zahra Feliz MR#: [id number] 0023 : 1950 Acct:[id number] Age/Sex: 74 / F ADM Date: 10/10/24 Loc: HO.MAMMO Attending Dr: Robin Barnett MD Ordering Physician: Robin Barnett MD Results: 0In complete: Needs Additional Imaging Evaluation Date of Service: 10/10/24 Follow Up: Additional Imagi ng Procedure(s): MM tomosynthesis screening BI Accession Number(s): [id number] cc: Robin Barnett MD EXAMINATION: MM SCREENING [...] 10/12/24 1138 DD/ 0915 TD/TT: 10/10/24 0932 Electrical Sign Wirer: [facility] [address] [place] [address] [place] [address] Mammography Report Signed Patient: Gaby Feliz MR#: [id number] 0023 : 1950 Acct:[id number] Age/Sex: 74 / F ADM Date: 10/10/24 Loc: HO.MAMMO Attending Dr: Robin Barnett MD Ordering Physician: Robin Barnett MD Results: 0In complete: Needs Silvano tional Imaging Evaluation Date of Service: 12/01 Follow Up: Additional Imagi ng Procedure(s): MM tomosynthesis screening BI Accession Number(s): [id number] cc: Robin Barnett MD EXAMINATION: MM SCREENING [...] 10/12/24 1138 DD/ 0915 TD/TT: 10/10/24 0932 Electrical Sign Wirer: Janice Cruz Reviewed date:10/12/2024 12:30:21 PM Interpretation: Performing Lab:[facility], [address] [place] [phone] Notes/Report: Janice Cruz See Note Specimen held untested for 24 hours; Call to request Chemistry testing. MM tomosynthesis added views L Reviewed date:11/17/2024 05:21:48 PM Interpretation: Performing Lab: Notes/Report: [facility] [address] [place] [address] Mammography Report Signed Patient: Zahra Feliz MR#: [id number] 0023 : 1950 Acct:[id number] Age/Sex: 74 / F ADM Date: 11/02/24 Loc: HO.MAMMO Attending Dr: Robin Barnett MD Ordering Physician: Robin Barnett MD Results: 4Su spicious Finding Date of Service: 11/02/24 Follow Up: Biopsy Recommend ed Procedure(s): MM tomosynthesis added views L Accession Number(s): [id number] cc: Robin Barnett MD EXAMINATION: MM DIAGNOSTIC [...] 11/02/24 1312 DD/ 1230 TD/TT: 11/02/24 1230 Electrical Sign Wirer: [facility] [address] [place] [address] Mammography Report Signed Patient: Gaby Feliz MR#: [id number] 0023 : 1950 Acct:[id number] Age/Sex: 74 / F ADM Date: 11/02/24 Loc: HO.MAMMO Attending Dr: Robin Barnett MD Ordering Physician: Robin Barnett MD Results: 4Su spicious Finding Date of Service: Follow Up: Biopsy Recommend ed Procedure(s): MM tomosynthesis added views L Accession Number(s): [id number] cc: Robin Barnett MD EXAMINATION: MM DIAGNOSTIC [...] 11/02/24 1312 DD/ 1230 TD/TT: 11/02/24 1230 Electrical Sign Wirer: US breast LT limited mamm on ly Reviewed date:11/20/2024 08:30:49 AM Interpretation: Performing Lab: Notes/Report: [facility] [address] [place] [address] [place] [address] Ultrasound Report Signed Patient: Zahra Feliz MR#: [id number] 0023 : 1950 Acct:[id number] Age/Sex: 74 / F ADM Date: 11/02/24 Loc: HO.MAMMO Attending Dr: Robin Barnett MD Ordering Physician: Robin Barnett MD Date of Service: 11/02/24 Procedure(s): US breast LT limited mamm only Accession Number(s): [id number] cc: Robin Barnett MD EXAMINATION: MM DIAGNOSTIC [...] 11/02/24 1312 DD/ 1300 TD/TT: 11/02/24 1318 Electrical Sign Wirer: [facility] [address] [place] [address] Ultrasound Report Signed Patient: Gaby Feliz MR#: [id number] 0023 : 1950 Acct:[id number] Age/Sex: 74 / F ADM Date: 11/02/24 Loc: HO.MAMMO Attending Dr: Robin Barnett MD Ordering Physician: Robin Barnett MD Date of Service: 11/02/24 Procedure(s): US vamsi ast LT limited mamm only Accession Number(s): [id number] cc: Robin Barnett MD EXAMINATION: MM DIAGNOSTIC [...] 11/02/24 1312 DD/ 1300 TD/TT: 11/02/24 1318 Electrical Sign Wirer: Pathology Reviewed date:11/24/2024 07:18:25 PM Interpretation: Performing Lab:[facility], [address] [place] [phone] Notes/Report: ------- Name: Zahra Feliz Age/Sex: 74/F : 1950 Unit#: [id number] Attend Dr: Robin Barnett MD Re11/22/24 Status : DEP [facility] Disch: ------- SPEC : [id number] RECD : 11/22/24 STATUS: PERLA BEDOYA NUM: [id number] EMILY: 11/22/[address] [facility] DR: Lakesha Dumont DO ENTERED: 11/22/24-11 53 SP TYPE: Surgical OTHR DR: Robin Barnett MD ORDERED: HE Stain/2, Gross Micro L4, ER, DC, IHC ER/DC/Her2N/4, Ki-67, [id number] COMMENTS: As per the specimen requisition slip [...] at 2:00 Histologic type: Ductal Histologic grade (Kenny/MSBR histologic score): 1 - Glandular/tubular differentiation: Score: [...] Zahra Feliz Age/Sex: 74/F : 1950 Unit#: [id number] Attend Dr: Robin Barnett MD Re11/22/24 Status : DEP [facility] Disch: ------- SPEC : [id number] RECD : 11/22/24 STATUS: PERLA BEDOYA NUM: [id number] EMILY: 11/22/[address] [facility] DR: Lakesha Dumont DO ENTERED: 11/22/24-11 53 SP TYPE: Surgical OTHR DR: Robin Barnett MD ORDERED: HE Stain/2, Gross Micro L4, ER, DC, IHC ER/DC/Her2N/4, Ki-67, FLP2SNO COMMENTS: As per the specimen requisition slip [...] Dual Link System-HRP. Progesterone recepto r: Clone [id number]; Biocare Mach 4 detection system. Her-2/lashonda immunohistochemistry performed in accordance with ASCO/CAP recommendations (2007) and update (2013). Hercep Test Detection system: Po lymer type Scoring criteria: For ER/DC and Her-2/ lashonda: All internal (if present) and external controls react appropriately. ER and DC immunostai ns are scored as Positive (> [...] Zahra Feliz Age/Sex: 74/F : 1950 Unit#: [id number] Attend Dr: Robin Barnett MD Re11/22/24 Status : DEP REF Location: [facility] Disch: ------- SPEC : [id number] RECD : 11/22/24 STATUS: PERLA BEDOYA NUM: [id number] EMILY: 11/22/[address]: Lakesha Dumont DO ENTERED: 11/22/24- 53 SP TYPE: Surgical OTHR DR: Robin Barnett MD ORDERED: HE Stain/2, Gross Micro L4, ER, DC, IHC ER/DC/Her2N/4, Ki-67, [id number] COMMENTS: As per the specimen requisition slip the specimen is collected at 0831 an d placed in formalin at 0835. Gross Description (Continued) Cancer: ASCO/CAP Cli nical Practice Guideline Focus Update. Arch of Pathol Lab Med, 142 2018: 7474-0385. Trixie KH, Hong ME, et al. Estrogen and Progesterone Receptor Testing in Breast Cancer: ASCO/CAP Guideline U pdate. Arch of Pathol Lab Med, 1442019: 545-563. Britt N, Gaviota P , et al. Adjuvant abemaciclib combined with endocrine therapy for high- risk early breast ca ncer: updated efficacy and Ki-67 analysis from the [facility] study. Georgie Oncol. 2020;32(12):6468-6049. This case was review ed intradepartmentally; results were communicated to Drs. Melendez and Tim via secure text on 11/24/2024. Special studies orde red and performed: Immunostains for ER, DC, HER2 and Ki 67 Copies To: Robin Barnett MD [facility] [address] [place] [address] [place] [address] Lakesha Dumont DO [address] [place] [address] ------- Signed (si gnature on file) Zan Max MD 11/24/24 1115 ------- END OF REPORT MM tomosynthesis diagnostic LT Reviewed date:11/28/2024 12:28:38 PM Interpretation: Performing Lab: Notes/Report: [facility] [address] [place] [address] Mammography Report Signed with Addankit Patient: Zahra Feliz MR#: [id number] 0023 : 1950 Acct:[id number] Age/Sex: 74 / F ADM Date: 11/22/24 Loc: HO.MAMMO Attending Dr: Robin Barnett MD Ordering Physician: Robin Barnett MD Results: 1Ne gative Date of Service: 11/22/24 Follow Up: 1 Year From [facility] ina Mammogram Procedure(s): MM tomosynthesis diagnostic LT Accession Number(s): [id number] cc: Robin Barnett MD ADDENDUM ADDENDUM #1 [...] 11/23/24 1423 DD/ 0815 TD/TT: 11/22/24 0852 Electrical Sign Wirer: [facility] [address] [place] [address] Mammography Report Signed with Philenda Patient: Gaby Feliz MR#: [id number] 0023 : 1950 Acct:[id number] Age/Sex: 74 / F ADM Date: 11/22/24 Loc: XENIAO Attending Dr: Robin Barnett MD Ordering Physician: Robin Barnett MD Results: 1Ne gative Date of Service: Follow Up: 1 Year From Orig inal Mammogram Procedure(s): MM tomosynthesis diagnostic LT Accession Number(s): [id number] cc: Robin Barnett MD ADDENDUM ADDENDUM #1 [...] OV> 11/23/24 1423 DD/ 4 TD/TT: 11/22/24851 Electrical Sign Wirer: US breast ndl core biopsy LT Reviewed date:11/28/2024 12:29:41 PM Interpretation: Performing Lab: Notes/Report: [facility] [address] [place], [place] [address] Ultrasound Report Signed with Addenda Patient: Zahra Feliz MR#: [id number] 0023 : 1950 Acct:[id number] Age/Sex: 74 / F ADM Date: 11/22/24 Loc: HO.MAMMO Attending Dr: Robin Barnett MD Ordering Physician: Dhaval Melendez MD Date of Service: 11/22/24 Procedure(s): US breast ndl core biopsy LT Accession Number(s): [id number] cc: Robin Barnett MD; Dhaval Melendez MD [...] OV> 11/23/24 1423 DD/ 9 TD/TT: 11/22/24899 Electrical Sign Wirer: [facility] [address] [place] [address] [place] [address] Ultrasound Report Signed with Volodymyr Patient: Gaby Feliz MR#: [id number] 0023 : 1950 Acct:[id number] Age/Sex: 74 / F ADM Date: 11/22/24 Loc: HO.MAMMO Attending Dr: Robin Barnett MD Ordering Physician: Dhaval Melendez MD Date of Service: 11/22/24 Procedure(s): US vamsi ast ndl core biopsy LT Accession Number(s): [id number] cc: Robin Barnett MD; Dhaval Melendez MD [...] DO 11/23/2024 02:23 PM EDT RP Workstation: [employer] Dictated By: Lakesha Dumont DO Signed By: <Electro nically signed by Lakesha Dumont DO in OV> 11/23/24 1423 DD/ 0800 TD/TT: 11/22/24 0900 Electrical Sign Wirer: Reason For Referral No Information Medications Medication [...] Problem Status W/U Status Risk Notes Problem 58149906 Lymphocytosis (D72.820) Active confirm ed Problem 770952065 Chronic tension- type headache, not intractable (G44.229) Active confirmed Problem 980784142 Overactive bladd er (N32.81) Active confirmed Problem 74266506 Essential hypert ension (I10) Active confirmed Problem 1780971 Prediabetes (R73.09) Active confirmed Problem 388850147 Low HDL (under 4 0) (E78.6) Active confirmed Problem History of aortic valve replacement (2711667669974 ) History of aortic valve replacement (Z95.2) Active confirmed Problem 776195964 Cervical disc di sease (M50.90) Active confirmed Problem 00773418 Iron deficiency anemia, unspecified iron deficiency anemia type (D50.9) Active confirmed Problem 16604713 LBBB (left bundl e branch block) (I44.7) Active confirmed Problem 657508888 Severe aortic st enosis (I35.0) Active confirmed Problem 361933616 Pure hypercholesterolemia (E78.00) Active confirmed Problem 273363326 Body mass index (BMI) of 34.0-34.9 in adult (Z68.34) Active confirmed Problem 699660102 Hyperplastic col onic polyp, unspecified part of colon (K63.5) Active confirmed Problem 512272944 Moderate aortic stenosis (I35.0) Active confirmed Problem 81850605 Myelopathy (G95.9) Active confirmed Problem 274238507 Gastroesophageal reflux disease with esophagitis without hemorrhage (K21.00) Active confirmed Vital Signs Blood pressure diastolic 70 mm Hg 10/19/2024 Height 60.50 in 10/19/2024 Blood pressure systolic 156 mm Hg 10/19/2024 Weight 172 lbs 10/19/2024 BMI 33.03 kg/m2 10/19/2024 Encounters Encounter Location Date Provider Diagnosis Robin Barnett MD [address] [place] [phone] 04/20/2024 Robin Barnett Urinary tract infect ion, site not specified N39.0 and Hematuria, unspecified R31.9 Robin Barnett MD [address] [place] [id number] 08/11/2024 Robin Barnett Prediabetes R73.09 ; Essential hypertension I10 ; Lymphocytosis D72.820 ; Pure hypercholesterolemia E78.00 and Anemia D64.9 Robin Barnett MD [address] [place] [id number] 10/12/2024 Robin Barnett Loss of hair L65.9 a nd Iron deficiency anemia, unspecified iron deficiency anemia type D50.9 Robin Barnett MD [address] [place] [id number] 04/07/2024 Robin Barnett Acute UTI N39.0 Robin Barnett MD [address] [place] [address] [id number] 08/14/2024 Robin Barnett Overactive bladder N 32.81 ; Gastroesophageal reflux disease with esophagitis without hemorrhage K21.00 ; Iron deficiency anemia, unspecified iron deficiency anemia type D50.9 ; Loss of hair L65.9 ; Bilateral carotid bruits R09.89 ; Prediabetes R73.09 ; Essential hypertension I10 ; Pure hypercholesterolemia E78.00 ; Colon cancer screening Z12.11 and Depression screening Z13.31 Robin Barnett MD [address] [place] [address] Drive [address] [place] [id number] 10/19/2024 Robin Barnett Essential hypertensi on I10 [...] bladder (ICD-10 - N32.81) order faxed to [facility] [place], pending diagnostic testing [...] Provider Name:Robin Mena ier, 02/19/2025 08:00:00 AM, [address] [place] [address], [address], [phone], Provider Name:Robin Mena ier, 08/07/2025 07:30:00 AM, [address] [place] [address], [place] [address], [place], [place], [phone], Provider Name:Robin Mena ier, 08/17/2025 08:30:00 AM, [address] [place] [address], [address], [phone], Insurance Providers Payer Name Payer Address Payer Phone Subscriber Number Group Number Insured Name Patient Relationship to Insured Coverage Start Date Coverage End Date MEDICARE NHIC CRIS [address] [place] [address] [id number] TriniZahra nichols Self - patient is the insured 5 [employer] MEDICARE SUPPLEMENT [address] [address] [place] [address] [id number] Zahra Feliz Self - patient is the insured Medical (General) History Medical History History ICD Code hematuria with neg w/u2 times colonoscopy 2005 hyperplasti c polyp; colonoscopy by Dr. 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
--- OUTSIDE RECORDS SUMMARY | 2024-12-20 07:48 | XMS_ITS ---
Author Organization Robin Barnett MD Address [address] [place] [phone] Care Team Providers Care Conference Planning Manager Name Role Phone Robin Barnett Primary Care Provider [phone] Allergies Allergen (clinical drug ingredient) Drug/Non Drug [...] Robin Barnett MD [address] [place] [phone] 10/19/2024 Robin Barnett Essential hypertension I10 Assessments [...] Name:Robin Mena ier, 02/19/2025 08:00:00 AM, [facility], [address], [place], [place], [phone], Provider Name:Robin Mena ier, 08/07/2025 07:30:00 AM, [address] [place] [address], [address], [place], [place], [phone], Provider Name:Robin Mena ier, 08/17/2025 08:30:00 AM, [address], [place], [place], [phone], Progress Notes * Yee YUENOB: 0 (74 yo F)Acc No.[id number]:10/19/2024 Progress Notes Patient:?Zahra YUEN Provider:?Robin Barnett MD :1950???Age:74 Y???Sex:Female D ate:10/19/2024 Address:[address] [place], [place] [phone] Subjective: * Chief Complaints: * ???2 month [...] MD Date:?0 10/19/2024 Generated for Lorna gutierrez/Griselda/eTransmitting on:?12/20/2024 07:47 AM EDT History and Physical Notes * [...]
--- OUTSIDE RECORDS SUMMARY | 2024-12-20 07:48 | XMS_ITS ---
Author Organization Robin Barnett MD Address [address] [place] [phone] Care Team Providers Care Double Reamer Operator Name Role Phone Robin Barnett Primary Care Provider [phone] Results Component Value Reference Range Notes Complete Blood Count Auto Di ff Reviewed date:10/12/2024 12:32:59 PM Interpretation: Performing Lab:[facility], [address] [place] [phone] Notes/Report: White Blood Count 5.5 4.8-10.8 X10*3/uL [...] PROFILE Reviewed date:10/12/2024 12:33:07 PM Interpretation: Performing Lab:[address] [address] Notes/Report: Iron 42 30-160 mcg/dL Total Iron Binding Capacity 325 228-428 mcg/d L Percent Iron Saturation 13 15-50 % Unsaturated Iron Binding 283 TSH reflex Free T4 Reviewed date:10/12/2024 12:33:15 PM Interpretation: Performing Lab:[facility], [address] [place] [phone] Notes/Report: TSH reflex Free T4 3.19 0.32-4.0 uIU/mL REASON FOR VISIT CBC IRON TSH Encounters Encounter Location Date Provider Diagnosis Robin Barnett MD [address] [place] [phone] 10/12/2024 Robin Barnett Loss of hair L65.9 and Iron deficiency anemia, unspecified iron deficiency anemia type D50.9 Assessments Encounter Date Diagnosis (ICD Code) Assessment Notes Treatment Notes Treatment Clinical Notes Section Notes 10/12/2024 Loss of hair (ICD-10 - L65.9) 10/12/2024 Iron deficiency anemia, unspecified iron deficiency anemia type (ICD-10 - D50.9) Plan Of Treatment Next Appt Details Provider Name:Robin harley, 02/19/2025 08:00:00 AM, [address] [place] [address], [place] [address], [place], [place], [phone], Provider Name:Robin harley, 08/07/2025 07:30:00 AM, [address] [place] [address], [address], [place], [place], [phone], Provider Name:Robin Mena ier, 08/17/2025 08:30:00 AM, [address], [address], [place], [place], [phone], Progress Notes * Yee YUENOB: 0 (74 yo F)Acc No.[id number]:10/12/2024 Progress Note Patient:?Zahra YUEN Provider:?Robin Barnett MD :1950???Age:74 Y???Sex:Female D ate:10/12/2024 Address:[id number] Subjective: * Chief Complaints: * ???1. CBC [...] Time - 10/12/2024 07:00 AM) * Procedure Codes:?68816 VENIP UNCT, ROUTINE* * * The named appointment provid er may or may not be the originator of this progress note, and it is not deemed complete until electronically signed by the appointment provider. Sign off status: Pending * Provider:?Robin Barnett MD Date:?0 10/12/2024 Generated for Lorna gutierrez/Griselda/eTransmitting on:?12/20/2024 07:48 AM EDT
[2024-12-20] MEDS: Sodium Bicarbonate 8.4% 50 MEQ/50 ML VIAL SUBCUT (08:28)
[2024-12-20] MEDS: Lidocaine HCl 1 % 20 ML VIAL 9 ML SUBCUT (08:30)
== END 2024-12-20 07:47 | disposition home or self-care (01) ==
LOC: HO.MAMMO 07:46
PROVIDERS: PCP Internal Medicine; Visit Provider Surgery
DX: N63.21 Unspecified lump in the left breast, upper outer quadrant (principal)
CPT/HCPCS: 19285; 77061; 77065; C1819; J2003

== ENCOUNTER → 2024-12-20 08:00 | Outpatient (BNV) | payer MEDICARE, OTHER, SELFPAY | PROVIDERS: PCP Internal Medicine; Visit Provider Internal Medicine | DX: N63.21 Unspecified lump in the left breast, upper outer quadrant (principal) | CPT/HCPCS: 19285; 77065; G0279 ==

== ENCOUNTER 2024-12-27 07:02 | Day surgery (SDC) | payer MEDICARE, OTHER, SELFPAY ==
--- OUTSIDE RECORDS SUMMARY | 2024-12-12 07:51 | XMS_ITS ---
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 Name Role Phone Robin Barnett Primary Care [...] Problem Status W/U Status Risk Notes Problem 405950531 Overactive bladder (N32.81) Active confirmed Problem 76454867 Iron deficiency anemia, unspecified iron deficiency anemia type (D50.9) Active confirmed Vital Signs Blood pressure systolic 132 mm Hg 08/14/19 25 Blood pressure diastolic 58 mm Hg 025 Height 60.50 in 08/14/2024 Weight 172 lbs 08/14/2024 BMI 33.03 kg/m2 08/14/2024 weight is up 7 pounds since 04-07-24 Encounters Encounter Location Date Provider Diagnosis Robin Barnett MD [address] [place] [address] Drive [address] [place], [place] [phone] 08/14/2024 Robin Barnett Overactive bladder N 32.81 [...] bladder (ICD-10 - N32.81) order faxed to [facility] dept, pending diagnostic testing 08/14/2024 Gastroesophageal [...] Assessment Notes Overactive bladder order faxed to [facility] dept, pending diagnostic testing Gastroesophageal [...] Reason: Provider Name:Robin harley, 02/19/2025 08:00:00 AM, [address] [place] [address], [address] [place] [address], [phone], Provider Name:Robin harley, 08/07/2025 07:30:00 AM, [address] [place] [address], Suite [facility], [place], [place], [phone], Provider Name:Robin harley, 08/17/2025 08:30:00 AM, [address] [place] [address], Suite [facility], [place], [place], [phone], Progress Notes * Mariela YUEN: 0 (74 yo F)Acc No.[id number]:08/14/2024 Patient:Zahra Ny Provider:?Robin Barnett MD :1950???Age:74 Y???Sex:Female D ate:08/14/2024 Address:[address] [place], [place] [phone] Subjective: * Chief Complaints: * ???Review labsCBACK [...] pounds since 04-07-24. * ???Past Orders: ???Lab:[facility]. P hannah Fast (Order Date - 08/11/2024) [...] sent with cards and solution.?FEMALE GENITOURINARY:?done by condenser operator.?EXTREMITIES:?no clubbing, cyanosis, or edema.?NEUROLOGIC:?nonfocal, motor strength [...] MD Date:?0 08/14/2024 Generated for Jesusi brenda/Griselda/eTransmitting on:?12/12/2024 07:51 AM EDT History and Physical Notes * [...] cards and solution FEMALE GENITOURINARY: done by condenser operator ORAL CAVITY: mucosa moist
--- OUTSIDE RECORDS SUMMARY | 2024-12-12 07:51 | XMS_ITS ---
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 Name Role Phone Robin Barnett Primary [...] Robin Barnett MD [address] [place] [phone] 10/19/2024 Robin Barnett Essential hypertension I10 Assessments [...] Name:Robin Mena ier, 02/19/2025 08:00:00 AM, [facility], [address], [place], [place], [phone], Provider Name:Robin Mena ier, 08/07/2025 07:30:00 AM, [address] [place] [address], [address], [place], [place], [phone], Provider Name:Robin Mena ier, 08/17/2025 08:30:00 AM, [address], [place], [place], [phone], Progress Notes * Yee YUENOB: 0 (74 yo F)Acc No.[id number]:10/19/2024 Progress Notes Patient:?Zahra YUEN Provider:?Robin Barnett MD :1950???Age:74 Y???Sex:Female D ate:10/19/2024 Address:[address] [place], [place] [phone] Subjective: * Chief Complaints: * ???2 month [...] MD Date:?0 10/19/2024 Generated for Lorna gutierrez/Griselda/eTransmitting on:?12/12/2024 07:51 AM EDT History and Physical [...]
--- OUTSIDE RECORDS SUMMARY | 2024-12-12 07:52 | XMS_ITS | Patient Health Record ---
Author Organization Robin Barnett MD Address [address] [place], [place] [id number] Care Team Providers Care Director Of Religious Life Name Role Phone Robin Barnett Primary Care [...] t Reviewed date:04/21/2024 08:45:38 AM Interpretation: Performing Lab:[facility], [address] [place] [phone] Notes/Report: Urine, Clean Catch Color Urine Yellow Appearance Urine Clear PH 6.5 5.0-9.0 Glucose Urine UA Negative Negative mg/dL Urine Blood Negative Negative Specific Hooven - Urine 1.015 1.005-1.025 Urine Protein Negative [...] ff Reviewed date:08/11/2024 12:05:01 PM Interpretation: Performing Lab:[facility], [address] [place] [phone] Notes/Report: White Blood Count 5.2 4.8-10.8 X10*3/uL [...] NRBC Abs Auto 0.000 0.0-0.012 X10*3/uL Comprehensive [place]. Panel Fa st Reviewed date:08/11/2024 12:22:05 PM Interpretation: Performing Lab:[facility], [address] [place] [address], [place] [address] Notes/Report: Sodium 142 135-145 mmol/L Potassium 4.1 [...] PROFILE Reviewed date:08/11/2024 12:21:39 PM Interpretation: Performing Lab:[address] [phone] Notes/Report: Iron 20 30-160 mcg/dL Total Iron Binding Capacity 339 228-428 mcg/dL Percent Iron Saturation 6 15-50 % Unsaturated Iron Binding 319 Lipid Panel Reviewed date:08/11/2024 12:21:09 PM Interpretation: Performing Lab:[facility], [address] [place] [phone] Notes/Report: Triglycerides 143 <150 mg/dL Desirable Triglyceride: [...] Random Reviewed date:08/11/2024 12:16:48 PM Interpretation: Performing Lab:[facility], [address] [place] [phone] Notes/Report: Creatinine Urine 73.42 Microalbumin Urine 7.0 Microalbum/Creatinine Ratio Ur 9.5 <30 ug/mg cr Albumin/Creatinine Ratio Reference Ranges: Normal: < 30 ug/mg creatinine Microalbuminuria: 30 - 300 ug/mg creatinine Clinical Albuminuria: > 300 ug/mg creatinine Hemoglobin A1c Reviewed date:08/11/2024 12:10:09 PM Interpretation: Performing Lab:[facility], [address] [place] [phone] Notes/Report: Hemoglobin A1c % 6.2 <6.0 % [...] average glucose, using the formula of the M7Z-Magfgci Average Glucose study (ADAG), Diabetes Care, Vol.31,#8, Mar. 2007 UA ClnCatch+Micro w/rflx Cul t Reviewed date:08/14/2024 10:20:30 AM Interpretation:ALFREDO 08/14/24 Performing Lab:[facility], [address] [place] [phone] Notes/Report: [id number] Urine, Clean Catch Color Urine Yellow Appearance Urine Clear PH 6.5 5.0-9.0 Glucose Urine UA Negative Negative mg/dL Urine Blood Trace Negative Specific [place] - Urine 1.015 1.005-1.025 Urine Protein Negative [...] ff Reviewed date:10/12/2024 12:32:59 PM Interpretation: Performing Lab:[facility], [address] [place] [phone] Notes/Report: White Blood Count 5.5 4.8-10.8 X10*3/uL [...] PROFILE Reviewed date:10/12/2024 12:33:07 PM Interpretation: Performing Lab:[facility], [address] [place] [phone] Notes/Report: Iron 42 30-160 mcg/dL Total Iron Binding Capacity 325 228-428 mcg/dL Percent Iron Saturation 13 15-50 % Unsaturated Iron Binding 283 TSH reflex Free T4 Reviewed date:10/12/2024 12:33:15 PM Interpretation: Performing Lab:[facility], [address] [place] [phone] Notes/Report: TSH reflex Free T4 3.19 0.32-4.0 uIU/mL US carotid duplex BI Reviewed date:08/24/2024 05:28:39 PM Interpretation: Performing Lab: Notes/Report: [address] [address] Ultrasound Report Signed Patient: Zahra Feliz MR#: [id number] 0023 : 1950 Acct:[id number] Age/Sex: 74 / F ADM Date: 08/23/24 Loc: HO.US Attending Dr: Robin Barnett MD Ordering Physician: Robin Barnett MD Date of Service: 08/23/24 Procedure(s): US carotid duplex BI Accession Number(s): [id number] cc: Robin Barnett MD EXAMINATION: BILATERAL CAROTID [...] 08/24/24 0746 DD/ 1542 TD/TT: 08/23/24 1600 Hse Coordinator: [address] [place] [address] Ultrasound Report Signed Patient: Gaby Feliz MR#: [id number] 0023 : 1950 Acct:[id number] Age/Sex: 74 / F ADM Date: 08/23/24 Loc: . Attending Dr: Robin Barnett MD Ordering Physician: Robin Barnett MD Date of Service: 08/23/24 Procedure(s): US car otid duplex BI Accession Number(s): [id number] cc: Robin Barnett MD EXAMINATION: BILATER AL [...] 08/24/24 0746 DD/ 1542 TD/TT: 08/23/24 1600 Hse Coordinator: ZACKARY tomosynthesis screening B I Reviewed date:10/12/2024 04:55:08 PM Interpretation: Performing Lab: Notes/Report: [facility] [address] [place], [place] [address] Mammography Report Signed Patient: Zahra Feliz MR#: [id number] 0023 : 1950 Acct:[id number] Age/Sex: 74 / F ADM Date: 10/10/24 Loc: HO.MAMMO Attending Dr: Robin Barnett MD Ordering Physician: Robin Barnett MD Results: 0In complete: Needs Additional Imaging Evaluation Date of Service: 10/10/24 Follow Up: Additional Imagi ng Procedure(s): MM tomosynthesis screening BI Accession Number(s): [id number] cc: Robin Barnett MD EXAMINATION: MM SCREENING [...] 10/12/24 1138 DD/ 0915 TD/TT: 10/10/24 0932 Hse Coordinator: [facility] [address] [place] [address] [place] [address] Mammography Report Signed Patient: Gaby Feliz MR#: [id number] 0023 : 1950 Acct:[id number] Age/Sex: 74 / F ADM Date: 10/10/24 Loc: HO.MAMMO Attending Dr: Robin Barnett MD Ordering Physician: Robin Barnett MD Results: 0In complete: Needs Silvano tional Imaging Evaluation Date of Service: 12/01 Follow Up: Additional Imagi ng Procedure(s): MM tomosynthesis screening BI Accession Number(s): [id number] cc: Robin Barnett MD EXAMINATION: MM SCREENING [...] 10/12/24 1138 DD/ 0915 TD/TT: 10/10/24 0932 Hse Coordinator: Janice Cruz Reviewed date:10/12/2024 12:30:21 PM Interpretation: Performing Lab:[facility], [address] [place] [phone] Notes/Report: Janice Cruz See Note Specimen held untested for 24 hours; Call to request Chemistry testing. MM tomosynthesis added views L Reviewed date:11/17/2024 05:21:48 PM Interpretation: Performing Lab: Notes/Report: [facility] [address] [place] [address] Mammography Report Signed Patient: Zahra Feliz MR#: [id number] 0023 : 1950 Acct:[id number] Age/Sex: 74 / F ADM Date: 11/02/24 Loc: HO.MAMMO Attending Dr: Robin Barnett MD Ordering Physician: Robin Barnett MD Results: 4Su spicious Finding Date of Service: 11/02/24 Follow Up: Biopsy Recommend ed Procedure(s): MM tomosynthesis added views L Accession Number(s): [id number] cc: Robin Barnett MD EXAMINATION: MM DIAGNOSTIC [...] 11/02/24 1312 DD/ 1230 TD/TT: 11/02/24 1230 Hse Coordinator: [facility] [address] [place] [address] Mammography Report Signed Patient: Gaby Feliz MR#: [id number] 0023 : 1950 Acct:[id number] Age/Sex: 74 / F ADM Date: 11/02/24 Loc: HO.MAMMO Attending Dr: Robin Barnett MD Ordering Physician: Robin Barnett MD Results: 4Su spicious Finding Date of Service: Follow Up: Biopsy Recommend ed Procedure(s): MM tomosynthesis added views L Accession Number(s): [id number] cc: Robin Barnett MD EXAMINATION: MM DIAGNOSTIC [...] 11/02/24 1312 DD/ 1230 TD/TT: 11/02/24 1230 Hse Coordinator: US breast LT limited mamm on ly Reviewed date:11/20/2024 08:30:49 AM Interpretation: Performing Lab: Notes/Report: [facility] [address] [place] [address] [place] [address] Ultrasound Report Signed Patient: Zahra Feliz MR#: [id number] 0023 : 1950 Acct:[id number] Age/Sex: 74 / F ADM Date: 11/02/24 Loc: HO.MAMMO Attending Dr: Robin Barnett MD Ordering Physician: Robin Barnett MD Date of Service: 11/02/24 Procedure(s): US breast LT limited mamm only Accession Number(s): [id number] cc: Robin Barnett MD EXAMINATION: MM DIAGNOSTIC [...] 11/02/24 1312 DD/ 1300 TD/TT: 11/02/24 1318 Hse Coordinator: [facility] [address] [place] [address] Ultrasound Report Signed Patient: Gaby Feliz MR#: [id number] 0023 : 1950 Acct:[id number] Age/Sex: 74 / F ADM Date: 11/02/24 Loc: HO.MAMMO Attending Dr: Robin Barnett MD Ordering Physician: Robin Barnett MD Date of Service: 11/02/24 Procedure(s): US vamsi ast LT limited mamm only Accession Number(s): [id number] cc: Robin Barnett MD EXAMINATION: MM DIAGNOSTIC [...] 11/02/24 1312 DD/ 1300 TD/TT: 11/02/24 1318 Hse Coordinator: Pathology Reviewed date:11/24/2024 07:18:25 PM Interpretation: Performing Lab:[facility], [address] [place] [phone] Notes/Report: ------- Name: Zahra Feliz Age/Sex: 74/F : 1950 Unit#: [id number] Attend Dr: Robin Barnett MD Re11/22/24 Status : DEP [facility] Disch: ------- SPEC : [id number] RECD : 11/22/24 STATUS: PERLA BEDOYA NUM: [id number] EMILY: 11/22/[address] [facility] [address]: Lakesha Dumont DO ENTERED: 11/22/24-11 53 SP TYPE: Surgical OTHR DR: Robin Barnett MD ORDERED: HE Stain/2, Gross Micro L4, ER, IL, IHC ER/IL/Her2N/4, Ki-67, [id number] COMMENTS: As per the specimen requisition slip [...] at 2:00 Histologic type: Ductal Histologic grade (Deloit/MSBR histologic score): 1 - Glandular/tubular differentiation: Score: [...] Zahra Feliz Age/Sex: 74/F : 1950 Unit#: [id number] Attend Dr: Robin Barnett MD Re11/22/24 Status : DEP [facility] Dis[facility]: ------- SPEC : [id number] RECD : 11/22/24 STATUS: PERLA BEDOYA NUM: [id number] EMILY: 11/22/[address] [facility] [address]: [place]ha Dumont DO ENTERED: 11/22/24-11 53 SP TYPE: Surgical OTHR DR: Robin Barnett MD ORDERED: HE Stain/2, Gross Micro L4, ER, IL, IHC ER/IL/Her2N/4, Ki-67, [id number] COMMENTS: As per the specimen requisition slip [...] Dual Link System-HRP. Progesterone recepto r: Clone [id number]; Biocare Mach 4 detection system. Her-2/lashonda immunohistochemistry performed in accordance with ASCO/CAP recommendations (2007) and update (2013). Hercep Test Detection system: Po lymer type Scoring criteria: For ER/IL and Her-2/ lashonda: All internal (if present) and external controls react appropriately. ER and IL immunostai ns are scored as Positive (> [...] Zahra Feliz Age/Sex: 74/F : 1950 Unit#: [id number] Attend Dr: Robin Barnett MD Re11/22/24 Status : DEP REF Location: [facility] Disch: ------- SPEC : [id number] RECD : 11/22/24 STATUS: PERLA BEDOYA NUM: [id number] EMILY: 11/22/[address]: Lakesha Dumont DO ENTERED: 11/22/24- 53 SP TYPE: Surgical OTHR DR: Robin Barnett MD ORDERED: HE Stain/2, Gross Micro L4, ER, IL, IHC ER/IL/Her2N/4, Ki-67, [id number] COMMENTS: As per the specimen requisition slip the specimen is collected at 0831 an d placed in formalin at 0835. Gross Description (Continued) Cancer: ASCO/CAP Cli nical Practice Guideline Focus Update. Arch of Pathol Lab Med, 142 2018: 0617-4697. Trixie KH, Hong ME, et al. Estrogen and Progesterone Receptor Testing in Breast Cancer: ASCO/CAP Guideline U pdate. Arch of Pathol Lab Med, 1442019: 545-563. Britt N, Gaviota P , et al. Adjuvant abemaciclib combined with endocrine therapy for high- risk early breast ca ncer: updated efficacy and Ki-67 analysis from the [facility] study. Georgie Oncol. 2020;32(12):4632-8768. This case was review ed intradepartmentally; results were communicated to Drs. Melendez and Tim via secure text on 11/24/2024. Special studies orde red and performed: Immunostains for ER, IL, HER2 and Ki 67 Copies To: Robin Barnett MD [facility] [address] [place] [address] [place] [address] Lakesha Dumont DO [address] [place] [address] ------- Signed (si gnature on file) Zan Max MD 11/24/24 1115 ------- END OF REPORT MM tomosynthesis diagnostic LT Reviewed date:11/28/2024 12:28:38 PM Interpretation: Performing Lab: Notes/Report: [facility] [address] [place] [address] Mammography Report Signed with Addankit Patient: Zahra Feliz MR#: [id number] 0023 : 1950 Acct:[id number] Age/Sex: 74 / F ADM Date: 11/22/24 Loc: HO.MAMMO Attending Dr: Robin Barnett MD Ordering Physician: Robin Barnett MD Results: 1Ne gative Date of Service: 11/22/24 Follow Up: 1 Year From [facility] ina Mammogram Procedure(s): MM tomosynthesis diagnostic LT Accession Number(s): [id number] cc: Robin Barnett MD ADDENDUM ADDENDUM #1 [...] 11/23/24 1423 DD/ 0815 TD/TT: 11/22/24 0852 Hse Coordinator: [facility] [address] [place] [id number] Mammography Report Signed with Philenda Patient: Gaby Feliz MR#: [id number] 0023 : 1950 Acct:[id number] Age/Sex: 74 / F ADM Date: 11/22/24 Loc: XENIAO Attending Dr: Robin Barnett MD Ordering Physician: Robin Barnett MD Results: 1Ne gative Date of Service: Follow Up: 1 Year From Orig inal Mammogram Procedure(s): MM tomosynthesis diagnostic LT Accession Number(s): [id number] cc: Robin Barnett MD ADDENDUM ADDENDUM #1 [...] OV> 11/23/24 1423 DD/ 4 TD/TT: 11/22/24851 Hse Coordinator: US breast ndl core biopsy LT Reviewed date:11/28/2024 12:29:41 PM Interpretation: Performing Lab: Notes/Report: [facility] [address] [place], [place] [address] Ultrasound Report Signed with Addenda Patient: Zahra Feliz MR#: [id number] 0023 : 1950 Acct:[id number] Age/Sex: 74 / F ADM Date: 11/22/24 Loc: HO.MAMMO Attending Dr: Robin Barnett MD Ordering Physician: Dhaval Melendez MD Date of Service: 11/22/24 Procedure(s): US breast ndl core biopsy LT Accession Number(s): [id number] cc: Robin Barnett MD; Dhaval Mel[place] MD [...] OV> 11/23/24 1423 DD/ 9 TD/TT: 11/22/24899 Hse Coordinator: [facility] [address] [place] [address] [place] [address] Ultrasound Report Signed with Volodymyr Patient: Gaby Feliz MR#: [id number] 0023 : 1950 Acct:[id number] Age/Sex: 74 / F ADM Date: 11/22/24 Loc: HO.MAMMO Attending Dr: Robin Barnett MD Ordering Physician: Dhaval Melendez MD Date of Service: 11/22/24 Procedure(s): US vamsi ast ndl core biopsy LT Accession Number(s): [id number] cc: Robin Barnett MD; Dhaval Melendez MD [...] DO 11/23/2024 02:23 PM EDT RP Workstation: [employer] Dictated By: [place] Dumont DO Signed By: <Electro nically signed by Lakesha Dumont DO in OV> 11/23/24 1423 DD/ 0800 TD/TT: 11/22/24 0900 Hse Coordinator: Reason For Referral No Information Medications Medication [...] Problem Status W/U Status Risk Notes Problem 42881574 Lymphocytosis (D72.820) Active confirm ed Problem 073917378 Chronic tension- type headache, not intractable (G44.229) Active confirmed Problem 888125206 Overactive bladd er (N32.81) Active confirmed Problem 27921025 Essential hypert ension (I10) Active confirmed Problem 6391225 Prediabetes (R73.09) Active confirmed Problem 530192855 Low HDL (under 4 0) (E78.6) Active confirmed Problem History of aorti c valve replacement (Z95.2) Active confirmed Problem 038169866 Cervical disc di sease (M50.90) Active confirmed Problem 73533350 Iron deficiency anemia, unspecified iron deficiency anemia type (D50.9) Active confirmed Problem 64302431 LBBB (left bundl e branch block) (I44.7) Active confirmed Problem 782721396 Severe aortic st enosis (I35.0) Active confirmed Problem 615962053 Pure hypercholesterolemia (E78.00) Active confirmed Problem 549711026 Body mass index (BMI) of 34.0-34.9 in adult (Z68.34) Active confirmed Problem 512962997 Hyperplastic col onic polyp, unspecified part of colon (K63.5) Active confirmed Problem 132584610 Moderate aortic stenosis (I35.0) Active confirmed Problem 30833329 Myelopathy (G95.9) Active confirmed Problem 727353403 Gastroesophageal reflux disease with esophagitis without hemorrhage (K21.00) Active confirmed Vital Signs Blood pressure diastolic 70 mm Hg 10/19/2024 Height 60.50 in 10/19/2024 Blood pressure systolic 156 mm Hg 10/19/2024 Weight 172 lbs 10/19/2024 BMI 33.03 kg/m2 10/19/2024 Encounters Encounter Location Date Provider Diagnosis Robin Barnett MD [address] [place] [id number] 04/20/2024 Robin Barnett Urinary tract infect ion, site not specified N39.0 and Hematuria, unspecified R31.9 Robin Barnett MD [address] [place] [id number] 08/11/2024 Robin Barnett Prediabetes R73.09 ; Essential hypertension I10 ; Lymphocytosis D72.820 ; Pure hypercholesterolemia E78.00 and Anemia D64.9 Robin Barnett MD [address] [place] [id number] 10/12/2024 Robin Barnett Loss of hair L65.9 a nd Iron deficiency anemia, unspecified iron deficiency anemia type D50.9 Robin Barnett MD [address] [place] [id number] 04/07/2024 Robin Barnett Acute UTI N39.0 Robin Barnett MD [address] [place] [address] Drive [address] [place] [id number] 08/14/2024 Robin Barnett Overactive bladder N 32.81 ; Gastroesophageal reflux disease with esophagitis without hemorrhage K21.00 ; Iron deficiency anemia, unspecified iron deficiency anemia type D50.9 ; Loss of hair L65.9 ; Bilateral carotid bruits R09.89 ; Prediabetes R73.09 ; Essential hypertension I10 ; Pure hypercholesterolemia E78.00 ; Colon cancer screening Z12.11 and Depression screening Z13.31 Robin Barnett MD [address] [place] [address] Drive [address] [place] [phone] 10/19/2024 Robin Barnett Essential hypertensi on I10 [...] Provider Name:Robin Mena ier, 02/19/2025 08:00:00 AM, [address] [place] [address], Suite [facility], [place], [place], [phone], Provider Name:Robin Mena ier, 08/07/2025 07:30:00 AM, [address] [place] [address], Suite [facility], [place], [place], [phone], Provider Name:Robin Mena ier, 08/17/2025 08:30:00 AM, [address] [place] [address], Suite [facility], [place], [place], [phone], Insurance Providers Payer Name Payer Address Payer Phone Subscriber Number Group Number Insured Name Patient Relationship to Insured Coverage Start Date Coverage End Date MEDICARE NHIC CR[address] [place] [address] [id number] TriniZahra nichols Self - patient is the insured 5 [employer] MEDICARE SUPPLEMENT [address] [address] [place] [address] [id number] Zahra Feliz Self - patient is the insured Medical (General) History Medical History History ICD Code hematuria with neg w/u2 times colonoscopy 2005 hyperplasti c polyp; colonoscopy by Dr. 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
--- OUTSIDE RECORDS SUMMARY | 2024-12-12 07:52 | XMS_ITS ---
Author Organization Robin Barnett MD Address [address] [place] [phone] Care Team Providers Care Public Relations Consultant Name Role Phone Robin Barnett Primary Care Provider Results Component Value Reference Range Notes Complete Blood Count Auto Di ff Reviewed date:10/12/2024 12:32:59 PM Interpretation: Performing Lab:[facility], [address] [place] [phone] Notes/Report: White Blood Count 5.5 4.8-10.8 X10*3/uL [...] PROFILE Reviewed date:10/12/2024 12:33:07 PM Interpretation: Performing Lab:[address] [phone] Notes/Report: Iron 42 30-160 mcg/dL Total Iron Binding Capacity 325 228-428 mcg/d L Percent Iron Saturation 13 15-50 % Unsaturated Iron Binding 283 TSH reflex Free T4 Reviewed date:10/12/2024 12:33:15 PM Interpretation: Performing Lab:[facility], [address] [place] [phone] Notes/Report: TSH reflex Free T4 3.19 0.32-4.0 uIU/mL REASON FOR VISIT CBC IRON TSH Encounters Encounter Location Date Provider Diagnosis Robin Barnett MD [address] [place] [phone] 10/12/2024 Robin Barnett Loss of hair L65.9 and Iron deficiency anemia, unspecified iron deficiency anemia type D50.9 Assessments Encounter Date Diagnosis (ICD Code) Assessment Notes Treatment Notes Treatment Clinical Notes Section Notes 10/12/2024 Loss of hair (ICD-10 - L65.9) 10/12/2024 Iron deficiency anemia, unspecified iron deficiency anemia type (ICD-10 - D50.9) Plan Of Treatment Next Appt Details Provider Name:Robin harley, 02/19/2025 08:00:00 AM, [address] [place] [address], [place] [address], [place], [place], [phone], Provider Name:Robin harley, 08/07/2025 07:30:00 AM, [address] [place] [address], [address], [place], [place], [phone], Provider Name:Robin Mena ier, 08/17/2025 08:30:00 AM, [address], [address], [place], [phone], Progress Notes * Yee YUENOB: 0 (74 yo F)Acc No.[id number]:10/12/2024 Progress Note Patient:?Zahra YUNE Provider:?Robin Barnett MD :1950???Age:74 Y???Sex:Female D ate:10/12/2024 Address:[id number] Subjective: * Chief Complaints: * ???1. CBC [...] Time - 10/12/2024 07:00 AM) * Procedure Codes:?24022 VENIP UNCT, ROUTINE* * * The named appointment provid er may or may not be the originator of this progress note, and it is not deemed complete until electronically signed by the appointment provider. Sign off status: Pending * Provider:?Robin Barnett MD Date:?0 10/12/2024 Generated for Lorna gutierrez/Griselda/eTransmitting on:?12/12/2024 07:51 AM EDT
[2024-12-13 11:58] VITALS: BP 142/80; PULSE 78; RESP 16; O2SAT 98; BMI 31.3
--- NOTE | ~2024-12-27 | MM_ITS ---
Two-view left breast specimen radiographs demonstrate the marker clip and the tag within the specimen. Electronically signed by: Lakesha Dumont DO 12/27/2024 01:22 PM EDT
--- NOTE | ~2024-12-27 | NM_ITS ---
EXAMINATION: NM LYMPHOSCINTIGRAPHY CLINICAL INFORMATION: Left breast mass. Biopsy-proven left breast IDC, for excision. COMPARISON: 12/20/2024, 11/22/2024. TECHNIQUE: Left breast lymphoscintigraphy injection was performed . Approximately 0.5 mCi of technetium 99m lymphoseek and 0.8 mL of saline was divided into 4 aliquots of approximately 0.125 mCi, and injected in 4 quadrants around the left breast areola intradermally at 12:00, 3:00, 6:00, and 9:00. Immediate images and delayed images were obtained in AP, oblique and lateral views 25 minutes later. FINDINGS: There is isotope activity in four-quadrant around left breast areola following injection. There are at least 3 areas of isotope activity along the left mid axilla suggestive of multiple lymph nodes. NM/NM sentinel node w imaging IMPRESSION: At least 3 small lymph nodes seen in left mid axilla on right breast lymphoscintigraphy. Thank you for the courtesy of your referral. Electronically signed by: Frederic Farias MD 12/27/2024 09:06 AM EDT
[2024-12-27 07:00] VITALS: BMI 31.3
[2024-12-27] MEDS: Lactated Ringers 1,000 ML 100 ML IVCONT (07:16)
[2024-12-27] MEDS: Lidocaine 4 % Cream KIT 1 APPL TOPICAL (07:23)
[2024-12-27 07:30] VITALS: BP 169/57; PULSE 76; RESP 18; TEMP 36.6; O2SAT 96
--- NOTE | 2024-12-27 12:01 | P.CONAN_ITS ---
Documented by User: Caridad Gustafson NP 12/26/24 10:21 HPI - Anesthesia Eval Consult details Narrative: 74yo F for Left Breast Lumpectomy w/LOCalizer, [place] Node Biopsy, 12/27/24 No recent illness No CP/SOB with gardening, walking outside. No periph edema Follows [facility] for s/p TAVR. Stable at 05/2024 office visit with clearance for total hip s/p TAVR 02/2023 - functioning well per 03/2024 echo s/p total hip 06/2024 without anesthesia issues PMFSH Active Problems Active Problems: All Active Problems Abnormal barium swallow (Acute) Abnormal findings on esophagogastroduodenoscopy (EGD) (Acute) Globus sensation (Acute) Chronic GERD (Acute) Preop cardiovascular exam (Acute) Breast cancer, left (Acute) Family history of breast cancer (Acute) S/P TAVR (transcatheter aortic valve replacement) (Acute) Left breast mass (Acute) LBBB (left bundle branch block) (Acute) Rate-related bundle branch block (Acute) Aortic stenosis (Acute) HTN (hypertension) (Acute) Past Medical History Medical History OAB (overactive bladder) Arthritis Hx of cardiac murmur Breast cancer, left Family history of breast cancer Left breast mass Lichen sclerosus of vulva LBBB (left bundle branch block) Rate-related bundle branch block Aortic stenosis HTN (hypertension) Family History Family History Father Heart attack Mother Bundle branch block, unspecified HTN (hypertension) Maternal Grandmother Gastric cancer Sister Brain tumor Maternal Aunt Cancer Breast cancer Family history of problems with anesthesia: No (slow to wake x 1 2014) Surgical History Surgical History History of pubovaginal sling (~1998) History of right hip replacement (~06/2024) History of left knee replacement (~2023) Knee joint replacement status History of esophagogastroduodenoscopy (EGD) S/P TAVR (transcatheter aortic valve replacement) Hx of carpal tunnel repair Hx of rotator cuff surgery Hx of cataract H/O right breast biopsy History of total right knee replacement H/O colonoscopy H/O: hysterectomy History of Problems with Anesthesia: No Social History Social History Household Members: Spouse Household Members Other:: 55 yrs- 3 sons Are you a primary day care aide to a significant other at home: No Do you presently have visiting nurse or other home services: No Alcohol intake: never Patient Tobacco Use Status: Former Tobacco user Tobacco use type: Cigarette Years Smoked: 1997 Use of substances other than those prescribed or required for medical reasons: No Have you been hit, kicked, punched, or otherwise hurt by someone within the past year? 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 identity: Female Meds Allergies Allergy/AdvReac Type Severity Reaction Status Date / Time sulfamethoxazole Allergy Severe Rash, Verified 12/27/24 07:32 [From Bactrim] itching trimethoprim [From Bactrim] Allergy Severe Rash, Verified 12/27/24 07:32 itching vancomycin [VANCOMYCIN] Allergy Severe HIVES Verified 12/27/24 07:32 adhesive tape [ADHESIVE TAPE] Allergy Intermediate RASH/BLISTE Verified 12/27/24 07:32 RS Adhesive Bandages Allergy Severe rash, Uncoded 12/27/24 07:32 redness Home Medications ?Medication ?Instructions ?Recorded ?Confirmed ?Last Taken ?Type amlodipine 5 mg tablet 5 mg PO DAILY 05/30/20 12/13/24 12/27/24 History oxybutynin chloride 5 mg tablet 5 mg PO BID 05/30/20 12/13/24 Unknown History ascorbate calcium (vitamin C) 500 500 mg PO DAILY 09/15/22 12/13/24 Unknown History mg tablet magnesium oxide 400 mg (241.3 mg 400 mg PO DAILY 09/15/22 12/13/24 Unknown History magnesium) tablet valsartan 160 1 tab PO DAILY 10/04/23 12/13/24 Unknown History mg-hydrochlorothiazide 12.5 mg tablet alpha lipoic acid 600 mg capsule 12,000 mg PO DAILY 12/05/24 12/13/24 Unknown History aspirin 81 mg tablet,delayed 81 mg PO BEDTIME 12/13/24 12/13/24 12/26/24 History release (Adult Aspirin Regimen) cholecalciferol (vitamin D3) 50 50 mcg PO DAILY 12/13/24 12/13/24 Unknown History mcg (2,000 unit) capsule (Vitamin D3) pyridoxine (vitamin B6) 100 mg 100 mg PO DAILY 12/13/24 12/13/24 Unknown History tablet (Vitamin B-6) Exam Height,Weight and Vital Signs: Height 5 ft 2.5 in Weight 78.925 kg Last Vital Signs Pulse 78 12/13/24 11:58 Resp 16 12/13/24 11:58 BP 142/80 H 12/13/24 11:58 Pulse Ox 98 12/13/24 11:58 O2 Del Method Room Air 12/13/24 11:58 Pertinent Lab Results Pertinent Lab Results: Laboratory Tests 08/11/24 10/12/24 08:15 07:00 WBC 5.5 Hgb 12.0 D Hct 38.6 D Plt Count 231 Sodium 142 Potassium 4.1 Chloride 109 H Carbon Dioxide 28 BUN 20 H Creatinine 0.78 Narrative Narrative: EKG 06/2024 [id number] Ventricular Rate: 60 BPM Atrial Rate: 60 BPM P-R Interval: 120 ms QRS Duration: 128 ms Q-T Interval: 454 ms QTC Calculation(Bazett): 454 ms P [place]: 27 degrees R [place]: -40 degrees T [place]: 71 degrees Sinus rhythm with marked sinus arrhythmia Left axis deviation Left bundle branch block Abnormal ECG When compared with ECG of 19-MAR-2023 10:41, No significant change was found Confirmed by Torrey Joiner ([id number]) on 06/23/2024 11:47:22 AM ECHO 03/2024 Summary 1. There is basal septal thickening with a sigmoid septum configuration and otherwise normal left ventricular wall thickness. Normal left ventricular size and systolic function. Left ventricular ejection fraction is 68 % by biplane Barajas's estimation. There is paradoxical septal motion consistent with LBBB . No regional wall motion abnormalities seen. Diastolic function was indeterminate on the basis of available data. 2. The right ventricle is normal in size and function. 3. The atria are normal in size. 4. The patient is status post implantation of a 23 mm Teri 3 Ultra TAVR bioprosthesis in the aortic position on 02/16/2023 . The prosthetic valve is well seated and functioning normally. The peak and mean gradients are 31 and 16 mmHg, respectively. No intravalvular or paravalvular regurgitation. 5. No significant valvular abnormalities. 6. The inferior vena cava size is normal (<= 2.1 cm) with normal inspiratory collapse (>50%), consistent with a right atrial pressure of approximately 3 mmHg. 7. There is no significant pericardial effusion. 8. The aortic root is not well visualized. The ascending aorta is normal in size. Airway Mallampati Class: II TM Dist: >3cm Neck ROM: Full Denture: Upper Partial: Lower Heart: RRR + M Lungs: CTAB Assessment and Plan Assessment Anesthesia Assessment: Anesthesia Plan Discussed and PAT Visit Final Anesthetic Review Family History of Problems with Anesthesia: No (slow to wake x 1 2014) History of Problems with Anesthesia: No Documented by User: Saniya Lerma DO 12/27/24 12:11 [facility] Past Medical History Medical History OAB (overactive bladder) Arthritis Hx of cardiac murmur Breast cancer, left Family history of breast cancer Left breast mass Lichen sclerosus of vulva LBBB (left bundle branch block) Rate-related bundle branch block Aortic stenosis HTN (hypertension) Family History Family History Father Heart attack Mother Bundle branch block, unspecified HTN (hypertension) Maternal Grandmother Gastric cancer Sister Brain tumor Maternal Aunt Cancer Breast cancer Family history of problems with anesthesia: No Surgical History Surgical History History of pubovaginal sling (~1998) History of right hip replacement (~06/2024) History of left knee replacement (~2023) Knee joint replacement status History of esophagogastroduodenoscopy (EGD) S/P TAVR (transcatheter aortic valve replacement) Hx of carpal tunnel repair Hx of rotator cuff surgery Hx of cataract H/O right breast biopsy History of total right knee replacement H/O colonoscopy H/O: hysterectomy History of Problems with Anesthesia: No Social History Social History Household Members: Spouse Household Members Other:: 55 yrs- 3 sons Are you a primary day care aide to a significant other at home: No Do you presently have visiting nurse or other home services: No Alcohol intake: never Patient Tobacco Use Status: Former Tobacco user Tobacco use type: Cigarette Years Smoked: 1997 Use of substances other than those prescribed or required for medical reasons: No Have you been hit, kicked, punched, or otherwise hurt by someone within the past year? 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 identity: Female Meds Allergies Allergy/AdvReac Type Severity Reaction Status Date / Time sulfamethoxazole Allergy Severe Rash, Verified 12/27/24 07:32 [From Bactrim] itching trimethoprim [From Bactrim] Allergy Severe Rash, Verified 12/27/24 07:32 itching vancomycin [VANCOMYCIN] Allergy Severe HIVES Verified 12/27/24 07:32 adhesive tape [ADHESIVE TAPE] Allergy Intermediate RASH/BLISTE Verified 12/27/24 07:32 RS Adhesive Bandages Allergy Severe rash, Uncoded 12/27/24 07:32 redness Home Medications ?Medication ?Instructions ?Recorded ?Confirmed ?Last Taken ?Type amlodipine 5 mg tablet 5 mg PO DAILY 05/30/20 12/13/24 12/27/24 History oxybutynin chloride 5 mg tablet 5 mg PO BID 05/30/20 12/13/24 Unknown History ascorbate calcium (vitamin C) 500 500 mg PO DAILY 09/15/22 12/13/24 Unknown History mg tablet magnesium oxide 400 mg (241.3 mg 400 mg PO DAILY 09/15/22 12/13/24 Unknown History magnesium) tablet valsartan 160 1 tab PO DAILY 10/04/23 12/13/24 Unknown History mg-hydrochlorothiazide 12.5 mg tablet alpha lipoic acid 600 mg capsule 12,000 mg PO DAILY 12/05/24 12/13/24 Unknown History aspirin 81 mg tablet,delayed 81 mg PO BEDTIME 05/03/0212/13/24 12/26/24 History release (Adult Aspirin Regimen) cholecalciferol (vitamin D3) 50 50 mcg PO DAILY 12/13/24 12/13/24 Unknown History mcg (2,000 unit) capsule (Vitamin D3) pyridoxine (vitamin B6) 100 mg 100 mg PO DAILY 12/13/24 12/13/24 Unknown History tablet (Vitamin B-6) Exam Exam Date and Time: 12/27/24 1155 Height,Weight and Vital Signs: Height 5 ft 2.5 in Weight 79 kg Vital Signs Pulse Rate 78 12/13/24 11:58 Respiratory Rate 16 12/13/24 11:58 Blood Pressure 142/80 H 12/13/24 11:58 Pulse Oximetry 98 12/13/24 11:58 Oxygen Delivery Method Room Air 12/13/24 11:58 Temperature 97.9 F 12/27/24 07:30 Pulse Rate 76 12/27/24 07:30 Respiratory Rate 18 12/27/24 07:30 Blood Pressure 169/57 H 12/27/24 07:30 Pulse Oximetry 96 12/27/24 07:30 Oxygen Delivery Method Room Air 12/27/24 07:30 Airway Mallampati Class: II TM Dist: >3cm Neck ROM: Full Denture: Upper Partial: Lower Heart: S1S2 +M Assessment and Plan Assessment Anesthesia Assessment: Anesthesia Plan Discussed and Chart Reviewed Final Anesthetic Review Family History of Problems with Anesthesia: No History of Problems with Anesthesia: No NPO: Yes ASA Class: III Final Preanesthetic Review: No Changes in Pt Med Stat, Meds/Allgs Chart Reviewed, Consent Obtained/Reviewed and Anes Risks/Benef Reviewed Patient Risk: Low Procedure Risk: Low Anesthetic Plan Anesthetic Plan: GA and Agree w/ Assess. and Plan Disposition: Standard PACU
--- NOTE | 2024-12-27 12:14 | MHC.SHP ---
Pre-Procedural Eval Section A - 24 Hr Update-Section A only Date of Service: 12/27/24 The patient is an INPATIENT: No Changes since office visit: No Cold of Flu in the past 2 weeks, No New Medical Problems, No Changes in Medication and No Patient answered all questions The patient has been examined within 24 hours of the surgical procedure. The History & Physical has been completed within 30 days and I have reviewed it.: Yes Section B - Complete if H&P > 30 days Chief Complaint: Malignant neoplasm of unspecified site of left Allergies: Allergies Allergy/AdvReac Type Severity Reaction Status Date / Time sulfamethoxazole Allergy Severe Rash, Verified 12/27/24 07:32 [From Bactrim] itching trimethoprim [From Bactrim] Allergy Severe Rash, Verified 12/27/24 07:32 itching vancomycin [VANCOMYCIN] Allergy Severe HIVES Verified 12/27/24 07:32 adhesive tape [ADHESIVE TAPE] Allergy Intermediate RASH/BLISTE Verified 12/27/24 07:32 RS Adhesive Bandages Allergy Severe rash, Uncoded 12/27/24 07:32 redness Plan I have reviewed the history and physical and performed a pertinent physical examination on my patient. No changes have occurred unless specified. Time Spent With Patient Time: Total time managing care of this patient today ____ minutes.
[2024-12-27] MEDS: ceFAZolin Sodium/Dextrose,Iso 2 GM/50 ML PIGGYBACK IV (12:44)
--- NOTE | 2024-12-27 14:02 | W.PM.OPN ---
Operative Note Operative Note Date of Service: 12/27/24 Narrative: Preop diagnosis: Invasive ductal carcinoma, left breast Postop diagnosis: The same Procedure: Lumpectomy, left breast with Hologic localizer, and sentinel node biopsy Surgeon: Dhaval Melendez MD bacteriology research assistant: ANTONY Russo The patient is a 74 year old female with a recent diagnosis of of left breast ductal carcinoma. She is here for lumpectomy with the Hologic localizer, and sentinel biopsy. She understood the technique of the planned procedure as well as the risks, benefits, and alternatives. She had nuclear scintigraphy earlier for her axillary lymph nodes done by the radiologist. I have reviewed the films and there were 2 lymph nodes that could be seen in the axilla. She was brought to the operating room and placed supine under general anesthesia via laryngeal mask airway. The left breast was prepped and draped in the usual sterile fashion. A surgical time-out was done. The patient received cefazolin 2 g IV preoperatively. I marked the planned line of incision based on the most superficial area on the left breast based on the Hologic localizing probe. This was on the upper outer part of the breast towards the tail. I infiltrated this with lidocaine 1%. I made a curvilinear incision with a blade 15. This was carried down with electrocautery through the full-thickness of the skin and subcutaneous fat. I then periodically used the localizer to direct my dissection towards the RF ID tag. I used the curved Schilling scissors to circumferentially and sharply dissect around this area of the breast tissue. Again, we had to use the localizer periodically to identify this area. Eventually was able to achieve circumferential dissection. I was able to deliver the specimen. The RF ID tag was within the specimen. We confirmed presence of the RF ID tag and the biopsy clip with immediate re-ray in the room. The lateral and the superior margins were marked with sutures and this was sent as a specimen. I then proceeded to inspect the lumpectomy site for any bleeding. I cauterized oozing areas. We made sure that there was good hemostasis and then we applied a light packing with gauze. We then proceeded to do the sentinel node biopsy. We changed gloves and instruments at this point. I used the gamma probe to locate for the highest counts in the axilla. I infiltrated this with lidocaine 1% and I made the incision with a blade 15. I carried down the incision with the electrocautery through the full-thickness of the skin and subcutaneous fat. I then dissected through the fascia and entered the axillary fat pad. I used the gamma probe to localize and identify lymph nodes with the highest counts I was able to identify 2 sentinel nodes and 2 additional lymph nodes. [place] node 1 had a count of 1600 [place] node 2 had a count of 1100 All these lymph nodes were retrieved using sharp dissection with Metzenbaum scissors and clamping the pedicle with a right angle clamp, excising the lymph node and tying the pedicle with Polysorb 3-0 ties. There was no elevated counts with scanning of the axilla after these the above lymph nodes nodes were removed. I observed for hemostasis. Once hemostasis was confirmed, I irrigated and reapposed the deeper tissues with Polysorb 3-0 sutures. Skin closure was achieved with Polysorb 4-0 subcuticular running stitch . We received a phone call from the pathologist stating that the tumor was in the specimen but she had dependent removing more of the anteromedial margin. I therefore went lumpectomy site. We excised additional anterior medial margins using Schilling scissors. We irrigated.We observed for hemostasis. Once hemostasis was confirmed, we reapposed the deep breast tissue with Polysorb 3-0 simple interrupted sutures. Skin closure was achieved on both incisions with with Polysorb 4-0 subcuticular running stitch. All incisions were infiltrated with Marcaine 0.5% for postop analgesia. Dressings were applied. The procedure was completed The patient tolerated the procedure well. There were no immediate complications. Initial and final counts of sponges and instruments were correct. Estimated blood loss about 50 cc The patient was is extubated without difficulty and transferred to the recovery room with stable vital signs. Breast [place] Node Biopsy Substrate(s) used for sentinel node biopsy in the non-neoadjuvant setting: Radiotracer Substrate(s) used for sentinel node biopsy in the neoadjuvant setting: N/A All colored nodes or non-colored nodes present at the end of a dye filled lymphatic channel were removed, if dye was used as the substrate for localization: N/A All significantly radioactive nodes were removed, if radionuclide was used as the substrate for localization: Yes All palpably suspicious nodes were removed, if present: N/A If clips were placed in pathology-involved nodes, those nodes were identified and removed: N/A Procedure performed with curative intent?: Yes General Surg. - Synoptic Notes Breast [place] Node Biopsy Substrate(s) used for sentinel node biopsy in the non-neoadjuvant setting: Radiotracer Substrate(s) used for sentinel node biopsy in the neoadjuvant setting: N/A All colored nodes or non-colored nodes present at the end of a dye filled lymphatic channel were removed, if dye was used as the substrate for localization: N/A All significantly radioactive nodes were removed, if radionuclide was used as the substrate for localization: Yes All palpably suspicious nodes were removed, if present: N/A If clips were placed in pathology-involved nodes, those nodes were identified and removed: N/A Procedure performed with curative intent?: Yes
[2024-12-27 14:23] VITALS: BP 132/51; PULSE 69; RESP 14; TEMP 36.3; O2SAT 99
[2024-12-27 14:28] VITALS: BP 142/58; PULSE 69; RESP 16; O2SAT 99
[2024-12-27 14:33] VITALS: BP 143/61; PULSE 70; RESP 16; O2SAT 99
[2024-12-27 14:38] VITALS: BP 125/70; PULSE 73; RESP 20; O2SAT 94
[2024-12-27 14:48] VITALS: BP 122/70; PULSE 71; RESP 16; TEMP 36.4; O2SAT 97
== END 2024-12-27 15:25 | disposition home or self-care (01) ==
PROVIDERS: PCP Internal Medicine; Visit Provider Surgery
PROC: (CPT 19301; principal; 2024-12-27 12:30)
PROC: (CPT 19301; 2024-12-27 12:30)
DX: C50.412 Malignant neoplasm of upper-outer quadrant of left female breast (principal); I10 Essential (primary) hypertension; K21.9 Gastro-esophageal reflux disease without esophagitis; Z80.3 Family history of malignant neoplasm of breast; Z87.891 Personal history of nicotine dependence
CPT/HCPCS: 19301; 38525; 38900; 78195; 88305; 88307; 88329; 88342; A9520; J0131; J0690; J1100; J2003; J2371; J2405; J2704; J2795; J3010

== ENCOUNTER → 2024-12-27 07:02 | Outpatient (BNV) | payer MEDICARE, OTHER, SELFPAY | PROVIDERS: PCP Internal Medicine; Visit Provider Surgery | DX: C50.412 Malignant neoplasm of upper-outer quadrant of left female breast (principal) | CPT/HCPCS: 19301; 38525; 38900 ==

== ENCOUNTER → 2024-12-27 07:30 | Outpatient (BNV) | payer MEDICARE, OTHER, SELFPAY | PROVIDERS: PCP Internal Medicine; Visit Provider Radiology Diagnostic Radiology | DX: C77.3 Secondary and unspecified malignant neoplasm of axilla and upper limb lymph nodes (principal) | CPT/HCPCS: 78195 ==

== ENCOUNTER 2025-01-15 10:45 | Outpatient (AMB) | payer MEDICARE, OTHER, SELFPAY ==
--- NOTE | 2025-01-15 10:48 | A.OFFVIS_ITS ---
Vital Signs 01/15/25 10:55 Height 5 ft 2 in Weight 176 lb BMI 32.2 BP 171/59 H Blood Pressure Location Rt brachial Position Sitting Pulse 59 Intake Visit Reasons: S/P Lt. breast lumpectomy & GENETIC TESTING Intake Note: Patient here s/p Lt br lumpectomy & genetic testing. Reports incision healing well. Patient c/o: no concerns. 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 breast lumpectomy & GENETIC TESTING : Details: She underwent lumpectomy and sentinel biopsy last 12/27/2024 for invasive ductal cancer. She tolerated procedure well. She currently denies significant complaints. [facility] Medical History (Updated 01/15/25 @ 10:55 by Dhaval Melendez MD) Invasive ductal carcinoma of breast OAB (overactive bladder) Arthritis Hx of cardiac murmur Breast cancer, left Family history of breast cancer Left breast mass Lichen sclerosus of vulva LBBB (left bundle branch block) Rate-related bundle branch block Aortic stenosis HTN (hypertension) Surgical History History of pubovaginal sling (~1998) History of right hip replacement (~06/2024) History of left knee replacement (~2023) Knee joint replacement status History of esophagogastroduodenoscopy (EGD) S/P TAVR (transcatheter aortic valve replacement) Hx of carpal tunnel repair Hx of rotator cuff surgery Hx of cataract H/O right breast biopsy History of total right knee replacement H/O colonoscopy H/O: hysterectomy Family History Father Heart attack Mother Bundle branch block, unspecified HTN (hypertension) Maternal Grandmother Gastric cancer Sister Brain tumor Maternal Aunt Cancer Breast cancer Social History Household Members: Spouse Household Members Other:: 55 yrs- 3 sons Are you a primary child care team lead to a significant other at home: No Do you presently have visiting nurse or other home services: No Alcohol intake: never Patient Tobacco Use Status: Former Tobacco user Tobacco use type: Cigarette Years Smoked: 1997 service: No 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 Gender identity: Female Female Reproductive History Menstrual Age of Menarche: 13 Review of Systems Const Reports body aches, Denies chills and Denies fever(s) Card Denies chest pain Resp Denies cough GI Denies abdominal pain Physical Exam Const General: comfortable and no acute distress Chest Other: Lumpectomy site and axillary sentinel node biopsy site both well healing, not infected, no hematoma Assessment & Plan Assessment & Plan (1) Invasive ductal carcinoma of breast: Code(s): C50.919 - Malignant neoplasm of unspecified site of unspecified female breast Category: Medical Plan: Status post lumpectomy and sentinel biopsy for invasive ductal cancer of the left breast. Final path report shows a T1 N0 invasive ductal carcinoma, with margins free of tumor. Oral sentinel nodes removed were negative. The cancer is ERPR positive, HER2 negative Her incisions are well healed. She has have her genetic testing today I told her that she needs to follow up with oncologist says she will benefit from hormonal treatment. She is also to see the radiation oncologist next week. I will see her again in the office in about 6 months. Coding Level of Care Code Procedure Only Diagnoses Invasive ductal carcinoma of breast C50.919
[2025-01-15 10:55] VITALS: BP 171/59; PULSE 59; BMI 32.2
--- OUTSIDE RECORDS SUMMARY | 2025-01-15 12:06 | XMS_ITS ---
Author Organization Robin Barnett MD Address [address] [place] [phone] Care Team Providers Care Oil Plant Operator Name Role Phone Robin Barnett Primary [...] Problem Status W/U Status Risk Notes Problem [id number] Overactive bladder (N32.81) Active confirmed Problem [id number] Iron deficiency anemia, unspecified iron deficiency anemia type (D50.9) Active confirmed Vital Signs Blood pressure systolic 132 mm Hg 08/14/19 25 Blood pressure diastolic 58 mm Hg 025 Height 60.50 in 08/14/2024 Weight 172 lbs 08/14/2024 BMI 33.03 kg/m2 08/14/2024 weight is up 7 pounds since 04-07-24 Encounters Encounter Location Date Provider Diagnosis Robin Barnett MD [address] [place] [address] Drive [address] [place], [place] [phone] 08/14/2024 Robin Barnett Overactive bladder N 32.81 [...] (ICD-10 - N32.81) order faxed to [facility] dept, pending diagnostic testing 08/14/2024 Gastroesophageal [...] Notes Overactive bladder order faxed to [facility] dept, pending diagnostic testing Gastroesophageal [...] Reason: Provider Name:Robin harley, 02/19/2025 08:00:00 AM, [address] [place] [address], [address] [place] [address], [phone], Provider Name:Robin harley, 08/07/2025 07:30:00 AM, [address] [place] [address], Suite [facility], [place], [place], [phone], Provider Name:Robin harley, 08/17/2025 08:30:00 AM, [address] [place] [address], Suite [facility], [place], [place], [phone], Progress Notes * Mariela YUEN: 0 (74 yo F)Acc No.[id number]:08/14/2024 Patient:Zahra Ny Provider:?Robin Barnett MD :1950???Age:74 Y???Sex:Female D ate:08/14/2024 Address:[address] [place], [place] [phone] Subjective: * Chief Complaints: * ???Review labsCBACK [...] pounds since 04-07-24. * ???Past Orders: ???Lab:[facility] [place]. P hannah Fast (Order Date - 08/11/2024) [...] sent with cards and solution.?FEMALE GENITOURINARY:?done by gynecology teacher.?EXTREMITIES:?no clubbing, cyanosis, or edema.?NEUROLOGIC:?nonfocal, motor strength normal [...] MD Date:?0 08/14/2024 Generated for Jesusi brenda/Griselda/eTransmitting on:?01/15/2025 12:06 PM EDT History and Physical Notes * [...] cards and solution FEMALE GENITOURINARY: done by gynecology teacher ORAL CAVITY: mucosa moist
== END 2025-01-15 11:27 | disposition home or self-care (01) ==
LOC: HO.HGS 10:46
PROVIDERS: PCP Internal Medicine; Visit Provider Surgery
DX: C50.919 Malignant neoplasm of unspecified site of unspecified female breast (principal)
CPT/HCPCS: 99024

== ENCOUNTER → 2025-01-15 10:45 | Outpatient (BNVA) | payer MEDICARE, OTHER, SELFPAY | PROVIDERS: PCP Internal Medicine; Visit Provider Surgery | DX: C50.919 Malignant neoplasm of unspecified site of unspecified female breast (principal) | CPT/HCPCS: 99212 ==

== ENCOUNTER 2025-02-02 08:25 | Outpatient (REF) | payer MEDICARE, OTHER, SELFPAY ==
--- OUTSIDE RECORDS SUMMARY | 2024-08-14 05:30 | XMS_ITS ---
Author Organization Robin Barnett MD Address [address] [place] [phone] Care Team Providers Care Chemistry Lecturer Name Role Phone Robin Barnett Primary Care [...] Problem Status W/U Status Risk Notes Problem [id number] Overactive bladder (N32.81) Active confirmed Problem 42104042 Iron deficiency anemia, unspecified iron deficiency anemia type (D50.9) Active confirmed Vital Signs Blood pressure systolic 132 mm Hg 08/14/19 25 Blood pressure diastolic 58 mm Hg 025 Height 60.50 in 08/14/2024 Weight 172 lbs 08/14/2024 BMI 33.03 kg/m2 08/14/2024 weight is up 7 pounds since 04-07-24 Encounters Encounter Location Date Provider Diagnosis Robin Barnett MD [address] [place] [address] Drive [address] [place], [place] [phone] 08/14/2024 Robin Barnett Overactive bladder N 32.81 [...] bladder (ICD-10 - N32.81) order faxed to [facility] dept, pending diagnostic testing 08/14/2024 Gastroesophageal [...] Assessment Notes Overactive bladder order faxed to [facility] S dept, pending diagnostic testing Gastroesophageal [...] Details Follow Up: 2 Months, Reason: Provider Name:Rboin harley, 02/19/2025 08:00:00 AM, [address] [place] [address], [address] [place] [address], [phone], Provider Name:Robin harley, 08/07/2025 07:30:00 AM, [address] [place] [address], Suite [facility], [place], [place], [phone], Provider Name:Robin harley, 08/17/2025 08:30:00 AM, [address] [place] [address], Suite [facility], [place], [place], [phone], Progress Notes * Mariela YUEN: 0 (74 yo F)Acc No.[id number]:08/14/2024 Patient: Zahra Carnes Provider: Carroll Barnett MD :1950 A ge:74 Y S ex:Female Date:08/14/2024 Address:[address] [place] [address] Nory Pagan [id number] Subjective: * Chief Complaints: * R eview [...] 04-07-24. * P ast Orders: L ab:Comprehensive [place]. Panel Fast (Order Date - 08/11/2024) (Collection Date - 08/11/2024) Value Reference Range Sodium 142 135-145 [...] PROFILE (Order Date - 08/11/2024) (Collection Date - 08/11/2024) Value Reference Range Iron 20 L 30-160 - mcg/dL Total Iron Binding Capacity 339 228-428 - mc g/dL Percent Iron Saturation 6 L 15-50 - % Unsaturated Iron Binding 319 - ug/dL L ab:Lipid Panel (Order Date - 08/11/2024) (Collection Date - 08/11/2024) Value Reference Range Triglycerides 143 <150 - mg/dL Cholesterol 210 H <200 - mg/dL LDL Cholesterol Calculated 135 H <100 - mg/dL HDL Cholesterol 47 >40 - mg/dL L ab:Microalbumin, Random (Order Date 08/11/2024) (Collection Date - 08/11/2024) [...] and solution. FEMALE GENITOURINARY: d one by correctional officer. EXTREMITIES: n o clubbing, cyanosis, or edema. [...] true * Provider: Carroll Barnett MD Date: 08/14/2024 Generated for Lorna gutierrez/Griselda/Sofieitting on: 0 02/02/2025 08:35 AM EDT History and Physical Notes * HPI [...] cards and solution FEMALE GENITOURINARY: done by correctional officer ORAL CAVITY: mucosa moist
--- NOTE | ~2025-02-02 | MM_ITS ---
EXAMINATION: DXA BONE DENSITY AXIAL HISTORY: Evaluation before hormone therapy TECHNIQUE: Virtify Dual energy absorptiometry (DEXA) of the lumbar spine, total left hip, and femoral neck was performed. COMPARISON: Comparison is made with the prior examination dated 10/01/2020. FINDINGS: The bone mineral density of the lumbar spine is 1.135, corresponding to a T-score of -0.4, and a Z-score of 0.9. This is indicative of normal bone mineral density. This represents a BMD change of 0.4% compared to the prior exam. This is not statistically significant. The bone mineral density of the left total hip is 0.898, corresponding to a T-score of -0.9, and a Z-score of 0.5. This is indicative of normal bone mineral density. This represents a BMD change of -6.7% compared to the prior exam. This is statistically significant. The bone mineral density of the left femoral neck is 0.904, corresponding to a T-score of -1.0, and a Z-score of 0.7. This is indicative of normal bone mineral density. This represents a BMD change of -3.6% compared to the prior exam. FRACTURE RISK: The FRAX index suggests a ten year probability of major osteoporotic fracture of 9.2%, and of hip fracture 1.3%. MM/XR DEXA axial skeleton IMPRESSION: Based on bone mineral density, and according to World Health Organization (WHO) criteria, the diagnosis is consistent with normal bone mineral density. All bone density values are in grams per centimeter squared (g/cm2). Statistically, 68% of repeat scans fall within 1 SD (+/- 0.010 g/cm2 for AP spine L1-L4) and 1 SD (+/- 0.012 g/cm2 for femur total) FRAX is a trademark of the [employer]'s [place] [employer] Metabolic Bone Disease, a World Health Organization (WHO) Collaborating Center. Electronically signed by: Yannick Walton MD 02/02/2025 09:20 AM EDT
== END 2025-02-02 08:26 | disposition home or self-care (01) ==
LOC: HO.MAMMO 08:25
PROVIDERS: PCP Internal Medicine Cardiovascular Disease; Visit Provider Internal Medicine
DX: Z13.820 Encounter for screening for osteoporosis (principal); C50.912 Malignant neoplasm of unspecified site of left female breast; M85.9 Disorder of bone density and structure, unspecified; E28.39 Other primary ovarian failure
CPT/HCPCS: 77080

== ENCOUNTER → 2025-02-02 08:45 | Outpatient (BNV) | payer MEDICARE, OTHER, SELFPAY | PROVIDERS: PCP Internal Medicine Cardiovascular Disease; Visit Provider Radiology Diagnostic Radiology | DX: E28.39 Other primary ovarian failure (principal) | CPT/HCPCS: 77080 ==

== ENCOUNTER 2025-02-19 08:00 | Outpatient (REF) | payer MEDICARE, OTHER, SELFPAY ==
--- OUTSIDE RECORDS SUMMARY | 2024-10-19 05:00 | XMS_ITS ---
Author Organization Robin Barnett MD Address [address] [place] [phone] Care Team Providers Care Testing Analyst Name Role Phone Robin Barnett Primary Care [...] Robin Barnett MD [address] [place] [phone] 10/19/2024 Robin Barnett Essential hypertension I10 Assessments [...] repeat cbc and iron in 3 months Pending Test Test Name Order Date Complete Blood Count Auto Diff IRON PROFILE 10/19/2024 Next Appt Details Provider Name:Robin Mena ier, 08/07/2025 07:30:00 AM, [address] [facility], [address], [place], [place], [phone], Provider Name:Robin Ortega Aramori ier, 08/17/2025 08:30:00 AM, [address] [facility], [address], [place], [place], [phone], Progress Notes * Yee YUENOB: 0 (74 yo F)Acc No.[id number]:10/19/2024 Progress Notes Patient: Zahra CHACON Provider: Carroll Barnett MD :1950 A ge:74 Y S ex:Female Date:10/19/2024 Address:[address] [place], [place] [phone] Subjective: * Chief Complaints: * 2 month [...] MD Date: 0 10/19/2024 Generated for Lorna gutierrez/Griselda/Sofieitting on: 0 02/19/2025 12:20 PM EDT History and Physical Notes * [...]
[2025-02-19 11:17] LABS: MANUAL DIFF FLAG NO
[2025-02-19 11:20] LABS: Hematocrit 34.4 % (37.0-47.0); Hemoglobin 11.3 g/dl (12.0-16.0); Imm Gran Abs Auto 0.02 X10*3/uL (0.00-0.03); Imm Gran Pct Auto 0.4 % (0.0-0.4); Lymphocytes Absolute Auto 1.7 X10*3/uL (1.2-4.9); Mean Corpuscular HGB Conc 32.8 g/dl (31.0-35.0); Mean Corpuscular Hemoglobin 28.0 pg (27.0-33.0); Mean Corpuscular Volume 85.1 fL (80.0-98.0); NRBC Abs Auto 0.000 X10*3/uL (0.0-0.012); NRBC Pct Auto 0.0 /100WBC (0.0-0.2); Platelet Count 217 X10*3/uL (160-400); Red Blood Count 4.04 X10*6/uL (4.20-5.50); White Blood Count 5.1 X10*3/uL (4.8-10.8)
[2025-02-19 11:29] LABS: Iron 42 mcg/dL (30-160); Percent Iron Saturation 13 % (15-50); Total Iron Binding Capacity 324 mcg/dL (228-428); Unsaturated Iron Binding 282 ug/dL
--- OUTSIDE RECORDS SUMMARY | 2025-02-19 12:21 | XMS_ITS | Clinical Summary ---
Author Organization [facility] Address [address] [place] [phone] Phone Care Team Providers Care Radiotelephone Technical Operator Name Role Phone Robin Barnett MD Primary Care Provider [phone] Allergies Active Allergy Reactions Criticality Noted Date Comments Adhesive Tape-Silicones Rash 01/23/2025 Sulfamethoxazole-Trimethoprim Itching,Rash 01/07 Trimethoprim Itching,Rash 01/23/2025 Vancomycin Hives 01/23/2025 Medications amLODIPine (NORVASC) 5 mg tablet Take 1 tablet (5 mg total) by mouth 1 (one) time each day. Active oxyBUTYnin (DITROPAN) 5 mg tablet Take 1 tablet (5 mg total) by mouth 2 (two) times a day. Active ascorbic acid (VITAMIN C) 500 mg tablet Take 1 tablet (500 mg total) by mouth 1 (one) time each day. Active magnesium oxide (MAG-OX) 400 mg magnesium tablet Take 1 tablet (400 mg total) by mouth 1 (one) time each day. Active valsartan-hydro CHLOROthiazide (DIOVAN-HCT) 160-12.5 mg per tablet Take 1 tablet by mouth 1 (one) time each day. Active alpha lipoic acid 600 mg tablet Take by mouth. Active aspirin 81 mg EC tablet Take 1 tablet (81 mg total) by mouth 1 (one) time each day. Active cholecalciferol (VITAMIN D-3) 50 mcg (2,000 unit) tablet Take 1 tablet (2,000 Units total) by mouth 1 (one) time each day. Active pyridoxine (B-6) 100 mg tablet Take 1 tablet (100 mg total) by mouth 1 (one) time each day. Active omeprazole (PriLOSEC) [address] capsule Take 1 capsule (40 mg total) by mouth 1 (one) time each day. Do not crush or chew. Active Active Problems Problem Noted Date Diagnosed Date Aortic stenosis 01/23/2025 Arthritis 01/23/2025 Malignant neoplasm of left b reast (CMS/HCC V24, CMS/HCC V28) 01/23/2025 Cancer Staging:Clinical stage from 12/27/2024:Stage IA(cT1b, cN0(sn), cM0, G1, ER+, HI+, HER2-) - Signed by Jason Garcia MD on 01/29/2025 Family history of breast cancer 01/23/2025 Hypertension 01/23/2025 History of cardiac murmur 01/23/2025 LBBB (left bundle branch block) 01/23/2025 Left breast mass 01/23/2025 Lichen sclerosus 01/23/2025 OAB (overactive bladder) 01/23/2025 Rate-related bundle branch block 01/23/2025 Encounters Date Type Department Care Team Description 01/29/2025 9:59 AM EDT - 01/29/2025 11:59 PM EDT Hospital Encounter [facility] Radiation Oncology [address] [place] [phone] Jason Garcia MD Ductal carcinoma of left breast (CMS/HCC V24, CMS/HCC V28) (Primary Dx); Breast cancer (CMS/HCC V24, CMS/HCC V28) Discharge Disposition: Home or Self Care 01/29/2025 9:52 AM EDT - 01/29/2025 11:59 PM EDT Hospital Encounter [facility] Radiation Oncology [address] [place] [phone] Discharge Disposition: Home or Self Care 01/26/2025 Telephone [facility] Radiation Oncology [address] [place] [phone] Esmer Alfred MA 01/10/2025 Telephone [facility] Radiation Oncology [address] [place] [phone] Esmer Alfred MA from Last 3 Months Surgical History Surgery Date Site/Laterality Comments HYSTERECTOMY ESOPHAGOGASTRODUODENOSCOPY TOTAL KNEE ARTHROPLASTY Left TOTAL HIP ARTHROPLASTY Right CARPAL TUNNEL RELEASE ROTATOR CUFF REPAIR AORTIC VALVE REPLACEMENT Medical History Medical History Date Comments Hypertension Breast cancer ([facility] V24, CMS/[facility] V28) GERD (gastroesophageal reflux disease) Family History Medical History Relation Name Comments Heart attack Father gastric cancer Maternal Grandmother bundle branch block Mother Breast cancer Mother's Sister brain tumor Sister Relation Name Status Comments Father Maternal Grandfather Maternal Grandmother Mother Mother's Sister Sister Social History Tobacco Use Types Packs/Day Years Used Date Smoking Tobacco: Never Assessed Smokeless Tobacco: Former Tobacco Cessation:Counseling Given: Not Answered Alcohol Use Standard Drinks/Week Comments Not Currently 0 (1 standard drink = 0.6 oz pur e alcohol) Comments Unknown Sex and Gender Information Value Date Recorded Sex Assigned at Not on file Legal Sex Female 12:23 PM EDT Gender Identity Not on file Sexual Orientation Not on file Occupation Industry Job Start Date Job End Date Retired Not on file Not on file Not on file Obstetrics History Para Term AB IAB SAB Ectopic Multiple Livin g Live Births 3 3 Date Outcome GA Total Labor Labor/2nd/3rd Weight Sex Type Anes PTL Alix A1 A5 Name Clin Para Para Para Last Filed Vital Signs Vital Sign Reading Time Taken Comments Blood Pressure 138/68 01/29/2025 10:10 AM EDT Pulse 66 01/29/2025 10:10 AM EDT Temperature 35.8 C (96.5 F) 01/29/2025 10:10 AM EDT Respiratory Rate 16 01/29/2025 10:10 AM EDT Oxygen Saturation 99% 01/29/2025 10:10 AM EDT Inhaled Oxygen Concentration - - Weight 80.4 kg (177 lb 3.2 oz) 01/29/2025 10:10 AM EDT Height 158.8 cm (5' 2.5 ) 01/29/2025 10:10 AM ED T Body Mass Index 31.89 01/29/2025 10:10 AM EDT Plan of Treatment Health Maintenance Due Date Last Done Comments Breast Cancer Screening 1950 COVID-19 Vaccine (#1) 1955 Zoster Vaccines (1 of 2) 1969 Pneumococcal Vaccine: 50+ Years (2 of 2 - PCV) 06/16/2019 06/16/2018 DTaP,Tdap,and Td Vaccines (3 - Td or Tdap) 08/09/2023 08/09/2013, 11/11/2012 Cholesterol Screening (Lipid Panel) 01/10/2025 Colorectal Cancer Screening: Colonoscopy 01/10/2025 Depression Screening 01/10/2025 Falls Risk Assessment 01/10/2025 Hepatitis C Screening 01/10/2025 Medicare Annual Wellness Visit 01/10/2025 Osteoporosis Screening (Bone Density Screening) 01/10/2025 Social Influencers of Health Screening 01/10/2025 Hypertension/CHF/CAD Annual BMP Blood Test 01/23/2025 RSV Immunization Adult Patients (1 - 1-dose 75+ series) 2025 Influenza Vaccine (#1) 2025 HIB Vaccines Aged Out No longer eligi ble based on patient's age to complete this topic HPV Vaccines Aged Out No longer eligi ble based on patient's age to complete this topic Hepatitis A Vaccines Aged Out No long er eligible based on patient's age to complete this topic Hepatitis B Vaccines Aged Out No long er eligible based on patient's age to complete this topic IPV Vaccines Aged Out No longer eligi ble based on patient's age to complete this topic MMR Vaccines Aged Out No longer eligi ble based on patient's age to complete this topic Meningococcal ACWY Vaccine Aged Out N o longer eligible based on patient's age to complete this topic Meningococcal B Vaccine Aged Out No l onger eligible based on patient's age to complete this topic RSV Immunization Patients Under 20 months Aged Out No longer eligible b ased on patient's age to complete this topic Varicella Vaccines Aged Out No longer eligible based on patient's age to complete this topic Insurance [employer] MEDICARE Care Teams Radiotelephone Technical Operator Relationship Specialty Start Date End Date Robin Barnett MD [address] [facility] [address] [place] [phone] PCP - General Internal Medicine 01/10/25
== END 2025-02-19 08:01 | disposition home or self-care (01) ==
LOC: HO.LNP 08:00
PROVIDERS: Visit Provider Internal Medicine
DX: D50.9 Iron deficiency anemia, unspecified (principal)
CPT/HCPCS: 83540; 85025

== ENCOUNTER 2025-03-12 09:26 | Outpatient (AMB) | payer MEDICARE, OTHER, SELFPAY ==
--- OUTSIDE RECORDS SUMMARY | 2024-10-19 05:00 | XMS_ITS ---
Author Organization Robin Barnett MD Address [address] [place] [phone] Care Team Providers Care Quantitative Equity Head Name Role Phone Robin Barnett Primary Care [...] Robin Barnett MD [address] [place] [phone] 10/19/2024 Robin Barnett Essential hypertension I10 Assessments [...] 07:30:00 AM, [address], [address], [place], [place], [phone], Provider Name:Robin Jordan Trina ier, 08/17/2025 08:30:00 AM, [address], [address], [place], [place], [phone], Progress Notes * Yee YUENOB: 0 (74 yo F)Acc No.[id number]:10/19/2024 Progress Notes Patient: Zahra CHACON Provider: Carroll Barnett MD :1950 A ge:74 Y S ex:Female Date:10/19/2024 Address:[address] [place] [address] Subjective: * Chief Complaints: * 2 month [...] MD Date: 0 10/19/2024 Generated for Lorna gutierrez/Griselda/Paddysmitting on: 0 03/12/2025 09:57 AM EDT History and Physical Notes * [...]
[2025-03-12 09:28] VITALS: BP 180/76; PULSE 64; BMI 32.6
--- NOTE | 2025-03-12 09:28 | MHC.OFFVIS ---
Vital Signs 03/12/25 09:28 Height 5 ft 2 in Weight 178 lb BMI 32.6 BP 180/76 H Blood Pressure Location Rt brachial Position Sitting Pulse 64 Intake Visit Reasons: 6 week follow up Intake Note: Patient here for genetic testing results. Fire Regulator Required: No Accompanied by: Self / Same As Patient Allergies sulfamethoxazole (From Bactrim) Allergy (Severe, Verified 03/12/25 09:28) Rash, itching trimethoprim (From Bactrim) Allergy (Severe, Verified 03/12/25 09:28) Rash, itching vancomycin (VANCOMYCIN) Allergy (Severe, Verified 03/12/25 09:28) HIVES adhesive tape (ADHESIVE TAPE) Allergy (Intermediate, Verified 03/12/25 09:28) RASH/BLISTERS Adhesive Bandages Allergy (Severe, Uncoded 03/12/25 09:28) rash, redness Medication List - Last Reconciled 03/12/25 by Dhaval Melendez MD alpha lipoic acid 12,000 mg PO DAILY amlodipine 5 mg PO DAILY ascorbate calcium (vitamin C) 500 mg PO DAILY aspirin (Adult Aspirin Regimen) 81 mg PO BEDTIME cholecalciferol (vitamin D3) (Vitamin D3) 50 mcg PO DAILY ibuprofen 600 mg PO Q6H PRN letrozole 2.5 mg PO DAILY magnesium oxide 400 mg PO DAILY omeprazole 40 mg (2 x 20 mg) PO DAILY 90 days oxybutynin chloride 5 mg PO BID oxycodone-acetaminophen 5-325 mg 1 tab PO Q6H PRN pyridoxine (vitamin B6) (Vitamin B-6) 100 mg PO DAILY valsartan-hydrochlorothiazide 160-12.5 mg 1 tab PO DAILY HPI HPI 6 week follow up: Details: She is here for follow-up to discuss results of genetic testing. This was done because of her strong family history for breast cancer. She herself had a lumpectomy and sentinel biopsy for invasive ductal carcinoma last Dec, 2024. She is following Dr. Peraza for this. She had an ERPR positive HER2 negative tumor. She is supposed to be on letrozole as hormonal treatment . She says that her lumpectomy and sentinel biopsy sites have all healed already. She denies any new complaints currently. 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 OAB (overactive bladder) Arthritis Hx of cardiac murmur Breast cancer, left Family history of breast cancer Left breast mass Lichen sclerosus of vulva LBBB (left bundle branch block) Rate-related bundle branch block Aortic stenosis HTN (hypertension) Surgical History History of pubovaginal sling (~1998) History of right hip replacement (~06/2024) History of left knee replacement (~2023) Knee joint replacement status History of esophagogastroduodenoscopy (EGD) S/P TAVR (transcatheter aortic valve replacement) Hx of carpal tunnel repair Hx of rotator cuff surgery Hx of cataract H/O right breast biopsy History of total right knee replacement H/O colonoscopy H/O: hysterectomy Family History Father Heart attack Mother Bundle branch block, unspecified HTN (hypertension) Maternal Grandmother Gastric cancer Sister Brain tumor Maternal Aunt Cancer Breast cancer Social History Household Members: Spouse Household Members Other:: 55 yrs- 3 sons Are you a primary career development manager to a significant other at home: No Do you presently have visiting nurse or other home services: No Alcohol intake: never Patient Tobacco Use Status: Former Tobacco user Tobacco use type: Cigarette Years Smoked: 1997 service: No 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 Gender identity: Female Female Reproductive History Menstrual Age of Menarche: 13 Review of Systems Const Denies chills and Denies fever(s) Card Denies chest pain Resp Denies cough GI Denies abdominal pain Denies difficulty voiding Physical Exam Vital Signs: Last Vital Signs Pulse 64 03/12/25 09:28 BP 180/76 H 03/12/25 09:28 BMI result Body Mass Index 32.6 Const General: comfortable and no acute distress Resp Effort & Inspection: normal respiratory effort Assessment & Plan Assessment & Plan (1) 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 She is also at increased risk for endometrial cancer as well as urothelial cancers. The recommendation is for her to undergo colonoscopy every 1-2 years. She should also have a urinalysis every year. She already had a hysterectomy so she does not need vaginal ultrasound for surveillance. Upper GI endoscopy is also recommended every 2-4 years. She is also at increased risk for pancreatic cancer so she should have MRCP every year. I emphasized the above to her. I will see her again in the office in about 6 months for a follow-up so I will remind her of the above recommendations. 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
--- OUTSIDE RECORDS SUMMARY | 2025-03-12 09:58 | XMS_ITS | Clinical Summary ---
Author Organization [facility] Address [address] [place] [address] Phone Care Team Providers Care Certified Orthotist Name Role Phone Robin Barnett MD Primary Care Provider [phone]- [phone] Allergies Active Allergy Reactions Criticality Noted Date [...] from 12/27/2024:Stage IA(cT1b, cN0(sn), cM0, G1, ER+, OH+, HER2-) - Signed by Jason Garcia MD on 01/29/2025 Family history of breast cancer 01/23/2025 Hypertension 01/23/2025 History of cardiac murmur 01/23/2025 LBBB (left bundle branch block) 01/23/2025 Left breast mass 01/23/2025 Lichen sclerosus 01/23/2025 OAB (overactive bladder) 01/23/2025 Rate-related bundle branch block 01/23/2025 Encounters Date Type Department Care Team Description 01/29/2025 9:59 AM EDT - 01/29/2025 11:59 PM EDT Hospital Encounter [facility] Radiation Oncology [address] [place] [phone] Jason Garcia MD Ductal carcinoma of left breast (CMS/HCC V24, CMS/HCC V28) (Primary Dx); Breast cancer (CMS/HCC V24, CMS/HCC V28) Discharge Disposition: Home or Self Care 01/29/2025 9:52 AM EDT - 01/29/2025 11:59 PM EDT Hospital Encounter [facility] Radiation [facility]cology [address] [place] [phone] Discharge Disposition: Home or Self Care 01/26/2025 Telephone [facility]iation [facility]cology [address] [place] [phone] Esmer Alfred MA 01/10/2025 Telephone [facility]iation [facility]cology [address] [place] [phone] Esmer Alfred MA from Last 3 Months Surgical History Surgery Date Site/Laterality Comments HYSTERECTOMY ESOPHAGOGASTRODUODENOSCOPY TOTAL KNEE ARTHROPLASTY Left TOTAL HIP ARTHROPLASTY Right CARPAL TUNNEL RELEASE ROTATOR CUFF REPAIR AORTIC VALVE REPLACEMENT Medical History Medical History Date Comments Hypertension Breast cancer ([facility] V24, [facility] V28) GERD (gastroesophageal reflux disease) Family History [...] - Td or Tdap) 08/09/2023 08/09/2013, 11/11/2012 Depression Screening 08/09/2024 Cholesterol Screening (Lipid Panel) 01/10/2025 Colorectal Cancer Screening: Colonoscopy 01/10/2025 Falls Risk Assessment 01/10/2025 Hepatitis C [...] this topic Insurance [employer] MEDICARE Care Teams Certified Orthotist Relationship Specialty Start Date End Date Robin Barnett MD [address] [facility] [address] [place] [id number] PCP - General Internal Medicine 01/10/25
== END 2025-03-12 09:49 | disposition home or self-care (01) ==
LOC: HO.HGS 09:27
PROVIDERS: PCP Internal Medicine; Visit Provider Surgery
DX: Z80.3 Family history of malignant neoplasm of breast (principal); Z15.09 Genetic susceptibility to other malignant neoplasm
CPT/HCPCS: 99024

== ENCOUNTER → 2025-03-12 09:26 | Outpatient (BNVA) | payer MEDICARE, OTHER, SELFPAY | PROVIDERS: PCP Internal Medicine; Visit Provider Surgery | DX: Z15.09 Genetic susceptibility to other malignant neoplasm (principal) | CPT/HCPCS: 99212 ==

== ENCOUNTER 2025-05-12 15:25 | Emergency (ER) | payer MEDICARE, OTHER, SELFPAY ==
--- OUTSIDE RECORDS SUMMARY | 2024-08-11 04:15 | XMS_ITS ---
Author Organization Robin Barnett MD Address [address] [place] [phone] Care Team Providers Care Livestock Brands Inspector Name Role Phone Robin Barnett Primary Care Provider [phone] Results Component Value Reference Range Notes Complete Blood Count Auto Di ff Reviewed date:08/11/2024 12:05:01 PM Interpretation: Performing Lab:[facility], [address] [place] [phone] Notes/Report: White Blood Count 5.2 4.8-10.8 X10*3/uL [...] NRBC Abs Auto 0.000 0.0-0.012 X10*3/uL Comprehensive [place]. Panel Fa Reviewed date:08/11/2024 12:22:05 PM Interpretation: Performing Lab:[address] [phone] Notes/Report: Sodium 142 135-145 mmol/L Potassium 4.1 [...] PROFILE Reviewed date:08/11/2024 12:21:39 PM Interpretation: Performing Lab:[address] [phone] Notes/Report: Iron 20 30-160 mcg/dL Total Iron Binding Capacity 339 228-428 mcg/d L Percent Iron Saturation 6 15-50 % Unsaturated Iron Binding 319 Lipid Panel Reviewed date:08/11/2024 12:21:09 PM Interpretation: Performing Lab:[facility], [address] [place] [phone] Notes/Report: Triglycerides 143 <150 mg/dL Desirable Triglyceride: [...] Random Reviewed date:08/11/2024 12:16:48 PM Interpretation: Performing Lab:[facility], [address] [place] [phone] Notes/Report: Creatinine Urine 73.42 Microalbumin Urine 7.0 Microalbum/Creatinine Ratio Ur 9.5 <30 ug/mg cr Albumin/Creatinine Ratio Reference Ranges: Normal: < 30 ug/mg creatinine Microalbuminuria: 30 - 300 ug/mg creatinine Clinical Albuminuria: > 300 ug/mg creatinine Hemoglobin A1c Reviewed date:08/11/2024 12:10:09 PM Interpretation: Performing Lab:[facility], [address] [place] [phone] Notes/Report: Hemoglobin A1c % 6.2 <6.0 % [...] average glucose, using the formula of the X4W-Adguzts Average Glucose study (ADAG), Diabetes Care, Vol.31,#8, Mar. 2007 UA ClnCatch+Micro w/rflx Cul t Reviewed date:08/14/2024 10:20:30 AM Interpretation:ALFREDO 08/14/24 Performing Lab:[facility], [address] [place] [phone] Notes/Report: [id number] 0815 Urine, Clean Catch Color Urine Yellow Appearance Urine Clear PH 6.5 5.0-9.0 Glucose Urine UA Negative Negative mg/dL Urine Blood Trace Negative Specific [place] - Urine 1.015 1.005-1.025 Urine Protein Negative [...] Location Date Provider Diagnosis Robin Barnett MD [address] [place] [address] [address] [place], [place] [phone] 08/11/2024 Robin Barnett Prediabetes R73.09 ; Essential [...] Name:Robin Mena ier, 08/07/2025 07:30:00 AM, [address] [facility], [address], [place], [place], [phone], Provider Name:Robin Mena ier, 08/17/2025 08:30:00 AM, [address], [address], [place], [place], [phone], Progress Notes * Yee YUENOB: 0 (75 yo F)Acc No.[id number]:08/11/2024 Progress Note Patient: Zahra CHACON Provider: Carroll Barnett MD :1950 A ge:74 Y S ex:Female Date:08/11/2024 Address:[address] [place], [place] [phone] Subjective: * Chief Complaints: * 1 . [...] - 08/11/2024 08:15 AM) L AB: Comprehensive [place]. Panel Fast (Collection Date & Time - [...] - 08/11/2024 08:15 AM) L AB: Comprehensive [place]. Panel Fast (Collection Date & Time - [...] - 08/11/2024 08:15 AM) L AB: Comprehensive [place]. Panel Fast (Collection Date & Time - [...] MD Date: 0 08/11/2024 Generated for Lorna gutierrez/rGiselda/Víctor on: 1 05:38 PM EDT
--- OUTSIDE RECORDS SUMMARY | 2024-08-14 05:30 | XMS_ITS ---
Author Organization Robin Barnett MD Address [address] [place] [phone] Care Team Providers Care Kohinoor Operator Name Role Phone Robin Barnett Primary [...] Problem Status W/U Status Risk Notes Problem [id number] Overactive bladder (N32.81) Active confirmed Problem 47444635 Iron deficiency anemia, unspecified iron deficiency anemia type (D50.9) Active confirmed Vital Signs Blood pressure systolic 132 mm Hg 08/14/19 25 Blood pressure diastolic 58 mm Hg 025 Height 60.50 in 08/14/2024 Weight 172 lbs 08/14/2024 BMI 33.03 kg/m2 08/14/2024 weight is up 7 pounds since 04-07-24 Encounters Encounter Location Date Provider Diagnosis Robin Barnett MD [address] [place] [address] Drive [address] [place], [place] [phone] 08/14/2024 Robin Barnett Overactive bladder N 32.81 [...] bladder (ICD-10 - N32.81) order faxed to [facility] CS dept, pending diagnostic testing 08/14/2024 Gastroesophageal [...] Assessment Notes Overactive bladder order faxed to [facility] S dept, pending diagnostic testing Gastroesophageal [...] Reason: Provider Name:Robin harley, 08/07/2025 07:30:00 AM, [address] [place] [address], [address] [place] [address], [phone], Provider Name:Robin harley, 08/17/2025 08:30:00 AM, [address] [place] [address], Suite [facility], [place], [place], [phone], Progress Notes * Yee YUENOB: 0 (74 yo F)Acc No.[id number]:08/14/2024 Patient: Zahra Carnes Provider: Carroll Barnett MD :1950 A ge:74 Y S ex:Female Date:08/14/2024 Address:[address] [place], [place] Subjective: * Chief Complaints: * R eview [...] dogs:1 dog. no Travel outside of the [place]. * Medications: T akingAmoxicillin 500 MG [...] 04-07-24. * P ast Orders: L ab:Comprehensive [place]. Panel Fast (Order Date 08/11/2024) (Collection Date [...] and solution. FEMALE GENITOURINARY: d one by casting machine control board operator. EXTREMITIES: n o clubbing, cyanosis, or [...] 0 08/14/2024 Generated for Lorna gutierrez/Griselda/Sofieitting on: 05:38 PM EDT History and Physical Notes * [...] exam intact SKIN: warm and dry, no fnin picious lesions EXTREMITIES: no clubbing, cyanosi s, or edema BREASTS: No mass, no lump RECTAL EXAM: declined. sent with cards and solution FEMALE GENITOURINARY: done by casting machine control board operator ORAL CAVITY: mucosa moist
--- OUTSIDE RECORDS SUMMARY | 2024-10-12 03:00 | XMS_ITS ---
Author Organization Robin Barnett MD Address [address] [place] [phone] Care Team Providers Care Grape Grower Name Role Phone Robin Barnett Primary Care Provider [phone] Results Component Value Reference Range Notes Complete Blood Count Auto Di ff Reviewed date:10/12/2024 12:32:59 PM Interpretation: Performing Lab:[facility], [address] [place] [phone] Notes/Report: White Blood Count 5.5 4.8-10.8 X10*3/uL [...] PROFILE Reviewed date:10/12/2024 12:33:07 PM Interpretation: Performing Lab:[address] [phone] Notes/Report: Iron 42 30-160 mcg/dL Total Iron Binding Capacity 325 228-428 mcg/d L Percent Iron Saturation 13 15-50 % Unsaturated Iron Binding 283 TSH reflex Free T4 Reviewed date:10/12/2024 12:33:15 PM Interpretation: Performing Lab:[facility], [address] [place] [phone] Notes/Report: TSH reflex Free T4 3.19 0.32-4.0 uIU/mL REASON FOR VISIT CBC IRON TSH Encounters Encounter Location Date Provider Diagnosis Robin Barnett MD [address] [place] [phone] 10/12/2024 Robin Barnett Loss of hair L65.9 and Iron deficiency anemia, unspecified iron deficiency anemia type D50.9 Assessments Encounter Date Diagnosis (ICD Code) Assessment Notes Treatment Notes Treatment Clinical Notes Section Notes 10/12/2024 Loss of hair (ICD-10 - L65.9) 10/12/2024 Iron deficiency anemia, unspecified iron deficiency anemia type (ICD-10 - D50.9) Plan Of Treatment Next Appt Details Provider Name:Robin harley, 08/07/2025 07:30:00 AM, [address] [place] [address], [place] [address], [place], [place], [phone], Provider Name:Robin harley, 08/17/2025 08:30:00 AM, [address] [place] [address], [address], [place], [place], [phone], Progress Notes * Yee YUENOB: 0 (75 yo F)Acc No.[id number]:10/12/2024 Progress Note Patient: Zahra CHACON Provider: Carroll Barnett MD :1950 A ge:74 Y S ex:Female Date:10/12/2024 Address:[address] [place], [place] [phone] Subjective: * Chief Complaints: * 1 . [...] 10/12/2024 Generated for Lorna gutierrez/Griselda/Paddysmitting on: 1 05:39 PM EDT
--- OUTSIDE RECORDS SUMMARY | 2024-10-19 05:00 | XMS_ITS ---
Author Organization Robin Barnett MD Address [address] [place] [phone] Care Team Providers Care Wharf Attendant Name Role Phone Robin Barnett Primary Care [...] Robin Barnett MD [address] [place] [phone] 10/19/2024 Robin Barnett Essential hypertension I10 Assessments [...] 07:30:00 AM, [address], [address], [place], [place], [phone], Provider Name:Robin Jordan Trina ier, 08/17/2025 08:30:00 AM, [address], [address], [place], [place], [phone], Progress Notes * Yee YUENOB: 0 (74 yo F)Acc No.[id number]:10/19/2024 Progress Notes Patient: Zahra CHACON Provider: Carroll Barnett MD :1950 A ge:74 Y S ex:Female Date:10/19/2024 Address:[address] [place] [address] Subjective: * Chief Complaints: * 2 month [...] 0 10/19/2024 Generated for Lorna gutierrez/Griselda/Paddysmitting on: 05:38 PM EDT History and Physical [...]
--- OUTSIDE RECORDS SUMMARY | 2025-02-19 04:00 | XMS_ITS ---
Author Organization Robin Barnett MD Address [address] [place] [phone] Care Team Providers Care Outreach Director Name Role Phone Robin Barnett Primary Care Provider [phone] Results Component Value Reference Range Notes Complete Blood Count Auto Di ff Reviewed date:02/19/2025 12:57:13 PM Interpretation: Performing Lab:[facility], [address] [place] [phone] Notes/Report: White Blood Count 5.1 4.8-10.8 X10*3/uL [...] PROFILE Reviewed date:02/19/2025 01:00:35 PM Interpretation: Performing Lab:[facility], [address] [place] [phone] Notes/Report: Iron 42 30-160 mcg/dL Total Iron Binding Capacity 324 228-428 mcg/d L Percent Iron Saturation 13 15-50 % Unsaturated Iron Binding 282 REASON FOR VISIT CBC with diff iron profile Encounters Encounter Location Date Provider Diagnosis Robin Barnett MD [address] [place] [address] [place] [phone] 02/19/2025 Robin Barnett Iron deficiency anemia, unspecified iron deficiency anemia type D50.9 Assessments Encounter Date Diagnosis (ICD Code) Assessment Notes Treatment Notes Treatment Clinical Notes Section Notes 02/19/2025 Iron deficiency anemia, unspecified iron deficiency anemia type (ICD-10 - D50.9) Plan Of Treatment Next Appt Details Provider Name:Robin harley, 08/07/2025 07:30:00 AM, [address] [place] [address], [address], [phone], Provider Name:Robin harley, 08/17/2025 08:30:00 AM, [address] [place] [address], [address], [phone], Progress Notes * Yee YUENOB: 0 (75 yo F)Acc No.[id number]:02/19/2025 Progress Note Patient: Zahra CHACON Provider: Carroll Barnett MD :1950 A ge:74 Y S ex:Female Date:02/19/2025 Address:[address] [place], [place] [phone] Subjective: * Chief Complaints: * 1 . [...] 02/19/2025 Generated for Lorna gutierrez/Griselda/Sofieitting on: 1 05:38 PM EDT
--- NOTE | ~2025-05-12 | XR_ITS ---
CLINICAL HISTORY: weakness 2 view chest x-ray Comparison: None provided Findings: The lungs are clear. Prominent cardiac silhouette. Aortic valve replacement. Anterior cervical discectomy and fusion hardware. IMPRESSION: 1. No acute findings. This document has been electronically signed by: Mario Bledsoe MD on 05/12/2025 17:59:54
--- NOTE | ~2025-05-12 | CT_ITS ---
CLINICAL HISTORY: sudden L side neck pain, hypotension, diaphoresis --- Additional Notes or Special Instructions: R O vertebral dissection, COVID + CT head without contrast Comparison: None available Findings: No acute hemorrhage. No extra-axial fluid collection. No hydrocephalus, mass-effect or herniation. Winslow-white differentiation is maintained. There is patchy hypoattenuation of the periventricular and deep white matter, which is most likely the sequela of moderate chronic small vessel ischemic disease. No acute orbital pathology. No acute soft tissue abnormality. No fracture. The visualized paranasal sinuses are predominantly clear. The mastoid air cells are clear. Impression: No acute findings. CTA of the head and neck with 3-D postprocessing Comparison: None available Findings: No significant carotid artery stenosis. Intact vertebral arteries. The vertebral basilar system is patent. The cerebellar and posterior cerebral arteries are intact. The intracranial internal carotid arteries are patent. The middle/anterior cerebral arteries are intact. No dissection, aneurysm, abrupt cutoffs or significant stenosis. Mild tortuosity of the vasculature. No mass, midline shift, hydrocephalus, acute hemorrhage or abnormal contrast enhancement. The lung apices are clear. Thyroid nodules measure up to 3.1 cm right lobe. The soft tissues of the head and neck are otherwise unremarkable. Status post ACDF at C4 through C6. Intact hardware. Impression: No dissection, aneurysm, abrupt cutoffs or significant stenosis. Nodule in the thyroid meets size criteria for a dedicated nonemergent thyroid ultrasound. This document has been electronically signed by: Kelsey Leos MD on 05/12/2025 20:24:49
--- NOTE | 2025-05-12 15:26 | ECG_ITS ---
Test Reason : CP Blood Pressure : */* mmHG Vent. Rate : 81 BPM Atrial Rate : 81 BPM P-R Int : 138 ms QRS Dur : 138 ms QT Int : 426 ms P-R-T Axes : 40 -27 93 degrees QTcB Int : 494 ms Sinus rhythm with marked sinus arrhythmia Non-specific intra-ventricular conduction block Minimal voltage criteria for LVH, may be normal variant ( [place] product ) T wave abnormality, consider lateral ischemia Abnormal ECG When compared with ECG of 01-Mar-2003 09:10, Questionable change in QRS duration Referred By: Generic ED Physician Electronically Signed By: EMMIE HANSON
[2025-05-12 15:39] VITALS: BP 116/62; PULSE 76; RESP 20; TEMP 37.2; O2SAT 98; BMI 29.2
--- NOTE | 2025-05-12 15:43 | ED.GENADULT ---
HPI - General Adult General Chief complaint: Chest Pain Stated complaint: chest pain Time Seen by Provider: 05/12/25 17:30 Source: patient History of Present Illness ED Provider: LINDA Melendez HPI narrative: 75-year-old female with medical history of osteoarthritis, aortic stenosis s/p TAVR 2022, HTN, presents to the ED due to episode of dizziness. Patient states she was in the garden pulling weeds with her when she felt a sudden sharp left-sided neck pain with an episode of dizziness, diaphoresis that lasted approximately 10 minutes. Patient states she went inside to lie down and took her blood pressure and got a low reading of 88/55. Patient states symptoms have resolved at this time. Denies chest pain, shortness of breath, nausea, vomiting, abdominal pain, headaches, visual changes, dizziness, lightheadedness MD complaint: Dizziness Related Data Home Medications ?Medication ?Instructions ?Recorded ?Confirmed amlodipine 5 mg tablet 5 mg PO DAILY 05/30/20 03/12/25 oxybutynin chloride 5 mg tablet 5 mg PO BID 05/30/20 03/12/25 ascorbate calcium (vitamin C) 500 500 mg PO DAILY 09/15/22 03/12/25 mg tablet magnesium oxide 400 mg (241.3 mg 400 mg PO DAILY 09/15/22 03/12/25 magnesium) tablet valsartan 160 1 tab PO DAILY 10/04/23 03/12/25 mg-hydrochlorothiazide 12.5 mg tablet alpha lipoic acid 600 mg capsule 12,000 mg PO DAILY 12/05/24 03/12/25 aspirin 81 mg tablet,delayed 81 mg PO BEDTIME 12/13/24 03/12/25 release (Adult Aspirin Regimen) cholecalciferol (vitamin D3) 50 50 mcg PO DAILY 12/13/24 03/12/25 mcg (2,000 unit) capsule (Vitamin D3) pyridoxine (vitamin B6) 100 mg 100 mg PO DAILY 12/13/24 03/12/25 tablet (Vitamin B-6) Previous Rx's ?Medication ?Instructions ?Recorded omeprazole 20 mg capsule,delayed 40 mg (2 x 20 mg) PO DAILY 90 days 12/03/23 release #180 caps ibuprofen 600 mg tablet 600 mg PO Q6H PRN pain #20 tabs 12/27/24 oxycodone-acetaminophen 5 mg-325 1 tab PO Q6H PRN pain #20 tabs 12/27/24 mg tablet letrozole 2.5 mg tablet 2.5 mg PO DAILY #60 tabs 01/08/25 Allergies Allergy/AdvReac Type Severity Reaction Status Date / Time sulfamethoxazole (From Allergy Severe Rash, Verified 05/12/25 15:43 Bactrim) itching trimethoprim (From Bactrim) Allergy Severe Rash, Verified 05/12/25 15:43 itching vancomycin (VANCOMYCIN) Allergy Severe HIVES Verified 05/12/25 15:43 adhesive tape (ADHESIVE TAPE) Allergy Intermediate RASH/BLISTE Verified 05/12/25 15:43 RS Adhesive Bandages Allergy Severe rash, Uncoded 03/12/25 09:28 redness Review of Systems Review of Systems: CONST: Negative for fever, body aches and chills. HENT: Negative for neck pain/stiffness, headache, congestion, sore throat, swelling. EYES: Negative for discharge/pain or vision changes. RESP: Negative for cough/hemoptysis and shortness of breath. CV: Negative chest pain, difficulty breathing, palpitations. ABD: Negative pain, nausea, vomiting. : Negative increase frequency, dysuria, blood in urine or stool. MUSC: Negative for muscle aches, edema. SKIN: Negative rash, lesions/sores. NEURO: Negative headache, dizziness, weakness. Yes all other systems are reviewed and are negative PMFSH Past Medical History Attestation statement: The following information was validated with the patient. 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 Invasive ductal carcinoma of breast OAB (overactive bladder) Arthritis Hx of cardiac murmur Breast cancer, left Family history of breast cancer Left breast mass Lichen sclerosus of vulva LBBB (left bundle branch block) Rate-related bundle branch block Aortic stenosis HTN (hypertension) Surgical History History of pubovaginal sling (~1998) History of right hip replacement (~06/2024) History of left knee replacement (~2023) Knee joint replacement status History of esophagogastroduodenoscopy (EGD) S/P TAVR (transcatheter aortic valve replacement) Hx of carpal tunnel repair Hx of rotator cuff surgery Hx of cataract H/O right breast biopsy History of total right knee replacement H/O colonoscopy H/O: hysterectomy Family History Family History Father Heart attack Mother Bundle branch block, unspecified HTN (hypertension) Maternal Grandmother Gastric cancer Sister Brain tumor Maternal Aunt Cancer Breast cancer Social History Social History Household Members: Spouse Household Members Other:: 55 yrs- 3 sons Are you a primary assurance services manager health care to a significant other at home: No Do you presently have visiting nurse or other home services: No Alcohol intake: never Patient Tobacco Use Status: Former Tobacco user Tobacco use type: Cigarette Years Smoked: 1998 Smoked in Last 30 Days: No Use of substances other than those prescribed or required for medical reasons: No Advance Directives: Yes Advance Directives on File: Yes Advance Directives Date on File: 12/05/24 Do you have a plan to hurt others: No Plan service: No 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 HEENT: ?NC, AT. MMM. EOMI, clear conjunctiva, oropharynx clear. NECK: ?Supple without lymphadenopathy.? No stiffness or restricted ROM. HEART:? Normal rate and regular rhythm, normal S1/S2, no m/r/g LUNGS:? CTAB, moving air well. No crackles or wheezes are heard. ABDOMEN: ?Soft, nontender, nondistended BACK: No CVAT, no obvious deformity. EXTREMITIES: ?Without cyanosis, clubbing or edema. NEUROLOGICAL: ?Grossly nonfocal. Alert and oriented, moving all 4 extremities. Observed to ambulate with normal gait. Skin: ?Warm and dry without any rash. NIH Stroke Scale Internal: Initial- Upon Arrival Time: 18:40 Level of Consciousness: Alert Level of Consciousness Questions: Answers both questions correctly Level of Consciousness Commands: Performs both tasks correctly Best Gaze: Normal Visual: No visual loss Facial Palsy: Normal Motor Arm (Right): No drift Motor Arm (Left): No drift Motor Leg (Right): No drift Motor Leg (Left): No drift Limb Ataxia: Absent Sensory: Normal Best Language: No aphasia Dysarthia: Normal Extinction and Inattention: No abnormality Score: 0 Course Course Course Narrative: Medical screening exam performed. Please refer to detailed history, exam, evaluation, and management by primary provider. Weakness, near syncope, no LOC. no chest pain. Labs ordered. JS Medications Administered Discontinued Medications Generic Name Dose Route Start Last Admin Trade Name Freq PRN Reason Stop Dose Admin Lactated Ringer's 1,000 mls @ 999 mls/hr 05/12/25 18:32 05/12/25 19:30 Lr IV 05/12/25 19:32 Infused .Q1H1M ONE Infusion Iohexol 70 ml 05/12/25 19:05 05/12/25 19:08 Iohexol 350 Mg/Ml 100 Ml Infus..Btl IV 05/12/25 19:06 70 ml ONCE ONE Administration Medical Decision Making Medical Decision Making [facility] Narrative: 75-year-old female with medical history of osteoarthritis, aortic stenosis s/p TAVR 2022, HTN, presents to the ED due to episode of dizziness. Patient states she was in the garden pulling weeds with her when she felt a sudden sharp left-sided neck pain with an episode of dizziness, diaphoresis, and low BP taken at home of 88/55 that lasted approximately 10 minutes before completely resolving. VS on initial observation-BP of 129/60, pulse rate of 70, respiratory rate of 18, afebrile with oral temp of 97.8?, O2 saturation 98% on room air. Physical exam was benign, lungs clear to auscultation bilaterally, cardiac exam reveals regular rate and rhythm without murmurs/rubs/gallops. Abdomen is soft, nondistended, no rigidity, nontender. Lower extremities without edema. Neurological exam without focal neurological deficits, no speech slurring, no facial droop, no pronator drift, patient able to ambulate without ataxia, able to heel walk, able to toe walk, NIHSS score of 0. EKG reveals sinus rhythm with sinus arrhythmia, initial troponin 6.5, Labs without leukocytosis/leukopenia, normocytic anemia with a hemoglobin of 11.3, hematocrit of 34.1, no electrolyte abnormality. UA reveals 4+ urine protein, with trace LE, negative urine nitrites, negative urine bacteria, patient asymptomatic no indication for antibiotics at this time. Viral serology positive for COVID CXR negative for acute cardiopulmonary processes. Plan: CT angio head/neck to rule out vertebral dissection due to sharp sudden L side neck pain associated with dizziness, diaphoresis, orthostatic vital signs after 1L IV fluids. Patient is signed out to me pending imaging and repeat troponin. CTA of the head and neck is negative. Patient troponin is negative x2. We will plan to discharge patient home. Patient states she is asymptomatic at this time. She feels well. Differential Diagnosis Differential Diagnoses: The differential diagnosis associated with the presentation includes Stroke Vertebral dissection Orthostatic hypotension COVID Admission/Observation Consideration of admission/observation: Escalation of care including admission/observation considered Lab Data MDM Lab Attestation statement: I reviewed the patient's lab results. 05/12/25 16:39 05/12/25 16:39 Labs: Lab Results 05/12/25 05/12/25 05/12/25 Range/Units 16:39 16:41 18:42 WBC 4.9 (4.8-10.8) X10*3/uL RBC 4.20 (4.20-5.50) X10*6/uL Hgb 11.3 L (12.0-16.0) g/dl Hct 34.1 L (37.0-47.0) % MCV 81.2 (80.0-98.0) fL MCH 26.9 L (27.0-33.0) pg MCHC 33.1 (31.0-35.0) g/dl RDW 14.6 (11.0-16.0) % Plt Count 219 (160-400) X10*3/uL MPV 9.6 (9.4-12.3) fL Immature Gran % (Auto) 0.4 (0.0-0.4) % Neut % (Auto) 60.2 (45-73) % Lymph % (Auto) 22.4 (20-40) % [place] % (Auto) 12.1 H (2-11) % Eos % (Auto) 4.1 H (0-4) % Baso % (Auto) 0.8 (0-2) % Lymph # (Auto) 1.1 L (1.2-4.9) X10*3/uL [place] # (Auto) 0.6 (0.1-1.2) X10*3/uL Eos # (Auto) 0.2 (0.0-0.4) X10*3/uL Baso # (Auto) 0.0 (0.0-0.2) X10*3/uL Abs Immat Gran (auto) 0.02 (0.00-0.03) X10*3/uL Absolute Neuts (auto) 2.9 (2.0-8.3) x10*3/uL Absolute Nucleated RBC 0.000 (0.0-0.012) X10*3/uL Nucleated RBC % (auto) 0.0 (0.0-0.2) /100WBC Sodium 140 (135-145) mmol/L Potassium 4.2 (3.3-5.1) mmol/L Chloride 104 (96-108) mmol/L Carbon Dioxide 29 (22-29) mmol/L Anion Gap 11 L (12-20) BUN 26 H (9-16) mg/dL Creatinine 0.93 (0.5-1.4) mg/dL Estim Creat Clear Calc 50.6 Estimated GFR 59 Random Glucose 122 H (60-115) mg/dL Lactic Acid 1.4 (0.5-2.0) mmol/L Calcium 8.5 (8.4-10.2) mg/dL Total Bilirubin 0.1 (0.0-1.0) mg/dL AST 26 (5-31) U/L ALT 23 (0-31) U/L Alkaline Phosphatase 98 (39-117) U/L Troponin I High Sens 6.5 8.0 (<3.5-17.0) ng/L Total Protein 6.0 L (6.5-8.0) g/dL Albumin 3.1 L (3.5-5.0) g/dL Lipase 15 (8-78) U/L Urine Color Yellow Urine Appearance Clear Urine pH 7.0 (5.0-9.0) Ur Specific [place] 1.025 (1.005-1.025) Urine Protein >=1000 (4+) H (Neg-Trace) mg/dL Urine Glucose (UA) Negative (Negative) mg/dL Urine Ketones Trace (Negative) mg/dL Urine Blood Negative (Negative) Urine Nitrite Negative (Negative) Ur Leukocyte Esterase Trace H (Negative) Urine RBC 0-2 (0-2) /HPF Urine WBC 0-5 (0-5) /HPF Ur Squamous Epith Cells 3-5 (0-2) /HPF Urine Bacteria None Seen (None Seen) Hyaline Casts >20 (0-2) /LPF COVID-19 (MICHAEL) Positive A (Negative) COVID-19 Clin Com See Note Independent Interpretation I performed an independent interpretation of an: EKG Interpretation: I independently interpreted the EKG which reveals sinus rhythm with arrhythmia, no significant ST-elevation/depression Vent. Rate : 81 BPM Atrial Rate : 81 BPM P-R Int : 138 ms QRS Dur : 138 ms QT Int : 426 ms P-R-T Axes : 40 -27 93 degrees QTcB Int : 494 ms Sinus rhythm with marked sinus arrhythmia Non-specific intra-ventricular conduction block Minimal voltage criteria for LVH, may be normal variant ( [place] product ) T wave abnormality, consider lateral ischemia Abnormal ECG When compared with ECG of 01-Mar-2003 09:10, Questionable change in QRS duration Radiology Impression Discussion of test interpretation with radiology: I have reviewed the radiologist's reading. Radiologist Impression: CT angio head/neck External Record Review External record reviewed: Inpatient record, Office record and Outpatient record Chronic Conditions Patient?s care impacted by: Hypertension and Other (osteoarthritis, aortic stenosis s/p TAVR 2022) Discharge Plan Discharge Clinical Impression: Neck pain, COVID Patient Disposition: Home, Self-Care Prescriptions: No Action omeprazole 20 mg capsule,delayed release(DR/EC) 40 mg PO DAILY 90 Days Qty: 180 2RF aspirin [Adult Aspirin Regimen] 81 mg tablet,delayed release (DR/EC) 81 mg PO BEDTIME pyridoxine (vitamin B6) [Vitamin B-6] 100 mg Tablet 100 mg PO DAILY cholecalciferol (vitamin D3) [Vitamin D3] 50 mcg (2,000 unit) Capsule 50 mcg PO DAILY oxycodone-acetaminophen 5-325 mg tablet 1 tab PO Q6H PRN (Reason: pain) Qty: 20 0RF Rx Instructions: Partial Fill upon patient request. ibuprofen 600 mg tablet 600 mg PO Q6H PRN (Reason: pain) Qty: 20 0RF alpha lipoic acid 600 mg Capsule 12,000 mg PO DAILY letrozole 2.5 mg Tablet 2.5 mg PO DAILY Qty: 60 3RF amlodipine 5 mg tablet 5 mg PO DAILY oxybutynin chloride 5 mg tablet 5 mg PO BID magnesium oxide 400 mg (241.3 mg magnesium) tablet 400 mg PO DAILY ascorbate calcium (vitamin C) 500 mg tablet 500 mg PO DAILY valsartan-hydrochlorothiazide 160-12.5 mg tablet 1 tab PO DAILY Interventions: ED Discharge Assessment Last Done: 05/12/25 22:07 Discharge Date/Time: 05/12/25 22:07 Print Language: [place]
[2025-05-12 16:44] LABS: MANUAL DIFF FLAG NO
[2025-05-12 16:45] LABS: Hematocrit 34.1 % (37.0-47.0); Hemoglobin 11.3 g/dl (12.0-16.0); Imm Gran Abs Auto 0.02 X10*3/uL (0.00-0.03); Imm Gran Pct Auto 0.4 % (0.0-0.4); Lymphocytes Absolute Auto 1.1 X10*3/uL (1.2-4.9); Mean Corpuscular HGB Conc 33.1 g/dl (31.0-35.0); Mean Corpuscular Hemoglobin 26.9 pg (27.0-33.0); Mean Corpuscular Volume 81.2 fL (80.0-98.0); NRBC Abs Auto 0.000 X10*3/uL (0.0-0.012); NRBC Pct Auto 0.0 /100WBC (0.0-0.2); Platelet Count 219 X10*3/uL (160-400); Red Blood Count 4.20 X10*6/uL (4.20-5.50); White Blood Count 4.9 X10*3/uL (4.8-10.8)
[2025-05-12 16:56] LABS: Appearance Urine Clear; Glucose Urine UA Negative (Negative); PH 7.0 (5.0-9.0); Specific Gravity - Urine 1.025 (1.005-1.025); UMIC TRIGGER UA YES
[2025-05-12 17:02] LABS: COVID-19 Test Positive (Negative); IDNOW Serial# 55D5AD1C
[2025-05-12 17:04] LABS: Alanine Aminotransferase 23 U/L (0-31); Albumin Level 3.1 g/dL (3.5-5.0); Alkaline Phosphatase 98 U/L (39-117); Anion Gap 11 (12-20); Aspartate Amino Transferase 26 U/L (5-31); Blood Urea Nitrogen 26 mg/dL (9-16); Calcium 8.5 mg/dL (8.4-10.2); Carbon Dioxide 29 mmol/L (22-29); Chloride 104 mmol/L (96-108); Creatinine Clr Calc Pharmacy 50.6; Estimated Glomerular Filt Rate 59; Lipase 15 U/L (8-78); Potassium 4.2 mmol/L (3.3-5.1); Sodium 140 mmol/L (135-145); Total Protein 6.0 g/dL (6.5-8.0)
[2025-05-12 17:11] LABS: Troponin-I High Sensitivity 6.5 ng/L (<3.5-17.0)
--- NOTE | 2025-05-12 17:32 | PC.NURSE ---
patient a&ox3, vss, pt states all symptoms have resolved. denies pain/discomfort, swabs, labs, ekg and cxr previoiusly obtained, awaiting results and provider.
[2025-05-12 17:33] VITALS: BP 129/60; PULSE 70; RESP 18; TEMP 36.6; O2SAT 98
--- OUTSIDE RECORDS SUMMARY | 2025-05-12 17:39 | XMS_ITS | Patient Health Record ---
Author Organization Robin Barnett MD Address [address] [place], [place] [id number] Care Team Providers Care Spice Miller Name Role Phone Robin Barnett Primary Care Provider Allergies Allergen (clinical drug ingredient) Drug/Non Drug Allergy documented on EMR Reaction Allergy Type Onset Date Status vancomycin Vancomycin HCl hives Drug Allergy A ctive sulfamethoxazole / trimethoprim Bactrim GI Upset Drug Allergy Active Tape (uncoded) redness infection Allergy Active Results Component Value Reference Range Notes Complete Blood Count Auto Di ff Reviewed date:08/11/2024 12:05:01 PM Interpretation: Performing Lab:[facility], [address] [place] [phone] Notes/Report: White Blood Count 5.2 4.8-10.8 X10*3/uL [...] NRBC Abs Auto 0.000 0.0-0.012 X10*3/uL Comprehensive [place]. Panel Fa st Reviewed date:08/11/2024 12:22:05 PM Interpretation: Performing Lab:[address] [address] Notes/Report: Sodium 142 135-145 mmol/L Potassium 4.1 [...] Reviewed date:08/11/2024 12:21:39 PM Interpretation: Performing Lab:[address] [address] Notes/Report: Iron 20 30-160 mcg/dL Total Iron Binding Capacity 339 228-428 mcg/dL Percent Iron Saturation 6 15-50 % Unsaturated Iron Binding 319 Lipid Panel Reviewed date:08/11/2024 12:21:09 PM Interpretation: Performing Lab:[facility], [address] [place] [phone] Notes/Report: Triglycerides 143 <150 mg/dL Desirable Triglyceride: [...] Random Reviewed date:08/11/2024 12:16:48 PM Interpretation: Performing Lab:[facility], [address] [place] [phone] Notes/Report: Creatinine Urine 73.42 Microalbumin Urine 7.0 Microalbum/Creatinine Ratio Ur 9.5 <30 ug/mg cr Albumin/Creatinine Ratio Reference Ranges: Normal: < 30 ug/mg creatinine Microalbuminuria: 30 - 300 ug/mg creatinine Clinical Albuminuria: > 300 ug/mg creatinine Hemoglobin A1c Reviewed date:08/11/2024 12:10:09 PM Interpretation: Performing Lab:[facility], [address] [place] [phone] Notes/Report: Hemoglobin A1c % 6.2 <6.0 % [...] average glucose, using the formula of the Z0B-Wqygsrs Average Glucose study (ADAG), Diabetes Care, Vol.31,#8, 2007 UA ClnCatch+Micro w/rflx Cul t Reviewed date:08/14/2024 10:20:30 AM Interpretation:ALFREDO 08/14/24 Performing Lab:[facility], [address] [place] [phone] Notes/Report: [id number] Urine, Clean Catch Color Urine Yellow Appearance Urine Clear PH 6.5 5.0-9.0 Glucose Urine UA Negative Negative mg/dL Urine Blood Trace Negative Specific Jerome - Urine 1.015 1.005-1.025 Urine Protein Negative [...] ff Reviewed date:10/12/2024 12:32:59 PM Interpretation: Performing Lab:[facility], [address] [place] [phone] Notes/Report: White Blood Count 5.5 4.8-10.8 X10*3/uL [...] PROFILE Reviewed date:10/12/2024 12:33:07 PM Interpretation: Performing Lab:[address] [address] Notes/Report: Iron 42 30-160 mcg/dL Total Iron Binding Capacity 325 228-428 mcg/dL Percent Iron Saturation 13 15-50 % Unsaturated Iron Binding 283 TSH reflex Free T4 Reviewed date:10/12/2024 12:33:15 PM Interpretation: Performing Lab:[address] [address] Notes/Report: TSH reflex Free T4 3.19 0.32-4.0 uIU/mL Complete Blood Count Auto Di ff Reviewed date:02/19/2025 12:57:13 PM Interpretation: Performing Lab:[address] [address] Notes/Report: White Blood Count 5.1 4.8-10.8 X10*3/uL [...] 0.0-0.2 /100WBC Neutrophils Absolute Auto 2.5 2.0-8.3 x10*3/uL Imm Gran Abs Auto 0.02 0.00-0.03 X10*3/uL Lymphocytes Absolute Auto 1.7 1.2-4.9 X10*3/uL Monocytes Absolute Auto 0.5 0.1-1.2 X10*3/uL Eosinophils Absolute Auto 0.2 0.0-0.4 X10*3/uL Basophils Absolute Auto 0.0 0.0-0.2 X10*3/uL NRBC Abs Auto 0.000 0.0-0.012 X10*3/uL IRON PROFILE Reviewed date:02/19/2025 01:00:35 PM Interpretation: Performing Lab:[facility], [address] [place] [phone] Notes/Report: Iron 42 30-160 mcg/dL Total Iron Binding Capacity 324 228-428 mcg/dL Percent Iron Saturation 13 15-50 % Unsaturated Iron Binding 282 US carotid duplex BI Reviewed date:08/24/2024 05:28:39 PM Interpretation: Performing Lab: Notes/Report: [address] [address] Ultrasound Report Signed Patient: Zahra Feliz MR#: [id number] 0023 : 1950 Acct:[id number] Age/Sex: 74 / F ADM Date: 08/23/24 Loc: HO.US Attending Dr: Robin Barnett MD Ordering Physician: Robin Barnett MD Date of Service: 08/23/24 Procedure(s): US carotid duplex BI Accession Number(s): [id number] cc: Robin Barnett MD EXAMINATION: BILATERAL CAROTID [...] 08/24/24 0746 DD/ 1542 TD/TT: 08/23/24 1600 [employer] Associate: [place] [address] Ultrasound Report Signed Patient: Gaby Feliz MR#: [id number] 0023 : 1950 Acct:[id number] Age/Sex: 74 / F ADM Date: 08/23/24 Loc: HO. Attending Dr: Robin Barnett MD Ordering Physician: Robin Barnett MD Date of Service: 08/23/24 Procedure(s): US car otid duplex BI Accession Number(s): [id number] cc: Robin Barnett MD EXAMINATION: BILATER AL [...] 0.98 ECA: 74.5 Peak ICA EDV: 28.7 ____ U S/US carotid duplex BI IMPRESSION: Normal examination o f the carotid arteries. No significant stenosis. Electronically dao d by: Yannick Walton MD 08/24/2024 07:46 AM EST Dictated By: Yannick Walton MD Signed By: <Electron ically signed by Yannick Walton MD in OV> 08/24/24 0746 DD/ 1542 TD/TT: 08/23/24 1600 [facility] Home Associate: MM tomosynthesis screening B I Reviewed date:10/12/2024 04:55:08 PM Interpretation: Performing Lab: Notes/Report: [facility] [address] [place], [place] [address] Mammography Report Signed Patient: Zahra Feliz MR#: [id number] 0023 : 1950 Acct:[id number] Age/Sex: 74 / F ADM Date: 10/10/24 Loc: HO.MAMMO Attending Dr: Robin Barnett MD Ordering Physician: Robin Barnett MD Results: 0In complete: Needs Additional Imaging Evaluation Date of Service: 10/10/24 Follow Up: Additional Imagi ng Procedure(s): MM tomosynthesis screening BI Accession Number(s): [id number] cc: Robin Barnett MD EXAMINATION: MM SCREENING [...] 10/12/24 1138 DD/ 0915 TD/TT: 10/10/24 0932 Funeral Home Associate: [facility] [address] [place] [address] Mammography Report Signed Patient: Gaby Feliz MR#: [id number] 0023 : 1950 Acct:[id number] Age/Sex: 74 / F ADM Date: 10/10/24 Loc: HO.MAMMO Attending Dr: Robin Barnett MD Ordering Physician: Robin Barnett MD Results: 0In complete: Needs Amish tional Imaging Evaluation Date of Service: 12/01 Follow Up: Additional Imagi ng Procedure(s): MM tomosynthesis screening BI Accession Number(s): [id number] cc: Robin Barnett MD EXAMINATION: MM SCREENING [...] By: Lakesha Dumont DO Signed By: <Rayo icalldevin signed by Lakesha Dumont DO in OV> 10/12/24 1138 DD/ 0915 TD/TT: 10/10/24 0932 Funeral Home Associate: Janice Cruz Reviewed date:10/12/2024 12:30:21 PM Interpretation: Performing Lab:[facility], [address] [place] [address], [place] [address] Notes/Report: Janice Cruz See Note Specimen held untested for 24 hours; Call to request Chemistry testing. MM tomosynthesis added views L Reviewed date:11/17/2024 05:21:48 PM Interpretation: Performing Lab: Notes/Report: [facility]'s [address] [place] [address] Mammography Report Signed Patient: Zahra Feliz MR#: [id number] 0023 : 1950 Acct:[id number] Age/Sex: 74 / F ADM Date: 11/02/24 Loc: HO.MAMMO Attending Dr: Robin Barnett MD Ordering Physician: Robin Barnett MD Results: 4Su spicious Finding Date of Service: 11/02/24 Follow Up: Biopsy Recommend ed Procedure(s): MM tomosynthesis added views L Accession Number(s): [id number] cc: Robin Barnett MD EXAMINATION: MM DIAGNOSTIC [...] 11/02/24 1312 DD/ 1230 TD/TT: 11/02/24 1230 Funeral Home Associate: [facility] [address] [place] [address] [place] [address] Mammography Report Signed Patient: Gaby Feliz MR#: [id number] 0023 : 1950 Acct:[id number] Age/Sex: 74 / F ADM Date: 11/02/24 Loc: HO.MAMMO Attending Dr: Robin Barnett MD Ordering Physician: Robin Barnett MD Results: 4Su spicious Finding Date of Service: Follow Up: Biopsy Recommend ed Procedure(s): MM tomosynthesis added views L Accession Number(s): [id number] cc: Robin Barnett MD EXAMINATION: MM DIAGNOSTIC DIGITA L BREAST TOMOSYNTHESIS, LEFT Limited left breast ultrasound. CLINICAL INFORMATION: Call back from zara berkowitz for asymmetry with questioned distortion in the lateral left evelyn ast posterior depth on CC view. COMPARISON: [...] 11/02/24 1312 DD/ 1230 TD/TT: 11/02/24 1230 Funeral Home Associate: US breast LT limited mamm on ly Reviewed date:11/20/2024 08:30:49 AM Interpretation: Performing Lab: Notes/Report: [address] [place] [address] Ultrasound Report Signed Patient: Zahra Feliz MR#: [id number] 0023 : 1950 Acct:[id number] Age/Sex: 74 / F ADM Date: 11/02/24 Loc: HO.MAMMO Attending Dr: Robin Barnett MD Ordering Physician: Robin Barnett MD Date of Service: 11/02/24 Procedure(s): US breast LT limited mamm only Accession Number(s): [id number] cc: Robin Barnett MD EXAMINATION: MM DIAGNOSTIC [...] Dumont DO 11/02/2024 01:12 PM EDT RP Workstation: [employer] Dictated By: Lakesha Dumont DO Signed By: <Electronically signed by Lakesha Dumont DO in OV> 11/02/24 1312 DD/ 1300 TD/TT: 11/02/24 1318 Funeral Home Associate: [facility] [address] [place] [address] Ultrasound Report Signed Patient: Gaby Feliz MR#: [id number] 0023 : 1950 Acct:[id number] Age/Sex: 74 / F ADM Date: 11/02/24 Loc: HO.MAMMO Attending Dr: Robin Barnett MD Ordering Physician: Robin Barnett MD Date of Service: 11/02/24 Procedure(s): US evelyn ast LT limited mamm only Accession Number(s): [id number] cc: Robin Barnett MD EXAMINATION: MM DIAGNOSTIC DIGITA L BREAST TOMOSYNTHESIS, LEFT Limited left breast ultrasound. CLINICAL INFORMATION: Call back from zara berkowitz for asymmetry with questioned distortion in the lateral left evelyn ast posterior depth on CC view. COMPARISON: [...] By: Lakesha Dumont DO Signed By: <Rayo harmon signed by Lakesha Dumont DO in OV> 11/02/24 1312 DD/ 1300 TD/TT: 11/02/24 1318 Funeral Home Associate: Pathology Reviewed date:11/24/2024 07:18:25 PM Interpretation: Performing Lab:[facility], [address] [place] [phone] Notes/Report: ------ Name: Zahra Feliz Age/Sex: 74/F : 1950 Unit#: [id number] Attend Dr: Robin Barnett MD Re11/22/24 Status : DEP [facility]ch: ------ SPEC : [id number] RECD : 11/22/24 STATUS: PERLA BEDOYA NUM: [id number] EMILY: 11/22/24-830 [facility] DR: Lakesha Dumont DO ENTERED: 11/22/24- 53 SP TYPE: Surgical OTHR DR: Robin Barnett MD ORDERED: HE Stain/2, Gross Micro L4, ER, MA, IHC ER/MA/Her2N/4, Ki-67, [id number] COMMENTS: As per the specimen requisition slip the specimen is collected at 0831 an d placed in formalin at 0835. Diagnosis Breast, left mass at 2 o'clock, biopsy: Invasive ductal carcinoma, MSBR grade 1. See description. Estrogen receptor: Positive (100% of tumor cells; strong intensity) Progesterone recepto r: Positive (50% of tumor cells; weak to moderate intensity) HER2: Negative (fewe r than 10% of tumor cells with weak incomplete staining) Proliferation index: Low (5% of tumor cells by Ki-67 immunostaining) Breast Biopsy Data Synopsis Procedure: Core biopsy Specimen laterality: Left at 2:00 Histologic type: Ductal Histologic grade ([place]/MSBR histologic score): 1 - Glandular/tubular differentiation: Score: [...] Ca vs other CONTINUED ON NEXT PAGE ------ Name: Zahra Feliz Age/Sex: 74/F : 1950 Unit#: [id number] Attend Dr: Robin Barnett MD Re11/22/24 Status : DEP REF Location: HO.MAMMO Disch: ------ SPEC : [id number] RECD : 11/22/24 STATUS: PERLA BEDOYA NUM: [id number] EMILY: 11/22/24 [facility] DR: Lakesha Dumont DO ENTERED: 11/22/24-11 53 SP TYPE: Surgical OTHR DR: Robin Barnett MD ORDERED: HE Stain/2, Gross Micro L4, ER, MA, IHC ER/MA/Her2N/4, Ki-67, [id number] COMMENTS: As per the specimen requisition slip the specimen is collected at 0831 an d placed in formalin at 0835. Gross Description Received in formalin labeled ?left breast mass 2 o'clock are several minute to 1.3 cm in greatest dimension irregular shards and cylindrical threads of semitranslucent and opaque, quezada-white and franklin-yellow fibrofatty tissue, submitted in toto in a cassette labeled A. CEDS Formalin-fixed paraffin-embedded tissue. Time tissue removed from patient: 830 Time tissue placed i n fixative: 834 Duration of fixation : between 6 and 24 hrs. Estrogen and Progest erone receptor immunohistochemistry performed in accordance with ASCO/CAP recommendat ions (2010). Estrogen receptor: C lone SP1; [employer] Envision+ Dual Link System-HRP. Progesterone recepto r: Clone LvM087; [employer] Mach 4 detection system. Her-2/lashonda immunohistochemistry performed in accordance with ASCO/CAP recommendations (2007) and update (2013). Hercep Test Detection system: Po lymer type Scoring criteria: For ER/MA and Her-2/ lashonda: All internal (if present) and external controls react appropriately. ER and MA immunostai ns are scored as Positive (> 10% of tumor cell nuclei), Low Positive (1- 10% of tumor cell nu clei) or Negative (<1% of tumor cell nuclei) with associated staining intensity designatio n. The Negative category is further delineated by the presence or absence of internal positive control tissue. The HER2 immunostain assay is resulted as Positive (3+) with intense, complete membranous staining of more than 10% [...] Testing in Breast CONTINUED ON NEXT PAGE ------ Name: Zahra Feliz Age/Sex: 74/F : 1950 Unit#: [id number] Attend Dr: Robin Barnett MD Re11/22/24 Status : DEP REF Location: HO.MAMMO Disch: ------ SPEC : [id number] RECD : 11/22/24 STATUS: PERLA BEDOYA NUM: [id number] EMILY: 11/22/24 [facility] DR: Lakesha Dumont DO ENTERED: 11/22/24- 53 SP TYPE: Surgical OTHR DR: Robin Barnett MD ORDERED: HE Stain/2, Gross Micro L4, ER, MA, IHC ER/MA/Her2N/4, Ki-67, [id number] COMMENTS: As per the specimen requisition slip the specimen is collected at 0831 an d placed in formalin at 0835. Gross Description (Continued) Cancer: ASCO/CAP Cli nical Practice Guideline Focus Update. Arch of Pathol Lab Med, 142, 2018: 1375-3513. Trixie KH, Hong ME, et al. Estrogen and Progesterone Receptor Testing in Breast Cancer: ASCO/CAP Guideline U pdate. Arch of Pathol Lab Med, 144 2020: 545-563. Britt N, Gaviota P , et al. Adjuvant abemaciclib combined with endocrine therapy for high- risk early breast ca ncer: updated efficacy and Ki-67 analysis from the [facility] study. Georgie Oncol. 2021 Dec;32(12):9563-8832. This case was review ed intradepartmentally; results were communicated to Drs. Melendez and Tim via secure text on 11/24/2024. Special studies orde red and performed: Immunostains for ER, MA, HER2 and Ki 67 Copies To: Robin Barnett MD [facility] [address] [place] [address] [place] [address] Lakesha Dumont DO [address] [place] [address] [place] [address] ------ Signed (signature on file) Zan Max MD 11/24/24 1115 ------ END OF REPORT MM tomosynthesis diagnostic LT Reviewed date:11/28/2024 12:28:38 PM Interpretation: Performing Lab: Notes/Report: [facility] [address] [place] [address] Mammography Report Signed with Volodymyr Patient: Zahra Feliz MR#: [id number] 0023 : 1950 Acct:[id number] Age/Sex: 74 / F ADM Date: 11/22/24 Loc: XENIAO Attending Dr: Robin Barnett MD Ordering Physician: Robin Barnett MD Results: 1Ne gative Date of Service: 11/22/24 Follow Up: 1 Year From Orig inal Mammogram Procedure(s): MM tomosynthesis diagnostic LT Accession Number(s): [id number] cc: Robin Barnett MD ADDENDUM ADDENDUM #1 [...] 11/23/24 1423 DD/ 0815 TD/TT: 11/22/24 0852 Funeral Home Associate: [facility] [address] [place] [address] Mammography Report Signed with Addenda Patient: Gaby Feliz MR#: [id number] 0023 : 1950 Acct:[id number] Age/Sex: 74 / F ADM Date: 11/22/24 Loc: HO.MAMMO Attending Dr: Robin Barnett MD Ordering Physician: Robin Barnett MD Results: 1Ne gative Date of Service: Follow Up: 1 Year From [facility] Mammogram Procedure(s): MM tomosynthesis diagnostic LT Accession Number(s): [id number] cc: Robin Barnett MD ADDENDUM ADDENDUM #1 [...] By: Lakesha Dumont DO Signed By: <Rayo harmon signed by Lakesha Dumnot DO in OV> 11/23/24 1423 DD/ 4 TD/TT: 11/22/24851 Funeral Home Associate: US breast ndl core biopsy LT Reviewed date:11/28/2024 12:29:41 PM Interpretation: Performing Lab: [facility]Report: [facility] [address] [place] [address] Ultrasound Report Signed with Addenda Patient: Zahra Feliz MR#: [id number] 0023 : 1950 Acct:[id number] Age/Sex: 74 / F ADM Date: 11/22/24 Loc: HO.MAMMO Attending Dr: Robin Barnett MD Ordering Physician: Dhaval Melendez MD Date of Service: 11/22/24 Procedure(s): US breast ndl core biopsy LT Accession Number(s): [id number] cc: Robin Barnett MD; Dhaval Melendez MD [...] 11/23/24 1423 DD/ 0800 TD/TT: 11/22/24 0900 Funeral Home Associate: [facility] [address] [place], [place] [address] Ultrasound Report Signed with Addenda Patient: Gaby Feliz MR#: [id number] 0023 : 1950 Acct:[id number] Age/Sex: 74 / F ADM Date: 11/22/24 Loc: HO.MAMMO Attending Dr: Robin Barnett MD Ordering Physician: Dhaval Melendez MD Date of Service: 11/22/24 Procedure(s): US evelyn ast ndl core biopsy LT Accession Number(s): [id number] cc: Robin Barnett MD; Dhaval Melendez MD [...] 11/23/24 1423 DD/ 0800 TD/TT: 11/22/24 0900 Funeral Home Associate: MM tomosynthesis diagnostic LT Reviewed date:12/20/2024 06:55:58 PM Interpretation: Performing Lab: Notes/Report: [facility] [place] [address] Mammography Report Signed Patient: Zahra Feliz MR#: [id number] 0023 : 1950 Acct:[id number] Age/Sex: 74 / F ADM Date: 12/20/24 Loc: HO.MAMMO Attending Dr: Dhaval Melendez MD Ordering Physician: Dhaval Melendez MD Results: 1Neg ative Date of Service: 12/20/24 Follow Up: 1 Year From [facility] Mammogram Procedure(s): MM tomosynthesis diagnostic LT Accession Number(s): [id number] cc: Robin Barnett MD; Dhaval Melendez MD EXAMINATION: Ultrasound GUIDED RFID LOCALIZATION BREAST, LEFT CLINICAL INFORMATION: Biopsy-proven left breast invasive ductal carcinoma 2:00. COMPARISON: Priors on PACS. TECHNIQUE NEEDLE LOC: Proper informed consent is obtained from the patient after discussion of the procedure, potential risks and complications, and alternatives including declining the procedure today. Patient was given an opportunity for questions. The patient appeared to understand. The patient consented to the procedure and signed the consent form. GUIDANCE: Ultrasound. APPROACH: Lateral. TARGET: Left breast mass 2:00.. ANESTHESIA: lidocaine. LOCALIZATION SYSTEM: listedplaces LOCallizer Wire-Free Guidance System with 12g needle applicator. RADIOFREQUENCY TAG: ID # [id number] RF Tag ID confirmed with LOCalizer Guidance System prior to placement. The skin is prepped and local anesthesia administered. The needle is positioned and RFID tag deployed. Final images demonstrate the LOCalizer RF tag to reside adjacent to the clip within the mass. The patient tolerated the procedure well and had no immediate complications. Dressing placed and home instructions reviewed. MM/MM tomosynthesis diagnostic LT IMPRESSION: -Status post left breast RFID localization. Electronically signed by: Lakesha Dumont DO 12/20/2024 10:47 AM EDT Dictated By: Lakesha Dumont DO Signed By: <Electronically signed by Lakesha Dumont DO in OV> 12/20/24 1047 DD/ 08 TD/TT: 12/20/24 08 Funeral Home Associate: [facility] [address] [place] [address] Mammography Report Signed Patient: Gaby Feliz MR#: [id number] 0023 : 1950 Acct:[id number] Age/Sex: 74 / F ADM Date: 12/20/24 Loc: HO.MAMMO Attending Dr: Smiley Melendez MD Ordering Physician: Dhaval Melendez MD Results: 1Neg ative Date of Service: Follow Up: 1 Year From Orig ina Mammogram Procedure(s): MM tomosynthesis diagnostic LT Accession Number(s): [id number] cc: Robin Barnett MD; Dhaval Melendez MD EXAMINATION: Ultrasound GUIDED RF ID LOCALIZATION BREAST, LEFT CLINICAL INFORMATION: Biopsy-proven left b reast invasive ductal carcinoma 2:00. COMPARISON: Priors on PACS. TECHNIQUE NEEDLE LOC: Proper informed cons ent is obtained from the patient after discussion of the procedure, potential risks and complications, and alternatives including declining the procedure today. Patient was given an opportunity for ques tions. The patient appeared to understand. The patient consented to the procedure and signed the consent form. GUIDANCE: Ultrasound. APPROACH: Lateral. TARGET: Left breast mass 2:00.. ANESTHESIA: lidocaine. LOCALIZATION SYSTEM: listedplaces LOCallizer Wire-Free Guidance System with 12g needle applicator. RADIOFREQUENCY TAG: ID # [id number] RF Tag ID confirmed with LOCalizer Guidance System prior to placement. The skin is prepped and local anesthesia administered. The needle is positioned and RFID tag deployed. Final images demonst rate the LOCalizer RF tag to reside adjacent to the clip within the mass. The patient tolerate d the procedure well and had no immediate complications. Dress ing placed and home instructions reviewed. M M/MM tomosynthesis diagnostic LT IMPRESSION: -Status post left br east RFID localization. Electronically dao d by: Lakesha Dumont DO 12/20/2024 10:47 AM EDT RP Dictated By: Lakesha Dumont DO Signed By: <Electronically signed by Lakesha Dumont DO in OV> 12/20/24 1047 DD/ 08 TD/TT: 12/20/24 08 Funeral Home Associate: US Breast RF Tag Device Left Reviewed date:12/20/2024 06:54:22 PM Interpretation: Performing Lab: Notes/Report: [facility] [place] [address] Ultrasound Report Signed Patient: Zahra Feliz MR#: [id number] 0023 : 1950 Acct:[id number] Age/Sex: 74 / F ADM Date: 12/20/24 Loc: HO.MAMMO Attending Dr: Dhaval Melendez MD Ordering Physician: Dhaval Melendez MD Date of Service: 12/20/24 Procedure(s): US Breast RF Tag Device Left Accession Number(s): [id number] cc: Robin Barnett MD; Dhaval Melendez MD EXAMINATION: Ultrasound GUIDED RFID LOCALIZATION BREAST, LEFT CLINICAL INFORMATION: Biopsy-proven left breast invasive ductal carcinoma 2:00. COMPARISON: Priors on PACS. TECHNIQUE NEEDLE LOC: Proper informed consent is obtained from the patient after discussion of the procedure, potential risks and complications, and alternatives including declining the procedure today. Patient was given an opportunity for questions. The patient appeared to understand. The patient consented to the procedure and signed the consent form. GUIDANCE: Ultrasound. APPROACH: Lateral. TARGET: Left breast mass 2:00.. ANESTHESIA: lidocaine. LOCALIZATION SYSTEM: listedplaces LOCallizer Wire-Free Guidance System with 12g needle applicator. RADIOFREQUENCY TAG: ID # [id number] RF Tag ID confirmed with LOCalizer Guidance System prior to placement. The skin is prepped and local anesthesia administered. The needle is positioned and RFID tag deployed. Final images demonstrate the LOCalizer RF tag to reside adjacent to the clip within the mass. The patient tolerated the procedure well and had no immediate complications. Dressing placed and home instructions reviewed. US/US Breast RF Tag Device Left IMPRESSION: -Status post left breast RFID localization. Electronically signed by: Lakesha Dumont DO 12/20/2024 10:47 AM EDT RP Dictated By: Lakesha Dumont DO Signed By: <Electronically signed by Lakesha Dumont DO in OV> 12/20/24 1047 DD/ 0800 TD/TT: 12/20/24 08 Funeral Home Associate: [facility] [address] [place] [address] Ultrasound Report Signed Patient: Gaby Feliz MR#: [id number] 0023 : 1950 Acct:[id number] Age/Sex: 74 / F ADM Date: 12/20/24 Loc: HO.MAMMO Attending Dr: Smiley Melendez MD Ordering Physician: Dhaval Melendez MD Date of Service: 12/20/24 Procedure(s): US Evelyn ast RF Tag Device Left Accession Number(s): [id number] cc: Robin Barnett MD; Dhaval Melendez MD EXAMINATION: Ultrasound GUIDED RF ID LOCALIZATION BREAST, LEFT CLINICAL INFORMATION: Biopsy-proven left b reast invasive ductal carcinoma 2:00. COMPARISON: Priors on PACS. TECHNIQUE NEEDLE LOC: Proper informed cons ent is obtained from the patient after discussion of the procedure, potential risks and complications, and alternatives including declining the procedure today. Patient was given an opportunity for ques tions. The patient appeared to understand. The patient consented to the procedure and signed the consent form. GUIDANCE: Ultrasound. APPROACH: Lateral. TARGET: Left breast mass 2:00.. ANESTHESIA: lidocaine. LOCALIZATION SYSTEM: listedplaces LOCallizer Wire-Free Guidance System with 12g needle applicator. RADIOFREQUENCY TAG: ID # [id number] RF Tag ID confirmed with LOCalizer Guidance System prior to placement. The skin is prepped and local anesthesia administered. The needle is positioned and RFID tag deployed. Final images demonst rate the LOCalizer RF tag to reside adjacent to the clip within the mass. The patient tolerate d the procedure well and had no immediate complications. Dress ing placed and home instructions reviewed. U S/US Breast RF Tag Device Left IMPRESSION: -Status post left br east RFID localization. Electronically dao d by: Lakesha Dumont DO 12/20/2024 10:47 AM EDT Dictated By: Lakesha Dumont DO Signed By: <Electron ically signed by Lakesha Dumont DO in OV> 12/20/24 1047 DD/ 0800 TD/TT: 12/20/24 0825 [facility] Associate: Pathology Reviewed date:12/29/2024 12:47:26 PM Interpretation: Performing Lab:[facility], [address] [place] [phone] Notes/Report: ------ Name: Zahra Feliz Age/Sex: 74/F : 1950 Unit#: [id number] Attend Dr: Dhaval Melendez MD Re12/27/24 Status : [facility] Location: [facility] Disch: ------ SPEC : [id number] RECD : 12/27/24-1312 STATUS: PERLA BEDOYA NUM: [id number] EMILY: 12/27/24-1308 [facility] DR: Dhaval Melendez MD ENTERED: 12/27/24-13 16 SP TYPE: Surgical OTHR DR: Robin Barnett MD ORDERED: HE Stain/4, Gross Micro L4/2, Gross Micro L5/4, Cytokeratin/6, IOC, IHC/2 COMMENTS: Cassettes A1-A9 are placed in formalin at 1342. Diagnosis A. Breast, left, lumpectomy: -Invasive ductal carcinoma, MSBR grade 1, 7 mm (pT1b). -Final margins free of tumor -at least 6 mm to anterior -at least 8 mm to medial -Focal ductal carcin harleen in situ, nuclear grade 1. -Final margins free of tumor -at least 5 mm to anterior -Fibrocystic change with dense stromal fibrosis, focal apocrine metaplasia and focal sclerosing adenosis. -Biopsy site with ma rker and epidermal inclusion. B. Lymph node, senti abbie #1-count 1600, biopsy: -One lymph node, neg ative for metastatic carcinoma. C. Lymph nodes, amish tional axillary tissue, excision: -One lymph node, neg ative for metastatic carcinoma. D. Lymph node, addit ional axillary, biopsy: -One lymph node, neg ative for metastatic carcinoma. E. Lymph node, senti abbie node #2-, 1100, biopsy: -One lymph node, neg ative for metastatic carcinoma. F. Breast, left, additional anterior medial margin: -No carcinoma identified. -Benign breast tissu e with stromal fibrosis. Synoptic Data - Clara clal Breast Cancer Procedure: Lumpectom y, margin revision, sentinel and axillary lymph nodes Laterality: Left Tumor size: 7 mm Tumor focality: Unifocal Extent of tumor Skin: No skin present Nipple: Nipple not present Skeletal muscle: Mus kimberli not present DCIS: Present, cribriform CONTINUED ON NEXT PAGE ------ Name: TriniZahra J Age/Sex: 74/F : 1950 Unit#: [id number] Attend Dr: Dhaval Melendez MD Re12/27/24 Status : [facility] Location: [facility] Disch: ------ SPEC : [id number] RECD : 12/27/24-1311 STATUS: PERLA BEDOYA NUM: [id number] EMILY: 12/27/24-1308 [facility] DR: Dhvaal Melendez MD ENTERED: 12/27/24-13 16 SP TYPE: Surgical OTHR DR: Robin Barnett MD ORDERED: HE Stain/4, Gross Micro L4/2, Gross Micro L5/4, Cytokeratin/6, IOC, IHC/2 COMMENTS: Cassettes A1-A9 are placed in formalin at 1342. Diagnosis (Continued) Nuclear grade: 1 Extent: EIC negative LCIS: Not identified Type of invasive carcinoma: Invasive ductal carcinoma Histologic grade (MSBR): 1 Tubule formation score: 2 Nuclear pleomorphism score: 2 Mitotic rate score: 1 Lymphatic and/or vas cular invasion: Not identified Margin, inv tumor: F ree of tumor Closest margin: at l east 6 mm to anterior (1 mm Part A + at least 5 mm Part F) at least 8 mm to med ial (3 mm Part A + at least 5 mm Part F) Margin, DCIS: Free o f tumor Closest margin: at l east 5 mm to anterior (<1 mm Part A + at least 5 mm Part F) Lymph nodes Number examined: 4 Walland nodes: 2 Axillary nodes: 2 Number involved: 0 With macrometastases: N/A With micrometastases: N/A With isolated tumor cells: N/A Extranodal extension: N/A Size of largest met. deposit: N/A Treatment effect Breast: No known presurgical therapy Lymph nodes: No know n presurgical therapy TNM: pT1b pN0 (sn) ( AJCC 8th ed) Ancillary studies: P er previous biopsy ([id number]) reported as: ER: Positive MA: Positive HER2: Negative Ki-67: Low Note: For tumors gre ater than 5 mm in size with negative lymph nodes, prognostic genetic testing may be appro priate to guide further management. Clinical History Left breast cancer CONTINUED ON NEXT PAGE ------ Name: Zahra Feliz Age/Sex: 74/F : 1950 [id number] Unit#: [id number] Attend Dr: Dhaval Melendez MD Re12/27/24 Status : [facility] Location: [facility] Disch: ------ SPEC : [id number] RECD : 12/27/24-1312 STATUS: [facility] NUM: [id number] EMILY: 12/27/24-1308 [facility] DR: Dhaval Melendez MD ENTERED: 12/27/24-13 16 SP TYPE: Surgical OTHR DR: Robin Barnett MD ORDERED: HE Stain/4, Gross Micro L4/2, Gross Micro L5/4, Cytokeratin/6, IOC, IHC/2 COMMENTS: Cassettes A1-A9 are placed in formalin at 1342. Microscopic Description Microscopic sections of Part A show infiltration of small groups and irregular glands composed of round to oval tumor cells with scant to moderate vesicular cytoplasm.? Nuclei are round to oval wi th mild-moderate irregularity and with visible nucleoli. Similar cells are focally present within ducts. Immunostains for pankeratin on B, C, D and E are negative for metastatic carci noma. Control stains appropriately. Material Received A. Left breast lumpectomy B. Walland node #1- count 1600 C. Additional axilla ry tissue D. Additional axilla ry lymph node E. Walland node #2- count 1100 F. Additional anteri or medial margin Gross Description Received in six parts. Part A: Received migel , for intraoperative consultation, labeled left breast lumpectomy? is a 6.5 (superior-infe rior) x 5.0 (medial-lateral) x 2.5-3.0 (anterior-posterior) cm portion of franklin-yellow and quezada, white-pink lobular fibrofatty breast tissue. As stated on the specimen container a nd specimen requisition slip a short stitch denotes the superior margin and a long stitch de notes the lateral margin. The margins are inked as follows: anterior- black, posterior-red , superior-blue, inferior-green, medial-orange and lateral-yellow. The specimen is serially sectioned to reveal predominantly homogeneous franklin-yellow lobular fat with a lesser amount of focally dense, rubbery and firm quezada-white fibrous breast tissue towards the posterio r aspect. The breast tissue corresponding to the area harboring the Hologic LOCalizer RF ID tag and biopsy clip seen on the specimen radiograph is remarkable for an ill-defined area of dense quezada-white fibrous breast tissue with a 0.8 x 0.6 x 0.6 cm indurated focus susp icious for residual tumor with an adjacent 0.6 cm cavity containing mucogelatinous mater ial, the open coil biopsy clip and the adjacent Hologic RFID tag consistent with prio r biopsy site. The focus suspicious for residual tumor very closely approaches the anter ior and medial margins of resection, superiorly. No other lesions or nodules are identifi ed. Sections perpendicular to the margins of resection as previously inked are submitted in cassettes A1-A9 from superior to inferior with the area of prior biopsy, fibrosis and focus consistent with residual tumor entirely submitted in cassettes A2-A5 as follows: A1 superior, slice 1; A2 ybkprlxh-zjexxs-dboezisil, slice 2; CONTINUED ON NEXT PAGE ------ Name: Zahra Feliz Age/Sex: 74/F : 1950 Unit#: [id number] Attend Dr: Dhaval Melendze MD Re12/27/24 Status : [facility] Location: [facility] Disch: ------ SPEC : [id number] RECD : 12/27/24 STATUS: PERLA BEDOYA NUM: [id number] EMILY: 12/27/24-1308 [facility] DR: Dhaval Melendez MD ENTERED: 12/27/24-13 16 SP TYPE: Surgical OTHR DR: Robin Barnett MD ORDERED: HE Stain/4, Gross Micro L4/2, Gross Micro L5/4, Cytokeratin/6, IOC, IHC/2 COMMENTS: Cassettes A1-A9 are placed in formalin at 1342. Gross Description (Continued) A3 htblsdty-ouesxi-eizqnvhtk, slice 3; A4 anterior-medial, slice 4; A5 anterior, slice 5; A6 medial-posterior, slice 5; A7 medial-posterior, slice 6; A8 anterior-lateral, slice 3; A9 inferior, slice 9. The intraoperative diagnosis is reported to Dr. Melendez as ?mass and biopsy site identified, close to anterior and medial margins, superior end of specimen? by Dr. Perez.() Part B: Received in formalin labeled sentinel node #1, count 1600 is a 0.9 cm quezada-pink rubbery lymph node w ith attached adipose tissue, sectioned to reveal a fatty quezada-yellow hilum and rim of quezada -pink cortical lymphoid tissue. The lymph node is entirely submitted in cassette B1. Part C: Received in formalin labeled additional axillary tissue? is a 1.5 cm in greatest dimension rubbery, f irm, quezada-pink lymph node, sectioned to reveal a fatty franklin-yellow hilum and partial ri m of quezada-pink cortical lymphoid tissue, entirely submitted in a cassette labeled C. Part D: Received in formalin labeled ?additional axillary lymph node is a 3.0 x 2.0 x 1.5 cm rubbery, firm, quezada-yellow lymph node serially sectioned to reveal a fatty franklin-yellow hilum and partial ri m of quezada-pink cortical lymphoid tissue, entirely submitted in cassettes D1-D5. Part E: Received in formalin labeled sentinel node #2, count 1100? is a 1.8 x 0.9 x 0.5 cm quezada-pink lymph node, sectioned to reveal a fatty franklin-yellow hilum and partial rim of quezada- pink cortical lympho id tissue, entirely submitted in cassettes E1 and E2. Part F: Received in formalin labeled ?additional anterior medial margin? is a 3.9 x 3.0 x 0.5-1.4 cm partially fragmented, convex and concave portion of franklin-yellow and quezada-pink lobular fibrofatty b reast tissue. The concave surface is shaggy, congested and hemorrhagic, franklin-yellow and red-maroon consistent with prior biopsy side. The convex surface is smooth and glistenin g, franklin-yellow and quezada-white consistent with the new margin. The convex-new margin is marked with blue ink and the specimen is serially sectioned to reveal a rim of congested and hemorrhagic quezada-white and pink-red fibrous breast tissue along the concave biopsy side focally contiguous with a nodule of dense, rubbery, quezada-white fibrous breast tissue measur ing 1.2 x 1.0 x 0.9 cm which abuts the new inked margin with a clefted and hemorrhagic focu s. The specimen is entirely submitted in cassettes F1-F5. CONTINUED ON NEXT PAGE ------ Name: TriniZahra J Age/Sex: 74/F : 1950 Unit#: [id number] Attend Dr: Dhaval Melendez MD Re12/27/24 Status : [facility] Location: [facility] Disch: ------ SPEC : [id number] RECD : 12/27/24-1311 STATUS: PERLA BEDOYA NUM: [id number] EMILY: 12/27/24-[address]: Dhaval Melendez MD ENTERED: 12/27/24-13 16 SP TYPE: Surgical OTHR DR: Robin Barnett MD ORDERED: HE Stain/4, Gross Micro L4/2, Gross Micro L5/4, Cytokeratin/6, IOC, IHC/2 COMMENTS: Cassettes A1-A9 are placed in formalin at 1342. Gross Description (Continued) Also received is an additional fragment of non-oriented fibrofatty breast tissue measuring 1.5 x 1.0 x 0.4 cm. The margins are inked and the specimen is sectioned to reveal predominantly homoge neous franklin-yellow lobular fat with scant quezada-white fibrous breast tissue entirely subm itted in cassette F6. CEDS This case was review ed intradepartmentally. Results given to Dr. Melendez by secure text by Dr. Perez on 12/30/19 at 11:24 am. Special studies orde red and performed: Immunostains for pankeratin on B1, E1 and E2. Copies To: Robin Barnett MD [facility] [address] [address] Dhaval Melendez MD [facility] [address] [place] [address] ------ Signed (signature on file) Madeleine Ana 12/29/24 1138 ------ END OF REPORT NM sentinel node w imaging Reviewed date:12/28/2024 12:35:55 PM Interpretation: Performing Lab: Notes/Report: [address] [address] Nuclear Medicine Report Signed Patient: Zahra Feliz MR#: [id number] 0023 : 1950 Acct:[id number] Age/Sex: 74 / F ADM Date: 12/27/24 Loc: [facility] Attending Dr: Dhaval Melendez MD Ordering Physician: Dhaval Melendez MD Date of Service: 12/27/24 Procedure(s): NM sentinel node w imaging Accession Number(s): [id number] cc: Robin Barnett MD; Dhaval Melendez MD EXAMINATION: NM LYMPHOSCINTIGRAPHY CLINICAL INFORMATION: Left breast mass. Biopsy-proven left breast IDC, for excision. COMPARISON: 12/20/2024, 11/22/2024. TECHNIQUE: Left breast lymphoscintigraphy injection was performed . Approximately 0.5 mCi of technetium 99m lymphoseek and 0.8 mL of saline was divided into 4 aliquots of approximately 0.125 mCi, and injected in 4 quadrants around the left breast areola intradermally at 12:00, 3:00, 6:00, and 9:00. Immediate images and delayed images were obtained in AP, oblique and lateral views 25 minutes later. FINDINGS: There is isotope activity in four-quadrant around left breast areola following injection. There are at least 3 areas of isotope activity along the left mid axilla suggestive of multiple lymph nodes. NM/NM sentinel node w imaging IMPRESSION: At least 3 small lymph nodes seen in left mid axilla on right breast lymphoscintigraphy. Thank you for the courtesy of your referral. Electronically signed by: Frederic Farias MD 12/27/2024 09:06 AM EDT Dictated By: Frederic Farias MD Signed By: <Electronically signed by Frederic Farias MD in OV> 12/27/24 0906 DD/ 0730 TD/TT: 12/27/24 0850 [facility] Associate: [address] [address] Nuclear Medicine Report Signed Patient: Gaby Feliz MR#: [id number] 0023 : 1950 Acct:[id number] Age/Sex: 74 / F ADM Date: 12/27/24 Loc: [facility] Attending Dr: Smiley Melendez MD Ordering Physician: Dhaval Melendez MD Date of Service: 12/27/24 Procedure(s): NM sen tinel node w imaging Accession Number(s): [id number] cc: Robin Barnett MD; Dhaval Melendez MD EXAMINATION: NM LYMPHOSCINTIGRAPHY CLINICAL INFORMATION : Left breast mass. Biopsy-proven left breast IDC, for excision. COMPARISON: , 11/22/2024. TECHNIQUE: Left omid st lymphoscintigraphy injection was performed . Approximately 0.5 mC i of technetium 99m lymphoseek and 0.8 mL of saline was divided into 4 aliquots of approximately 0.125 mCi, and injected in 4 quadrants around t he left breast areola intradermally at 12:00, 3:00, 6:00, and 9:00. Imme diate images and delayed images were obtained in AP, oblique and late ral views 25 minutes later. FINDINGS: There is i sotope activity in four-quadrant around left breast areola following injection. There are at least 3 areas of isotope activity along the l eft mid axilla suggestive of multiple lymph nodes. N M/NM sentinel node w imaging IMPRESSION: At least 3 small lym ph nodes seen in left mid axilla on right breast lymphoscintigraphy. Thank you for the courtesy of your referral. Electronically dao d by: Frederic Farias MD 12/27/2024 09:06 AM EDT Dictated By: Frederic Jacob MD Signed By: <Electron ically signed by Frederic Farias MD in OV> 12/27/24 0906 DD/ 0730 TD/TT: 12/27/24 0850 [facility] Associate: MM surgical specimen Reviewed date:12/27/2024 03:55:12 PM Interpretation: Performing Lab: Notes/Report: [address] [address] [id number] Mammography Report Signed Patient: Zahra Feliz MR#: [id number] 0023 : 1950 Acct:[id number] Age/Sex: 74 / F ADM Date: 12/27/24 Loc: [facility] Attending Dr: Dhaval Melendez MD Ordering Physician: Dhaval Melendez MD Results: Date of Service: 12/27/24 Follow Up: Procedure(s): MM surgical specimen Accession Number(s): [id number] cc: Robin Barnett MD; Dhaval Melendez MD Two-view left breast specimen radiographs demonstrate the marker clip and the tag within the specimen. Electronically signed by: Lakesha Dumont DO 12/27/2024 01:22 PM EDT RP Dictated By: Lakesha Dumont DO Signed By: <Electronically signed by Lakesha Dumont DO in OV> 12/27/24 1322 DD/ 1315 TD/TT: 12/27/24 1319 [facility] Home Associate: [address] [address] [id number] Mammography Report Signed Patient: Gaby Feliz MR#: [id number] 0023 : 1950 Acct:[id number] Age/Sex: 74 / F ADM Date: 12/27/24 Loc: [facility] Attending Dr: Smiley Melendez MD Ordering Physician: Dhaval Melendez MD Results: Date of Service: Follow Up: Procedure(s): MM kezia gical specimen Accession Number(s): [id number] cc: Robin Barnett MD; Dhaval Melendez MD Two-view left breast specimen radiographs demonstrate the marker clip and the tag within t he specimen. Electronically dao d by: Lakesha Dumont DO 12/27/2024 01:22 PM EDT RP Dictated By: Lakesha Dumont DO Signed By: <Electron ically signed by Lakesha Dumont DO in OV> 12/27/24 1322 DD/ 1315 TD/TT: 12/27/24 1319 [facility] Associate: Complete Blood Count Auto Di ff (Not yet reviewed by provider) Interpretation: Performing Lab:[facility], [address] [place] [phone] Notes/Report: White Blood Count 4.9 4.8-10.8 X10*3/uL Red Blood Count 4.20 4.20-5.50 X10*6/uL Hemoglobin 11.3 12.0-16.0 g/dl Hematocrit 34.1 37.0-47.0 % Mean Corpuscular Volume 81.2 80.0-98.0 fL Mean Corpuscular Hemoglobin 26.9 27.0-33.0 pg Mean Corpuscular HGB Conc 33.1 31.0-35.0 g/dl Red Cell Distribution Width 14.6 11.0-16.0 % Platelet Count 219 160-400 X10*3/uL Mean Platelet Volume 9.6 9.4-12.3 fL Neutrophils Percent Auto 60.2 45-73 % Imm Gran Pct Auto 0.4 0.0-0.4 % Lymphocytes Percent Auto 22.4 20-40 % Monocytes Percent Auto 12.1 2-11 % Eosinophils Percent Auto 4.1 0-4 % Basophils Percent Auto 0.8 0-2 % NRBC Pct Auto 0.0 0.0-0.2 /100WBC Neutrophils Absolute Auto 2.9 2.0-8.3 x10*3/uL Imm Gran Abs Auto 0.02 0.00-0.03 X10*3/uL Lymphocytes Absolute Auto 1.1 1.2-4.9 X10*3/uL Monocytes Absolute Auto 0.6 0.1-1.2 X10*3/uL Eosinophils Absolute Auto 0.2 0.0-0.4 X10*3/uL Basophils Absolute Auto 0.0 0.0-0.2 X10*3/uL NRBC Abs Auto 0.000 0.0-0.012 X10*3/uL Urinalysis and Microscopic ( Not yet reviewed by provider) Interpretation: Performing Lab:[facility], [address] [place] [phone] Notes/Report: Color Urine Yellow Appearance Urine Clear PH 7.0 5.0-9.0 Glucose Urine UA Negative Negative mg/dL Urine Blood Negative Negative Specific Jerome - Urine 1.025 1.005-1.025 Urine Protein >=1000 (4+) Neg-Trace mg/dL Urine Ketones Trace Negative mg/dL Nitrite Urine Negative Negative Leukocyte Esterase Urine Trace Negative Comprehensive Met. Panel (No t yet reviewed by provider) Interpretation: Performing Lab:[facility], [address] [place] [phone] Notes/Report: Sodium 140 135-145 mmol/L Potassium 4.2 3.3-5.1 mmol/L Chloride 104 96-108 mmol/L Carbon Dioxide 29 22-29 mmol/L Anion Gap 11 12-20 Blood Urea Nitrogen 26 9-16 mg/dL Creatinine 0.93 0.5-1.4 mg/dL Creatinine Clr Calc Pharmacy 50.6 Provided height and weight: 160.02 cm, 74.843 kg. eGFR (calculated from the MDRD study equation) and eCrCl (calculated from the Cockcroft-Gault equation) are based on different parameters and may not yield comparable results. If eCrCl result is absurd, please check patient's height/weight. Estimated Glomerular Filt Rate 59 Chronic Kidney Disease: Estimated GFR < 60 mL/min/1.73m2 Severe Kidney Disease: Estimated GFR < 15 mL/min/1.73m2 Glucose Random 122 60-115 mg/dL Calcium 8.5 8.4-10.2 mg/dL Bilirubin Total 0.1 0.0-1.0 mg/dL Aspartate Amino Transferase 26 5-31 U/L Alanine Aminotransferase 23 0-31 U/L Total Protein 6.0 6.5-8.0 g/dL Albumin Level 3.1 3.5-5.0 g/dL Alkaline Phosphatase 98 39-117 U/L Lactic Acid (Not yet reviewe d by provider) Interpretation: Performing Lab:[facility], [address] [place] [phone] Notes/Report: Lactic Acid 1.4 0.5-2.0 mmol/L Troponin-I High Sensitivity (Not yet reviewed by provider) Interpretation: Performing Lab:[facility], [address] [place] [phone] Notes/Report: Troponin-I High Sensitivity 6.5 <3.5-17.0 ng/L The [facility] high sensitivity Troponin-I results should be used in conjunction with other diagnostic information such as ECG, clinical observations and information, and patient symptoms to aid in the diagnosis of CO. Lipase (Not yet reviewed by provider) Interpretation: Performing Lab:[facility], [address] [place] [phone] Notes/Report: Lipase 15 8-78 U/L COVID-19 ID NOW ([facility]) (No t yet reviewed by provider) Interpretation: Performing Lab:[facility], [address] [place] [phone] Notes/Report: IDNOW Serial# [id number] COVID-19 Test Positive Negative COVID-19 Note See Note Results are for the identification of SARS-CoV2 RNA. The SARS-CoV2 RNA is generally detectable in respiratory samples during the acute phase of infection. Positive results are indicative of the presence of SARS-CoV-2 RNA; clinical correlation with patient history and other diagnostic information is necessary to determine patient infection status. Positive results do not rule out bacterial infection or co-infection with other viruses. Testing facilities within the [facility] and its territories are required to report all positive results to the appropriate public health authorities. Negative results should be treated as presumptive and, if inconsistent with clinical signs and symptoms or necessary for patient management, should be tested with different authorized or cleared molecular tests. Negative results do not preclude SARS-CoV2 RNA infection and should not be used as the sole basis for patient management decisions. Negative results should be considered in the context of a patient's recent exposures, history and the presence of clinical signs and symptoms consistent with COVID-19. This test has been authorized by the FDA under an Emergency Use Authorization (EUA) for use by authorized laboratories. Testing performed on the [facility] ID NOW utilizing NAAT. Reason For Referral No Information Medications Medication [...] Problem Status W/U Status Risk Notes Problem 94477455 Lymphocytosis (D72.820) Active confirm ed Problem 519468488 Chronic tension- type headache, not intractable (G44.229) Active confirmed Problem 781559320 Overactive bladd er (N32.81) Active confirmed Problem 66979144 Essential hypert ension (I10) Active confirmed Problem 5845800 Prediabetes (R73.09) Active confirmed Problem 320988249 Low HDL (under 4 0) (E78.6) Active confirmed Problem History of aortic valve replacement (3995503463536 ) History of aortic valve replacement (Z95.2) Active confirmed Problem 019205283 Cervical disc di sease (M50.90) Active confirmed Problem 37160620 Iron deficiency anemia, unspecified iron deficiency anemia type (D50.9) Active confirmed Problem 27116883 LBBB (left bundl e branch block) (I44.7) Active confirmed Problem 633774570 Severe aortic st enosis (I35.0) Active confirmed Problem 322493113 Pure hypercholesterolemia (E78.00) Active confirmed Problem 788654742 Body mass index (BMI) of 34.0-34.9 in adult (Z68.34) Active confirmed Problem 475733259 Hyperplastic col onic polyp, unspecified part of colon (K63.5) Active confirmed Problem 429954839 Moderate aortic stenosis (I35.0) Active confirmed Problem 50773652 Myelopathy (G95.9) Active confirmed Problem [id number] Gastroesophageal reflux disease with esophagitis without hemorrhage (K21.00) Active confirmed Vital Signs Blood pressure diastolic 70 mm Hg 10/19/2024 Height 60.50 in 10/19/2024 Blood pressure systolic 156 mm Hg 10/19/2024 Weight 172 lbs 10/19/2024 BMI 33.03 kg/m2 10/19/2024 Encounters Encounter Location Date Provider Diagnosis Robin Barnett MD [address] [place] [address] Drive [address] [place] [id number] 08/11/2024 Robin Barnett Prediabetes R73.09 ; Essential hypertension I10 ; Lymphocytosis D72.820 ; Pure hypercholesterolemia E78.00 and Anemia D64.9 Robin Barnett MD [address] [place] [address] [address] [place] [address] [id number] 10/12/2024 Robin Barnett Loss of hair L65.9 a nd Iron deficiency anemia, unspecified iron deficiency anemia type D50.9 Robin Barnett MD [address] [place] [address] [address] [place] [address] [id number] 02/19/2025 Robin Barnett Iron deficiency anem ia, unspecified iron deficiency anemia type D50.9 Robin Barnett MD [address] [place] [address] [address] [place] [id number] 08/14/2024 Robin Barnett Overactive bladder N 32.81 ; Gastroesophageal reflux disease with esophagitis without hemorrhage K21.00 ; Iron deficiency anemia, unspecified iron deficiency anemia type D50.9 ; Loss of hair L65.9 ; Bilateral carotid bruits R09.89 ; Prediabetes R73.09 ; Essential hypertension I10 ; Pure hypercholesterolemia E78.00 ; Colon cancer screening Z12.11 and Depression screening Z13.31 Robin Barnett MD [address] [place] [address] [address] [place], [place] [id number] 10/19/2024 Robin Barnett Essential hypertensi on I10 Assessments Encounter Date Diagnosis (ICD Code) Assessment Notes Treatment Notes Treatment Clinical Notes Section Notes 08/11/2024 Prediabetes (ICD-10 - R73.09) 08/11/2024 Essential hypertensi on (ICD-10 - I10) 10/12/2024 Loss of hair (ICD-10 - L65.9) 10/12/2024 Iron deficiency anem ia, unspecified iron deficiency anemia type (ICD-10 - D50.9) 02/19/2025 Iron deficiency anem ia, unspecified iron deficiency anemia type (ICD-10 - D50.9) 08/14/2024 Overactive bladder (ICD-10 - N32.81) order faxed to [facility] CS dept, pending diagnostic testing 08/14/2024 Gastroesophageal [...] Anemia (ICD-10 - D64.9) 08/14/2024 Bilateral carotid br uits (ICD-10 - [...] reviewing documentation , and counseling the patient. 10/19/2024 Other was [...] BILATERAL DOPPLER 08/14/2024 ECHO 08/04/2022 ECHO 02/16/2013 Complete Blood Count Auto Diff Urinalysis and Microscopic 05/12/2025 Comprehensive Met. Panel 05/12/2025 Lactic Acid 05/12/2025 Troponin-I High Sensitivity 05/12/2025 Lipase 05/12/2025 COVID-19 ID NOW ([place]ugent) 05/12/2025 Next Appt Details Provider Name:Robin harley, 08/07/2025 07:30:00 AM, [address] [place] [address], [address], [phone], Provider Name:Robin harley, 08/17/2025 08:30:00 AM, [address] [place] [address], [address], [phone], Insurance Providers Payer Name Payer Address Payer Phone Subscriber Number Group Number Insured Name Patient Relationship to Insured Coverage Start Date Coverage End Date MEDICARE NHIC CRIS [address] [place] [address] [id number] Zahra Feliz Self - patient is the insured 5 [employer] MED[employer]ARE SUPPLEMENT [address] [address] [place] [address] [id number] Zahra Feliz Self - patient is the insured Medical (General) History Medical History History ICD Code hematuria with neg w/u2 times colonoscopy 2005 hyperplasti c polyp; colonoscopy by Dr. 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
--- OUTSIDE RECORDS SUMMARY | 2025-05-12 17:39 | XMS_ITS | Clinical Summary ---
Author Organization [facility] Address [address] [place] [address] Phone Care Team Providers Care Tube Mill Operator Name Role Phone Robin Barnett MD Primary Care Provider [phone] Allergies Active Allergy Reactions Criticality Noted Date [...] 01/23/2025 Malignant neoplasm of left b reast ([facility] V24, [facility] V28) 01/23/2025 Cancer Staging:Clinical stage from 12/27/2024:Stage IA(cT1b, cN0(sn), cM0, G1, ER+, NV+, HER2-) - Signed by Jason Garcia MD on 01/29/2025 Family history of breast cancer 01/23/2025 Hypertension 01/23/2025 History of cardiac murmur 01/23/2025 LBBB (left bundle branch block) 01/23/2025 Left breast mass 01/23/2025 Lichen sclerosus 01/23/2025 OAB (overactive bladder) 01/23/2025 Rate-related bundle branch block 01/23/2025 Surgical History Surgery Date Site/Laterality Comments HYSTERECTOMY ESOPHAGOGASTRODUODENOSCOPY TOTAL KNEE ARTHROPLASTY Left TOTAL HIP ARTHROPLASTY Right CARPAL TUNNEL RELEASE ROTATOR CUFF REPAIR AORTIC VALVE REPLACEMENT Medical History Medical History Date Comments Hypertension Breast cancer ([facility] V24, [facility] V28) GERD (gastroesophageal reflux disease) Family History [...] Health Maintenance Due Date Last Done Comments Colorectal Cancer Screening: Colonoscopy 1950 COVID-19 Vaccine (#1) 1955 Zoster Vaccines (1 of 2) 1969 Pneumococcal Vaccine: 50+ Years (2 of 2 - PCV) 06/16/2019 06/16/2018 DTaP,Tdap,and Td Vaccines (3 - Td or Tdap) 08/09/2023 08/09/2013, 11/11/2012 Depression Screening 08/09/2024 Cholesterol Screening (Lipid Panel) 01/10/2025 Falls Risk Assessment 01/10/2025 Hepatitis C [...] patient's age to complete this topic Insurance [facility] MEDICARE Care Teams Tube Mill Operator Relationship Specialty Start Date End Date Robin Barnett MD [address] [place] [address] [address] [place] [address] PCP - General Internal Medicine 01/10/25
[2025-05-12] MEDS: Lactated Ringers 1,000 ML 999 ML IV (18:42)
[2025-05-12] MEDS: iohexoL 350 MG/ML 100 ML INFUS..BTL 70 ML IV (19:08)
[2025-05-12 19:14] LABS: Troponin-I High Sensitivity 8.0 ng/L (<3.5-17.0)
[2025-05-12 22:07] VITALS: BP 129/60; PULSE 70; RESP 18; TEMP 36.6; O2SAT 98
== END 2025-05-12 22:07 | disposition home or self-care (01) ==
PROVIDERS: Physician Assistant; Emergency Provider Student in an Organized Health Care Education/Training Program; PCP Internal Medicine
DX: U07.1 COVID-19 (principal); I10 Essential (primary) hypertension; M19.90 Unspecified osteoarthritis, unspecified site; Z79.899 Other long term (current) drug therapy; Z86.79 Personal history of other diseases of the circulatory system
CPT/HCPCS: 36415; 70496; 70498; 71046; 80053; 81001; 81003; 83605; 83690; 84484; 85025; 87635; 93005; 96360; 99285; J7120; Q9967

== ENCOUNTER → 2025-05-12 15:26 | Outpatient (BNV) | payer MEDICARE, OTHER, SELFPAY | PROVIDERS: Emergency Provider Student in an Organized Health Care Education/Training Program; PCP Internal Medicine; Visit Provider Internal Medicine | DX: I45.4 Nonspecific intraventricular block (principal); I49.9 Cardiac arrhythmia, unspecified | CPT/HCPCS: 93010 ==

== ENCOUNTER → 2025-05-12 15:44 | Outpatient (BNV) | payer MEDICARE, OTHER, SELFPAY | PROVIDERS: Emergency Provider Student in an Organized Health Care Education/Training Program; PCP Internal Medicine; Visit Provider Radiology Diagnostic Radiology | DX: R42 Dizziness and giddiness (principal); R61 Generalized hyperhidrosis; M54.2 Cervicalgia | CPT/HCPCS: 70496; 70498 ==

== ENCOUNTER 2025-06-06 13:44 | Outpatient (AMB) | payer MEDICARE, OTHER, SELFPAY ==
--- OUTSIDE RECORDS SUMMARY | 2024-04-07 10:15 | XMS_ITS ---
Author Organization Robin Barnett MD Address [address] [place] [phone] Care Team Providers Care Remote Control Assembler Name Role Phone Robin Barnett Primary Care Provider Allergies Allergen (clinical drug ingredient) Drug/Non Drug Allergy documented on EMR Reaction Allergy Type Onset Date Status vancomycin Vancomycin HCl hives Drug Allergy A ctive sulfamethoxazole / trimethoprim Bactrim GI Upset Drug Allergy Active Tape (uncoded) redness infection Allergy Active REASON FOR VISIT UTI x 2 weeks, video [phone] Medications Medication SIG (Take, Route, Frequency, Duration) Notes Start Date End Date Status Valsartan-hydroCHLOROthiazi de 160-12.5 MG 1 tablet Orally Once a day for 90 days 08/05/2023 Active Amoxicillin 500 MG 4 capsule Orally one hour before dentist for 1 days 03/02/2023 Active amLODIPine Besylate 5 MG TAKE 1 TABLET B Y MOUTH EVERY DAY for 90 Active oxyBUTYnin Chloride 5 MG TAKE 1 TABLET B Y MOUTH TWICE A DAY for 90 Active PriLOSEC OTC 20 MG 2 tablet 30 minutes before morning meal Orally Once a day Active Cephalexin 500 MG 1 capsule Orally twi ce a day for 7 days 04/07/2024 Active Vital Signs Blood pressure systolic 137 mm Hg 04/07/20 24 Blood pressure diastolic 70 mm Hg 024 Height 60.50 in 04/07/2024 Weight 165 lbs 04/07/2024 BMI 31.69 kg/m2 04/07/2024 eight at home is 165 BP 137/ 70 no temp Encounters Encounter Location Date Provider Diagnosis Robin Barnett MD [address] [place] [address] [place] [phone] 04/07/2024 Roibn Barnett Acute UTI N39.0 Assessments Encounter Date Diagnosis (ICD Code) Assessment Notes Treatment Notes Treatment Clinical Notes Section Notes 04/07/2024 Acute UTI (ICD-10 - N39.0) patient verbalized understanding of medication and directions for use Plan Of Treatment Medication Medication Name Sig Start Date Stop Date Notes Cephalexin 500 MG 1 capsule Orally twice a day for 7 days 04/07/2024 Treatment Notes Assessment Notes Acute UTI patient verbalized u nderstanding of medication and directions for use Next Appt Details Provider Name:Robin Mena ier, 08/07/2025 07:30:00 AM, [address] [place] [address], [place] [address], [place], [place], [phone], Provider Name:Robin Mena iedeandre, 08/17/2025 08:30:00 AM, [address] [place] [address], [place] [address], [place], [place], [phone], Progress Notes * ALPA, SusAlcidesOB: 0 (74 yo F)Acc No.[id number]:04/07/2024 Patient: Zahra Carnes Provider: Carroll Barnett MD :1950 A ge:74 Y S ex:Female Date:04/07/2024 Address:[address] [place], [place] [phone] Subjective: * Chief Complaints: * U TI x 2 weeksVideo [phone] * HPI: S ymptom(s): Telehealth L ocation of provider rendering services: [address] [facility], [address], L ocation of patient: a t address listed in demographics for today's visit, P atient identification confirmed using: JOSE DANIEL Alvarado ame, SSN, Insurance information, T elehealth method: V ideo conference where patient is visible to the provider of care, C onsent: P atient verbally consented to treatment, Patient verbally consented to billing insurance company, Patient informed of any privacy concerns related to method of visit. patient is a 74 yo female video telehealth visit, here as an emergency. had groin pain inititially 2 weeks ago in rt lower quad and now has frequency and dysuria. * ROS: G eneral/Constitutional: Denies C hills. D enies F atigue. D enies F ever. E NT: Patient denies d ecreased sense of smell , any loss of taste , sore throat. D enies S ore throat. R espiratory: Denies C ough. D enies S hortness of breath at rest. D enies S hortness of breath with exertion. G astrointestinal: Denies D iarrhea. D enies N ausea. G enitourinary: Admits A bdominal pain/swelling. D enies B lood in urine. D enies D ifficulty urinating. A dmits F requent urination. D enies P ain in lower back. A dmits P ainful urination. U rinary incontinence a dmits. ? M usculoskeletal: Patient denies m uscle aches. P eripheral Vascular: Patient denies r ed and blue toes. * Medical History: * Surgical History: * Hospitalization/Major Diagno stic Procedure: * Medications: T akingAmoxicillin 500 MG Capsule 4 capsule Orally one hour before dentistValsartan-hydroCHLOROthiazide 160-12.5 MG Tablet 1 tablet Orally Once a dayPriLOSEC OTC 20 MG Tablet Delayed Release 2 tablet 30 minutes before morning meal Orally Once a dayoxyBUTYnin Chloride 5 MG Tablet TAKE 1 TABLET BY MOUTH TWICE A DAY amLODIPine Besylate 5 MG Tablet TAKE 1 TABLET BY MOUTH EVERY DAY Taking Amoxicillin 500 MG Capsule 4 capsule Orally one hour before dentistTaking Valsartan-hydroCHLOROthiazide 160-12.5 MG Tablet 1 tablet Orally Once a dayTaking PriLOSEC OTC 20 MG Tablet Delayed Release 2 tablet 30 minutes before morning meal Orally Once a dayTaking oxyBUTYnin Chloride 5 MG Tablet TAKE 1 TABLET BY MOUTH TWICE A DAY Taking amLODIPine Besylate 5 MG Tablet TAKE 1 TABLET BY MOUTH EVERY DAY DiscontinuedPlavix 75 MG Tablet 1 tablet Orally Once a dayMedication List reviewed and reconciled with the patientDiscontinued Plavix 75 MG Tablet 1 tablet Orally Once a dayMedication List reviewed and reconciled with the patient * Allergies: V ancomycin HCl: hivesTape: redness infectionBactrim: GI Upsetyes[Allergies Verified] Objective: * Vitals: H t: 60.50, Wt:165, BMI:31.69, BP:137/70 eight at home is 165 BP 137/70 no temp. * Examination: G eneral Examination: GENERAL APPEARANCE: alert, well hydrated, in no distress . Assessment: * Assessment: 1. A cute UTI - N39.0 (Primary) Plan: * Treatment: * Procedure Codes: * * Sign off status: Completed true * Provider: Carroll Barnett MD Date: 04/07/2024 Generated for Lorna gutierrez/Griselda/Víctor on: 05:34 PM EDT History and Physical Notes * HPI (History of Present Illness) Category Sub-Category Detail Notes Category Not es Symptom(s) Telehealth Location of [facility] rendering services:: [address], [address] patient is a 74 yo female video telehealth visit, here as an emergency. had groin pain inititially 2 weeks ago in rt lower quad and now has frequency and dysuria Location of patient:: at address listed in demographics for today's visit Patient identification confirmed using:: Name, , SSN, Insurance information Telehealth method:: Video co nference where patient is visible to the provider of care Consent:: Patient verbally c onsented to treatment, Patient verbally consented to billing insurance company, Patient informed of any privacy concerns related to method of visit Examination Category Sub-Category Detail Notes Category Not es General Examination GENERAL APPEARANCE: alert, w ell hydrated, in no distress
--- OUTSIDE RECORDS SUMMARY | 2024-04-20 03:45 | XMS_ITS ---
Author Organization Robin Barnett MD Address [address] [place] [phone] Care Team Providers Care Loan Servicing Specialist Name Role Phone Robin Barnett Primary Care Provider Results Component Value Reference Range Notes UA ClnCatch+Micro w/rflx Cul t Reviewed date:04/21/2024 08:45:38 AM Interpretation: Performing Lab:[facility], [address] [place] [phone] Notes/Report: Urine, Clean Catch Color Urine Yellow Appearance Urine Clear PH 6.5 5.0-9.0 Glucose Urine UA Negative Negative mg/dL Urine Blood Negative Negative Specific [place] - Urine 1.015 1.005-1.025 Urine Protein Negative [...] Date Provider Diagnosis Robin Barnett MD [address] [place] [phone] 04/20/2024 Robin Barnett Urinary tract infection, site not specified N39.0 and Hematuria, unspecified R31.9 Assessments Encounter Date Diagnosis (ICD Code) Assessment Notes Treatment Notes Treatment Clinical Notes Section Notes 04/20/2024 Urinary tract infection, site not specified (ICD-10 - N39.0) 04/20/2024 Hematuria, unspecified (ICD-10 - R31.9) Plan Of Treatment Next Appt Details Provider Name:Robin Mena ier, 08/07/2025 07:30:00 AM, [address] [facility], [address], [place], [place], [phone], Provider Name:Robin Mena ier, 08/17/2025 08:30:00 AM, [address] [facility], [address], [place], [place], [phone], Progress Notes * Yee YUENOB: 0 (75 yo F)Acc No.[id number]:04/20/2024 Progress Note Patient: Zahra CHACON Provider: Carroll Barnett MD :1950 A ge:74 Y S ex:Female Date:04/20/2024 Address:[address] [place], [place] [phone] Subjective: * Chief Complaints: * 1 . [...] MD Date: 0 04/20/2024 Generated for Lorna gutierrez/Griselda/Sofieitting on: 1 05:35 PM EDT
--- OUTSIDE RECORDS SUMMARY | 2024-08-11 04:15 | XMS_ITS ---
Author Organization Robin Barnett MD Address [address] [place] [phone] Care Team Providers Care Testing And Regulating Technician Name Role Phone Robin Barnett Primary Care Provider Results Component Value Reference Range Notes Complete Blood Count Auto Di ff Reviewed date:08/11/2024 12:05:01 PM Interpretation: Performing Lab:[facility], [address] [place] [phone] Notes/Report: White Blood Count 5.2 4.8-10.8 X10*3/uL [...] NRBC Abs Auto 0.000 0.0-0.012 X10*3/uL Comprehensive [place]. Panel Fa Reviewed date:08/11/2024 12:22:05 PM Interpretation: Performing Lab:[address] [phone] Notes/Report: Sodium 142 135-145 mmol/L Potassium 4.1 [...] PROFILE Reviewed date:08/11/2024 12:21:39 PM Interpretation: Performing Lab:[address] [phone] Notes/Report: Iron 20 30-160 mcg/dL Total Iron Binding Capacity 339 228-428 mcg/d L Percent Iron Saturation 6 15-50 % Unsaturated Iron Binding 319 Lipid Panel Reviewed date:08/11/2024 12:21:09 PM Interpretation: Performing Lab:[facility], [address] [place] [phone] Notes/Report: Triglycerides 143 <150 mg/dL Desirable Triglyceride: [...] Random Reviewed date:08/11/2024 12:16:48 PM Interpretation: Performing Lab:[facility], [address] [place] [phone] Notes/Report: Creatinine Urine 73.42 Microalbumin Urine 7.0 Microalbum/Creatinine Ratio Ur 9.5 <30 ug/mg cr Albumin/Creatinine Ratio Reference Ranges: Normal: < 30 ug/mg creatinine Microalbuminuria: 30 - 300 ug/mg creatinine Clinical Albuminuria: > 300 ug/mg creatinine Hemoglobin A1c Reviewed date:08/11/2024 12:10:09 PM Interpretation: Performing Lab:[facility], [address] [place] [phone] Notes/Report: Hemoglobin A1c % 6.2 <6.0 % [...] average glucose, using the formula of the S1R-Htulyxm Average Glucose study (ADAG), Diabetes Care, Vol.31,#8, Mar. 2007 UA ClnCatch+Micro w/rflx Cul t Reviewed date:08/14/2024 10:20:30 AM Interpretation:ALFREDO 08/14/24 Performing Lab:[facility], [address] [place] [phone] Notes/Report: [id number] 0815 Urine, Clean Catch Color Urine Yellow Appearance Urine Clear PH 6.5 5.0-9.0 Glucose Urine UA Negative Negative mg/dL Urine Blood Trace Negative Specific [place] - Urine 1.015 1.005-1.025 Urine Protein Negative [...] Date Provider Diagnosis Robin Barnett MD [address] [place] [address] [address] [place], [place] [phone] 08/11/2024 Robin Barnett Prediabetes R73.09 ; Essential [...] Name:Robin Mena ier, 08/07/2025 07:30:00 AM, [address] [facility], [address], [place], [place], [phone], Provider Name:Robin Mena ier, 08/17/2025 08:30:00 AM, [address], [address], [place], [place], [phone], Progress Notes * Yee YUENOB: 0 (75 yo F)Acc No.[id number]:08/11/2024 Progress Note Patient: Zahra CHACON Provider: Carroll Barnett MD :1950 A ge:74 Y S ex:Female Date:08/11/2024 Address:[address] [place], [place] [phone] Subjective: * Chief Complaints: * 1 . [...] - 08/11/2024 08:15 AM) L AB: Comprehensive [place]. Panel Fast (Collection Date & Time - [...] - 08/11/2024 08:15 AM) L AB: Comprehensive [place]. Panel Fast (Collection Date & Time - [...] - 08/11/2024 08:15 AM) L AB: Comprehensive [place]. Panel Fast (Collection Date & Time - [...] MD Date: 0 08/11/2024 Generated for Lorna gutierrez/Griselda/Víctor on: 1 05:34 PM EDT
--- OUTSIDE RECORDS SUMMARY | 2024-08-14 05:30 | XMS_ITS ---
Author Organization Robin Barnett MD Address [address] [place] [phone] Care Team Providers Care Desizing Machine Offbearer Name Role Phone Robin Barnett Primary Care Provider [phone] Allergies Allergen (clinical drug ingredient) Drug/Non Drug [...] Problem Status W/U Status Risk Notes Problem [id number] Overactive bladder (N32.81) Active confirmed Problem 60430044 Iron deficiency anemia, unspecified iron deficiency anemia type (D50.9) Active confirmed Vital Signs Blood pressure systolic 132 mm Hg 08/14/19 25 Blood pressure diastolic 58 mm Hg 025 Height 60.50 in 08/14/2024 Weight 172 lbs 08/14/2024 BMI 33.03 kg/m2 08/14/2024 weight is up 7 pounds since 04-07-24 Encounters Encounter Location Date Provider Diagnosis Robin Barnett MD [address] [place] [address] Drive [address] [place], [place] [phone] 08/14/2024 Robin Barnett Overactive bladder N 32.81 [...] bladder (ICD-10 - N32.81) order faxed to [facility] dept, pending diagnostic testing 08/14/2024 Gastroesophageal [...] Assessment Notes Overactive bladder order faxed to [facility] S dept, pending diagnostic testing Gastroesophageal [...] Up: 2 Months, Reason: Provider Name:Robin harley, 08/07/2025 07:30:00 AM, [address] [place] [address], [address] [place] [address], [phone], Provider Name:Robin harley, 08/17/2025 08:30:00 AM, [address] [place] [address], Suite [facility], [place], [place], [phone], Progress Notes * Yee YUENOB: 0 (74 yo F)Acc No.[id number]:08/14/2024 Patient: Zahra Carnes Provider: Carroll Barnett MD :1950 A ge:74 Y S ex:Female Date:08/14/2024 Address:[address] [place], [id number] Subjective: * Chief Complaints: * R eview [...] dogs:1 dog. no Travel outside of the [place]. * Medications: T akingAmoxicillin 500 MG [...] 04-07-24. * P ast Orders: L ab:Comprehensive [place]. Panel Fast (Order Date 08/11/2024) (Collection Date [...] - mg/dL L ab:IRON PROFILE (Order Date - 08/11/2024) (Collection Date 08/11/2024) Value Reference Range Iron 20 L 30-160 - mcg/dL Total Iron Binding Capacity 339 228-428 - mc g/dL Percent Iron Saturation 6 L 15-50 - % Unsaturated Iron Binding 319 - ug/dL L ab:Lipid Panel (Order Date 08/11/2024) (Collection Date - 08/11/2024) Value Reference Range Triglycerides 143 <150 - mg/dL Cholesterol 210 H <200 - mg/dL LDL Cholesterol Calculated 135 H <100 - mg/dL HDL Cholesterol 47 >40 - mg/dL L ab:Microalbumin, Random (Order Date - 08/11/2024) (Collection Date - 08/11/2024) Value Reference Range Creatinine Urine 73.42 - mg/dL Microalbumin Urine 7.0 - mg/L Microalbum Creatinine Ratio Ur 9.5 <30 - ug/ mg cr L ab:Hemoglobin A1c (Order Date - 08/11/2024) (Collection Date - 08/11/2024) Value Reference Range Hemoglobin A1c % [...] and solution. 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 EXTREMITIES: n o clubbing, cyanosis, or edema. [...] 0 08/14/2024 Generated for Lorna gutierrez/Griselda/Sofieitting on: 05:34 PM EDT History and Physical [...] Total Score: 0 Interpretation and Intervention Depression Joaquin berkowitz Findings: Negative Follow-Up for Depression: : review [...] exam intact SKIN: warm and dry, no finn picious lesions EXTREMITIES: no clubbing, cyanosi s, or edema BREASTS: No mass, no lump RECTAL EXAM: declined. sent with cards and solution FEMALE GENITOURINARY: done by car dryer ORAL CAVITY: mucosa moist
--- OUTSIDE RECORDS SUMMARY | 2024-10-12 03:00 | XMS_ITS ---
Author Organization Robin Barnett MD Address [address] [place] [phone] Care Team Providers Care Cotton Baler Name Role Phone Robin Barnett Primary Care Provider Results Component Value Reference Range Notes Complete Blood Count Auto Di ff Reviewed date:10/12/2024 12:32:59 PM Interpretation: Performing Lab:[facility], [address] [place] [phone] Notes/Report: White Blood Count 5.5 4.8-10.8 X10*3/uL [...] PROFILE Reviewed date:10/12/2024 12:33:07 PM Interpretation: Performing Lab:[address] [phone] Notes/Report: Iron 42 30-160 mcg/dL Total Iron Binding Capacity 325 228-428 mcg/d L Percent Iron Saturation 13 15-50 % Unsaturated Iron Binding 283 TSH reflex Free T4 Reviewed date:10/12/2024 12:33:15 PM Interpretation: Performing Lab:[facility], [address] [place] [phone] Notes/Report: TSH reflex Free T4 3.19 0.32-4.0 uIU/mL REASON FOR VISIT CBC IRON TSH Encounters Encounter Location Date Provider Diagnosis Robin Barnett MD [address] [place] [phone] 10/12/2024 Robin Barnett Loss of hair L65.9 and Iron deficiency anemia, unspecified iron deficiency anemia type D50.9 Assessments Encounter Date Diagnosis (ICD Code) Assessment Notes Treatment Notes Treatment Clinical Notes Section Notes 10/12/2024 Loss of hair (ICD-10 - L65.9) 10/12/2024 Iron deficiency anemia, unspecified iron deficiency anemia type (ICD-10 - D50.9) Plan Of Treatment Next Appt Details Provider Name:Robin harley, 08/07/2025 07:30:00 AM, [address] [place] [address], [place] [address], [place], [place], [phone], Provider Name:Robin harley, 08/17/2025 08:30:00 AM, [address] [place] [address], [address], [place], [place], [phone], Progress Notes * Yee YUENOB: 0 (75 yo F)Acc No.[id number]:10/12/2024 Progress Note Patient: Zahra CHACON Provider: Carroll Barnett MD :1950 A ge:74 Y S ex:Female Date:10/12/2024 Address:[address] [place], [place] [phone] Subjective: * Chief Complaints: * 1 . [...] MD Date: 0 10/12/2024 Generated for Lorna gutierrez/Griselda/Paddysmitting on: 1 05:35 PM EDT
--- OUTSIDE RECORDS SUMMARY | 2024-10-19 05:00 | XMS_ITS ---
Author Organization Robin Barnett MD Address [address] [place] [phone] Care Team Providers Care Junior Accounting Clerk Name Role Phone Robin Barnett Primary Care Provider [phone] Allergies Allergen (clinical drug ingredient) Drug/Non Drug [...] Robin Barnett MD [address] [place] [phone] 10/19/2024 Robin Barnett Essential hypertension I10 Assessments [...] 07:30:00 AM, [address], [address], [place], [place], [phone], Provider Name:Robin Jordan Trina ier, 08/17/2025 08:30:00 AM, [address], [address], [place], [place], [phone], Progress Notes * Yee YUENOB: 0 (74 yo F)Acc No.[id number]:10/19/2024 Progress Notes Patient: Zahra CHACON Provider: Carroll Barnett MD :1950 A ge:74 Y S ex:Female Date:10/19/2024 Address:[address] [place] [address] Subjective: * Chief Complaints: * 2 month [...] 0 10/19/2024 Generated for Lorna gutierrez/Griselda/Paddysmitting on: 1 05:35 PM EDT History and Physical Notes * [...]
--- OUTSIDE RECORDS SUMMARY | 2025-02-19 04:00 | XMS_ITS ---
Author Organization Robin Barnett MD Address [address] [place] [phone] Care Team Providers Care Steam Frame Operator Name Role Phone Robin Barnett Primary Care Provider Results Component Value Reference Range Notes Complete Blood Count Auto Di ff Reviewed date:02/19/2025 12:57:13 PM Interpretation: Performing Lab:[facility], [address] [place] [phone] Notes/Report: White Blood Count 5.1 4.8-10.8 X10*3/uL [...] PROFILE Reviewed date:02/19/2025 01:00:35 PM Interpretation: Performing Lab:[facility], [address] [place] [phone] Notes/Report: Iron 42 30-160 mcg/dL Total Iron Binding Capacity 324 228-428 mcg/d L Percent Iron Saturation 13 15-50 % Unsaturated Iron Binding 282 REASON FOR VISIT CBC with diff iron profile Encounters Encounter Location Date Provider Diagnosis Robin Barnett MD [address] [place] [address] [place] [phone] 02/19/2025 Robin Barnett Iron deficiency anemia, unspecified iron deficiency anemia type D50.9 Assessments Encounter Date Diagnosis (ICD Code) Assessment Notes Treatment Notes Treatment Clinical Notes Section Notes 02/19/2025 Iron deficiency anemia, unspecified iron deficiency anemia type (ICD-10 - D50.9) Plan Of Treatment Next Appt Details Provider Name:Robin harley, 08/07/2025 07:30:00 AM, [address] [place] [address], [address], [phone], Provider Name:Robin harley, 08/17/2025 08:30:00 AM, [address] [place] [address], [address], [phone], Progress Notes * Yee YUENOB: 0 (75 yo F)Acc No.[id number]:02/19/2025 Progress Note Patient: Zahra CHACON Provider: Carroll Barnett MD :1950 A ge:74 Y S ex:Female Date:02/19/2025 Address:[address] [place], [place] [phone] Subjective: * Chief Complaints: * 1 . [...] 02/19/2025 Generated for Lorna gutierrez/Griselda/Sofieitting on: 1 05:34 PM EDT
--- OUTSIDE RECORDS SUMMARY | 2025-05-14 10:02 | XMS_ITS ---
Author Organization Robin Barnett MD Address [address] [place] [phone] Care Team Providers Care Screen Printing Inspector Name Role Phone Robin Barnett Primary Care Provider [phone] REASON FOR VISIT ER Encounters Encounter Location Date Provider Diagnosis Robin Barnett MD [address] [place] [address] [place] [phone] 05/14/2025 Robin Barnett Plan Of Treatment Next Appt Details Provider Name:Robin Mena ier, 08/07/2025 07:30:00 AM, [address] [place] [address], [address], [phone], Provider Name:Robin Mena ier, 08/17/2025 08:30:00 AM, [address] [place] [address], [phone], Progress Notes * Yee YUENOB: 0 (75 yo F)Acc No.[id number]:05/14/2025 Patient: Zahra CHACON :1950 A ge:75 Y S ex:Female Address:[address] [place] [phone] * true * Date: Generated for Printi ng/Faxing/eTransmitting on: 1 05:34 PM EDT
--- OUTSIDE RECORDS SUMMARY | 2025-05-18 06:41 | XMS_ITS ---
Author Organization Robin Barnett MD Address [address] [place] [phone] Care Team Providers Care Latex Dipper Name Role Phone Robin Barnett Primary Care Provider REASON FOR VISIT refill Medications Medication SIG (Take, Route, Fr equency, Duration) Notes Start Date End Date Status PriLOSEC OTC 20 MG TAKE 2 TABLET 30 MIN UTES BEFORE MORNING MEAL ORALLY ONCE A DAY 90 DAYS for 90 days Active Encounters Encounter Location Date Provider Diagnosis Robin Barnett MD [address] [place] [address] [place] [phone] 05/18/2025 Robin Barnett Plan Of Treatment Medication Medication Name Sig Start Date Stop Date Notes PriLOSEC OTC 20 MG TAKE 2 TABLET 30 MIN UTES BEFORE MORNING MEAL ORALLY ONCE A DAY 90 DAYS for 90 days Next Appt Details Provider Name:Robin harley, 08/07/2025 07:30:00 AM, [address] [place] [address], [address], [phone], Provider Name:Robin harley, 08/17/2025 08:30:00 AM, [address] [place] [address], [address], [phone], Progress Notes * Yee YUENOB: 0 (75 yo F)Acc No.[id number]:05/18/2025 Patient: Zahra CHACON :1950 A ge:75 Y S ex:Female Address:[address] [facility], [place] [address] * Refills Refill PriLOSEC OTC Tablet Delayed Release, 20 MG, 180, TAKE 2 TABLET 30 MINUTES BEFORE MORNING MEAL ORALLY ONCE A DAY 90 DAYS, 90 days, Refills=3 * true * Date: Generated for Lorna gutierrez/Griselda/Víctor on: 05:34 PM EDT
--- NOTE | 2025-06-06 14:00 | A.OFFVIS_ITS ---
Vital Signs 06/06/25 14:01 Height 5 ft 3 in Weight 178 lb 9.191 oz BMI 31.6 BP 140/60 H Blood Pressure Location Lt brachial Position Sitting Pulse 65 Pulse Source Pulse Oximeter Intake Visit Reasons: 1 yr f/up Intake Note: 1 yr fup Recycle Worker Required: No Accompanied by: Self / Same As Patient Allergies sulfamethoxazole (From Bactrim) Allergy (Severe, Verified 05/12/25 15:43) Rash, itching trimethoprim (From Bactrim) Allergy (Severe, Verified 05/12/25 15:43) Rash, itching vancomycin (VANCOMYCIN) Allergy (Severe, Verified 05/12/25 15:43) HIVES adhesive tape (ADHESIVE TAPE) Allergy (Intermediate, Verified 05/12/25 15:43) RASH/BLISTERS Adhesive Bandages Allergy (Severe, Uncoded 03/12/25 09:28) rash, redness Medication List - Last Reconciled 06/06/25 by Salvatore Brady MD alpha lipoic acid 12,000 mg PO DAILY amlodipine 5 mg PO DAILY ascorbate calcium (vitamin C) 500 mg PO DAILY aspirin (Adult Aspirin Regimen) 81 mg PO BEDTIME cholecalciferol (vitamin D3) (Vitamin D3) 50 mcg PO DAILY ibuprofen 600 mg PO Q6H PRN letrozole 2.5 mg PO DAILY magnesium oxide 400 mg PO DAILY omeprazole 40 mg (2 x 20 mg) PO DAILY 90 days oxybutynin chloride 5 mg PO BID oxycodone-acetaminophen 5-325 mg 1 tab PO Q6H PRN pyridoxine (vitamin B6) (Vitamin B-6) 100 mg PO DAILY valsartan-hydrochlorothiazide 160-12.5 mg 1 tab PO DAILY HPI Comments Details: 74-year-old female with severe aortic valve stenosis here for follow-up. She underwent cardiac catheterization which did not show any significant coronary disease. She had severe aortic stenosis by and risk assessment she has been referred to the TAVR team but has not been seen at [facility]. She is saying she gets short of breath when she is exerting herself. She is denying any chest discomfort syncope. No other concerns currently. 03/31/2023: She returns for follow-up. She is status post transcatheter aortic valve replacement with number 23 mm S3 bioprosthetic valve. She had echocardiography which showed a normally functioning bioprosthetic valve. She is saying after valve replacement she has not felt significantly different. To some extent her shortness of breath is little better but she still gets out of breath with activities specially when she is going up stairs. Blood pressure control is good. She needs endoscopy. She is getting some left-sided pressure- like discomfort which happens randomly specially when she is laying down. She has a hiatal hernia. 10/04/23: She is here for follow-up. She had endoscopy performed in May 2023. She has Garcia's esophagus. She also has balloon dilatation done in the esophagus. She is saying she has been doing well. She still gets globus. She gets short of breath when she does more than usual activity. No chest discomfort. She had left knee replacement and is finishing rehabilitation at this point. She is saying that she is doing well. 06/07/2024: She is here for follow-up. She has been doing well. No chest pain or shortness of breath. Repeat echocardiography after valve replacement showed a normal bioprosthetic valve in aortic position with no paravalvular leak. She wants to do right hip surgery for arthritis. She is here for perioperative cardiovascular risk assessment. 06/06/2025: She is here for follow-up. Early May she had left-sided neck pain along with low blood pressure and came to the emergency department. She was diagnosed with COVID-19 infection. She was eventually discharged home. She is saying that she has not had any further symptoms since then. No chest discomfort or shortness of breath. Overall doing quite well. 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 OAB (overactive bladder) Arthritis Hx of cardiac murmur Breast cancer, left Family history of breast cancer Left breast mass Lichen sclerosus of vulva LBBB (left bundle branch block) Rate-related bundle branch block Aortic stenosis HTN (hypertension) Surgical History History of pubovaginal sling (~1998) History of right hip replacement (~06/2024) History of left knee replacement (~2023) Knee joint replacement status History of esophagogastroduodenoscopy (EGD) S/P TAVR (transcatheter aortic valve replacement) Hx of carpal tunnel repair Hx of rotator cuff surgery Hx of cataract H/O right breast biopsy History of total right knee replacement H/O colonoscopy H/O: hysterectomy Family History Father Heart attack Mother Bundle branch block, unspecified HTN (hypertension) Maternal Grandmother Gastric cancer Sister Brain tumor Maternal Aunt Cancer Breast cancer Social History Household Members: Spouse Household Members Other:: 55 yrs- 3 sons Are you a primary healthcare business analyst to a significant other at home: No Do you presently have visiting nurse or other home services: No Alcohol intake: never Patient Tobacco Use Status: Former Tobacco user Tobacco use type: Cigarette Years Smoked: 1997 Advance Directives Date on File: 12/05/24 service: No 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 Gender identity: Female Female Reproductive History Menstrual Age of Menarche: 13 Review of Systems Const Denies chills, Denies fatigue, Denies fever(s), Denies frequent falls, Denies weakness, Denies weight gain and Denies weight loss ENT Denies dizziness Card Denies chest pain, Denies leg edema, Denies lightheadedness, Denies palpitations, Denies dyspnea and Denies dyspnea on exertion Resp Denies cough, Denies dyspnea and Denies dyspnea on exertion GI Denies hematochezia Musc Denies abnormal gait, Denies muscle weakness, Denies numbness, Denies radiating pain into limb and Denies tingling Neuro Denies abnormal gait, Denies dizziness, Denies frequent falls, Denies numbness, Denies tingling and Denies weakness Endo Denies fatigue and Denies palpitations Physical Exam Vital Signs: Last Vital Signs Pulse 65 06/06/25 14:01 BP 140/60 H 06/06/25 14:01 BMI result Body Mass Index 31.6 GENERAL APPEARANCE: in no acute distress, pleasant. NECK: no carotid bruit, no jugular venous distention. SKIN: no suspicious lesions, warm and dry. HEART: systolic murmur aortic area with preserved 2nd heart sound. Regular rate rhythm. LUNGS: clear to auscultation bilaterally. ABDOMEN: soft, nontender. EXTREMITIES: no edema. PERIPHERAL PULSES: equal. NEUROLOGIC: No gross deficits, AAO X 3 Assessment & Plan Assessment & Plan (1) S/P TAVR (transcatheter aortic valve replacement): Comment: 02/16/[address] Leonard at [facility] Code(s): Z95.2 - Presence of prosthetic heart valve Category: Surgical (2) LBBB (left bundle branch block): Code(s): I44.7 - Left bundle-branch block, unspecified Category: Medical (3) HTN (hypertension): Code(s): I10 - Essential (primary) hypertension Category: Medical (4) Preop cardiovascular exam: Code(s): Z01.810 - Encounter for preprocedural cardiovascular examination Category: Medical Plan 74 year female who is here for follow-up. She has known history of aortic valve stenosis and underwent transcatheter aortic valve replacement with S3 23 mm valve in the past. Clinically she has done well and has been asymptomatic. She has bilateral knee replacements at this point and has arthritis in the right hip. She is quite limited due to that and hip pain. She had 1 episode of left-sided neck pain along with low blood pressure in the setting of COVID-19 infection. This has resolved since then. I reviewed her angiogram from 2022 and she did not have any significant coronary disease. She is active and has no symptoms with activities and overall does not need any further testing currently. She will see us back in 1 year. Thank you for allowing me to participate in the care of your patient. Please feel free to contact me if you have any questions. Coding Level of Care Code Est Pt Level 4 (00287) Diagnoses S/P TAVR (transcatheter aortic valve replacement) Z95.2 LBBB (left bundle branch block) I44.7 HTN (hypertension) I10 Preop cardiovascular exam Z01.810
[2025-06-06 14:01] VITALS: BP 140/60; PULSE 65; BMI 31.6
--- OUTSIDE RECORDS SUMMARY | 2025-06-06 17:36 | XMS_ITS | Patient Health Record ---
Author Organization Robin Barnett MD Address [address] [place], [place] [id number] Care Team Providers Care Manager Call Center Name Role Phone Robin Barnett Primary Care [...] ff Reviewed date:08/11/2024 12:05:01 PM Interpretation: Performing Lab:[facility], [address] [place] [phone] Notes/Report: White Blood Count 5.2 4.8-10.8 X10*3/uL [...] NRBC Abs Auto 0.000 0.0-0.012 X10*3/uL Comprehensive Fowler. Panel Fa st Reviewed date:08/11/2024 12:22:05 PM Interpretation: Performing Lab:[address] [address] Notes/Report: Sodium 142 135-145 mmol/L Potassium 4.1 [...] PROFILE Reviewed date:08/11/2024 12:21:39 PM Interpretation: Performing Lab:[address] [address] Notes/Report: Iron 20 30-160 mcg/dL Total Iron Binding Capacity 339 228-428 mcg/dL Percent Iron Saturation 6 15-50 % Unsaturated Iron Binding 319 Lipid Panel Reviewed date:08/11/2024 12:21:09 PM Interpretation: Performing Lab:[facility], [address] [place] [phone] Notes/Report: Triglycerides 143 <150 mg/dL Desirable Triglyceride: [...] Random Reviewed date:08/11/2024 12:16:48 PM Interpretation: Performing Lab:[facility], [address] [place] [phone] Notes/Report: Creatinine Urine 73.42 Microalbumin Urine 7.0 Microalbum/Creatinine Ratio Ur 9.5 <30 ug/mg cr Albumin/Creatinine Ratio Reference Ranges: Normal: < 30 ug/mg creatinine Microalbuminuria: 30 - 300 ug/mg creatinine Clinical Albuminuria: > 300 ug/mg creatinine Hemoglobin A1c Reviewed date:08/11/2024 12:10:09 PM Interpretation: Performing Lab:[facility], [address] [place] [phone] Notes/Report: Hemoglobin A1c % 6.2 <6.0 % [...] average glucose, using the formula of the G9X-Tkviytj Average Glucose study (ADAG), Diabetes Care, Vol.31,#8, 2007 UA ClnCatch+Micro w/rflx Cul t Reviewed date:08/14/2024 10:20:30 AM Interpretation:ALFREDO 08/14/24 Performing Lab:[facility], [address] [place] [phone] Notes/Report: [id number] Urine, Clean Catch Color Urine Yellow Appearance Urine Clear PH 6.5 5.0-9.0 Glucose Urine UA Negative Negative mg/dL Urine Blood Trace Negative Specific [place] - Urine 1.015 1.005-1.025 Urine Protein Negative [...] ff Reviewed date:10/12/2024 12:32:59 PM Interpretation: Performing Lab:[facility], [address] [place] [phone] Notes/Report: White Blood Count 5.5 4.8-10.8 X10*3/uL [...] PROFILE Reviewed date:10/12/2024 12:33:07 PM Interpretation: Performing Lab:[address] [address] Notes/Report: Iron 42 30-160 mcg/dL Total Iron Binding Capacity 325 228-428 mcg/dL Percent Iron Saturation 13 15-50 % Unsaturated Iron Binding 283 TSH reflex Free T4 Reviewed date:10/12/2024 12:33:15 PM Interpretation: Performing Lab:[address] [address] Notes/Report: TSH reflex Free T4 3.19 0.32-4.0 uIU/mL Complete Blood Count Auto Di ff Reviewed date:02/19/2025 12:57:13 PM Interpretation: Performing Lab:[address] [address] Notes/Report: White Blood Count 5.1 4.8-10.8 X10*3/uL [...] PROFILE Reviewed date:02/19/2025 01:00:35 PM Interpretation: Performing Lab:[facility], [address] [place] [phone] Notes/Report: Iron 42 30-160 mcg/dL Total Iron Binding Capacity 324 228-428 mcg/dL Percent Iron Saturation 13 15-50 % Unsaturated Iron Binding 282 US carotid duplex BI Reviewed date:08/24/2024 05:28:39 PM Interpretation: Performing Lab: Notes/Report: [address] [address] Ultrasound Report Signed Patient: Zahra Feliz MR#: [id number] 0023 : 1950 Acct:[id number] Age/Sex: 74 / F ADM Date: 08/23/24 Loc: HO.US Attending Dr: Robin Barnett MD Ordering Physician: Robin Barnett MD Date of Service: 08/23/24 Procedure(s): US carotid duplex BI Accession Number(s): [id number] cc: Robin Barnett MD EXAMINATION: BILATERAL CAROTID [...] 08/24/24 0746 DD/ 1542 TD/TT: 08/23/24 1600 Automotive Mechanic: [place] [address] Ultrasound Report Signed Patient: Gaby Feliz MR#: [id number] 0023 : 1950 Acct:[id number] Age/Sex: 74 / F ADM Date: 08/23/24 Loc: HO. Attending Dr: Robin Barnett MD Ordering Physician: Robin Barnett MD Date of Service: 08/23/24 Procedure(s): US car otid duplex BI Accession Number(s): [id number] cc: Robin Barnett MD EXAMINATION: BILATER AL [...] 08/24/24 0746 DD/ 1542 TD/TT: 08/23/24 1600 Automotive Mechanic: MM tomosynthesis screening B I Reviewed date:10/12/2024 04:55:08 PM Interpretation: Performing Lab: Notes/Report: [facility] [address] [place], [place] [address] Mammography Report Signed Patient: Zahra Feliz MR#: [id number] 0023 : 1950 Acct:[id number] Age/Sex: 74 / F ADM Date: 10/10/24 Loc: HO.MAMMO Attending Dr: Robin Barnett MD Ordering Physician: Robin Barnett MD Results: 0In complete: Needs Additional Imaging Evaluation Date of Service: 10/10/24 Follow Up: Additional Imagi ng Procedure(s): MM tomosynthesis screening BI Accession Number(s): [id number] cc: Robin Barnett MD EXAMINATION: MM SCREENING [...] 10/12/24 1138 DD/ 0915 TD/TT: 10/10/24 0932 Automotive Mechanic: [place] [facility] [address] [place] [address] Mammography Report Signed Patient: Gaby Feliz MR#: [id number] 0023 : 1950 Acct:[id number] Age/Sex: 74 / F ADM Date: 10/10/24 Loc: HO.MAMMO Attending Dr: Robin Barnett MD Ordering Physician: Robin Barnett MD Results: 0In complete: Needs Amish tional Imaging Evaluation Date of Service: 12/01 Follow Up: Additional Imagi ng Procedure(s): MM tomosynthesis screening BI Accession Number(s): [id number] cc: Robin Barnett MD EXAMINATION: MM SCREENING [...] 10/12/24 1138 DD/ 0915 TD/TT: 10/10/24 0932 Automotive Mechanic: Janice Cruz Reviewed date:10/12/2024 12:30:21 PM Interpretation: Performing Lab:[facility], [address] [place] [address], [place] [address] Notes/Report: Janice Cruz See Note Specimen held untested for 24 hours; Call to request Chemistry testing. MM tomosynthesis added views L Reviewed date:11/17/2024 05:21:48 PM Interpretation: Performing Lab: Notes/Report: [facility]'s [address] [place] [address] Mammography Report Signed Patient: Zahra Feliz MR#: [id number] 0023 : 1950 Acct:[id number] Age/Sex: 74 / F ADM Date: 11/02/24 Loc: HO.MAMMO Attending Dr: Robin Barnett MD Ordering Physician: Robin Barnett MD Results: 4Su spicious Finding Date of Service: 11/02/24 Follow Up: Biopsy Recommend ed Procedure(s): MM tomosynthesis added views L Accession Number(s): [id number] cc: Robin Barnett MD EXAMINATION: MM DIAGNOSTIC [...] 11/02/24 1312 DD/ 1230 TD/TT: 11/02/24 1230 Automotive Mechanic: [facility] [address] [place] [address] [place] [address] Mammography Report Signed Patient: Gaby Feliz MR#: [id number] 0023 : 1950 Acct:[id number] Age/Sex: 74 / F ADM Date: 11/02/24 Loc: HO.MAMMO Attending Dr: Robin Barnett MD Ordering Physician: Robin Barnett MD Results: 4Su spicious Finding Date of Service: Follow Up: Biopsy Recommend ed Procedure(s): MM tomosynthesis added views L Accession Number(s): [id number] cc: Robin Barnett MD EXAMINATION: MM DIAGNOSTIC [...] DO Signed By: <Electron ically signed by Lakehsa Dumont DO in OV> 11/02/24 1312 DD/ 1230 TD/TT: 11/02/24 1230 Automotive Mechanic: US breast LT limited mamm on ly Reviewed date:11/20/2024 08:30:49 AM Interpretation: Performing Lab: Notes/Report: [address] [place] [address] Ultrasound Report Signed Patient: Zahra Feliz MR#: [id number] 0023 : 1950 Acct:[id number] Age/Sex: 74 / F ADM Date: 11/02/24 Loc: HO.MAMMO Attending Dr: Robin Barnett MD Ordering Physician: Robin Barnett MD Date of Service: 11/02/24 Procedure(s): US breast LT limited mamm only Accession Number(s): [id number] cc: Robin Barnett MD EXAMINATION: MM DIAGNOSTIC [...] DO 11/02/2024 01:12 PM EDT RP Workstation: [employer] Dictated By: Lakesha Dumont DO Signed By: <Electronically signed by Lakesha Dumont DO in OV> 11/02/24 1312 DD/ 1300 TD/TT: 11/02/24 1318 Automotive Mechanic: [place] [facility] [address] [place] [address] Ultrasound Report Signed Patient: Gaby Feliz MR#: [id number] 0023 : 1950 Acct:[id number] Age/Sex: 74 / F ADM Date: 11/02/24 Loc: HO.MAMMO Attending Dr: Robin Barnett MD Ordering Physician: Robin Barnett MD Date of Service: 11/02/24 Procedure(s): US evelyn ast LT limited mamm only Accession Number(s): [id number] cc: Robin Barnett MD EXAMINATION: MM DIAGNOSTIC [...] 11/02/24 1312 DD/ 1300 TD/TT: 11/02/24 1318 Automotive Mechanic: Pathology Reviewed date:11/24/2024 07:18:25 PM Interpretation: Performing Lab:[facility], [address] [place] [address] Notes/Report: ------ Name: Zahra Feliz Age/Sex: 74/F : 1950 Unit#: [id number] Attend Dr: Robin Barnett MD Re11/22/24 Status : DEP [facility]F [facility] Disch: ------ SPEC : [id number] RECD : 11/22/24 STATUS: PERLA BEDOYA NUM: [id number] EMILY: 11/22/24-830 [facility] DR: Lakesha Dumont DO ENTERED: 11/22/24- 53 SP TYPE: Surgical OTHR DR: Robin Barnett MD ORDERED: HE Stain/2, Gross Micro L4, ER, SD, IHC ER/SD/Her2N/4, Ki-67, PDK3URE COMMENTS: As per the specimen requisition slip [...] at 2:00 Histologic type: Ductal Histologic grade ([place]/MSBR histologic score): 1 - Glandular/tubular differentiation: Score: [...] Zahra Feliz Age/Sex: 74/F : 1950 Unit#: [id number] Attend Dr: Robin Barnett MD Re11/22/24 Status : DEP REF Location: HO.MAMMO Disch: ------ SPEC : [id number] RECD : 11/22/24 STATUS: PERLA BEDOYA NUM: [id number] EMILY: 11/22/24 [facility] [address]: Lakesha Dumont DO ENTERED: 11/22/24-11 53 SP TYPE: Surgical OTHR DR: Robin Barnett MD ORDERED: HE Stain/2, Gross Micro L4, ER, SD, IHC ER/SD/Her2N/4, Ki-67, GFP3NVD COMMENTS: As per the specimen requisition slip [...] Dual Link System-HRP. Progesterone recepto r: Clone [id number]; Social[employer]horus Mach 4 detection system. Her-2/lashonda immunohistochemistry performed in accordance with ASCO/CAP recommendations (2007) and update (2013). Hercep Test Detection system: Po lymer type Scoring criteria: For ER/SD and Her-2/ lashonda: All internal (if present) and external controls react appropriately. ER and SD immunostai ns are scored as Positive (> [...] Zahra Feliz Age/Sex: 74/F : 1950 Unit#: [id number] Attend Dr: Robin Barnett MD Re11/22/24 Status : DEP REF Location: HO.MAMMO Disch: ------ SPEC : [id number] RECD : 11/22/24 STATUS: PERLA BEDOYA NUM: [id number] EMILY: 11/22/[address] [facility] [address]: Lakesha Dumont DO ENTERED: 11/22/24- 53 SP TYPE: Surgical OTHR DR: Robin Barnett MD ORDERED: HE Stain/2, Gross Micro L4, ER, SD, IHC ER/SD/Her2N/4, Ki-67, BRF3YTV COMMENTS: As per the specimen requisition slip the specimen is collected at 0831 an d placed in formalin at 0835. Gross Description (Continued) Cancer: ASCO/CAP Cli nical Practice Guideline Focus Update. Arch of Pathol Lab Med, 142, 2018: 4985-1648. Trixie KH, Hong ME, et al. Estrogen and Progesterone Receptor Testing in Breast Cancer: ASCO/CAP Guideline U pdate. Arch of Pathol Lab Med, 144 2020: 545-563. Britt N, Gaviota P , et al. Adjuvant abemaciclib combined with endocrine therapy for high- risk early breast ca ncer: updated efficacy and Ki-67 analysis from the [facility] study. Georgie Oncol. 2021 Dec;32(12):2726-2499. This case was review ed intradepartmentally; results were communicated to Drs. Melendez and Tim via secure text on 11/24/2024. Special studies orde red and performed: Immunostains for ER, SD, HER2 and Ki 67 Copies To: Robin Barnett MD [facility] [address] [place] [address] [place] [address] Lakesha Dumont DO [address] [place] [address] [place] [address] ------ Signed (signature on file) Zan Max MD 11/24/24 1115 ------ END OF REPORT MM tomosynthesis diagnostic LT Reviewed date:11/28/2024 12:28:38 PM Interpretation: Performing Lab: Notes/Report: [facility]'s [address] [place] [address] Mammography Report Signed with Volodymyr Patient: Zahra Feliz MR#: [id number] 0023 : 1950 Acct:[id number] Age/Sex: 74 / F ADM Date: 11/22/24 Loc: XENIAO Attending Dr: Robin Barnett MD Ordering Physician: Robin Barnett MD Results: 1Ne gative Date of Service: 11/22/24 Follow Up: 1 Year From Orig inal Mammogram Procedure(s): MM tomosynthesis diagnostic LT Accession Number(s): [id number] cc: Robin Barnett MD ADDENDUM ADDENDUM #1 [...] 11/23/24 1423 DD/ 0815 TD/TT: 11/22/24 0852 Automotive Mechanic: [facility] [address] [place] [address] Mammography Report Signed with Addenda Patient: Gaby Feliz MR#: [id number] 0023 : 1950 Acct:[id number] Age/Sex: 74 / F ADM Date: 11/22/24 Loc: HO.MAMMO Attending Dr: Robin Barnett MD Ordering Physician: Robin Barnett MD Results: 1Ne gative Date of Service: Follow Up: 1 Year From [facility] Mammogram Procedure(s): MM tomosynthesis diagnostic LT Accession Number(s): [id number] cc: Robin Barnett MD ADDENDUM ADDENDUM #1 [...] Signed By: <Rayo harmon signed by Lakesha Dumotn DO in OV> 11/23/24 1423 DD/ 4 TD/TT: 11/22/24851 Automotive Mechanic: US breast ndl core biopsy LT Reviewed date:11/28/2024 12:29:41 PM Interpretation: Performing Lab: Notes/Report: [facility] [address] [place] [address] Ultrasound Report Signed with Addenda Patient: Zahra Feliz MR#: [id number] 0023 : 1950 Acct:[id number] Age/Sex: 74 / F ADM Date: 11/22/24 Loc: HO.MAMMO Attending Dr: Robin Barnett MD Ordering Physician: Dhaval Melendez MD Date of Service: 11/22/24 Procedure(s): US breast ndl core biopsy LT Accession Number(s): [id number] cc: Robin Barnett MD; Dhaval Melendez MD [...] 11/23/24 1423 DD/ 0800 TD/TT: 11/22/24 0900 Automotive Mechanic: [place] [facility] [address] [place], [place] [address] Ultrasound Report Signed with Addenda Patient: Gaby Feliz MR#: [id number] 0023 : 1950 Acct:[id number] Age/Sex: 74 / F ADM Date: 11/22/24 Loc: HO.MAMMO Attending Dr: Robin Barnett MD Ordering Physician: Dhaval Melendez MD Date of Service: 11/22/24 Procedure(s): US evelyn ast ndl core biopsy LT Accession Number(s): [id number] cc: Robin Barnett MD; Dhaval Melendez MD [...] 11/23/24 1423 DD/ 0800 TD/TT: 11/22/24 0900 Automotive Mechanic: MM tomosynthesis diagnostic LT Reviewed date:12/20/2024 06:55:58 PM Interpretation: Performing Lab: Notes/Report: [facility]'[address] [place] [address] Mammography Report Signed Patient: Zahra Feliz MR#: [id number] 0023 : 1950 Acct:[id number] Age/Sex: 74 / F ADM Date: 12/20/24 Loc: HO.MAMMO Attending Dr: Dhaval Melendez MD Ordering Physician: Dhaval Melendez MD Results: 1Neg ative Date of Service: 12/20/24 Follow Up: 1 Year From [facility] Mammogram Procedure(s): MM tomosynthesis diagnostic LT Accession Number(s): [id number] cc: Robin Barnett MD; Dhaval Melendez MD [...] breast mass 2:00.. ANESTHESIA: lidocaine. LOCALIZATION SYSTEM: [employer] LOCallizer Wire-Free Guidance System with 12g needle applicator. RADIOFREQUENCY TAG: ID # [id number] RF Tag ID confirmed with LOCalizer Guidance [...] 12/20/24 1047 DD/ 08 TD/TT: 12/20/24 08 Automotive Mechanic: [facility] [address] [place] [address] Mammography Report Signed Patient: Gaby Feliz MR#: [id number] 0023 : 1950 Acct:[id number] Age/Sex: 74 / F ADM Date: 12/20/24 Loc: HO.MAMMO Attending Dr: Smiley Melendez MD Ordering Physician: Dhaval Melendez MD Results: 1Neg ative Date of Service: Follow Up: 1 Year From Orig ina Mammogram Procedure(s): MM tomosynthesis diagnostic LT Accession Number(s): [id number] cc: Robin Barnett MD; Dhaval Melendez MD [...] breast mass 2:00.. ANESTHESIA: lidocaine. LOCALIZATION SYSTEM: [employer] LOCallizer Wire-Free Guidance System with 12g needle applicator. RADIOFREQUENCY TAG: ID # [id number] RF Tag ID confirmed with LOCalizer Guidance [...] 12/20/24 1047 DD/ 08 TD/TT: 12/20/24 08 Automotive Mechanic: US Breast RF Tag Device Left Reviewed date:12/20/2024 06:54:22 PM Interpretation: Performing Lab: Notes/Report: [facility]'[address] [place] [address] Ultrasound Report Signed Patient: Zahra Feliz MR#: [id number] 0023 : 1950 Acct:[id number] Age/Sex: 74 / F ADM Date: 12/20/24 Loc: HO.MAMMO Attending Dr: Dhaval Melendez MD Ordering Physician: Dhaval Melendez MD Date of Service: 12/20/24 Procedure(s): US Breast RF Tag Device Left Accession Number(s): [id number] cc: Robin Barnett MD; Dhaval Melendez MD [...] breast mass 2:00.. ANESTHESIA: lidocaine. LOCALIZATION SYSTEM: [employer] LOCallizer Wire-Free Guidance System with 12g needle applicator. RADIOFREQUENCY TAG: ID # [id number] RF Tag ID confirmed with LOCalizer Guidance [...] 12/20/24 1047 DD/ 0800 TD/TT: 12/20/24 08 Automotive Mechanic: [facility] [address] [place] [address] Ultrasound Report Signed Patient: Gaby Feliz MR#: [id number] 0023 : 1950 Acct:[id number] Age/Sex: 74 / F ADM Date: 12/20/24 Loc: HO.MAMMO Attending Dr: Smiley Melendez MD Ordering Physician: Dhaval Melendez MD Date of Service: 12/20/24 Procedure(s): US Evelyn ast RF Tag Device Left Accession Number(s): [id number] cc: Robin Barnett MD; Dhaval Melendez MD [...] breast mass 2:00.. ANESTHESIA: lidocaine. LOCALIZATION SYSTEM: [employer] LOCallizer Wire-Free Guidance System with 12g needle applicator. RADIOFREQUENCY TAG: ID # [id number] RF Tag ID confirmed with LOCalizer Guidance [...] 12/20/24 1047 DD/ 0800 TD/TT: 12/20/24 0825 Automotive Mechanic: Pathology Reviewed date:12/29/2024 12:47:26 PM Interpretation: Performing Lab:[facility], [address] [place] [phone] Notes/Report: ------ Name: Zahra Feliz Age/Sex: 74/F : 1950 Unit#: [id number] Attend Dr: Dhaval Melendez MD Re12/27/24 Status : [facility] Location: [facility] Disch: ------ SPEC : [id number] RECD : 12/27/24-1312 STATUS: PERLA BEDOYA NUM: [id number] EMILY: 12/27/24-1308 [facility] [address]: Dhaval Melendez MD ENTERED: 12/27/24-13 16 [...] with stromal fibrosis. Synoptic Data - Clara call Breast Cancer Procedure: Lumpectom y, margin revision, sentinel and axillary lymph nodes Laterality: Left Tumor size: 7 mm Tumor focality: Unifocal Extent of tumor Skin: No skin present Nipple: Nipple not present Skeletal muscle: Mus kimberli not present DCIS: Present, cribriform CONTINUED ON NEXT PAGE ------ Name: TriniZahra J Age/Sex: 74/F : 1950 Unit#: [id number] Attend Dr: Dhaval Melendez MD Re12/27/24 Status : [facility] Location: [facility] Disch: ------ SPEC : [id number] RECD : 12/27/24-1311 STATUS: PERLA BEDOYA NUM: [id number] EMILY: 12/27/24-1308 [facility] [address]: Dhaval Melendez MD ENTERED: 12/27/24-13 16 [...] Part F) Lymph nodes Number examined: 4 Sigel nodes: 2 Axillary nodes: 2 Number involved: 0 With macrometastases: N/A With micrometastases: N/A With isolated tumor cells: N/A Extranodal extension: N/A Size of largest met. deposit: N/A Treatment effect Breast: No known presurgical therapy Lymph nodes: No know n presurgical therapy TNM: pT1b pN0 (sn) ( AJCC 8th ed) Ancillary studies: P er previous biopsy ([id number]) reported as: ER: Positive SD: Positive HER2: Negative Ki-67: Low Note: For tumors gre ater than 5 mm in size with negative lymph nodes, prognostic genetic testing may be appro priate to guide further management. Clinical History Left breast cancer CONTINUED ON NEXT PAGE ------ Name: Zahra Feliz Age/Sex: 74/F : 1950 [id number] Unit#: [id number] Attend Dr: Dhaval Melendez MD Re12/27/24 Status : [facility] Location: [facility] Disch: ------ SPEC : [id number] RECD : 12/27/24-1312 STATUS: PERLA [facility] NUM: [id number] EMILY: 12/27/24-13[address] [facility] [address]: Dhaval Melendez MD ENTERED: 12/27/24-13 16 [...] Material Received A. Left breast lumpectomy B. Sigel node #1- count 1600 C. Additional axilla ry tissue D. Additional axilla ry lymph node E. Sigel node #2- count 1100 F. Additional anteri [...] as follows: A1 superior, slice 1; A2 uoujiwnt-zvhpvo-xwhlzcetc, slice 2; CONTINUED ON NEXT PAGE ------ Name: Zahra Feliz Age/Sex: 74/F : 1950 Unit#: [id number] Attend Dr: Dhaval Melendez MD Re12/27/24 Status : [facility] Location: [facility] Disch: ------ SPEC : [id number] RECD : 12/27/24 STATUS: PERLA BEDOYA NUM: [id number] EMILY: 12/27/24-13[address] [facility] [address]: Dhaval Melendez MD ENTERED: 12/27/24-13 16 SP TYPE: Surgical OTHR DR: Robin Barnett MD ORDERED: HE Stain/4, Gross Micro L4/2, Gross Micro L5/4, Cytokeratin/6, IOC, IHC/2 COMMENTS: Cassettes A1-A9 are placed in formalin at 1342. Gross Description (Continued) A3 ageqtpbk-dqlflt-frhydedbh, slice 3; A4 anterior-medial, slice 4; A5 [...] TriniZahra J Age/Sex: 74/F : 1950 Unit#: [id number] Attend Dr: Dhaval Melendez MD Re12/27/24 Status : [facility] Location: [facility] Disch: ------ SPEC : [id number] RECD : 12/27/24-1311 STATUS: PERLA BEDOYA NUM: [id number] EMILY: 12/27/24-[address]: Dhaval Melendez MD [...] Robin Barnett MD [facility] [address] [address] Dhaval Melendez MD [facility] [address] [place] [address] ------ Signed (signature on file) Madeleine Ana 12/29/24 1138 ------ END OF REPORT NM sentinel node w imaging Reviewed date:12/28/2024 12:35:55 PM Interpretation: Performing Lab: Notes/Report: [address] [address] Nuclear Medicine Report Signed Patient: Zahra Feliz MR#: [id number] 0023 : 1950 Acct:[id number] Age/Sex: 74 / F ADM Date: 12/27/24 Loc: [facility] Attending Dr: Dhaval Melendez MD Ordering Physician: Dhaval Melendez MD Date of Service: 12/27/24 Procedure(s): NM sentinel node w imaging Accession Number(s): [id number] cc: Robin Barnett MD; Dhaval Melendez MD [...] 12/27/24 0906 DD/ 0730 TD/TT: 12/27/24 0850 Automotive Mechanic: [address] [address] Nuclear Medicine Report Signed Patient: Gaby Feliz MR#: [id number] 0023 : 1950 Acct:[id number] Age/Sex: 74 / F ADM Date: 12/27/24 Loc: HO.[facility] Attending Dr: Smiley Melendez MD Ordering Physician: Dhaval Melendez MD Date of Service: 12/27/24 Procedure(s): NM sen tinel node w imaging Accession Number(s): [id number] cc: Robin Barnett MD; Dhaval Melendez MD [...] 12/27/24 0906 DD/ 0730 TD/TT: 12/27/24 0850 Automotive Mechanic: MM surgical specimen Reviewed date:12/27/2024 03:55:12 PM Interpretation: Performing Lab: Notes/Report: [address] [id number] Mammography Report Signed Patient: Zahra Feliz MR#: [id number] 0023 : 1950 Acct:[id number] Age/Sex: 74 / F ADM Date: 12/27/24 Loc: HO.SSS Attending Dr: Dhaval Melendez MD Ordering Physician: Dhaval Melendez MD Results: Date of Service: 12/27/24 Follow Up: Procedure(s): MM surgical specimen Accession Number(s): [id number] cc: Robin Barnett MD; Dhaval Melendez MD Two-view left breast specimen radiographs demonstrate the marker clip and the tag within the specimen. Electronically signed by: Lakesha Dumont DO 12/27/2024 01:22 PM EDT RP Dictated By: Lakesha Dumont DO Signed By: <Electronically signed by Lakesha Dumont DO in OV> 12/27/24 1322 DD/ 1315 TD/TT: 12/27/24 1319 Automotive Mechanic: [address] [id number] Mammography Report Signed Patient: Gaby Feliz MR#: [id number] 0023 : 1950 Acct:[id number] Age/Sex: 74 / F ADM Date: 12/27/24 Loc: HO.SSS Attending Dr: Smiley Melendez MD Ordering Physician: Dhaval Melendez MD Results: Date of Service: Follow Up: Procedure(s): MM kezia gical specimen Accession Number(s): [id number] cc: Robin Barnett MD; Dhaval Melendez MD Two-view left breast specimen radiographs demonstrate the marker clip and the tag within t he specimen. Electronically dao d by: Lakesha Duomnt DO 12/27/2024 01:22 PM EDT RP Dictated By: Lakesha Dumont DO Signed By: <Electron ically signed by Lakesha Dumont DO in OV> 12/27/24 1322 DD/ 1315 TD/TT: 12/27/24 1319 Automotive Mechanic: Complete Blood Count Auto Di ff Reviewed date:05/13/2025 02:22:14 PM Interpretation: Performing Lab:[facility], [address] [place] [phone] Notes/Report: White Blood Count 4.9 4.8-10.8 X10*3/uL [...] Auto 0.000 0.0-0.012 X10*3/uL Urinalysis and Microscopic Reviewed date:05/13/2025 02:29:31 PM Interpretation: Performing Lab:[facility], [address] [place] [phone] Notes/Report: Color Urine Yellow Appearance Urine Clear PH 7.0 5.0-9.0 Glucose Urine UA Negative Negative mg/dL Urine Blood Negative Negative Specific [place] - Urine 1.025 1.005-1.025 Urine Protein >=1000 (4+) Neg-Trace mg/dL Urine Ketones Trace Negative mg/dL Nitrite Urine Negative Negative Leukocyte Esterase Urine Trace Negative RBC Urine 0-2 0-2 /HPF WBC Urine 0-5 0-5 /HPF Squamous Epithelial Cell Urine 3-5 0-2 /HPF Bacteria Urine None Seen None Seen Hyaline Casts Urine >20 0-2 /LPF Comprehensive Met. Panel Reviewed date:05/13/2025 02:28:32 PM Interpretation: Performing Lab:[facility], [address] [place] [phone] Notes/Report: Sodium 140 135-145 mmol/L Potassium 4.2 [...] Alkaline Phosphatase 98 39-117 U/L Lactic Acid Reviewed date:05/13/2025 02:21:41 PM Interpretation: Performing Lab:[facility], [address] [place] [phone] Notes/Report: Lactic Acid 1.4 0.5-2.0 mmol/L Troponin-I High Sensitivity Reviewed date:05/13/2025 02:24:10 PM Interpretation: Performing Lab:[facility], [address] [place] [phone] Notes/Report: Troponin-I High Sensitivity 6.5 <3.5-17.0 ng/L The [facility] high sensitivity Troponin-I results should be used in conjunction with other diagnostic information such as ECG, clinical observations and information, and patient symptoms to aid in the diagnosis of GA. Lipase Reviewed date:05/13/2025 02:21:00 PM Interpretation: Performing Lab:[facility], [address] [place] [phone] Notes/Report: Lipase 15 8-78 U/L COVID-19 ID NOW ([facility]) Reviewed date:05/13/2025 02:21:51 PM Interpretation: Performing Lab:[facility], [address] [place] [phone] Notes/Report: IDNOW Serial# [id number] COVID-19 Test Positive Negative COVID-19 Note See [...] with other viruses. Testing facilities within the [facility] and its territories are required [...] by authorized laboratories. Testing performed on the [facility] ID NOW utilizing NAAT. CT angio head neck Reviewed date:05/13/2025 02:23:34 PM Interpretation: Performing Lab: Notes/Report: [address] [address] [address] Scan Report Signed Patient: Zahra Feliz MR#: [id number] 0023 : 1950 Acct:[id number] Age/Sex: 75 / F ADM Date: 05/12/25 Loc: HO.ED Attending Dr: Ordering Physician: Haily Melendez PA-C Date of Service: 05/12/25 Procedure(s): CT angio head neck Accession Number(s): [id number] cc: Haily Melendez PA-C; Robin Barnett MD Report Number: [id number]: Total DLP = 1469.00 mGy-cm Reason for Exam: sudden L side neck pain, hypotension, diaphoresis CLINICAL HISTORY: sudden L side neck pain, hypotension, diaphoresis --- Additional Notes or Special Instructions: R O vertebral dissection, COVID + CT head without contrast Comparison: None available Findings: No acute hemorrhage. No extra-axial fluid collection. No hydrocephalus, mass-effect or herniation. Winslow-white differentiation is maintained. There is patchy hypoattenuation of the periventricular and deep white matter, which is most likely the sequela of moderate chronic small vessel ischemic disease. No acute orbital pathology. No acute soft tissue abnormality. No fracture. The visualized paranasal sinuses are predominantly clear. The mastoid air cells are clear. Impression: No acute findings. CTA of the head and neck with 3-D postprocessing Comparison: None available Findings: No significant carotid artery stenosis. Intact vertebral arteries. The vertebral basilar system is patent. The cerebellar and posterior cerebral arteries are intact. The intracranial internal carotid arteries are patent. The middle/anterior cerebral arteries are intact. No dissection, aneurysm, abrupt cutoffs or significant stenosis. Mild tortuosity of the vasculature. No mass, midline shift, hydrocephalus, acute hemorrhage or abnormal contrast enhancement. The lung apices are clear. Thyroid nodules measure up to 3.1 cm right lobe. The soft tissues of the head and neck are otherwise unremarkable. Status post ACDF at C4 through C6. Intact hardware. Impression: No dissection, aneurysm, abrupt cutoffs or significant stenosis. Nodule in the thyroid meets size criteria for a dedicated nonemergent thyroid ultrasound. This document has been electronically signed by: Kelsey Leos MD on 05/12/2025 20:24:49 Dictated By: Kelsey Cleaning MD Signed By: <Electronically signed by Kelsey Cleaning MD in [place]> 05/12/252025 DD/ 23 TD/TT: 05/12/252023 Automotive Mechanic: [address] [address] [address] Scan Report Signed Patient: Gaby Feliz MR#: [id number] 0023 : 1950 Acct:[id number] Age/Sex: 75 / F ADM Date: 05/12/25 Loc: HO.ED Attending Dr: Ordering Physician: Haily Melendez PA-C Date of Service: 05/12/25 Procedure(s): CT ang io head neck Accession Number(s): [id number] cc: Haily Melendez PA-C; Robin Barnett MD Report Number: [id number]: Total DLP = 1469.00 mGy-cm Reason for Exam: nora den L side neck pain, hypotension, diaphoresis CLINICAL HISTORY: de la o dden L side neck pain, hypotension, diaphoresis --- Additional Notes or Special Instructions: R O vertebral dissection, COVID + CT head without contrast Comparison: None available Findings: No acute hemorrhage. No extra-axial fluid collection. No hydrocephalus, mass-effect or herni ation. Winslow-white differentiation is maintained. There is patchy hypoattenu ation of the periventricular and deep white matter, which is most likely the sequela of moderate chronic small vessel ischemic disease. No acute orbital pathology. No acute soft tissue abnormality. No fracture. The visualized paran kj sinuses are predominantly clear. The mastoid air cells are clear. Impression: No acute findings. CTA of the head and neck with 3-D postprocessing Comparison: None available Findings: No significant carot id artery stenosis. Intact vertebral art eries. The vertebral basilar system is patent. The cerebellar and poste rior cerebral arteries are intact. The intracranial int ernal carotid arteries are patent. The middle/anterior cerebral arteries ar e intact. No dissection, aneur ysm, abrupt cutoffs or significant stenosis. Mild tortuosity of the vasculature. No mass, midline logan ft, hydrocephalus, acute hemorrhage or abnormal contrast enhancement. The lung apices are clear. Thyroid nodules measure up to 3.1 cm right lobe. The soft tissu es of the head and neck are otherwise unremarkable. Status post ACDF at C4 through C6. Intact hardware. Impression: No dissection, aneur ysm, abrupt cutoffs or significant stenosis. Nodule in the thyroi d meets size criteria for a dedicated nonemergent thyroid ultrasound. This document has be en electronically signed by: Kelsey Leos MD on 05/12/2025 20:24:49 Dictated By: Kelsey Cleaning MD Signed By: <Electron icamanuel signed by Kelsey Cleaning MD in [place]> 05/12/252025 DD/ 23 TD/TT: 05/12/252023 Automotive Mechanic: XR chest 2V Reviewed date:05/13/2025 02:21:24 PM Interpretation: Performing Lab: Notes/Report: [address] [address] XRay Report Signed Patient: Zahra Feliz MR#: [id number] 0023 : 1950 Acct:[id number] Age/Sex: 75 / F ADM Date: 05/12/25 Loc: HO.ED Attending Dr: Ordering Physician: Joni Light Date of Service: 05/12/25 Procedure(s): XR chest 2V Accession Number(s): [id number] cc: Robin Barnett MD; Joni Light Reason for Exam: weakness CLINICAL HISTORY: weakness 2 view chest x-ray Comparison: None provided Findings: The lungs are clear. Prominent cardiac silhouette. Aortic valve replacement. Anterior cervical discectomy and fusion hardware. IMPRESSION: 1. No acute findings. This document has been electronically signed by: Mario Bledsoe MD on 05/12/2025 17:59:54 Dictated By: Mario Bledsoe MD Signed By: <Electronically signed by Mario Bledsoe MD in [place]> 05/12/251800 DD/ 58 TD/TT: 05/12/251758 Automotive Mechanic: [address] [address] XRay Report Signed Patient: Gaby Feliz MR#: [id number] 0023 : 1950 Acct:[id number] Age/Sex: 75 / F ADM Date: 05/12/25 Loc: .ED Attending Dr: Ordering Physician: Joni Light Date of Service: 05/12/25 Procedure(s): XR chest 2V Accession Number(s): [id number] cc: Robin Barnett MD; Joni Light Reason for Exam: weakness CLINICAL HISTORY: weakness 2 view chest x-ray Comparison: None provided Findings: The lungs are clear. Prominent cardiac silhouette. Aortic valve replacement. Anterior cervical discectomy and fusion hardware. IMPRESSION: 1. No acute findings. This document has be en electronically signed by: Mario Bledsoe MD on 05/12/2025 17:59:54 Dictated By: Mario Garner MD Signed By: <Electron icalldevin signed by Mario Bledsoe MD in [place]> 05/12/251800 DD/ 58 TD/TT: 05/12/251758 Automotive Mechanic: Troponin-I High Sensitivity Reviewed date:05/13/2025 02:21:34 PM Interpretation: Performing Lab:[facility], [address] [place] [phone] Notes/Report: Troponin-I High Sensitivity 8.0 <3.5-17.0 ng/L [facility] high sensitivity Troponin-I results should be used in conjunction with other diagnostic information such as ECG, clinical observations and information, and patient symptoms to aid in the diagnosis of GA. Reason For Referral No Information Medications Medication [...] Y MOUTH EVERY DAY for 90 Active PriLOSEC OTC 20 MG TAKE 2 TABLET 30 MIN UTES BEFORE MORNING MEAL ORALLY ONCE A DAY 90 DAYS for 90 days Active Immunizations Vaccine Route Administration Date Status [...] Problem Status W/U Status Risk Notes Problem 15602774 Lymphocytosis (D72.820) Active confirm ed Problem 690278691 Chronic tension- type headache, not intractable (G44.229) Active confirmed Problem 851303023 Overactive bladd er (N32.81) Active confirmed Problem 37539431 Essential hypert ension (I10) Active confirmed Problem 1709183 Prediabetes (R73.09) Active confirmed Problem 261348618 Low HDL (under 4 0) (E78.6) Active confirmed Problem History of aortic valve replacement (9047553353268 ) History of aortic valve replacement (Z95.2) Active confirmed Problem 133784937 Cervical disc di sease (M50.90) Active confirmed Problem 01909095 Iron deficiency anemia, unspecified iron deficiency anemia type (D50.9) Active confirmed Problem 48292042 LBBB (left bundl e branch block) (I44.7) Active confirmed Problem 114512567 Severe aortic st enosis (I35.0) Active confirmed Problem 950833942 Pure hypercholesterolemia (E78.00) Active confirmed Problem 151354157 Body mass index (BMI) of 34.0-34.9 in adult (Z68.34) Active confirmed Problem 557123227 Hyperplastic col onic polyp, unspecified part of colon (K63.5) Active confirmed Problem 189713037 Moderate aortic stenosis (I35.0) Active confirmed Problem 69340287 Myelopathy (G95.9) Active confirmed Problem 187570335 Gastroesophageal reflux disease with esophagitis without hemorrhage (K21.00) Active confirmed Vital Signs Blood pressure diastolic 70 mm Hg 10/19/2024 Height 60.50 in 10/19/2024 Blood pressure systolic 156 mm Hg 10/19/2024 Weight 172 lbs 10/19/2024 BMI 33.03 kg/m2 10/19/2024 Encounters Encounter Location Date Provider Diagnosis Robin Barnett MD [address] [place] [address] [id number] 08/11/2024 Robin Barnett Prediabetes R73.09 ; Essential hypertension I10 ; Lymphocytosis D72.820 ; Pure hypercholesterolemia E78.00 and Anemia D64.9 Robin Barnett MD [address] [place] [address] [id number] 10/12/2024 Robin Barnett Loss of hair L65.9 a nd Iron deficiency anemia, unspecified iron deficiency anemia type D50.9 Robin Barnett MD [address] [place] [address] [id number] 02/19/2025 Robin Barnett Iron deficiency anem ia, unspecified iron deficiency anemia type D50.9 Robin Barnett MD [address] [place] [id number] 08/14/2024 Robin Barnett Overactive bladder N 32.81 ; Gastroesophageal reflux disease with esophagitis without hemorrhage K21.00 ; Iron deficiency anemia, unspecified iron deficiency anemia type D50.9 ; Loss of hair L65.9 ; Bilateral carotid bruits R09.89 ; Prediabetes R73.09 ; Essential hypertension I10 ; Pure hypercholesterolemia E78.00 ; Colon cancer screening Z12.11 and Depression screening Z13.31 Robin Barnett MD [address] [place] [address] [id number] 10/19/2024 Robin Barnett Essential hypertensi on I10 Robin Barnett MD [address] [place] [id number] 05/14/2025 Robin Barnett MD [address] [place] [address] Drive [address] [place] [address] [id number] 05/18/2025 Robin Barnett Assessments Encounter Date Diagnosis (ICD Code) Assessment [...] bladder (ICD-10 - N32.81) order faxed to [facility] CS dept, pending diagnostic testing [...] DEXA 07/15/2020 MAMMOGRAM DIGITAL UNILATERAL [place] LT /08/2014 US CAROTID BILATERAL DOPPLER 08/14/2024 ECHO 08/04/2022 ECHO 02/16/2013 Next Appt Details Provider Name:Robin harley, 08/07/2025 07:30:00 AM, [address] [place] [address], [place] [address], [place], [place], [phone], Provider Name:Robin harley, 08/17/2025 08:30:00 AM, [address] [place] [address], [place] [address], [place], [place], [phone], Insurance Providers Payer Name Payer Address Payer Phone Subscriber Number Group Number Insured Name Patient Relationship to Insured Coverage Start Date Coverage End Date MEDICARE [employer] [address] [place] [id number] Zahra Feliz Self - patient is the insured 5 [employer] SUPPLEMENT [address] [address] [place] [address] [id number] Zahra Feliz Self - patient is the insured Medical (General) History Medical History History ICD Code hematuria with neg w/u2 times colonoscopy 2005 hyperplasti c polyp; colonoscopy by Dr. 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
--- OUTSIDE RECORDS SUMMARY | 2025-06-06 17:36 | XMS_ITS | Clinical Summary ---
Author Organization [facility] Address [address] [place] [address] Phone Care Team Providers Care Operations Coordinator Name Role Phone Robin Barnett MD Primary Care Provider [phone] Allergies Active Allergy Reactions Criticality Noted Date [...] 01/23/2025 Malignant neoplasm of left b reast ([facility] V24, [facility] V28) 01/23/2025 Cancer Staging:Clinical stage from 12/27/2024:Stage IA(cT1b, cN0(sn), cM0, G1, ER+, WY+, HER2-) - Signed by Jason Garcia MD [...] Medical History Date Comments Hypertension Breast cancer ([facility] V24, [facility] V28) GERD (gastroesophageal reflux disease) [...] patient's age to complete this topic Insurance [facility] MEDICARE Care Teams Operations Coordinator Relationship Specialty Start Date End Date Robin Barnett MD [address] [place] [address] [address] [place] [address] PCP - General Internal Medicine 01/10/25
== END 2025-06-06 14:21 | disposition home or self-care (01) ==
PROVIDERS: PCP Internal Medicine; Visit Provider Internal Medicine Cardiovascular Disease
DX: Z95.2 Presence of prosthetic heart valve (principal); I44.7 Left bundle-branch block, unspecified; I10 Essential (primary) hypertension; Z01.810 Encounter for preprocedural cardiovascular examination
CPT/HCPCS: 99214

== ENCOUNTER → 2025-06-06 13:44 | Outpatient (BNVA) | payer MEDICARE, SELFPAY | PROVIDERS: PCP Internal Medicine; Visit Provider Internal Medicine Cardiovascular Disease | DX: Z01.810 Encounter for preprocedural cardiovascular examination (principal); I44.7 Left bundle-branch block, unspecified; I10 Essential (primary) hypertension; Z95.2 Presence of prosthetic heart valve | CPT/HCPCS: 99212 ==

== ENCOUNTER 2025-08-07 07:30 | Outpatient (REF) | payer MEDICARE, OTHER, SELFPAY ==
--- OUTSIDE RECORDS SUMMARY | 2024-04-20 02:45 | XMS_ITS ---
Author Organization Robin Barnett MD Address [address] [place] [phone] Care Team Providers Care Continuous Process Rotary Drum Tanner Name Role Phone Robin Barnett Primary Care Provider Results Component Value Reference Range Notes UA ClnCatch+Micro w/rflx Cul t Reviewed date:04/21/2024 08:45:38 AM Interpretation: Performing Lab:[facility], [address] [place] [phone] Notes/Report: Urine, Clean Catch Color Urine Yellow Appearance Urine Clear PH 6.5 5.0-9.0 Glucose Urine UA Negative Negative mg/dL Urine Blood Negative Negative Specific [place] - Urine 1.015 1.005-1.025 Urine Protein Negative Neg-Trace mg/dL Urine Ketones Negative Negative mg/dL Nitrite Urine Negative Negative Leukocyte Esterase Urine Negative Negative RBC Urine 0-2 0-2 /HPF WBC Urine 0-5 0-5 /HPF Squamous Epithelial Cell Urine 0-2 0-2 /HPF Bacteria Urine None Seen None Seen Hyaline Casts Urine 0-2 0-2 /LPF REASON FOR VISIT URINE CULTURE F/U Encounters Encounter Location Date Provider Diagnosis Robin Barnett MD [address] [place] [phone] 04/20/2024 Robin Barnett Urinary tract infection, site not specified N39.0 and Hematuria, unspecified R31.9 Assessments Encounter Date Diagnosis (ICD Code) Assessment Notes Treatment Notes Treatment Clinical Notes Section Notes 04/20/2024 Urinary tract infection, site not specified (ICD-10 - N39.0) 04/20/2024 Hematuria, unspecified (ICD-10 - R31.9) Plan Of Treatment Next Appt Details Provider Name:Robin Mena ier, 08/17/2025 08:30:00 AM, [address] [facility], [address], [place], [place], [phone], Progress Notes * Yee YUENOB: 0 (75 yo F)Acc No.[id number]:04/20/2024 Progress Note Patient: Zahra CHACON Provider: Carroll Barnett MD :1950 A ge:74 Y S ex:Female Date:04/20/2024 Address:[address] [place], [place] [phone] Subjective: * Chief Complaints: * 1 . URINE CULTURE F/U. * Medical History: Objective: * Vitals: Assessment: * Assessment: 1. U rinary tract infection, site not specified - N39.0 (Primary) 2 . H ematuria, unspecified - R31.9 Plan: * Treatment: 2. H ematuria, unspecified L AB: UA ClnCatch+Micro w/rflx Cult (Collection Date & Time - 04/20/2024 07:45 AM) * * The named appointment provid er may or may not be the originator of this progress note, and it is not deemed complete until electronically signed by the appointment provider. Sign off status: Pending * Provider: Carroll Barnett MD Date: 0 04/20/2024 Generated for Lorna gutierrez/Griselda/eTransmitting on: 1 02:39 PM EST
--- OUTSIDE RECORDS SUMMARY | 2024-08-11 03:15 | XMS_ITS ---
Author Organization Robin Barnett MD Address [address] [place] [phone] Care Team Providers Care Band Sawmill Operator Name Role Phone Robin Barnett Primary Care Provider [phone] Results Component Value Reference Range Notes Complete Blood Count Auto Di ff Reviewed date:08/11/2024 12:05:01 PM Interpretation: Performing Lab:[facility], [address] [place] [phone] Notes/Report: White Blood Count 5.2 4.8-10.8 X10*3/uL Red Blood Count 3.85 4.20-5.50 X10*6/uL Hemoglobin 8.5 12.0-16.0 g/dl Hematocrit 29.1 37.0-47.0 % Mean Corpuscular Volume 75.6 80.0-98.0 fL Mean Corpuscular Hemoglobin 22.1 27.0-33.0 pg Mean Corpuscular HGB Conc 29.2 31.0-35.0 g/dl Red Cell Distribution Width 17.2 11.0-16.0 % Platelet Count 300 160-400 X10*3/uL Mean Platelet Volume 9.9 9.4-12.3 fL Neutrophils Percent Auto 50.7 45-73 % Imm Gran Pct Auto 0.4 0.0-0.4 % Lymphocytes Percent Auto 31.9 20-40 % Monocytes Percent Auto 11.0 2-11 % Eosinophils Percent Auto 4.8 0-4 % Basophils Percent Auto 1.2 0-2 % NRBC Pct Auto 0.0 0.0-0.2 /100WBC Neutrophils Absolute Auto 2.6 2.0-8.3 x10*3/u L Imm Gran Abs Auto 0.02 0.00-0.03 X10*3/uL Lymphocytes Absolute Auto 1.7 1.2-4.9 X10*3/u L Monocytes Absolute Auto 0.6 0.1-1.2 X10*3/uL Eosinophils Absolute Auto 0.3 0.0-0.4 X10*3/u L Basophils Absolute Auto 0.1 0.0-0.2 X10*3/uL NRBC Abs Auto 0.000 0.0-0.012 X10*3/uL Comprehensive [place]. Panel Fa Reviewed date:08/11/2024 12:22:05 PM Interpretation: Performing Lab:[address] [phone] Notes/Report: Sodium 142 135-145 mmol/L Potassium 4.1 3.3-5.1 mmol/L Chloride 109 96-108 mmol/L Carbon Dioxide 28 22-29 mmol/L Anion Gap 9 12-20 Blood Urea Nitrogen 20 9-16 mg/dL Creatinine 0.78 0.5-1.4 mg/dL Estimated Glomerular Filt Rate > 60 Chronic Kidney Disease: Estimated GFR < 60 mL/min/1.73m2 Severe Kidney Disease: Estimated GFR < 15 mL/min/1.73m2 Glucose Fasting 110 60-99 mg/dL A fasting glucose from 100-125 mg/dl is considered impaired (pre-diabetes). Calcium 8.8 8.4-10.2 mg/dL Bilirubin Total 0.3 0.0-1.0 mg/dL Aspartate Amino Transferase 24 5-31 U/L Alanine Aminotransferase 17 0-31 U/L Total Protein 6.9 6.5-8.0 g/dL Albumin Level 3.8 3.5-5.0 g/dL Alkaline Phosphatase 103 39-117 U/L IRON PROFILE Reviewed date:08/11/2024 12:21:39 PM Interpretation: Performing Lab:[address] [phone] Notes/Report: Iron 20 30-160 mcg/dL Total Iron Binding Capacity 339 228-428 mcg/d L Percent Iron Saturation 6 15-50 % Unsaturated Iron Binding 319 Lipid Panel Reviewed date:08/11/2024 12:21:09 PM Interpretation: Performing Lab:[facility], [address] [place] [phone] Notes/Report: Triglycerides 143 <150 mg/dL Desirable Triglyceride: less than 150 mg/dL Borderline High Triglyceride 150-199 mg/dL High Triglyceride: 200-499 mg/dL Very High Triglyceride: greater than or equal to 5OO mg/dL Cholesterol 210 <200 mg/dL Desirable Cholesterol: less than 200 mg/dL Borderline High Cholesterol: 200-239 mg/dL High Cholesterol: greater than 239 mg/dL LDL Cholesterol Calculated 135 <100 mg/dL Desirable LDL: less than 100 mg/dL Near Optimal/Above Optimal LDL: 110-129 mg/dL Borderline High LDL: 130-159 mg/dL High LDL: 160-189 mg/dL Very High LDL: greater than or equal to 190 mg/dL HDL Cholesterol 47 >40 mg/dL Desirable HDL: greater than 40 mg/dL Note: This HDL assay may give artificially low results in patients with liver disease. Microalbumin, Random Reviewed date:08/11/2024 12:16:48 PM Interpretation: Performing Lab:[facility], [address] [place] [phone] Notes/Report: Creatinine Urine 73.42 Microalbumin Urine 7.0 Microalbum/Creatinine Ratio Ur 9.5 <30 ug/mg cr Albumin/Creatinine Ratio Reference Ranges: Normal: < 30 ug/mg creatinine Microalbuminuria: 30 - 300 ug/mg creatinine Clinical Albuminuria: > 300 ug/mg creatinine Hemoglobin A1c Reviewed date:08/11/2024 12:10:09 PM Interpretation: Performing Lab:[facility], [address] [place] [phone] Notes/Report: Hemoglobin A1c % 6.2 <6.0 % Hemoglobin A1C Reference Range Adults: 4.8 - 6.0 % Non diabetic: < 6.0 % Goal: < 7.0 % Additional Action Suggested: > 8.0 % Note: Hemoglobin A1c results are invalid for patients with abnormal amounts of HbF. Blood transfusions may impact the HbA1c concentration in the patient sample. Estimated Average Glucose 131 eAG = Estimated average glucose which is %A1C expressed as average glucose, using the formula of the D9N-Khonivd Average Glucose study (ADAG), Diabetes Care, Vol.31,#8, Mar. 2007 UA ClnCatch+Micro w/rflx Cul t Reviewed date:08/14/2024 10:20:30 AM Interpretation:ALFREDO 08/14/24 Performing Lab:[facility], [address] [place] [phone] Notes/Report: [id number] Urine, Clean Catch Color Urine Yellow Appearance Urine Clear PH 6.5 5.0-9.0 Glucose Urine UA Negative Negative mg/dL Urine Blood Trace Negative Specific [place] - Urine 1.015 1.005-1.025 Urine Protein Negative Neg-Trace mg/dL Urine Ketones Negative Negative mg/dL Nitrite Urine Negative Negative Leukocyte Esterase Urine Negative Negative RBC Urine 3-5 0-2 /HPF WBC Urine 0-5 0-5 /HPF Squamous Epithelial Cell Urine 0-2 0-2 /HPF Bacteria Urine None Seen None Seen Hyaline Casts Urine 0-2 0-2 /LPF REASON FOR VISIT FASTING LABS Medications Medication SIG (Take, Route, Frequency, Duration) Notes Start Date End Date Status oxyBUTYnin Chloride 5 MG TAKE 1 TABLET B Y MOUTH TWICE A DAY for 90 Active PriLOSEC OTC 20 MG 2 tablet 30 minutes before morning meal Orally Once a day Active Amoxicillin 500 MG 4 capsule Orally one hour before dentist for 1 days 03/02/2023 Active Valsartan-hydroCHLOROthiazi de 160-12.5 MG TAKE 1 TABLET BY MOUTH EVERY DAY FOR 90 DAYS for 90 Active amLODIPine Besylate 5 MG TAKE 1 TABLET B Y MOUTH EVERY DAY for 90 Active Cephalexin 500 MG 1 capsule Orally twi ce a day for 7 days 04/07/2024 Active Encounters Encounter Location Date Provider Diagnosis Robin Barnett MD [address] [place] [address] [address] [place], [place] [phone] 08/11/2024 Robin Barnett Prediabetes R73.09 ; Essential hypertension I10 ; Lymphocytosis D72.820 ; Pure hypercholesterolemia E78.00 and Anemia D64.9 Assessments Encounter Date Diagnosis (ICD Code) Assessment Notes Treatment Notes Treatment Clinical Notes Section Notes 08/11/2024 Prediabetes (ICD-10 - R73.09) 08/11/2024 Essential hypertensi on (ICD-10 - I10) 08/11/2024 Lymphocytosis (ICD-1 0 - D72.820) 08/11/2024 Pure hypercholesterolemia (ICD-10 - E78.00) 08/11/2024 Anemia (ICD-10 - D64.9) Plan Of Treatment Next Appt Details Provider Name:Robin Mena ier, 08/17/2025 08:30:00 AM, [address] [facility], [address], [place], [place], [phone], Progress Notes * Yee YUENOB: 0 (75 yo F)Acc No.[id number]:08/11/2024 Progress Note Patient: Zahra CHACON Provider: Carroll Barnett MD :1950 A ge:74 Y S ex:Female Date:08/11/2024 Address:[address] [place], [place] [phone] Subjective: * Chief Complaints: * 1 . FASTING LABS. * Medical History: * Medications: T aking Cephalexin 500 MG Capsule 1 capsule Orally twice a day , Taking Amoxicillin 500 MG Capsule 4 capsule Orally one hour before dentist , Taking PriLOSEC OTC 20 MG Tablet Delayed Release 2 tablet 30 minutes before morning meal Orally Once a day , Taking oxyBUTYnin Chloride 5 MG Tablet TAKE 1 TABLET BY MOUTH TWICE A DAY , Taking amLODIPine Besylate 5 MG Tablet TAKE 1 TABLET BY MOUTH EVERY DAY , Taking Valsartan-hydroCHLOROthiazide 160-12.5 MG Tablet TAKE 1 TABLET BY MOUTH EVERY DAY FOR 90 DAYS Objective: * Vitals: Assessment: * Assessment: 1. P rediabetes - R73.09 (Primary) 2 . E ssential hypertension - I10 ? 3 . L ymphocytosis - D72.820 4 . P ure hypercholesterolemia - E78.00 5 . A nemia - D64.9 Plan: * Treatment: 2. E ssential hypertension L AB: Complete Blood Count Auto Diff (Collection Date & Time - 08/11/2024 08:15 AM) L AB: Comprehensive [place]. Panel Fast (Collection Date & Time - 08/11/2024 08:15 AM) L AB: Lipid Panel (Collection Date & Time - 08/11/2024 08:15 AM) L AB: Microalbumin, Random (Collection Date & Time - 08/11/2024 08:15 AM) L AB: Hemoglobin A1c (Collection Date & Time - 08/11/2024 08:15 AM) L AB: UA ClnCatch+Micro w/rflx Cult (Collection Date & Time - 08/11/2024 08:15 AM) 3. L ymphocytosis L AB: Complete Blood Count Auto Diff (Collection Date & Time - 08/11/2024 08:15 AM) L AB: Comprehensive [place]. Panel Fast (Collection Date & Time - 08/11/2024 08:15 AM) L AB: Lipid Panel (Collection Date & Time - 08/11/2024 08:15 AM) L AB: Microalbumin, Random (Collection Date & Time - 08/11/2024 08:15 AM) L AB: Hemoglobin A1c (Collection Date & Time - 08/11/2024 08:15 AM) L AB: UA ClnCatch+Micro w/rflx Cult (Collection Date & Time - 08/11/2024 08:15 AM) 4. P ure hypercholesterolemia L AB: Complete Blood Count Auto Diff (Collection Date & Time - 08/11/2024 08:15 AM) L AB: Comprehensive [place]. Panel Fast (Collection Date & Time - 08/11/2024 08:15 AM) L AB: Lipid Panel (Collection Date & Time - 08/11/2024 08:15 AM) L AB: Microalbumin, Random (Collection Date & Time - 08/11/2024 08:15 AM) L AB: Hemoglobin A1c (Collection Date & Time - 08/11/2024 08:15 AM) L AB: UA ClnCatch+Micro w/rflx Cult (Collection Date & Time - 08/11/2024 08:15 AM) 5. A nemia L AB: IRON PROFILE (Collection Date & Time - 08/11/2024 08:15 AM) * Procedure Codes: 3 6415 VENIPUNCT, ROUTINE* * * The named appointment provid er may or may not be the originator of this progress note, and it is not deemed complete until electronically signed by the appointment provider. Sign off status: Pending * Provider: Carroll Barnett MD Date: 0 08/11/2024 Generated for Lorna gutierrez/Griselda/eTransmitting on: 02:37 PM EST
--- OUTSIDE RECORDS SUMMARY | 2024-08-14 04:30 | XMS_ITS ---
Author Organization Robin Barnett MD Address [address] [place] [phone] Care Team Providers Care Ship Pilot Name Role Phone Robin Barnett Primary Care Provider Allergies Allergen (clinical drug ingredient) Drug/Non Drug Allergy documented on EMR Reaction Allergy Type Onset Date Status vancomycin Vancomycin HCl hives Drug Allergy A ctive sulfamethoxazole / trimethoprim Bactrim GI Upset Drug Allergy Active Tape (uncoded) redness infection Allergy Active REASON FOR VISIT review labs, CBACK URINE Medications Medication SIG (Take, Route, Frequency, Duration) Notes Start Date End Date Status Valsartan-hydroCHLOROthiazi de 160-12.5 MG TAKE 1 TABLET BY MOUTH EVERY DAY FOR 90 DAYS Active Amoxicillin 500 MG 4 capsule Orally one hour before dentist for 1 days 03/02/2023 Active amLODIPine Besylate 5 MG TAKE 1 TABLET B Y MOUTH EVERY DAY Active oxyBUTYnin Chloride 5 MG TAKE 1 TABLET B Y MOUTH TWICE A DAY for 90 Active PriLOSEC OTC 20 MG 2 tablet 30 minutes before morning meal Orally Once a day for 90 days Active Social History Tobacco Use: Social History Observation Description Date Details (start date - stop date) Former Smoker NA - NA Tobacco Use/Smoking Question Answer Notes Patient is a former smoker How long has it been since y ou last smoked? > 10 years Additional Findings: Tobacco Non-User Fo rmer smoker, currently using no form of tobacco Alcohol Screen Question Answer Notes Did you have a drink containing alcohol in the p ast year? No Points 0 Interpretation Negative Problems Problem Type SNOMED Code ICD Code Onset Dates Problem Status W/U Status Risk Notes Problem 768033267 Overactive bladder (N32.81) Active confirmed Problem 44759968 Iron deficiency anemia, unspecified iron deficiency anemia type (D50.9) Active confirmed Vital Signs Blood pressure systolic 132 mm Hg 08/14/19 25 Blood pressure diastolic 58 mm Hg 025 Height 60.50 in 08/14/2024 Weight 172 lbs 08/14/2024 BMI 33.03 kg/m2 08/14/2024 weight is up 7 pounds since 04-07-24 Encounters Encounter Location Date Provider Diagnosis Robin Barnett MD [address] [place] [address] Drive [address] [place], [place] [phone] 08/14/2024 Robin Barnett Overactive bladder N 32.81 ; Gastroesophageal reflux disease with esophagitis without hemorrhage K21.00 ; Iron deficiency anemia, unspecified iron deficiency anemia type D50.9 ; Loss of hair L65.9 ; Bilateral carotid bruits R09.89 ; Prediabetes R73.09 ; Essential hypertension I10 ; Pure hypercholesterolemia E78.00 ; Colon cancer screening Z12.11 and Depression screening Z13.31 Assessments Encounter Date Diagnosis (ICD Code) Assessment Notes Treatment Notes Treatment Clinical Notes Section Notes 08/14/2024 Overactive bladder (ICD-10 - N32.81) order faxed to [facility] [place], pending diagnostic testing 08/14/2024 Gastroesophageal ref lux disease with esophagitis without hemorrhage (ICD-10 - K21.00) stable, will contnue current regiment 08/14/2024 Iron deficiency anem ia, unspecified iron deficiency anemia type (ICD-10 - D50.9) to take iron and repeat in 2 months 08/14/2024 Loss of hair (ICD-10 - L65.9) 08/14/2024 Bilateral carotid br uits (ICD-10 - R09.89) 08/14/2024 Prediabetes (ICD-10 - R73.09) stable, no need for medication at this time 08/14/2024 Essential hypertensi on (ICD-10 - I10) stable,will contiue current regiment 08/14/2024 Pure hypercholesterolemia (ICD-10 - E78.00) stable, james continue current regiment 08/14/2024 Colon cancer screeni ng (ICD-10 - Z12.11) patient given cards, will return to office 08/14/2024 Depression screening (ICD-10 - Z13.31) negative screen 08/14/2024 Other Total time spent on the date of the encounter is 45 minutes including both face to face time spent and time spent reviewing documentation , and counseling the patient. Plan Of Treatment Medication Medication Name Sig Start Date Stop Date Notes Valsartan-hydroCHLOROthiazid e 160-12.5 MG TAKE 1 TABLET BY MOUTH EVERY DAY FOR 90 DAYS amLODIPine Besylate 5 MG TAKE 1 TABLET B Y MOUTH EVERY DAY oxyBUTYnin Chloride 5 MG TAKE 1 TABLET B Y MOUTH TWICE A DAY for 90 PriLOSEC OTC 20 MG 2 tablet 30 minutes before morning meal Orally Once a day for 90 days Treatment Notes Assessment Notes Overactive bladder order faxed to [facility], pending diagnostic testing Gastroesophageal reflux dise ase with esophagitis without hemorrhage stable, will contnue current regiment Iron deficiency anemia, unsp ecified iron deficiency anemia type to take iron and repeat in 2 months Prediabetes stable, no need for medication at this time Essential hypertension stable,will levi ue current regiment Pure hypercholesterolemia stable, james co ntinue current regiment Colon cancer screening patient given car ds, will return to office Depression screening negative screen Other Total time spent on the date of the encounter is 45 minutes including both face to face time spent and time spent reviewing documentation, and counseling the patient. Pending Test Test Name Order Date US CAROTID BILATERAL DOPPLER 08/14/2024 Next Appt Details Follow Up: 2 Months, Reason: Provider Name:Robin harley, 08/17/2025 08:30:00 AM, [address] [place] [address], [address], [place], [place], [phone], Progress Notes * Mireille YUENAlcidesOB: 0 (74 yo F)Acc No.[id number]:08/14/2024 Patient: Zahra Carnes Provider: Carroll Barnett MD :1950 A ge:74 Y S ex:Female Date:08/14/2024 Address:[address] [place], [place] [phone] Subjective: * Chief Complaints: * R eview labsCBACK URINE * HPI: D epression Screening: PHQ-9 L ittle interest or pleasure in doing things N ot at all, F eeling down, depressed, or hopeless N ot at all, T rouble falling or staying asleep, or sleeping too much N ot at all, F eeling tired or having little energy N ot at all, P oor appetite or overeating N ot at all, F eeling bad about yourself or that you are a failure, or have let yourself or your family down N ot at all, T rouble concentrating on things, such as reading the newspaper or watching television N ot at all, M oving or speaking so slowly that other people could have noticed; or the opposite, being so fidgety or restless that you have been moving around a lot more than usual N ot at all, T houghts that you would be better off or of hurting yourself in some way N ot at all, T otal Score 0 . I nterpretation and Intervention D epression Screening Findings N egative, F ollow-Up for Depression : review of PHQ-9 found negative result, no follow-up needed. C ommunication Needs: Communication Needs D oes the patient have a hearing impairment N o, D oes the patient have a vision impairment? Y es, I f yes, what is the vision impairment? G lasses, D oes the patient have a cognition impairment? N o. F all Risk: History H ave you had any falls with injury in the past year? N o, H ave you had two or more falls in the past year? N o. S RAMY Questions: SDOH Questions I n the past year have you been worried about losing housing? N o, I n the past year have you or any family members you live with been unable to get any of the following when it was really needed? Check all that apply: N one. S ymptom(s): patient is a 74 yo female here for follow up visit with review of recent labs and follow up of chronci issues. * ROS: G eneral/Constitutional: Patient denies f atigue , headache. C hange in appetite?denies. C hills d enies. F ever d enies. O phthalmologic: Blurred vision d enies. D ischarge d enies. P ain d enies. E NT: Patient denies d ecreased sense of smell , any loss of taste , sore throat. D ecreased hearing d enies. S ore throat d enies. S wollen glands d enies. E ndocrine: Cold intolerance d enies. E xcessive thirst d enies. H eat intolerance d enies. W eight loss d enies. R espiratory: Cough d enies. S hortness of breath at rest d enies. S hortness of breath with exertion d enies. W heezing d enies. C ardiovascular: Chest pain at rest d enies. C hest pain with exertion?denies. I rregular heartbeat d enies. S hortness of breath d enies. ? G astrointestinal: Abdominal pain d enies. C hange in bowel habits d enies. D iarrhea d enies. N ausea d enies. R ectal bleeding d enies. V omiting d enies . G enitourinary: Blood in urine d enies. D ifficulty urinating d enies. F requent urination d enies. U rinary incontinence D enies. M usculoskeletal: Patient denies m uscle aches. P ainful joints d enies. W eakness d enies. P eripheral Vascular: Patient denies r ed and blue toes. S kin: Dry skin d enies. I tching d enies. D enies?Mole(s), changes in moles, new moles or any lesions of concern. D enies P hotosensitivity. R justin d enies. N eurologic: Dizziness d enies. F ainting d enies. H eadache?denies. * Medical History: * Surgical History: * Hospitalization/Major Diagno stic Procedure: * Family History: F ather: 31 yrs. M other: 89 yrs. 4 brother(s) , 3 sister(s) . 3 son(s) . . Father Cardiac 1 brother 14 Suicide 1 sisiter 65 Glioblastoma , No pertinent family medical history, Denies mental health/substance abuse family history 1 brother 60 Covid Mother- CHF, Denies mental health/substance abuse family history. * Social History: T obacco Use: T obacco Use/Smoking P atient is a f ormer smoker, H ow long has it been since you last smoked? > 10 years, A dditional Findings: Tobacco Non-User F ormer smoker, currently using no form of tobacco. D rugs/Alcohol: A lcohol Screen D id you have a drink containing alcohol in the past year? N o, P oints 0 , I nterpretation N egative. M iscellaneous: C affeine: yes, frequency:, 2-3 cups per day. Children: yes. Community involvements: yes. no Exercise. Home smoke detector use: yes. Housing: owning. Living with: spouse. Marital status: . Occupation: weeks/months/years, retired. Pets: cats: dogs:1 dog. no Travel outside of the [place]. * Medications: T akingAmoxicillin 500 MG Capsule 4 capsule Orally one hour before dentistPriLOSEC OTC 20 MG Tablet Delayed Release 2 tablet 30 minutes before morning meal Orally Once a dayoxyBUTYnin Chloride 5 MG Tablet TAKE 1 TABLET BY MOUTH TWICE A DAY amLODIPine Besylate 5 MG Tablet TAKE 1 TABLET BY MOUTH EVERY DAY Valsartan- hydroCHLOROthiazide 160-12.5 MG Tablet TAKE 1 TABLET BY MOUTH EVERY DAY FOR 90 DAYS Taking Amoxicillin 500 MG Capsule 4 capsule Orally one hour before dentistTaking PriLOSEC OTC 20 MG Tablet Delayed Release 2 tablet 30 minutes before morning meal Orally Once a dayTaking oxyBUTYnin Chloride 5 MG Tablet TAKE 1 TABLET BY MOUTH TWICE A DAY Taking amLODIPine Besylate 5 MG Tablet TAKE 1 TABLET BY MOUTH EVERY DAY Taking Valsartan-hydroCHLOROthiazide 160-12.5 MG Tablet TAKE 1 TABLET BY MOUTH EVERY DAY FOR 90 DAYS DiscontinuedCephalexin 500 MG Capsule 1 capsule Orally twice a dayMedication List reviewed and reconciled with the patientDiscontinued Cephalexin 500 MG Capsule 1 capsule Orally twice a dayMedication List reviewed and reconciled with the patient * Allergies: V ancomycin HCl: hivesTape: redness infectionBactrim: GI Upsetyes[Allergies Verified] Objective: * Vitals: H t: 60.50, Wt: 172, BMI:33.03, BP:132/58, Wt-k.02 weight is up 7 pounds since 04-07-24. * P ast Orders: L ab:Comprehensive [facility]. Panel Fast (Order Date 08/11/2024) (Collection Date 08/11/2024) Value Reference Range Sodium 142 135-145 - mmol/L Bilirubin Total 0.3 0.0-1.0 - mg/dL Aspartate Amino Transferase 24 5-31 - U/L Alanine Aminotransferase 17 0-31 - U/L Total Protein 6.9 6.5-8.0 - g/dL Albumin Level 3.8 3.5-5.0 - g/dL Alkaline Phosphatase 103 39-117 - U/L Potassium 4.1 3.3-5.1 - mmol/L Chloride 109 H 96-108 - mmol/L Carbon Dioxide 28 22-29 - mmol/L Anion Gap 9 L 12-20 - Blood Urea Nitrogen 20 H 9-16 - mg/dL Creatinine 0.78 0.5-1.4 - mg/dL Estimated Glomerular Filt Rate > 60 - Glucose Fasting 110 H 60-99 - mg/dL Calcium 8.8 8.4-10.2 - mg/dL L ab:IRON PROFILE (Order Date 08/11/2024) (Collection Date 08/11/2024) Value Reference Range Iron 20 L 30-160 - mcg/dL Total Iron Binding Capacity 339 228-428 - mc g/dL Percent Iron Saturation 6 L 15-50 - % Unsaturated Iron Binding 319 - ug/dL L ab:Lipid Panel (Order Date - 08/11/2024) (Collection Date 08/11/2024) Value Reference Range Triglycerides 143 <150 - mg/dL Cholesterol 210 H <200 - mg/dL LDL Cholesterol Calculated 135 H <100 - mg/dL HDL Cholesterol 47 >40 - mg/dL L ab:Microalbumin, Random (Order Date - 08/11/2024) (Collection Date 08/11/2024) Value Reference Range Creatinine Urine 73.42 - mg/dL Microalbumin Urine 7.0 - mg/L Microalbum Creatinine Ratio Ur 9.5 <30 - ug/ mg cr L ab:Hemoglobin A1c (Order Date - 08/11/2024) (Collection Date 08/11/2024) Value Reference Range Hemoglobin A1c % 6.2 H <6.0 - % Estimated Average Glucose 131 - mg/dL L ab:Complete Blood Count Auto Diff (Order Date - 08/11/2024) (Collection Date - 08/11/2024) Value Reference Range White Blood Count 5.2 4.8-10.8 - X10*3/uL Red Blood Count 3.85 L 4.20-5.50 - X10*6/uL Hemoglobin 8.5 L 12.0-16.0 - g/dl Hematocrit 29.1 L 37.0-47.0 - % Mean Corpuscular Volume 75.6 L 80.0-98.0 - fL Mean Corpuscular Hemoglobin 22.1 L 27.0-33.0 - pg Mean Corpuscular HGB Conc 29.2 L 31.0-35.0 - g/ dl Red Cell Distribution Width 17.2 H 11.0-16.0 - % Platelet Count 300 160-400 - X10*3/uL Mean Platelet Volume 9.9 9.4-12.3 - fL Neutrophils Percent Auto 50.7 45-73 - % Imm Gran Pct Auto 0.4 0.0-0.4 - % Lymphocytes Percent Auto 31.9 20-40 - % Monocytes Percent Auto 11.0 2-11 - % Eosinophils Percent Auto 4.8 H 0-4 - % Basophils Percent Auto 1.2 0-2 - % NRBC Pct Auto 0.0 0.0-0.2 - /100WBC Neutrophils Absolute Auto 2.6 2.0-8.3 - x10* 3/uL Imm Gran Abs Auto 0.02 0.00-0.03 - X10*3/uL Lymphocytes Absolute Auto 1.7 1.2-4.9 - X10* 3/uL Monocytes Absolute Auto 0.6 0.1-1.2 - X10*3/ uL Eosinophils Absolute Auto 0.3 0.0-0.4 - X10* 3/uL Basophils Absolute Auto 0.1 0.0-0.2 - X10*3/ uL NRBC Abs Auto 0.000 0.0-0.012 - X10*3/uL * Examination: G eneral Examination: GENERAL APPEARANCE: w ell developed, well nourished, in no acute distress. HEAD: n ormocephalic, atraumatic. EYES: p upils equal, round, reactive to light and accommodation, sclera non-icteric. EARS: n ormal. ORAL CAVITY: m ucosa moist. THROAT: c lear. NECK/THYROID: n margaret supple, full range of motion, no cervical lymphadenopathy, murmer radiating. SKIN: w arm and dry, no suspicious lesions. HEART: r egular rate and rhythm, S1, S2 normal, 3/6 keturah. LUNGS: c lear to auscultation bilaterally. BREASTS: N o mass, no lump. ABDOMEN: s oft, nontender, nondistended, bowel sounds present, normal, no organomegaly , no masses palpable. RECTAL EXAM: d eclined. sent with cards and solution. 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 EXTREMITIES: n o clubbing, cyanosis, or edema. NEUROLOGIC: n onfocal, motor strength normal upper and lower extremities, sensory exam intact. Assessment: * Assessment: 1. O veractive bladder - N32.81 (Primary) 2 . G astroesophageal reflux disease with esophagitis without hemorrhage - K21.00 3 . I zayda deficiency anemia, unspecified iron deficiency anemia type - D50.9 4 . L oss of hair - L65.9 5 . B ilateral carotid bruits - R09.89 6 . P rediabetes - R73.09 7 . E ssential hypertension - I10 8 . P ure hypercholesterolemia - E78.00 9 . C olon cancer screening - Z12.11 1 0. D epression screening - Z13.31 Plan: * Treatment: 2. G astroesophageal reflux disease with esophagitis without hemorrhage Refill PriLOSEC OTC Tablet Delayed Release, 20 MG, 2 tablet 30 minutes before morning meal, Orally, Once a day, 90 days, 180, Refills 0. Notes: stable, will contnue current regiment 3. I zayda deficiency anemia, unspecified iron deficiency anemia type L AB: Complete Blood Count Auto Diff (Ordered for 10/12/2024) L AB: IRON PROFILE (Ordered for 10/12/2024) Notes: to take iron and repeat in 2 months 4. L oss of hair L AB: TSH reflex Free T4 (Ordered for 10/12/2024) 5. B ilateral carotid bruits I maging: US CAROTID BILATERAL DOPPLER 6. P rediabetes Notes: stable, no need for medication at this time 7. E ssential hypertension Continue amLODIPine Besylate Tablet, 5 MG, TAKE 1 TABLET BY MOUTH EVERY DAY; C ontinue Valsartan-hydroCHLOROthiazide Tablet, 160-12.5 MG, TAKE 1 TABLET BY MOUTH EVERY DAY FOR 90 DAYS. Notes: stable,will contiue current regiment 8. P ure hypercholesterolemia Notes: stable, james continue current regiment 9. C olon cancer screening Notes: patient given cards, will return to office 10. D epression screening Notes: negative screen 11. O thers Notes: Total time spent on the date of the encounter is 45 minutes including both face to face time spent and time spent reviewing documentation, and counseling the patient. * Procedure Codes: * Follow Up: 2 Months * * Sign off status: Completed true * Provider: Carroll Barnett MD Date: 0 08/14/2024 Generated for Lorna gutierrez/Griselda/Sofieitting on: 1 02:37 PM EST History and Physical Notes * HPI (History of Present Illness) Category Sub-Category Detail Notes Category Not es Symptom(s) patient is a 74 yo female here for follow up visit with review of recent labs and follow up of chronci issues. Depression Screening PHQ-9 Little inte rest or pleasure in doing things: Not at all Feeling down, depressed, or hopeless: No t at all Trouble falling or staying asleep, or sl eeping too much: Not at all Feeling tired or having little energy: N ot at all Poor appetite or overeating: Not at all Feeling bad about yourself o r that you are a failure, or have let yourself or your family down: Not at all Trouble concentrating on thi ngs, such as reading the newspaper or watching television: Not at all Moving or speaking so slowly that other people could have noticed; or the opposite, being so fidgety or restless that you have been moving around a lot more than usual: Not at all Thoughts that you would be b fernando off or of hurting yourself in some way: Not at all Total Score: 0 Interpretation and Intervention Depression Sadee sho Findings: Negative Follow-Up for Depression: : review of PH Q-9 found negative result, no follow-up needed SDOH Questions SDOH Questions In the past year have you been worried about losing housing?: No In the past year have you or any family members you live with been unable to get any of the following when it was really needed? Check all that apply:: None Fall Risk History Have you had any falls with injury i n the past year?: No Have you had two or more falls in the year?: No Communication Needs Communication Needs Does the patient have a hearing impairment: No Does the patient have a vision impairmen t?: Yes If yes, what is the vision impairment?: Glasses Does the patient have a cognition impair ment?: No Examination Category Sub-Category Detail Notes Category Not es General Examination GENERAL APPEARANCE: well dev eloped, well nourished, in no acute distress HEAD: normocephalic, atrau matic EYES: pupils equal, round, reactive to light and accommodation, sclera non-icteric EARS: normal THROAT: clear NECK/THYROID: neck supple, full ra nge of motion, no cervical lymphadenopathy, murmer radiating HEART: regular rate and rhy thm, S1, S2 normal, 3/6 keturah LUNGS: clear to auscultatio n bilaterally ABDOMEN: soft, nontender, non distended, bowel sounds present, normal, no organomegaly , no masses palpable NEUROLOGIC: nonfocal, motor stre ngth normal upper and lower extremities, sensory exam intact SKIN: warm and dry, no mireille picious lesions EXTREMITIES: no clubbing, cyanosi s, or edema BREASTS: No mass, no lump RECTAL EXAM: declined. sent with cards and solution FEMALE GENITOURINARY: done by table cut off saw operator ORAL CAVITY: mucosa moist
--- OUTSIDE RECORDS SUMMARY | 2024-10-12 02:00 | XMS_ITS ---
Author Organization Robin Barnett MD Address [address] [phone] Care Team Providers Care Director Of In Service Education Name Role Phone Robin Barnett Primary Care Provider Results Component Value Reference Range Notes Complete Blood Count Auto Di ff Reviewed date:10/12/2024 12:32:59 PM Interpretation: Performing Lab:[facility], [address] [place] [phone] Notes/Report: White Blood Count 5.5 4.8-10.8 X10*3/uL Red Blood Count 4.81 4.20-5.50 X10*6/uL Hemoglobin 12.0 12.0-16.0 g/dl Hematocrit 38.6 37.0-47.0 % Mean Corpuscular Volume 80.2 80.0-98.0 fL Mean Corpuscular Hemoglobin 24.9 27.0-33.0 pg Mean Corpuscular HGB Conc 31.1 31.0-35.0 g/dl Red Cell Distribution Width 21.7 11.0-16.0 % Platelet Count 231 160-400 X10*3/uL Mean Platelet Volume 10.1 9.4-12.3 fL Neutrophils Percent Auto 54.7 45-73 % Imm Gran Pct Auto 0.2 0.0-0.4 % Lymphocytes Percent Auto 30.5 20-40 % Monocytes Percent Auto 9.7 2-11 % Eosinophils Percent Auto 3.8 0-4 % Basophils Percent Auto 1.1 0-2 % NRBC Pct Auto 0.0 0.0-0.2 /100WBC Neutrophils Absolute Auto 3.0 2.0-8.3 x10*3/u L Imm Gran Abs Auto 0.01 0.00-0.03 X10*3/uL Lymphocytes Absolute Auto 1.7 1.2-4.9 X10*3/u L Monocytes Absolute Auto 0.5 0.1-1.2 X10*3/uL Eosinophils Absolute Auto 0.2 0.0-0.4 X10*3/u L Basophils Absolute Auto 0.1 0.0-0.2 X10*3/uL NRBC Abs Auto 0.000 0.0-0.012 X10*3/uL IRON PROFILE Reviewed date:10/12/2024 12:33:07 PM Interpretation: Performing Lab:[facility], [address] [place] [phone] Notes/Report: Iron 42 30-160 mcg/dL Total Iron Binding Capacity 325 228-428 mcg/d L Percent Iron Saturation 13 15-50 % Unsaturated Iron Binding 283 TSH reflex Free T4 Reviewed date:10/12/2024 12:33:15 PM Interpretation: Performing Lab:[facility], [address] [place] [phone] Notes/Report: TSH reflex Free T4 3.19 0.32-4.0 uIU/mL REASON FOR VISIT CBC IRON TSH Encounters Encounter Location Date Provider Diagnosis Robin Barnett MD [address] [place] [address] [place] [phone] 10/12/2024 Robin Barnett Loss of hair L65.9 and Iron deficiency anemia, unspecified iron deficiency anemia type D50.9 Assessments Encounter Date Diagnosis (ICD Code) Assessment Notes Treatment Notes Treatment Clinical Notes Section Notes 10/12/2024 Loss of hair (ICD-10 - L65.9) 10/12/2024 Iron deficiency anemia, unspecified iron deficiency anemia type (ICD-10 - D50.9) Plan Of Treatment Next Appt Details Provider Name:Robin harley, 08/17/2025 08:30:00 AM, [address] [place] [address], Suite [facility], [place], [place], [phone], Progress Notes * Mariela YUEN: 0 (75 yo F)Acc No.[id number]:10/12/2024 Progress Note Patient: Zahra CHACON Provider: Carroll Barnett MD :1950 A ge:74 Y S ex:Female Date:10/12/2024 Address:[address] [place] [address] Subjective: * Chief Complaints: * 1 . CBC IRON TSH. * Medical History: Objective: * Vitals: Assessment: * Assessment: 1. L oss of hair - L65.9 (Primary) 2 . I zayda deficiency anemia, unspecified iron deficiency anemia type - D50.9 Plan: * Treatment: 2. I zayda deficiency anemia, unspecified iron deficiency anemia type L AB: Complete Blood Count Auto Diff (Collection Date & Time - 10/12/2024 07:00 AM) L AB: IRON PROFILE (Collection Date & Time - 10/12/2024 07:00 AM) * Procedure Codes: 3 6415 VENIPUNCT, ROUTINE* * * The named appointment provid er may or may not be the originator of this progress note, and it is not deemed complete until electronically signed by the appointment provider. Sign off status: Pending * Provider: Carroll Barnett MD Date: 0 10/12/2024 Generated for Lorna gutierrez/Griselda/Sofieitting on: 02:39 PM EST
--- OUTSIDE RECORDS SUMMARY | 2024-10-19 04:00 | XMS_ITS ---
Author Organization Robin Barnett MD Address [address] [place] [phone] Care Team Providers Care Integrated Program Teacher Name Role Phone Robin Barnett Primary Care Provider [phone] Allergies Allergen (clinical drug ingredient) Drug/Non Drug Allergy documented on EMR Reaction Allergy Type Onset Date Status vancomycin Vancomycin HCl hives Drug Allergy A ctive sulfamethoxazole / trimethoprim Bactrim GI Upset Drug Allergy Active Tape (uncoded) redness infection Allergy Active REASON FOR VISIT 2 month Medications Medication SIG (Take, Route, Frequency, Duration) Notes Start Date End Date Status Omeprazole 20 MG TAKE 2 CAPSULES BY M OUTH DAILY for 90 Active Valsartan-hydroCHLOROthiazi de 160-12.5 MG TAKE 1 TABLET BY MOUTH EVERY DAY FOR 90 DAYS Active oxyBUTYnin Chloride 5 MG TAKE 1 TABLET B Y MOUTH TWICE A DAY for 90 Active Amoxicillin 500 MG 4 capsule Orally one hour before dentist for 1 days 03/02/2023 Active amLODIPine Besylate 5 MG TAKE 1 TABLET B Y MOUTH EVERY DAY for 90 Active Vital Signs Blood pressure systolic 156 mm Hg 10/20/19 25 Blood pressure diastolic 70 mm Hg 025 Height 60.50 in 10/19/2024 Weight 172 lbs 10/19/2024 BMI 33.03 kg/m2 10/19/2024 Encounters Encounter Location Date Provider Diagnosis Robin Barnett MD [address] [place] [phone] 10/19/2024 Robin Barnett Essential hypertension I10 Assessments Encounter Date Diagnosis (ICD Code) Assessment Notes Treatment Notes Treatment Clinical Notes Section Notes 10/19/2024 Essential hypertension (ICD-10 - I10) doing well, will continue current regiment 10/19/2024 Other was the result of surgery. did 3 guaiacs and all negative/ will take iron for one month and then repeat cbc and iron in 3 months Plan Of Treatment Treatment Notes Assessment Notes Essential hypertension doing well, will continue current regiment Other was the result of de la o rgery. did 3 guaiacs and all negative/ will take iron for one month and then repeat cbc and iron in 3 months Next Appt Details Provider Name:Robin Mena ier, 08/17/2025 08:30:00 AM, [address] [facility], [address], [place], [place], [phone], Progress Notes * Yee YUENOB: 0 (74 yo F)Acc No.[id number]:10/19/2024 Progress Notes Patient: Zahra CHACON Provider: Carroll Barnett MD :1950 A ge:74 Y S ex:Female Date:10/19/2024 Address:[address] [place], [place] [phone] Subjective: * Chief Complaints: * 2 month * HPI: S ymptom(s): patient is a 74 yo female here for follow up of her anemia. has recovered. will take iron for another month. * ROS: G eneral/Constitutional: Denies C hills. D enies F atigue. D enies F ever. D enies H eadache. E NT: Patient denies d ecreased sense of smell, any loss of taste. D enies S ore throat. R espiratory: Denies C ough. D enies S hortness of breath at rest. D enies S hortness of breath with exertion. G astrointestinal: Denies D iarrhea. D enies N ausea. M usculoskeletal: Patient denies m uscle aches. P eripheral Vascular: Patient denies r ed and blue toes. * Medical History: * Surgical History: * Hospitalization/Major Diagno stic Procedure: * Medications: T akingAmoxicillin 500 MG Capsule 4 capsule Orally one hour before dentist oxyBUTYnin Chloride 5 MG Tablet TAKE 1 TABLET BY MOUTH TWICE A DAY Valsartan- hydroCHLOROthiazide 160-12.5 MG Tablet TAKE 1 TABLET BY MOUTH EVERY DAY FOR 90 DAYS Omeprazole 20 MG Capsule Delayed Release TAKE 2 CAPSULES BY MOUTH DAILY amLODIPine Besylate 5 MG Tablet TAKE 1 TABLET BY MOUTH EVERY DAY Medication List reviewed and reconciled with the patientTaking Amoxicillin 500 MG Capsule 4 capsule Orally one hour before dentist Taking oxyBUTYnin Chloride 5 MG Tablet TAKE 1 TABLET BY MOUTH TWICE A DAY Taking Valsartan-hydroCHLOROthiazide 160-12.5 MG Tablet TAKE 1 TABLET BY MOUTH EVERY DAY FOR 90 DAYS Taking Omeprazole 20 MG Capsule Delayed Release TAKE 2 CAPSULES BY MOUTH DAILY Taking amLODIPine Besylate 5 MG Tablet TAKE 1 TABLET BY MOUTH EVERY DAY Medication List reviewed and reconciled with the patient * Allergies: V ancomycin HCl: hivesTape: redness infectionBactrim: GI Upsetyes[Allergies Verified] Objective: * Vitals: H t: 60.50, Wt: 172, BMI:33.03, BP:156/70, Repeat BP:144/70, Wt-k.02. * P ast Orders: L ab:Complete Blood Count Auto Diff (Order Date - 10/12/2024) (Collection Date & Time - 10/12/2024 07:00 AM) Value Reference Range White Blood Count 5.5 4.8-10.8 - X10*3/uL Red Blood Count 4.81 4.20-5.50 - X10*6/uL Hemoglobin 12.0 12.0-16.0 - g/dl Hematocrit 38.6 37.0-47.0 - % Mean Corpuscular Volume 80.2 80.0-98.0 - fL Mean Corpuscular Hemoglobin 24.9 L 27.0-33.0 - pg Mean Corpuscular HGB Conc 31.1 31.0-35.0 - g/ dl Red Cell Distribution Width 21.7 H 11.0-16.0 - % Platelet Count 231 160-400 - X10*3/uL Mean Platelet Volume 10.1 9.4-12.3 - fL Neutrophils Percent Auto 54.7 45-73 - % Imm Gran Pct Auto 0.2 0.0-0.4 - % Lymphocytes Percent Auto 30.5 20-40 - % Monocytes Percent Auto 9.7 2-11 - % Eosinophils Percent Auto 3.8 0-4 - % Basophils Percent Auto 1.1 0-2 - % NRBC Pct Auto 0.0 0.0-0.2 - /100WBC Neutrophils Absolute Auto 3.0 2.0-8.3 - x10* 3/uL Imm Gran Abs Auto 0.01 0.00-0.03 - X10*3/uL Lymphocytes Absolute Auto 1.7 1.2-4.9 - X10* 3/uL Monocytes Absolute Auto 0.5 0.1-1.2 - X10*3/ uL Eosinophils Absolute Auto 0.2 0.0-0.4 - X10* 3/uL Basophils Absolute Auto 0.1 0.0-0.2 - X10*3/ uL NRBC Abs Auto 0.000 0.0-0.012 - X10*3/uL L ab:TSH reflex Free T4 (Order Date - 10/12/2024) (Collection Date & Time - 10/12/2024 07:00 AM) Value Reference Range TSH reflex Free T4 3.19 0.32-4.0 - uIU/mL L ab:IRON PROFILE (Order Date - 10/12/2024) (Collection Date & Time - 10/12/2024 07:00 AM) Value Reference Range Iron 42 30-160 - mcg/dL Total Iron Binding Capacity 325 228-428 - mc g/dL Percent Iron Saturation 13 L 15-50 - % Unsaturated Iron Binding 283 - ug/dL * Examination: G eneral Examination: GENERAL APPEARANCE: a lert, well hydrated, in no distress.? HEAD: n ormocephalic. SKIN: g ood turgor. HEART: r egular rate and rhythm, grade 3/6 systolic murmur at left sternal border. LUNGS: n o wheezes, rales, rhonchi, good air movement, clear to auscultation bilaterally. Assessment: * Assessment: 1. E ssential hypertension - I10 (Primary) Plan: * Treatment: 2. O thers Notes: was the result of surgery. did 3 guaiacs and all negative/ will take iron for one month and then repeat cbc and iron in 3 months * Labs: * L ab: Complete Blood Count Auto Diff (Ordered for 02/18/2025) L ab: IRON PROFILE (Ordered for 02/18/2025) * Procedure Codes: * * Sign off status: Completed true * Provider: Carroll Barnett MD Date: 0 10/19/2024 Generated for Lorna gutierrez/Griselda/eTransmitting on: 1 02:38 PM EST History and Physical Notes * HPI (History of Present Illness) Category Sub-Category Detail Notes Category Not es Symptom(s) patient is a 74 yo female here for follow up of her anemia. has recovered. will take iron for another month. Examination Category Sub-Category Detail Notes Category Not es General Examination GENERAL APPEARANCE: alert, w ell hydrated, in no distress HEAD: normocephalic HEART: regular rate and rhy thm, grade 3/6 systolic murmur at left sternal border LUNGS: no wheezes, rales, r honchi, good air movement, clear to auscultation bilaterally SKIN: good turgor
--- OUTSIDE RECORDS SUMMARY | 2025-02-19 03:00 | XMS_ITS ---
Author Organization Robin Barnett MD Address [address] [place] [phone] Care Team Providers Care Small Products I Assembler Name Role Phone Robin Barnett Primary Care Provider [phone] Results Component Value Reference Range Notes Complete Blood Count Auto Di ff Reviewed date:02/19/2025 12:57:13 PM Interpretation: Performing Lab:[facility], [address] [place] [phone] Notes/Report: White Blood Count 5.1 4.8-10.8 X10*3/uL Red Blood Count 4.04 4.20-5.50 X10*6/uL Hemoglobin 11.3 12.0-16.0 g/dl Hematocrit 34.4 37.0-47.0 % Mean Corpuscular Volume 85.1 80.0-98.0 fL Mean Corpuscular Hemoglobin 28.0 27.0-33.0 pg Mean Corpuscular HGB Conc 32.8 31.0-35.0 g/dl Red Cell Distribution Width 14.3 11.0-16.0 % Platelet Count 217 160-400 X10*3/uL Mean Platelet Volume 10.3 9.4-12.3 fL Neutrophils Percent Auto 49.7 45-73 % Imm Gran Pct Auto 0.4 0.0-0.4 % Lymphocytes Percent Auto 34.1 20-40 % Monocytes Percent Auto 10.7 2-11 % Eosinophils Percent Auto 4.3 0-4 % Basophils Percent Auto 0.8 0-2 % NRBC Pct Auto 0.0 0.0-0.2 /100WBC Neutrophils Absolute Auto 2.5 2.0-8.3 x10*3/u L Imm Gran Abs Auto 0.02 0.00-0.03 X10*3/uL Lymphocytes Absolute Auto 1.7 1.2-4.9 X10*3/u L Monocytes Absolute Auto 0.5 0.1-1.2 X10*3/uL Eosinophils Absolute Auto 0.2 0.0-0.4 X10*3/u L Basophils Absolute Auto 0.0 0.0-0.2 X10*3/uL NRBC Abs Auto 0.000 0.0-0.012 X10*3/uL IRON PROFILE Reviewed date:02/19/2025 01:00:35 PM Interpretation: Performing Lab:[facility], [address] [place] [phone] Notes/Report: Iron 42 30-160 mcg/dL Total Iron Binding Capacity 324 228-428 mcg/d L Percent Iron Saturation 13 15-50 % Unsaturated Iron Binding 282 REASON FOR VISIT CBC with diff iron profile Encounters Encounter Location Date Provider Diagnosis Robin Barnett MD [address] [place] [address] [place] [phone] 02/19/2025 Robin Barnett Iron deficiency anemia, unspecified iron deficiency anemia type D50.9 Assessments Encounter Date Diagnosis (ICD Code) Assessment Notes Treatment Notes Treatment Clinical Notes Section Notes 02/19/2025 Iron deficiency anemia, unspecified iron deficiency anemia type (ICD-10 - D50.9) Plan Of Treatment Next Appt Details Provider Name:Robin harley, 08/17/2025 08:30:00 AM, [address] [place] [address], [address], [place], [place], [phone], Progress Notes * Mireille YUENAlcidesOB: 0 (75 yo F)Acc No.[id number]:02/19/2025 Progress Note Patient: Zahra CHACON Provider: Carroll Barnett MD :1950 A ge:74 Y S ex:Female Date:02/19/2025 Address:[address] [place], [place] [phone] Subjective: * Chief Complaints: * 1 . CBC with diff iron profile. * Medical History: Objective: * Vitals: Assessment: * Assessment: 1. I zayda deficiency anemia, unspecified iron deficiency anemia type - D50.9 (Primary) ? Plan: * Treatment: * Procedure Codes: 3 6415 VENIPUNCT, ROUTINE* * * The named appointment provid er may or may not be the originator of this progress note, and it is not deemed complete until electronically signed by the appointment provider. Sign off status: Pending * Provider: Carroll Barnett MD Date: 0 02/19/2025 Generated for Lorna gutierrez/Griselda/Sofieitting on: 1 02:37 PM EST
--- OUTSIDE RECORDS SUMMARY | 2025-05-14 09:02 | XMS_ITS ---
Author Organization Robin Barnett MD Address [address] [place] [address] [place] [phone] Care Team Providers Care Human Performance Professor Name Role Phone Robin Barnett Primary Care Provider REASON FOR VISIT ER Encounters Encounter Location Date Provider Diagnosis Robin Barnett MD [address] [place] [address] [address] [place], [place] [phone] 05/14/2025 Robin Barnett Plan Of Treatment Next Appt Details Provider Name:Robin Mena ier, 08/17/2025 08:30:00 AM, [address] [place] [address], Suite [facility], [place], [place], [phone], Progress Notes * Mireille YUENAlcidesOB: 0 (75 yo F)Acc No.[id number]:05/14/2025 Patient: Zahra CHACON :1950 A ge:75 Y S ex:Female Address:[address] [place] [address] * true * Date: Generated for Printi ng/Faxing/eTransmitting on: 02:38 PM EST
--- OUTSIDE RECORDS SUMMARY | 2025-05-18 05:41 | XMS_ITS ---
Author Organization Robin Barnett MD Address [address] [place] [address] [place] [phone] Care Team Providers Care Catering And Events Manager Name Role Phone Robin Barnett Primary Care Provider REASON FOR VISIT refill Medications Medication SIG (Take, Route, Fr equency, Duration) Notes Start Date End Date Status PriLOSEC OTC 20 MG TAKE 2 TABLET 30 MIN UTES BEFORE MORNING MEAL ORALLY ONCE A DAY 90 DAYS for 90 days Active Encounters Encounter Location Date Provider Diagnosis Robin Barnett MD [address] [place] [address] [place] [phone] 05/18/2025 Robin Barnett Plan Of Treatment Medication Medication Name Sig Start Date Stop Date Notes PriLOSEC OTC 20 MG TAKE 2 TABLET 30 MIN UTES BEFORE MORNING MEAL ORALLY ONCE A DAY 90 DAYS for 90 days Next Appt Details Provider Name:Robin harley, 08/17/2025 08:30:00 AM, [address] [place] [address], Suite [facility], [place], [place], [phone], Progress Notes * ALPAMireilleAlcidesOB: 0 (75 yo F)Acc No.[id number]:05/18/2025 Patient: Zahra CHACON :1950 A ge:75 Y S ex:Female Address:[address] [place] [address] * Refills Refill PriLOSEC OTC Tablet Delayed Release, 20 MG, 180, TAKE 2 TABLET 30 MINUTES BEFORE MORNING MEAL ORALLY ONCE A DAY 90 DAYS, 90 days, Refills=3 * true * Date: Generated for Lorna gutierrez/Griselda/Víctor on: 02:38 PM EST
--- OUTSIDE RECORDS SUMMARY | 2025-07-10 06:20 | XMS_ITS ---
Author Organization Robin Barnett MD Address [address] [place] [address] Drive [address] [place] [phone] Care Team Providers Care Sales Ledger Administrator Name Role Phone Robin Barnett Primary Care Provider REASON FOR VISIT dental appt - pre med Medications Medication SIG (Take, Route, Fr equency, Duration) Notes Start Date End Date Status Amoxicillin 500 MG 4 capsule Orally one hour before dentist for 1 days 03/02/2023 Active Encounters Encounter Location Date Provider Diagnosis Robin Barnett MD [address] [place] [address] [place] [id number] 07/10/2025 Robin Barnett History of aortic valve replacement Z95.2 Assessments Encounter Date Diagnosis (ICD Code) Assessment Notes Treatment Notes Treatment Clinical Notes Section Notes 07/10/2025 History of aortic valve replacement (ICD-10 - Z95.2) Plan Of Treatment Medication Medication Name Sig Start Date Stop Date Notes Amoxicillin 500 MG 4 capsule Orally one hour before dentist for 1 days 03/02/2023 Next Appt Details Provider Name:Robin Mena ier, 08/17/2025 08:30:00 AM, [address] [place] [address], Suite [facility], [place], [place], [phone], Progress Notes * Yee YUENOB: 0 (75 yo F)Acc No.[id number]:07/10/2025 Patient: Zahra CHACON :1950 A ge:75 Y S ex:Female Address:[address] [facility], [place] [address] * Refills Refill Amoxicillin Capsule, 500 MG, Orally, 4, 4 capsule, one hour before dentist, 1 days, Refills=6 * true * Date: Generated for Lorna gutierrez/Griselda/Víctor on: 02:38 PM EST
--- OUTSIDE RECORDS SUMMARY | 2025-08-07 02:30 | XMS_ITS ---
Author Organization Robin Barnett MD Address [address] [place], [place] [id number] Care Team Providers Care Quality Assurance Engineer Name Role Phone Robin Barnett Primary Care Provider Results Component Value Reference Range Notes Complete Blood Count Auto Di ff (Not yet reviewed by provider) Interpretation: Performing Lab:[facility], [address] [place] [phone] Notes/Report: White Blood Count 5.4 4.8-10.8 X10*3/uL Red Blood Count 4.28 4.20-5.50 X10*6/uL Hemoglobin 11.2 12.0-16.0 g/dl Hematocrit 35.7 37.0-47.0 % Mean Corpuscular Volume 83.4 80.0-98.0 fL Mean Corpuscular Hemoglobin 26.2 27.0-33.0 pg Mean Corpuscular HGB Conc 31.4 31.0-35.0 g/dl Red Cell Distribution Width 14.8 11.0-16.0 % Platelet Count 263 160-400 X10*3/uL Mean Platelet Volume 10.4 9.4-12.3 fL Neutrophils Percent Auto 46.4 45-73 % Imm Gran Pct Auto 0.4 0.0-0.4 % Lymphocytes Percent Auto 35.5 20-40 % Monocytes Percent Auto 9.8 2-11 % Eosinophils Percent Auto 6.6 0-4 % Basophils Percent Auto 1.3 0-2 % NRBC Pct Auto 0.0 0.0-0.2 /100WBC Neutrophils Absolute Auto 2.5 2.0-8.3 x10*3/u L Imm Gran Abs Auto 0.02 0.00-0.03 X10*3/uL Lymphocytes Absolute Auto 1.9 1.2-4.9 X10*3/u L Monocytes Absolute Auto 0.5 0.1-1.2 X10*3/uL Eosinophils Absolute Auto 0.4 0.0-0.4 X10*3/u L Basophils Absolute Auto 0.1 0.0-0.2 X10*3/uL NRBC Abs Auto 0.000 0.0-0.012 X10*3/uL Comprehensive [place]. Panel Fa st (Not yet reviewed by provider) Interpretation: Performing Lab:[facility], [address] [place] [phone] Notes/Report: Sodium 142 135-145 mmol/L Potassium 3.8 3.3-5.1 mmol/L Chloride 106 96-108 mmol/L Carbon Dioxide 30 22-29 mmol/L Anion Gap 10 12-20 Blood Urea Nitrogen 21 9-16 mg/dL Creatinine 0.78 0.5-1.4 mg/dL Estimated Glomerular Filt Rate > 60 Chronic Kidney Disease: Estimated GFR < 60 mL/min/1.73m2 Severe Kidney Disease: Estimated GFR < 15 mL/min/1.73m2 Glucose Fasting 112 60-99 mg/dL A fasting glucose from 100-125 mg/dl is considered impaired (pre-diabetes). Calcium 8.5 8.4-10.2 mg/dL Bilirubin Total 0.2 0.0-1.0 mg/dL Aspartate Amino Transferase 20 5-31 U/L Alanine Aminotransferase 20 0-31 U/L Total Protein 6.2 6.5-8.0 g/dL Albumin Level 3.6 3.5-5.0 g/dL Alkaline Phosphatase 111 39-117 U/L UA ClnCatch+Micro w/rflx Cul t (Not yet reviewed by provider) Interpretation: Performing Lab:[facility], [address] [place] [phone] Notes/Report: Urine, Clean Catch Color Urine Yellow Appearance Urine Clear PH 7.0 5.0-9.0 Glucose Urine UA Negative Negative mg/dL Urine Blood Trace Negative Specific Colony - Urine 1.015 1.005-1.025 Urine Protein 300 (3+) Neg-Trace mg/dL Urine Ketones Negative Negative mg/dL Nitrite Urine Negative Negative Leukocyte Esterase Urine Negative Negative RBC Urine 3-5 0-2 /HPF WBC Urine 0-5 0-5 /HPF Squamous Epithelial Cell Urine 0-2 0-2 /HPF Bacteria Urine None Seen None Seen Hyaline Casts Urine 0-2 0-2 /LPF IRON PROFILE Reviewed date:08/07/2025 12:37:13 PM Interpretation: Performing Lab:[facility], [address] [place] [phone] Notes/Report: Iron 55 30-160 mcg/dL Total Iron Binding Capacity 338 228-428 mcg/d L Percent Iron Saturation 16 15-50 % Unsaturated Iron Binding 283 Lipid Panel Reviewed date:08/07/2025 12:37:04 PM Interpretation: Performing Lab:[facility], [address] [place] [phone] Notes/Report: Triglycerides 308 <150 mg/dL Desirable Triglyceride: less than 150 mg/dL Borderline High Triglyceride 150-199 mg/dL High Triglyceride: 200-499 mg/dL Very High Triglyceride: greater than or equal to 5OO mg/dL Cholesterol 352 <200 mg/dL Desirable Cholesterol: less than 200 mg/dL Borderline High Cholesterol: 200-239 mg/dL High Cholesterol: greater than 239 mg/dL LDL Cholesterol Calculated 235 <100 mg/dL Desirable LDL: less than 100 mg/dL Near Optimal/Above Optimal LDL: 110-129 mg/dL Borderline High LDL: 130-159 mg/dL High LDL: 160-189 mg/dL Very High LDL: greater than or equal to 190 mg/dL HDL Cholesterol 56 >40 mg/dL Desirable HDL: greater than 40 mg/dL Note: This HDL assay may give artificially low results in patients with liver disease. REASON FOR VISIT yearly fasting labs Encounters Encounter Location Date Provider Diagnosis Robin Barnett MD [address] [place], [place] [id number] 08/07/2025 Robin Barnett Prediabetes R73.09 ; Essential hypertension I10 ; Lymphocytosis D72.820 ; Pure hypercholesterolemia E78.00 and Iron deficiency anemia, unspecified iron deficiency anemia type D50.9 Assessments Encounter Date Diagnosis (ICD Code) Assessment Notes Treatment Notes Treatment Clinical Notes Section Notes 08/07/2025 Prediabetes (ICD-10 - R73.09) 08/07/2025 Essential hypertensi on (ICD-10 - I10) 08/07/2025 Lymphocytosis (ICD-1 0 - D72.820) 08/07/2025 Pure hypercholesterolemia (ICD-10 - E78.00) 08/07/2025 Iron deficiency anem ia, unspecified iron deficiency anemia type (ICD-10 - D50.9) Plan Of Treatment Pending Test Test Name Order Date Complete Blood Count Auto Diff Comprehensive [place]. Panel Fast UA ClnCatch+Micro w/rflx Cult 08/07/2025 Next Appt Details Provider Name:Robin Mena ier, 08/17/2025 08:30:00 AM, [address] [place] [address], [address], [place], [place], [phone], Progress Notes * Yee YUENOB: 0 (75 yo F)Acc No.[id number]:08/07/2025 Progress Note Patient: Zahra CHACON Provider: Carroll Barnett MD :1950 A ge:75 Y S ex:Female Date:08/07/2025 Address:[address] [place], [place] [id number] Subjective: * Chief Complaints: * 1 . Yearly fasting labs. * Medical History: Objective: * Vitals: Assessment: * Assessment: 1. P rediabetes - R73.09 (Primary) 2 . E ssential hypertension - I10 ? 3 . L ymphocytosis - D72.820 4 . P ure hypercholesterolemia - E78.00 5 . I zayda deficiency anemia, unspecified iron deficiency anemia type - D50.9? Plan: * Treatment: 2. E ssential hypertension L AB: Complete Blood Count Auto Diff (Collection Date & Time - 08/07/2025 07:30 AM) L AB: Comprehensive [place]. Panel Fast (Collection Date & Time - 08/07/2025 07:30 AM) L AB: UA ClnCatch+Micro w/rflx Cult (Collection Date & Time - 08/07/2025 07:30 AM) L AB: IRON PROFILE (Collection Date & Time - 08/07/2025 07:30 AM) L AB: Lipid Panel (Collection Date & Time - 08/07/2025 07:30 AM) 3. L ymphocytosis L AB: Complete Blood Count Auto Diff (Collection Date & Time - 08/07/2025 07:30 AM) L AB: [facility] [place]. Panel Fast (Collection Date & Time - 08/07/2025 07:30 AM) L AB: UA ClnCatch+Micro w/rflx Cult (Collection Date & Time - 08/07/2025 07:30 AM) L AB: IRON PROFILE (Collection Date & Time - 08/07/2025 07:30 AM) L AB: Lipid Panel (Collection Date & Time - 08/07/2025 07:30 AM) 4. P ure hypercholesterolemia L AB: Complete Blood Count Auto Diff (Collection Date & Time - 08/07/2025 07:30 AM) L AB: [facility] [place]. Panel Fast (Collection Date & Time - 08/07/2025 07:30 AM) L AB: UA ClnCatch+Micro w/rflx Cult (Collection Date & Time - 08/07/2025 07:30 AM) L AB: IRON PROFILE (Collection Date & Time - 08/07/2025 07:30 AM) L AB: Lipid Panel (Collection Date & Time - 08/07/2025 07:30 AM) 5. I zayda deficiency anemia, unspecified iron deficiency anemia type L AB: Complete Blood Count Auto Diff (Collection Date & Time - 08/07/2025 07:30 AM) L AB: Comprehensive [place]. Panel Fast (Collection Date & Time - 08/07/2025 07:30 AM) L AB: UA ClnCatch+Micro w/rflx Cult (Collection Date & Time - 08/07/2025 07:30 AM) L AB: IRON PROFILE (Collection Date & Time - 08/07/2025 07:30 AM) L AB: Lipid Panel (Collection Date & Time - 08/07/2025 07:30 AM) * Procedure Codes: 3 6415 VENIPUNCT, ROUTINE* * * The named appointment provid er may or may not be the originator of this progress note, and it is not deemed complete until electronically signed by the appointment provider. Sign off status: Pending * Provider: Carroll Barnett MD Date: Generated for Lorna gutierrez/Griselda/Víctor on: 02:37 PM EST
[2025-08-07 10:53] LABS: MANUAL DIFF FLAG NO
[2025-08-07 11:12] LABS: Hematocrit 35.7 % (37.0-47.0); Hemoglobin 11.2 g/dl (12.0-16.0); Imm Gran Abs Auto 0.02 X10*3/uL (0.00-0.03); Imm Gran Pct Auto 0.4 % (0.0-0.4); Lymphocytes Absolute Auto 1.9 X10*3/uL (1.2-4.9); Mean Corpuscular HGB Conc 31.4 g/dl (31.0-35.0); Mean Corpuscular Hemoglobin 26.2 pg (27.0-33.0); Mean Corpuscular Volume 83.4 fL (80.0-98.0); NRBC Abs Auto 0.000 X10*3/uL (0.0-0.012); NRBC Pct Auto 0.0 /100WBC (0.0-0.2); Platelet Count 263 X10*3/uL (160-400); Red Blood Count 4.28 X10*6/uL (4.20-5.50); White Blood Count 5.4 X10*3/uL (4.8-10.8)
[2025-08-07 11:34] LABS: Appearance Urine Clear; Glucose Urine UA Negative (Negative); PH 7.0 (5.0-9.0); Specific Gravity - Urine 1.015 (1.005-1.025); UMIC TRIGGER UACC YES
[2025-08-07 12:22] LABS: Alanine Aminotransferase 20 U/L (0-31); Albumin Level 3.6 g/dL (3.5-5.0); Alkaline Phosphatase 111 U/L (39-117); Anion Gap 10 (12-20); Aspartate Amino Transferase 20 U/L (5-31); Blood Urea Nitrogen 21 mg/dL (9-16); Calcium 8.5 mg/dL (8.4-10.2); Carbon Dioxide 30 mmol/L (22-29); Chloride 106 mmol/L (96-108); Cholesterol 352 mg/dL (<200); Estimated Glomerular Filt Rate > 60; HDL Cholesterol 56 mg/dL (>40); Iron 55 mcg/dL (30-160); Percent Iron Saturation 16 % (15-50); Potassium 3.8 mmol/L (3.3-5.1); Sodium 142 mmol/L (135-145); Total Iron Binding Capacity 338 mcg/dL (228-428); Total Protein 6.2 g/dL (6.5-8.0); Triglycerides 308 mg/dL (<150); Unsaturated Iron Binding 283 ug/dL
--- OUTSIDE RECORDS SUMMARY | 2025-08-07 14:39 | XMS_ITS | Clinical Summary ---
Author Organization [facility] Address [address] [place] [address] Phone Care Team Providers Care Adjunct Professor Name Role Phone Robin Barnett MD Primary Care Provider [phone] Allergies Active Allergy Reactions Criticality Noted Date [...] 01/23/2025 Arthritis 01/23/2025 Malignant neoplasm of left breast 01/23/2025 Cancer Staging:Clinical stage from 12/27/2024:Stage IA(cT1b, cN0(sn), cM0, G1, ER+, WV+, HER2-) - Signed by Jason Garcia MD [...] Medical History Date Comments Hypertension Breast cancer ([facility] V24, [facility] V28) GERD (gastroesophageal reflux disease) Family [...] patient's age to complete this topic Insurance [facility] MEDICARE Care Teams Adjunct Professor Relationship Specialty Start Date End Date Robin Barnett MD [address] [place] [address] [address] [place] [address] PCP - General Internal Medicine 01/10/25
--- OUTSIDE RECORDS SUMMARY | 2025-08-07 14:39 | XMS_ITS | Patient Health Record ---
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 Name Role Phone Robin Barnett Primary Care Provider [phone] Allergies Allergen (clinical drug ingredient) Drug/Non Drug Allergy documented on EMR Reaction Allergy Type Onset Date Status vancomycin Vancomycin HCl hives Drug Allergy A ctive sulfamethoxazole / trimethoprim Bactrim GI Upset Drug Allergy Active Tape (uncoded) redness infection Allergy Active Results Component Value Reference Range Notes Complete Blood Count Auto Di ff Reviewed date:08/11/2024 12:05:01 PM Interpretation: Performing Lab:[facility], [address] [place] [phone] Notes/Report: White Blood Count 5.2 4.8-10.8 X10*3/uL [...] NRBC Abs Auto 0.000 0.0-0.012 X10*3/uL Comprehensive Blanchard. Panel Fa st Reviewed date:08/11/2024 12:22:05 PM Interpretation: Performing Lab:[address] [address] Notes/Report: Sodium 142 135-145 mmol/L Potassium 4.1 [...] Reviewed date:08/11/2024 12:21:39 PM Interpretation: Performing Lab:[address] [address] Notes/Report: Iron 20 30-160 mcg/dL Total Iron Binding Capacity 339 228-428 mcg/dL Percent Iron Saturation 6 15-50 % Unsaturated Iron Binding 319 Lipid Panel Reviewed date:08/11/2024 12:21:09 PM Interpretation: Performing Lab:[facility], [address] [place] [phone] Notes/Report: Triglycerides 143 <150 mg/dL Desirable Triglyceride: [...] Random Reviewed date:08/11/2024 12:16:48 PM Interpretation: Performing Lab:[facility], [address] [place] [address] Notes/Report: Creatinine Urine 73.42 Microalbumin Urine 7.0 Microalbum/Creatinine Ratio Ur 9.5 <30 ug/mg cr Albumin/Creatinine Ratio Reference Ranges: Normal: < 30 ug/mg creatinine Microalbuminuria: 30 - 300 ug/mg creatinine Clinical Albuminuria: > 300 ug/mg creatinine Hemoglobin A1c Reviewed date:08/11/2024 12:10:09 PM Interpretation: Performing Lab:[facility], [address] [place] [phone] Notes/Report: Hemoglobin A1c % 6.2 <6.0 % [...] average glucose, using the formula of the L4H-Mlytdqi Average Glucose study (ADAG), Diabetes Care, Vol.31,#8, 2007 UA ClnCatch+Micro w/rflx Cul t Reviewed date:08/14/2024 10:20:30 AM Interpretation:ALFREDO 08/14/24 Performing Lab:[facility], [address] [place] [phone] Notes/Report: [id number] Urine, Clean Catch Color Urine Yellow Appearance Urine Clear PH 6.5 5.0-9.0 Glucose Urine UA Negative Negative mg/dL Urine Blood Trace Negative Specific [place] - Urine 1.015 1.005-1.025 Urine Protein Negative [...] ff Reviewed date:10/12/2024 12:32:59 PM Interpretation: Performing Lab:[facility], [address] [place] [phone] Notes/Report: White Blood Count 5.5 4.8-10.8 X10*3/uL [...] PROFILE Reviewed date:10/12/2024 12:33:07 PM Interpretation: Performing Lab:[address] [address] Notes/Report: Iron 42 30-160 mcg/dL Total Iron Binding Capacity 325 228-428 mcg/dL Percent Iron Saturation 13 15-50 % Unsaturated Iron Binding 283 TSH reflex Free T4 Reviewed date:10/12/2024 12:33:15 PM Interpretation: Performing Lab:[address] [address] Notes/Report: TSH reflex Free T4 3.19 0.32-4.0 uIU/mL Complete Blood Count Auto Di ff Reviewed date:02/19/2025 12:57:13 PM Interpretation: Performing Lab:[address] [address] Notes/Report: White Blood Count 5.1 4.8-10.8 X10*3/uL [...] PROFILE Reviewed date:02/19/2025 01:00:35 PM Interpretation: Performing Lab:[address] [address] Notes/Report: Iron 42 30-160 mcg/dL Total Iron Binding Capacity 324 228-428 mcg/dL Percent Iron Saturation 13 15-50 % Unsaturated Iron Binding 282 Complete Blood Count Auto Di ff (Not yet reviewed by provider) Interpretation: Performing Lab:[address] [address] Notes/Report: White Blood Count 5.4 4.8-10.8 X10*3/uL [...] 0.00-0.03 X10*3/uL Lymphocytes Absolute Auto 1.9 1.2-4.9 X10*3/uL Monocytes Absolute Auto 0.5 0.1-1.2 X10*3/uL Eosinophils Absolute Auto 0.4 0.0-0.4 X10*3/uL Basophils Absolute Auto 0.1 0.0-0.2 X10*3/uL NRBC Abs Auto 0.000 0.0-0.012 X10*3/uL Comprehensive Blanchard. Panel Fa st (Not yet reviewed by provider) Interpretation: Performing Lab:[facility], [address] [place] [phone] Notes/Report: Sodium 142 135-145 mmol/L Potassium 3.8 [...] (Not yet reviewed by provider) Interpretation: Performing Lab:[facility], [address] [place] [address] Notes/Report: Urine, Clean Catch Color Urine Yellow Appearance Urine Clear PH 7.0 5.0-9.0 Glucose Urine UA Negative Negative mg/dL Urine Blood Trace Negative Specific [place] - Urine 1.015 1.005-1.025 Urine Protein 300 (3+) Neg-Trace mg/dL Urine Ketones Negative Negative mg/dL Nitrite Urine Negative Negative Leukocyte Esterase Urine Negative Negative RBC Urine 3-5 0-2 /HPF WBC Urine 0-5 0-5 /HPF Squamous Epithelial Cell Urine 0-2 0-2 /HPF Bacteria Urine None Seen None Seen Hyaline Casts Urine 0-2 0-2 /LPF IRON PROFILE Reviewed date:08/07/2025 12:37:13 PM Interpretation: Performing Lab:[facility], [address] [place] [phone] Notes/Report: Iron 55 30-160 mcg/dL Total Iron Binding Capacity 338 228-428 mcg/dL Percent Iron Saturation 16 15-50 % Unsaturated Iron Binding 283 Lipid Panel Reviewed date:08/07/2025 12:37:04 PM Interpretation: Performing Lab:[facility], [address] [place] [phone] Notes/Report: Triglycerides 308 <150 mg/dL Desirable Triglyceride: [...] low results in patients with liver disease. US carotid duplex BI Reviewed date:08/24/2024 05:28:39 PM Interpretation: Performing Lab: Notes/Report: [address] [address] Ultrasound Report Signed Patient: Zahra Feliz MR#: [id number] 0023 : 1950 Acct:[id number] Age/Sex: 74 / F ADM Date: 08/23/24 Loc: . Attending Dr: Robin Barnett MD Ordering Physician: Robin Barnett MD Date of Service: 08/23/24 Procedure(s): US carotid duplex BI Accession Number(s): [id number] cc: Robin Barnett MD EXAMINATION: BILATERAL CAROTID [...] No significant stenosis. Electronically signed by: Yannick Waltno MD 08/24/2024 07:46 AM EST Dictated By: Yannick Walton MD Signed By: <Electronically signed by Yannick Walton MD in OV> 08/24/24 0746 DD/ 1542 TD/TT: 08/23/24 1600 Headwaitress: [address] [place] [address] Ultrasound Report Signed Patient: Gaby Feliz MR#: [id number] 0023 : 1950 Acct:[id number] Age/Sex: 74 / F ADM Date: 08/23/24 Loc: . Attending Dr: Robin Barnett MD Ordering Physician: Robin Barnett MD Date of Service: 08/23/24 Procedure(s): US car otid duplex BI Accession Number(s): [id number] cc: Robin Barnett MD EXAMINATION: BILATER AL [...] 08/24/24 0746 DD/ 1542 TD/TT: 08/23/24 1600 Headwaitress: ZACKARY tomosynthesis screening B I Reviewed date:10/12/2024 04:55:08 PM Interpretation: Performing Lab: Notes/Report: [facility] [address] [place], [place] [address] Mammography Report Signed Patient: Zahra Feliz MR#: [id number] 0023 : 1950 Acct:[id number] Age/Sex: 74 / F ADM Date: 10/10/24 Loc: HO.MAMMO Attending Dr: Robin Barnett MD Ordering Physician: Robin Barnett MD Results: 0In complete: Needs Additional Imaging Evaluation Date of Service: 10/10/24 Follow Up: Additional Imagi ng Procedure(s): MM tomosynthesis screening BI Accession Number(s): [id number] cc: Robin Barnett MD EXAMINATION: MM SCREENING [...] 10/12/24 1138 DD/ 0915 TD/TT: 10/10/24 0932 Headwaitress: [facility] [address] [place] [address] [place] [address] Mammography Report Signed Patient: Gaby Feliz MR#: [id number] 0023 : 1950 Acct:[id number] Age/Sex: 74 / F ADM Date: 10/10/24 Loc: HO.MAMMO Attending Dr: Robin Barnett MD Ordering Physician: Robin Barnett MD Results: 0In complete: Needs Amish tional Imaging Evaluation Date of Service: 12/01 Follow Up: Additional Imagi ng Procedure(s): MM tomosynthesis screening BI Accession Number(s): [id number] cc: Robin Barnett MD EXAMINATION: MM SCREENING [...] 10/12/24 1138 DD/ 0915 TD/TT: 10/10/24 0932 Headwaitress: Janice Cruz Reviewed date:10/12/2024 12:30:21 PM Interpretation: Performing Lab:[facility], [address] [place] [phone] Notes/Report: Janice Cruz See Note Specimen held untested for 24 hours; Call to request Chemistry testing. MM tomosynthesis added views L Reviewed date:11/17/2024 05:21:48 PM Interpretation: Performing Lab: Notes/Report: [facility] [address] [place] [address] Mammography Report Signed Patient: Zahra Feliz MR#: [id number] 0023 : 1950 Acct:[id number] Age/Sex: 74 / F ADM Date: 11/02/24 Loc: HO.MAMMO Attending Dr: Robin Barnett MD Ordering Physician: Robin Barnett MD Results: 4Su spicious Finding Date of Service: 11/02/24 Follow Up: Biopsy Recommend ed Procedure(s): MM tomosynthesis added views L Accession Number(s): [id number] cc: Robin Barnett MD EXAMINATION: MM DIAGNOSTIC [...] 11/02/24 1312 DD/ 1230 TD/TT: 11/02/24 1230 Headwaitress: [facility] [address] [place] [address] Mammography Report Signed Patient: Gaby Feliz MR#: [id number] 0023 : 1950 Acct:[id number] Age/Sex: 74 / F ADM Date: 11/02/24 Loc: HO.MAMMO Attending Dr: Robin Barnett MD Ordering Physician: Robin Barnett MD Results: 4Su spicious Finding Date of Service: Follow Up: Biopsy Recommend ed Procedure(s): MM tomosynthesis added views L Accession Number(s): [id number] cc: Robin Barnett MD EXAMINATION: MM DIAGNOSTIC [...] 11/02/24 1312 DD/ 1230 TD/TT: 11/02/24 1230 Headwaitress: US breast LT limited mamm on ly Reviewed date:11/20/2024 08:30:49 AM Interpretation: Performing Lab: Notes/Report: [facility] [address] [place] [address] [place] [address] Ultrasound Report Signed Patient: Zahra Feliz MR#: [id number] 0023 : 1950 Acct:[id number] Age/Sex: 74 / F ADM Date: 11/02/24 Loc: HO.MAMMO Attending Dr: Robin Barnett MD Ordering Physician: Robin Barnett MD Date of Service: 11/02/24 Procedure(s): US breast LT limited mamm only Accession Number(s): [id number] cc: Robin Barnett MD EXAMINATION: MM DIAGNOSTIC [...] 11/02/24 1312 DD/ 1300 TD/TT: 11/02/24 1318 Headwaitress: [facility] [address] [place] [address] Ultrasound Report Signed Patient: Gaby Feliz MR#: [id number] 0023 : 1950 Acct:[id number] Age/Sex: 74 / F ADM Date: 11/02/24 Loc: HO.MAMMO Attending Dr: Robin Barnett MD Ordering Physician: Robin Barnett MD Date of Service: 11/02/24 Procedure(s): US evelyn ast LT limited mamm only Accession Number(s): [id number] cc: Robin Barnett MD EXAMINATION: MM DIAGNOSTIC [...] 11/02/24 1312 DD/ 1300 TD/TT: 11/02/24 1318 Headwaitress: Pathology Reviewed date:11/24/2024 07:18:25 PM Interpretation: Performing Lab:[facility], [address] [place] [phone] Notes/Report: ------ Name: Zahra Feliz Age/Sex: 74/F : 1950 Unit#: [id number] Attend Dr: Robin Barnett MD Re11/22/24 Status : DEP [facility] Disch: ------ SPEC : [id number] RECD : 11/22/24 STATUS: PERLA BEDOYA NUM: [id number] EMILY: 11/22/24-830 [facility] [address]: Lakesha Dumont DO ENTERED: 11/22/24-11 53 SP TYPE: Surgical OTHR DR: Robin Barnett MD ORDERED: HE Stain/2, Gross Micro L4, ER, LA, IHC ER/LA/Her2N/4, Ki-67, [id number] COMMENTS: As per the specimen requisition slip [...] at 2:00 Histologic type: Ductal Histologic grade (Merritt/MSBR histologic score): 1 - Glandular/tubular differentiation: Score: [...] Zahra Feliz Age/Sex: 74/F : 1950 Unit#: [id number] Attend Dr: Robin Barnett MD Re11/22/24 Status : [facility]: ------ SPEC : [id number] RECD : 11/22/24 STATUS: PERLA BEDOYA NUM: [id number] EMILY: 11/22/24 [facility] [address]: Lakesha Dumont DO ENTERED: 11/22/24-11 53 SP TYPE: Surgical OTHR DR: Robin Barnett MD ORDERED: HE Stain/2, Gross Micro L4, ER, LA, IHC ER/LA/Her2N/4, Ki-67, [id number] COMMENTS: As per the specimen requisition slip [...] Dual Link System-HRP. Progesterone recepto r: Clone GwF348; BiocWealthTouch Mach 4 detection system. Her-2/lashonda immunohistochemistry performed in accordance with ASCO/CAP recommendations (2007) and update (2013). Hercep Test Detection system: Po lymer type Scoring criteria: For ER/LA and Her-2/ lashonda: All internal (if present) and external controls react appropriately. ER and LA immunostai ns are scored as Positive (> [...] Zahra Feliz Age/Sex: 74/F : 1950 Unit#: [id number] Attend Dr: Robin Barnett MD Re11/22/24 Status : DEP [facility] Disch: ------ SPEC : [id number] RECD : 11/22/24 STATUS: PERLA BEDOYA NUM: [id number] EMILY: 11/22/[address]: Lakesha Dumont DO ENTERED: 11/22/24-11 53 SP TYPE: Surgical OTHR DR: Robin Barnett MD ORDERED: HE Stain/2, Gross Micro L4, ER, LA, IHC ER/LA/Her2N/4, Ki-67, [id number] COMMENTS: As per the specimen requisition slip the specimen is collected at 0831 an d placed in formalin at 0835. Gross Description (Continued) Cancer: ASCO/CAP Cli nical Practice Guideline Focus Update. Arch of Pathol Lab Med, 142, 2018: 2424-6417. Trixie KH, Hong ME, et al. Estrogen and Progesterone Receptor Testing in Breast Cancer: ASCO/CAP Guideline U pdate. Arch of Pathol Lab Med, 1442019: 545-563. Britt N, Gaviota P , et al. Adjuvant abemaciclib combined with endocrine therapy for high- risk early breast ca ncer: updated efficacy and Ki-[facility] analysis [facility]. Georgie Oncol. 2020;32(12):9744-6369. This case was review ed intradepartmentally; results were communicated to Drs. Melendez and Tim via secure text on 11/24/2024. Special studies orde red and performed: Immunostains for ER, LA, HER2 and Ki 67 Copies To: Robin Barnett MD [facility] [address] [place] [address] [phone] Lakesha Dumont DO [address] [place] [address] [phone] ------ Signed (signature on file) Zan Max MD 11/24/24 1115 ------ END OF REPORT MM tomosynthesis diagnostic LT Reviewed date:11/28/2024 12:28:38 PM Interpretation: Performing Lab: Notes/Report: [facility] [address] [place], [place] [address] Mammography Report Signed with Addenda Patient: Zahra Feliz MR#: [id number] 0023 : 1950 Acct:[id number] Age/Sex: 74 / F ADM Date: 11/22/24 Loc: HO.MAMMO Attending Dr: Robin Barnett MD Ordering Physician: Robin Barnett MD Results: 1Ne gative Date of Service: 11/22/24 Follow Up: 1 Year From [facility] ina Mammogram Procedure(s): MM tomosynthesis diagnostic LT Accession Number(s): [id number] cc: Robin Barnett MD ADDENDUM ADDENDUM #1 [...] 11/23/24 1423 DD/ 0815 TD/TT: 11/22/24 0852 Headwaitress: [facility] [address] [place] [id number] Mammography Report Signed with Volodymyr Patient: Gaby Feliz MR#: [id number] 0023 : 1950 Acct:[id number] Age/Sex: 74 / F ADM Date: 11/22/24 Loc: XENIAO Attending Dr: Robin Barnett MD Ordering Physician: Robin Barnett MD Results: 1Ne gative Date of Service: Follow Up: 1 Year From Orig ina Mammogram Procedure(s): MM tomosynthesis diagnostic LT Accession Number(s): [id number] cc: Robin Barnett MD ADDENDUM ADDENDUM #1 [...] in OV> 11/23/24 1423 DD/ 4 TD/TT: 11/22/24 0852 Headwaitress: US breast ndl core biopsy LT Reviewed date:11/28/2024 12:29:41 PM Interpretation: Performing Lab: Notes/Report: [facility] [place] [address] Ultrasound Report Signed with Addenda Patient: Zahra Feliz MR#: [id number] 0023 : 1950 Acct:[id number] Age/Sex: 74 / F ADM Date: 11/22/24 Loc: HO.MAMMO Attending Dr: Robin Barnett MD Ordering Physician: Dhaval Melendez MD Date of Service: 11/22/24 Procedure(s): US breast ndl core biopsy LT Accession Number(s): [id number] cc: Robin Barnett MD; Dhaval Melendez MD [...] OV> 11/23/24 1423 DD/ 9 TD/TT: 11/22/24899 Headwaitress: [facility] [address] [place] [address] [place] [address] Ultrasound Report Signed with Volodymyr Patient: Gaby Feliz MR#: [id number] 0023 : 1950 Acct:[id number] Age/Sex: 74 / F ADM Date: 11/22/24 Loc: HO.MAMMO Attending Dr: Robin Barnett MD Ordering Physician: Dhaval Melendez MD Date of Service: 11/22/24 Procedure(s): US evelyn ast ndl core biopsy LT Accession Number(s): [id number] cc: Robin Barnett MD; Dhaval Melendez MD [...] 11/23/24 1423 DD/ 0800 TD/TT: 11/22/24 0900 Headwaitress: MM tomosynthesis diagnostic LT Reviewed date:12/20/2024 06:55:58 PM Interpretation: Performing Lab: Notes/Report: [facility] [address] [place] [address] Mammography Report Signed Patient: Zahra Feliz MR#: [id number] 0023 : 1950 Acct:[id number] Age/Sex: 74 / F ADM Date: 12/20/24 Loc: HO.MAMMO Attending Dr: Dhaval Melendez MD Ordering Physician: Dhaval Melendez MD Results: 1Neg ative Date of Service: 12/20/24 Follow Up: 1 Year From [facility] Mammogram Procedure(s): MM tomosynthesis diagnostic LT Accession Number(s): [id number] cc: Robin Barnett MD; Dhaval Melendez MD [...] breast mass 2:00.. ANESTHESIA: lidocaine. LOCALIZATION SYSTEM: SeptRx LOCallizer Wire-Free Guidance System with 12g needle applicator. RADIOFREQUENCY TAG: ID # [id number] RF Tag ID confirmed with LOCalizer Guidance [...] 12/20/24 1047 DD/ 08 TD/TT: 12/20/24 08 Headwaitress: [facility] [address] [place] [address] Mammography Report Signed Patient: Gaby Feliz MR#: [id number] 0023 : 1950 Acct:[id number] Age/Sex: 74 / F ADM Date: 12/20/24 Loc: HO.MAMMO Attending Dr: Smiley Melendez MD Ordering Physician: Dhaval Melendez MD Results: 1Neg ative Date of Service: Follow Up: 1 Year From [facility] Mammogram Procedure(s): MM tomosynthesis diagnostic LT Accession Number(s): [id number] cc: Robin Barnett MD; Dhaval Melendez MD [...] breast mass 2:00.. ANESTHESIA: lidocaine. LOCALIZATION SYSTEM: SeptRx LOCallizer Wire-Free Guidance System with 12g needle applicator. RADIOFREQUENCY TAG: ID # [id number] RF Tag ID confirmed with LOCalizer Guidance [...] By: Lakesha Dumont DO Signed By: <Electron icalldevin signed by Lakesha Dumont DO in OV> 12/20/24 1047 DD/ 0800 TD/TT: 12/20/24 0825 Headwaitress: US Breast RF Tag Device Left Reviewed date:12/20/2024 06:54:22 PM Interpretation: Performing Lab: Notes/Report: [facility] [address] [place] [address] Ultrasound Report Signed Patient: Zahra Feliz MR#: [id number] 0023 : 1950 Acct:[id number] Age/Sex: 74 / F ADM Date: 12/20/24 Loc: HO.MAMMO Attending Dr: Dhaval Melendez MD Ordering Physician: Dhaval Melendez MD Date of Service: 12/20/24 Procedure(s): US Breast RF Tag Device Left Accession Number(s): [id number] cc: Robin Barnett MD; Dhaval Melendez MD [...] breast mass 2:00.. ANESTHESIA: lidocaine. LOCALIZATION SYSTEM: SeptRx LOCallizer Wire-Free Guidance System with 12g needle applicator. RADIOFREQUENCY TAG: ID # [id number] RF Tag ID confirmed with LOCalizer Guidance [...] in OV> 12/20/24 1047 DD/ 08 TD/TT: 12/20/24824 Headwaitress: [facility] [address] [place] [address] Ultrasound Report Signed Patient: Gaby Feliz MR#: [id number] 0023 : 1950 Acct:[id number] Age/Sex: 74 / F ADM Date: 12/20/24 Loc: HO.MAMMO Attending Dr: Smiley Melendez MD Ordering Physician: Dhaval Melendez MD Date of Service: 12/20/24 Procedure(s): US Evelyn ast RF Tag Device Left Accession Number(s): [id number] cc: Robin Barnett MD; Dhaval Melendez MD [...] breast mass 2:00.. ANESTHESIA: lidocaine. LOCALIZATION SYSTEM: SeptRx LOCallizer Wire-Free Guidance System with 12g needle applicator. RADIOFREQUENCY TAG: ID # [id number] RF Tag ID confirmed with LOCalizer Guidance [...] 12/20/2024 10:47 AM EDT Dictated By: Lakesha Dmuont DO Signed By: <Rayo harmon signed by Lakesha Dumont DO in OV> 12/20/24 1047 DD/ 9 TD/TT: 12/20/24824 Headwaitress: Pathology Reviewed date:12/29/2024 12:47:26 PM Interpretation: Performing Lab:[facility], [address] [place] [phone] Notes/Report: ------ Name: Zahra Feliz Age/Sex: 74/F : 1950 Unit#: [id number] Attend Dr: Dhaval Melendez MD Re12/27/24 Status : [facility] Location: [facility] Disch: ------ SPEC : [id number] RECD : 12/27/24-1312 STATUS: PERLA BEDOYA NUM: [id number] EMILY: 12/27/24-[address] [facility] [address]: Dhaval Melendez MD ENTERED: [...] cribriform CONTINUED ON NEXT PAGE ------ Name: Zahra Feliz Age/Sex: 74/F : 1950 [id number] Unit#: [id number] Attend Dr: Dhaval Melendez MD Re12/27/24 Status : [facility] Location: [facility] Disch: ------ SPEC : [id number] RECD : 12/27/24-1312 STATUS: [facility] NUM: [id number] EMILY: 12/27/24-[address] [facility] [address]: Dhaval Melendez MD ENTERED: [...] Part F) Lymph nodes Number examined: 4 [place]burn nodes: 2 Axillary nodes: 2 Number involved: 0 With macrometastases: N/A With micrometastases: N/A With isolated tumor cells: N/A Extranodal extension: N/A Size of largest met. deposit: N/A Treatment effect Breast: No known presurgical therapy Lymph nodes: No kno wn presurgical therapy TNM: pT1b pN0 (sn) ( AJCC 8th ed) Ancillary studies: P er previous biopsy ([id number]) reported as: ER: Positive LA: Positive HER2: Negative Ki-67: Low Note: For tumors gre ater than 5 mm in size with negative lymph nodes, prognostic genetic testing may be appro priate to guide further management. Clinical History Left breast cancer CONTINUED ON NEXT PAGE ------ Name: Zahra Feliz Age/Sex: 74/F : 1950 Unit#: [id number] Attend Dr: Dhaval Melendez MD Re12/27/24 Status : [facility] Location: [facility] Disch: ------ SPEC : [id number] RECD : 12/27/24-1312 [facility]: [id number] EMILY: 12/27/24-[address] [facility] [address]: Dhaval Melendez MD ENTERED: [...] Material Received A. Left breast lumpectomy B. Fairburn node #1- count 1600 C. Additional axilla ry tissue D. Additional axilla ry lymph node E. Fairburn node #2- count 1100 F. Additional anteri or medial margin Gross Description Received in six parts. Part A: Received [facility], for intraoperative consultation, labeled left breast lumpectomy? [...] as follows: A1 superior, slice 1; A2 xwzndytv-tbveap-rmgaxqyri, slice 2; CONTINUED ON NEXT PAGE ------ Name: Zahra Feliz Age/Sex: 74/F : 1950 Unit#: [id number] Attend Dr: Dhaval Melendez MD Re12/27/24 Status : [facility] Location: [facility] Disch: ------ SPEC : [id number] RECD : 12/27/24-1312 STATUS: PERLA BEDOYA NUM: [id number] EMILY: 12/27/24-[address] [facility] [address]: Dhaval Melendez MD ENTERED: 12/27/24-13 16 SP TYPE: Surgical OTHR DR: Robin Barnett MD ORDERED: HE Stain/4, Gross Micro L4/2, Gross Micro L5/4, Cytokeratin/6, IOC, IHC/2 COMMENTS: Cassettes A1-A9 are placed in formalin at 1342. Gross Description (Continued) A3 lbenyjzx-zajrqk-vlbytgadc, slice 3; A4 anterior-medial, slice 4; A5 anterior, slice 5; A6 medial-posterior, slice 5; A7 medial-posterior, slice 6; A8 anterior-lateral, slice 3; A9 inferior, slice 9. The intraoperative diagnosis is reported to Dr. Melendez as ?mass and biopsy site identified, close to anterior and medial margins, superior end of specimen? by Dr. Perez.(PK) Part B: Received in formalin labeled sentinel [...] F1-F5. CONTINUED ON NEXT PAGE ------ Name: Zahra Feliz Age/Sex: 74/F : 1950 Unit#: [id number] Attend Dr: Dhaval Melendez MD Re12/27/24 Status : [facility] Location: [facility] Disch: ------ SPEC : [id number] REC -131 STATUS: PERLA BEDOYA NUM: [id number] EMILY: 12/27/24-[address]: Dhaval Melendez MD [...] To: Robin Barnett MD [facility] [address] [place] [id number] Dhaval Melendez MD [facility] [address] [place] [address] ------ Signed (signature on file) Madeleine [place] 12/29/24 1138 ------ END OF REPORT NM sentinel node w imaging Reviewed date:12/28/2024 12:35:55 PM Interpretation: Performing Lab: Notes/Report: [address] [address] [address] Nuclear Medicine Report Signed Patient: Zahra Feliz MR#: [id number] 0023 : 1950 Acct:[id number] Age/Sex: 74 / F ADM Date: 12/27/24 Loc: [facility] Attending Dr: Dhaval Melendez MD Ordering Physician: Dhaval Melendez MD Date of Service: 12/27/24 Procedure(s): NM sentinel node w imaging Accession Number(s): [id number] cc: Robin Barnett MD; Dhaval Melendez MD [...] 12/27/24 0906 DD/ 0730 TD/TT: 12/27/24 0850 Headwaitress: [place] [address] Nuclear Medicine Report Signed Patient: Gaby Feliz MR#: [id number] 0023 : 1950 Acct:[id number] Age/Sex: 74 / F ADM Date: 12/27/24 Loc: .[facility] Attending Dr: Smiley Melendez MD Ordering Physician: Dhaval Melendez MD Date of Service: 12/27/24 Procedure(s): NM sen tinel node w imaging Accession Number(s): [id number] cc: Robin Barnett MD; Dhaval Melendez MD EXAMINATION: [place] LYMPHOSCINTIGRAPHY CLINICAL INFORMATION : Left breast mass. Biopsy-proven left breast IDC, for excision. COMPARISON: 5, 11/22/2024. TECHNIQUE: Left omid st lymphoscintigraphy injection [...] Frederic Farias MD 12/27/2024 09:06 AM EDT RP Dictated By: Frederic Jacob MD Signed By: <Electron icalldevin signed by Frederic Farias MD in OV> 12/27/24 0906 DD/ 0730 TD/TT: 12/27/24 0850 Headwaitress: ZACKARY surgical specimen Reviewed date:12/27/2024 03:55:12 PM Interpretation: Performing Lab: Notes/Report: [address] [address] [phone] Mammography Report Signed Patient: Zahra Feliz MR#: [id number] 0023 : 1950 Acct:[id number] Age/Sex: 74 / F ADM Date: 12/27/24 Loc: .[facility] Attending Dr: Dhaval Melendez MD Ordering Physician: Dhaval Melendez MD Results: Date of Service: 12/27/24 Follow Up: Procedure(s): MM surgical specimen Accession Number(s): [id number] cc: Robin Barnett MD; Dhaval Melendez MD Two-view left breast specimen radiographs demonstrate the marker clip and the tag within the specimen. Electronically signed by: Lakesha Dumont DO 12/27/2024 01:22 PM EDT RP Dictated By: Lakesha Dumont DO Signed By: <Electronically signed by Lakesha Dumont DO in OV> 12/27/24 1322 DD/ 1315 TD/TT: 12/27/24 1319 Headwaitress: [address] [address] [phone] Mammography Report Signed Patient: Gaby Feliz MR#: [id number] 0023 : 1950 Acct:[id number] Age/Sex: 74 / F ADM Date: 12/27/24 Loc: .[facility] Attending Dr: Smiley Melendez MD Ordering Physician: Dhaval Melendez MD Results: Date of Service: Follow Up: Procedure(s): MM kezia gical specimen Accession Number(s): [id number] cc: Robin Barnett MD; Dhaval Melendez MD Two-view left breast specimen radiographs demonstrate the marker clip and the tag within t he specimen. Electronically dao d by: Lakesha Dumont DO 12/27/2024 01:22 PM EDT RP Dictated By: Lakesha Dumont DO Signed By: <Electron ically signed by Lakesha Dumont DO in OV> 12/27/24 1322 DD/ 1315 TD/TT: 12/27/24 1319 Headwaitress: Complete Blood Count Auto Di ff Reviewed date:05/13/2025 02:22:14 PM Interpretation: Performing Lab:[facility], [address] [place] [phone] Notes/Report: White Blood Count 4.9 4.8-10.8 X10*3/uL [...] Microscopic Reviewed date:05/13/2025 02:29:31 PM Interpretation: Performing Lab:[address] [address] Notes/Report: Color Urine Yellow Appearance Urine Clear PH 7.0 5.0-9.0 Glucose Urine UA Negative Negative mg/dL Urine Blood Negative Negative Specific [place] - Urine 1.025 1.005-1.025 Urine Protein >=1000 (4+) Neg-Trace mg/dL Urine Ketones Trace Negative mg/dL Nitrite Urine Negative Negative Leukocyte Esterase Urine Trace Negative RBC Urine 0-2 0-2 /HPF WBC Urine 0-5 0-5 /HPF Squamous Epithelial Cell Urine 3-5 0-2 /HPF Bacteria Urine None Seen None Seen Hyaline Casts Urine >20 0-2 /LPF Comprehensive Met. Panel Reviewed date:05/13/2025 02:28:32 PM Interpretation: Performing Lab:[address] [address] Notes/Report: Sodium 140 135-145 mmol/L Potassium 4.2 [...] Acid Reviewed date:05/13/2025 02:21:41 PM Interpretation: Performing Lab:[address] [address] Notes/Report: Lactic Acid 1.4 0.5-2.0 mmol/L Troponin-I High Sensitivity Reviewed date:05/13/2025 02:24:10 PM Interpretation: Performing Lab:[address] [address] Notes/Report: Troponin-I High Sensitivity 6.5 <3.5-17.0 ng/L [facility] high sensitivity Troponin-I results should be used in conjunction with other diagnostic information such as ECG, clinical observations and information, and patient symptoms to aid in the diagnosis of AR. Lipase Reviewed date:05/13/2025 02:21:00 PM Interpretation: Performing Lab:[facility], [address] [place] [phone] Notes/Report: Lipase 15 8-78 U/L COVID-19 ID NOW ([facility]) Reviewed date:05/13/2025 02:21:51 PM Interpretation: Performing Lab:[facility], [address] [place] [phone] Notes/Report: IDNOW Serial# [id number] COVID-19 Test Positive Negative COVID-19 Note See [...] with other viruses. Testing facilities within the [facility] and its territories are required to report [...] by authorized laboratories. Testing performed on the [facility] ID NOW utilizing NAAT. CT angio head neck Reviewed date:05/13/2025 02:23:34 PM Interpretation: Performing Lab: Notes/Report: [address] [address] [address] Scan Report Signed Patient: Zahra Feliz MR#: [id number] 0023 : 1950 Acct:[id number] Age/Sex: 75 / F ADM Date: 05/12/25 Loc: .ED Attending Dr: Ordering Physician: Haily Melendez PA-C Date of Service: 05/12/25 Procedure(s): CT angio head neck Accession Number(s): [id number] cc: Haily Melendez PA-C; Robin Barnett MD Report Number: [id number]: Total DLP = 1469.00 mGy-cm Reason for [...] in OV> 05/12/252025 DD/ 23 TD/TT: 05/12/252023 Headwaitress: [place] [address] [address] Scan Report Signed Patient: Gaby Feliz MR#: [id number] 0023 : 1950 Acct:[id number] Age/Sex: 75 / F ADM Date: 05/12/25 Loc: [facility].ED Attending Dr: Ordering Physician: Haily Melendez PA-C Date of Service: 05/12/25 Procedure(s): CT ang io head neck Accession Number(s): [id number] cc: Haily Melendez PA-C; Robin Barnett MD [...] Dictated By: Kelsey Cleaning MD Signed By: <Rayo harmon signed by Kelsey Cleaning MD in OV> 05/12/252025 DD/ 23 TD/TT: 05/12/252023 Headwaitress: XR chest 2V Reviewed date:05/13/2025 02:21:24 PM Interpretation: Performing Lab: Notes/Report: [address] [address] XRay Report Signed Patient: Zahra Feliz MR#: [id number] 0023 : 1950 Acct:[id number] Age/Sex: 75 / F ADM Date: 05/12/25 Loc: .ED Attending Dr: Ordering Physician: Joni Light Date of Service: 05/12/25 Procedure(s): XR chest 2V Accession Number(s): [id number] cc: Robin Barnett MD; Joni Light Reason [...] signed by Mario Bledsoe MD in OV> 05/12/25 180 DD/ 58 TD/TT: 05/12/251758 Headwaitress: [address] [address] XRay Report Signed Patient: Gaby Feliz MR#: [id number] 0023 : 1950 Acct:[id number] Age/Sex: 75 / F ADM Date: 05/12/25 Loc: .ED Attending Dr: Ordering Physician: Joni Light Date of Service: 05/12/25 Procedure(s): XR chest 2V Accession Number(s): [id number] cc: Robin Barnett MD; Joni Light Reason for Exam: weakness CLINICAL HISTORY: weakness 2 view chest x-ray Comparison: None provided Findings: The lungs are clear. Prominent cardiac silhouette. Aortic valve replacement. Anterior cervical discectomy and fusion hardware. IMPRESSION: 1. No acute findings. This document has be en electronically signed by: Mario Bledsoe MD on 05/12/2025 17:59:54 Dictated By: Mario Garner MD Signed By: <Rayo harmon signed by Mario Bledsoe MD in OV> 05/12/251800 DD/ 58 TD/TT: 05/12/251758 Headwaitress: Troponin-I High Sensitivity Reviewed date:05/13/2025 02:21:34 PM Interpretation: Performing Lab:[facility], [address] [place] [address] Notes/Report: Troponin-I High Sensitivity 8.0 <3.5-17.0 ng/L [facility] high sensitivity Troponin-I results should be used in conjunction with other diagnostic information such as ECG, clinical observations and information, and patient symptoms to aid in the diagnosis of AR. Janice Cruz Reviewed date:08/07/2025 11:07:44 AM Interpretation: Performing Lab:[facility], [address] [place] [phone] Notes/Report: Janice Cruz See Note Specimen held untested for 24 hours; Call to request Chemistry testing. Reason For Referral No Information Medications Medication SIG (Take, Route, Frequency, Duration) Notes Start Date End Date Status Valsartan-hydroCHLOROthiazi de 160-12.5 MG TAKE 1 TABLET BY MOUTH EVERY DAY for 90 Active Amoxicillin 500 MG 4 capsule Orally one hour before dentist for 1 days 03/02/2023 Active oxyBUTYnin Chloride 5 MG TAKE 1 TABLET B Y MOUTH TWICE A DAY for 90 Active amLODIPine Besylate 5 MG [...] Problem Status W/U Status Risk Notes Problem 88487974 Lymphocytosis (D72.820) Active confirm ed Problem 617539816 Chronic tension- type headache, not intractable (G44.229) Active confirmed Problem 930686414 Overactive bladd er (N32.81) Active confirmed Problem 72737531 Essential hypert ension (I10) Active confirmed Problem 5754309 Prediabetes (R73.09) Active confirmed Problem 594130914 Low HDL (under 4 0) (E78.6) Active confirmed Problem History of aortic valve replacement (6678205924466 ) History of aortic valve replacement (Z95.2) Active confirmed Problem 367423021 Cervical disc di sease (M50.90) Active confirmed Problem 52419923 Iron deficiency anemia, unspecified iron deficiency anemia type (D50.9) Active confirmed Problem 16930133 LBBB (left bundl e branch block) (I44.7) Active confirmed Problem 744703485 Severe aortic st enosis (I35.0) Active confirmed Problem 069448952 Pure hypercholesterolemia (E78.00) Active confirmed Problem 263577049 Body mass index (BMI) of 34.0-34.9 in adult (Z68.34) Active confirmed Problem 209167383 Hyperplastic col onic polyp, unspecified part of colon (K63.5) Active confirmed Problem 869063675 Moderate aortic stenosis (I35.0) Active confirmed Problem 70174921 Myelopathy (G95.9) Active confirmed Problem 648538955 Gastroesophageal reflux disease with esophagitis without hemorrhage (K21.00) Active confirmed Vital Signs Blood pressure diastolic 70 mm Hg 10/19/2024 Height 60.50 in 10/19/2024 Blood pressure systolic 156 mm Hg 10/19/2024 Weight 172 lbs 10/19/2024 BMI 33.03 kg/m2 10/19/2024 Encounters Encounter Location Date Provider Diagnosis Robin Barnett MD [address] [place] [address] [id number] 08/11/2024 Robin Barnett Prediabetes R73.09 ; Essential hypertension I10 ; Lymphocytosis D72.820 ; Pure hypercholesterolemia E78.00 and Anemia D64.9 Robin Barnett MD [address] [place] [address] [id number] 10/12/2024 Robin Barnett Loss of hair L65.9 a nd Iron deficiency anemia, unspecified iron deficiency anemia type D50.9 Robin Barnett MD [address] [place] [address] [id number] 02/19/2025 Robin Barnett Iron deficiency anem ia, unspecified iron deficiency anemia type D50.9 Robin Barnett MD [address] [place] [address] [id number] 08/07/2025 Robin Barnett Prediabetes R73.09 ; Essential hypertension I10 ; Lymphocytosis D72.820 ; Pure hypercholesterolemia E78.00 and Iron deficiency anemia, unspecified iron deficiency anemia type D50.9 Robin Barnett MD [address] [place] [address] [id number] 08/14/2024 Robin Barnett Overactive bladder N 32.81 [...] Barnett MD [address] [place] [address] [id number] 10/19/2024 Robin Barnett Essential hypertensi on I10 Robin Barnett MD [address] [place] [address] [id number] 05/14/2025 Robin Barnett MD [address] [place] [address] [id number] 05/18/2025 Robin Barnett MD [address] [place] [address] [id number] 07/10/2025 Robin Barnett History of aortic va lve replacement Z95.2 Assessments Encounter Date Diagnosis (ICD Code) Assessment Notes Treatment Notes Treatment Clinical Notes Section Notes 08/11/2024 Prediabetes (ICD-10 - R73.09) 08/11/2024 Essential hypertensi on (ICD-10 - I10) 10/12/2024 Loss of hair (ICD-10 - L65.9) 10/12/2024 Iron deficiency anem ia, unspecified iron deficiency anemia type (ICD-10 - D50.9) 02/19/2025 Iron deficiency anem ia, unspecified iron deficiency anemia type (ICD-10 - D50.9) 08/07/2025 Prediabetes (ICD-10 - R73.09) 08/14/2024 Overactive bladder (ICD-10 - N32.81) order faxed to [facility], pending diagnostic testing 08/14/2024 Gastroesophageal ref lux disease with esophagitis without hemorrhage (ICD-10 - K21.00) stable, will contnue current regiment 10/19/2024 Essential hypertensi on (ICD-10 - I10) doing well, will continue current regiment 07/10/2025 History of aortic va lve replacement (ICD-10 - Z95.2) 08/11/2024 Lymphocytosis (ICD-1 0 - D72.820) 08/07/2025 Essential hypertensi on (ICD-10 - I10) 08/14/2024 Iron deficiency anem ia, unspecified iron deficiency anemia type (ICD-10 - D50.9) to take iron and repeat in 2 months 08/11/2024 Pure hypercholesterolemia (ICD-10 - E78.00) 08/07/2025 Lymphocytosis (ICD-1 0 - D72.820) 08/14/2024 Loss of hair (ICD-10 - L65.9) 08/11/2024 Anemia (ICD-10 - D64.9) 08/07/2025 Pure hypercholesterolemia (ICD-10 - E78.00) 08/14/2024 Bilateral carotid br uits (ICD-10 - R09.89) 08/07/2025 Iron deficiency anem ia, unspecified iron deficiency anemia type (ICD-10 - D50.9) 08/14/2024 Prediabetes (ICD-10 - R73.09) stable, no [...] ECHO 02/16/2013 Complete Blood Count Auto Diff 5 Comprehensive [place]. Panel Fast 5 UA ClnCatch+Micro w/rflx Cult 08/07/2025 Next Appt Details Provider Name:Robin harley, 08/17/2025 08:30:00 AM, [address] [place] [address] Drive, [address], [place], [place], [phone], Insurance Providers Payer Name Payer Address Payer Phone Subscriber Number Group Number Insured Name Patient Relationship to Insured Coverage Start Date Coverage End Date MEDICARE NHIC [address] [place] [address] [id number] Zahra Feliz Self - patient is the insured 5 [employer] SUPPLEMENT [address] [address] [place] [address] [phone] [id number] Zahra Feliz Self - patient is the insured Medical (General) History Medical History History ICD Code hematuria with neg w/u2 times colonoscopy 2005 hyperplasti c polyp; colonoscopy by Dr. 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
== END 2025-08-07 07:31 | disposition home or self-care (01) ==
LOC: HO.LNP 07:30
PROVIDERS: Visit Provider Internal Medicine
DX: I10 Essential (primary) hypertension (principal); D72.820 Lymphocytosis (symptomatic); E78.00 Pure hypercholesterolemia, unspecified; D50.9 Iron deficiency anemia, unspecified; R73.09 Other abnormal glucose
CPT/HCPCS: 80053; 80061; 81001; 83540; 85025